=== PATIENT | male | born 1995 | race American Indian/Alaskan Native ===

== ENCOUNTER 2016-07-01 09:13 | Emergency (ER) | payer OTHER ==
[2016-07-01 09:55] VITALS: BP 122/75
[2016-07-01 10:43] LABS: Bilirubin,Urine NEG (Negative); Blood,Urine NEG (Negative); Ketones,Urine NEG (Negative); Leukocyte Esterase,Urine LG (Negative); Mucus,Urine FEW /HPF; Nitrite,Urine NEG (Negative); Protein,Urine <15 mg/dL mg/dL (Negative); Urobilinogen,Urine < 2.0 mg/dL (<2.0)
[2016-07-01] MEDS ORDERED: ZITHROMAX PO ONE (11:27)
[2016-07-01] MEDS ORDERED: ROCEPHIN IM ONE (11:27)
--- NOTE | 2016-07-01 11:33 | Emergency Department Report ---
ED Dysuria HPI - HPI Chief Complaint: Urogenital-Male Stated Complaint: PAINFUL URINATION/NAUSEA AND VOMITING Time Seen by Provider: 07/01/16 11:18 Duration: 3 Days Location of Discomfort: Urethra (dysuria) Severity: Mild Symptoms: Dysuria: Yes, Frequency: No, Suprapubic Pain: No, Flank Pain: No, Fever: No, Hematuria: No, Abdominal Pain: No, Previous UTI's: No Other History: Reports dysuria/discharge x few days. Emesis x 1. No current n/ v. No abd/flank pain. No fevers. ED Review of Systems ROS: Stated complaint: PAINFUL URINATION/NAUSEA AND VOMITING Other details as noted in HPI Comment: All other systems reviewed and negative Constitutional: denies: chills, fever Eyes: denies: eye pain, eye discharge, vision change ENT: denies: ear pain, throat pain Respiratory: denies: cough, shortness of breath, wheezing Cardiovascular: denies: chest pain, palpitations Endocrine: no symptoms reported Gastrointestinal: denies: abdominal pain, nausea, diarrhea Genitourinary: dysuria, discharge. denies: urgency Musculoskeletal: denies: back pain, joint swelling, arthralgia Skin: denies: rash, lesions Neurological: denies: headache, weakness, paresthesias Psychiatric: denies: anxiety, depression Hematological/Lymphatic: denies: easy bleeding, easy bruising ED Past Medical Hx - Past Medical History Previous Medical History?: No - Surgical History Past Surgical History?: No - Social History Smoking Status: Current Every Day Smoker Substance Use Type: None - Medications Home Medications: Home Medications Medication Instructions Recorded Confirmed Last Taken Type Gentamicin 0.3% Ophth Soln 2 drops OP Q4H #1 bottle 06/29/16 Unknown Rx Ibuprofen [Motrin] 600 mg PO Q8H PRN #16 tablet 06/29/16 Unknown Rx Sulfamethoxazole/Trimethoprim 1 each PO BID #14 tablet 07/01/16 Unknown Rx [Bactrim DS TAB] Dysuria Exam - Exam General: Vital signs noted. No distress. Alert and acting appropriately. Heart RRR, lungs CTAB, abdomen SNTND Exam: Yes Moist Mucous Membranes, No CVA Tenderness, No Abdominal Tenderness, No Rigidity or Guarding Labs: Lab Results 07/01/16 Range/Units 10:19 Urine Color Yellow (Yellow) Urine Turbidity Clear (Clear) Urine pH 6.0 (5.0-7.0) Ur Specific [place] 1.013 (1.003-1.030) Urine Protein <15 mg/dl (Negative) mg/dL Urine Glucose (UA) Neg (Negative) mg/dL Urine Ketones Neg (Negative) mg/dL Urine Blood Neg (Negative) Urine Nitrite Neg (Negative) Urine Bilirubin Neg (Negative) Urine Urobilinogen < 2.0 (<2.0) mg/dL Ur Leukocyte Esterase Lg (Negative) Urine WBC (Auto) 62.0 H (0.0-6.0) /HPF Urine RBC (Auto) 3.0 (0.0-6.0) /HPF Urine Mucus Few /HPF ED Course Vital Signs 07/01/16 09:52 Temperature 98.1 F Pulse Rate 65 Respiratory 16 Rate Blood Pressure 122/75 O2 Sat by Pulse 100 Oximetry - Reevaluation(s) Reevaluation #1: 07/01/16 11:29 NAD, stable for d/c. ED Medical Decision Making - Medical Decision Making Pt with UTI/urethritis- will treat. - Differential Diagnosis STI, UTI Critical care attestation.: If time is entered above; I have spent that time in minutes in the direct care of this critically ill patient, excluding procedure time. ED Disposition Clinical Impression: Urethritis Disposition: DISCHARGED TO HOME OR SELFCARE Is pt being admited?: No Condition: Good Instructions: Nonspecific Urethritis in Men (ED) Prescriptions: Sulfamethoxazole/Trimethoprim [Bactrim DS TAB] 1 each PO BID #14 tablet Referrals: PRIMARY CARE, [Primary Care Provider] - 3-5 Days Forms: STI Treatment and Prevention Time of Disposition: 11:33
== END 2016-07-01 11:55 | disposition home or self-care (01) ==
LOC: ED 09:13
DX: N34.2 Other urethritis (principal); F17.200 Nicotine dependence, unspecified, uncomplicated
CPT/HCPCS: 81001; 96372; 99283; J0696

== ENCOUNTER 2017-04-08 06:48 | Inpatient (IN) | payer OTHER ==
[2017-04-08] MEDS ORDERED: NACL 0.9% 1000 ML 1,000 ML IV ONE (06:59)
--- NOTE | 2017-04-08 07:21 | Emergency Department Report ---
HPI - General Chief Complaint: Cardiac Arrest/CPR Time Seen by Provider: 04/08/17 06:59 - HPI HPI: This is a 21-year-old -[place] male presents to the emergency department from snf after going unconscious and having a cardiac arrest. His cellmate allegedly medially started CPR. When EMS got there the patient was pulseless. He received ACLS including multiple defibrillations for V. fib. He received 4 rounds of epinephrine and one of sodium bicarbonate and they had return of spontaneous circulation just prior to presentation. The patient was intubated and given bag valve ventilation. Allegedly the patient does not have any past medical history other than being worked up for some transient hypotension at the facility. ED Past Medical Hx - Past Medical History Previous Medical History?: Yes Additional medical history: Hypotension - Social History Smoking Status: Current Every Day Smoker - Medications Home Medications: Home Medications Medication Instructions Recorded Confirmed Last Taken Type Gentamicin 0.3% Ophth Soln 2 drops OP Q4H #1 bottle 06/29/16 Unknown Rx Ibuprofen [Motrin] 600 mg PO Q8H PRN #16 tablet 06/29/16 Unknown Rx Sulfamethoxazole/Trimethoprim 1 each PO BID #14 tablet 07/01/16 Unknown Rx [Bactrim DS TAB] ED Review of Systems ROS: Stated complaint: CARDIAC ARREST Other details as noted in HPI Comment: Unobtainable due to pts medical conditions Physical Exam - Physical Exam Vital Signs: Vital Signs 04/08/17 06:58 Pulse Rate 94 H Respiratory 16 Rate Blood Pressure 119/90 O2 Sat by Pulse 100 Oximetry Physical Exam: GENERAL: The patient is ill-appearing and unresponsive. HENT: Normocephalic. Atraumatic. Patient has moist mucous membranes. Endotracheal tube and collar in place. EYES: Pupils are sluggish but reactive to light and equal bilaterally. NECK: Supple. Trachea is midline. CHEST/LUNGS: Coarse breath sounds with the chest. There are some shallow agonal spontaneous respirations. HEART/CARDIOVASCULAR: Regular. There is no tachycardia. There is no murmur. ABDOMEN: Abdomen is soft, nontender. Patient has normal bowel sounds. There is no abdominal distention. SKIN: Skin is cool but dry. NEURO: Patient is unresponsive to any stimuli. He does not follow any commands. MUSCULOSKELETAL: There is no obvious deformity. There is no evidence of acute injury. ED Course Vital Signs 04/08/17 06:58 Pulse Rate 94 H Respiratory 16 Rate Blood Pressure 119/90 O2 Sat by Pulse 100 Oximetry - Consultations Consultation #1: I spoke to the coyote hunter electron beam machine welder setter, Dr. Stein, who took a look at the EKGs and agrees that there are some ischemic changes but does not appear as if there is a STEMI or primary cardiac issue requiring emergent catheterization. Dr. Stein plans to do a catheterization this morning assuming there are no other complicating issues. The patient will be admitted to the hospitalist service. 04/08/17 07:20 ED Medical Decision Making - Lab Data Result diagrams: 04/08/17 07:06 04/08/17 07:06 - EKG Data -: EKG Interpreted by Me EKG shows normal: sinus rhythm (ectopic atrial rhythm), axis, intervals, QRS complexes (RSR' to V2), ST-T waves (ST depressions to the lateral leads) Rate: normal - EKG Data When compared to previous EKG there are: previous EKG unavailable Interpretation: other (ectopic atrial rhythm, rate of 80 bpm, RSR' in V2, ST depressions in the anterior lateral leads. No ST elevation DC) - Radiology Data Radiology results: report reviewed, image reviewed interpreted by me: Chest x-ray shows some fluid versus pulmonary contusions to the bilateral lung joseph. No pneumothorax. No obvious rib fractures. CRANIAL CT SCAN: History: Altered mental status. Serial contiguous axial images were obtained through the cranium. Intravenous contrast material was not administered. The ventricles are normal in size and appearance. There is no mass effect or midline shift. No areas of abnormally increased or decreased attenuation are seen. No mass lesion is seen. The mastoid air cells and visualized portions of the sinuses are normal. IMPRESSION: Cranial CT scan within normal limits. Transcribed By: MRP Dictated By: JOEL FERNANDEZ MD Electronically Authenticated By: JOEL FERNANDEZ MD Signed Date/Time: 04/08/17 0732 - Medical Decision Making This patient presented with a return of spontaneous circulation after about 45 minutes of ACLS after the patient collapsed in snf unresponsive. CT of the head did not show any intracranial hemorrhage. The first EKG showed some ischemic changes to the anterolateral region but no ST elevation DC. Cardiology was contacted and agrees that it is not STEMI and code STEMI could be canceled but he will be taken for an emergent heart catheterization. Labs show leukocytosis of 33,000 is most likely reactive to the resuscitation efforts. He has some elevation and the liver enzymes which could be also from the resuscitation efforts or the start of shock liver. Chest x-ray shows what appears to be either some fluid throughout the bilateral lung joseph but also could be underlying pulmonary contusions. He remained intubated and does not require any sedation at this time and remains unresponsive but otherwise his vitals appear to be holding. He will be admitted to the ICU and the hospitalist service has been notified for admission. - Differential Diagnosis DC, PE, intracranial hemorrhage, dysrhythmia Critical Care Time: Yes Critical care time in (mins) excluding proc time.: 35 Critical care attestation.: If time is entered above; I have spent that time in minutes in the direct care of this critically ill patient, excluding procedure time. Critical care time was spent on this patient and doing his initial evaluation, multiple re- evaluations, ordering an interpretation of labs and imaging, discussion with the coyote hunter and hospitalist. Critical Care Time: 35 minutes ED Disposition Clinical Impression: Cardiac arrest, Abnormal EKG, Elevated liver enzymes, Unresponsive Leukocytosis Qualifiers: Leukocytosis type: unspecified Qualified Code(s): D72.829 - Elevated white blood cell count, unspecified Disposition: DC-09 OP ADMIT IP TO THIS HOSP Is pt being admited?: Yes Condition: Critical Time of Disposition: 09:43
[2017-04-08] MEDS ORDERED: ASPIRIN PR ONE (07:22)
[2017-04-08 07:26] LABS: Hematocrit 43.2 % (35.5-45.6); Hemoglobin 14.3 gm/dl (11.8-15.2); Mean Corpuscular HGB Conc 33 % (32-34); Mean Corpuscular Hemoglobin 30 pg (28-32); Mean Corpuscular Volume 90 fl (84-94); Platelet Count 174 K/mm3 (140-440); Red Blood Count 4.81 M/mm3 (3.65-5.03); Red Cell Distribution Width 13.8 % (13.2-15.2)
[2017-04-08 07:30] LABS: White Blood Count 33.2 K/mm3 (4.5-11.0)
[2017-04-08 07:39] LABS: INR 1.27 (0.87-1.13)
[2017-04-08 07:40] LABS: Partial Thromboplastin Time 51.7 Sec. (24.2-36.6)
--- NOTE | 2017-04-08 07:49 | Cat Scan Report ---
CRANIAL CT SCAN: History: Altered mental status. Serial contiguous axial images were obtained through the cranium. Intravenous contrast material was not administered. The ventricles are normal in size and appearance. There is no mass effect or midline shift. No areas of abnormally increased or decreased attenuation are seen. No mass lesion is seen. The mastoid air cells and visualized portions of the sinuses are normal. IMPRESSION: Cranial CT scan within normal limits.
[2017-04-08 07:52] LABS: Alanine Aminotransferase 223 units/L (7-56); Albumin 3.2 g/dL (3.9-5); Albumin/Globulin Ratio 1.3 %; Alkaline Phosphatase 83 units/L (35-129); Anion Gap 30 mmol/L; BUN/Creatinine Ratio 8; Blood Urea Nitrogen 11 mg/dL (9-20); Calcium 7.2 mg/dL (8.4-10.2); Carbon Dioxide 15 mmol/L (22-30); Chloride 98.4 mmol/L (98-107); Glucose 336 mg/dL (75-100); Potassium 3.5 mmol/L (3.6-5.0); Sodium 140 mmol/L (137-145); Total Protein 5.7 g/dL (6.3-8.2)
[2017-04-08 08:00] LABS: Urine Drugs of Abuse Note Disclamer
[2017-04-08 08:12] LABS: Bilirubin,Urine NEG (Negative); Blood,Urine NEG (Negative); Ketones,Urine NEG (Negative); Leukocyte Esterase,Urine NEG (Negative); Mucus,Urine FEW /HPF; Nitrite,Urine NEG (Negative); Protein,Urine <15 mg/dL mg/dL (Negative); Urobilinogen,Urine < 2.0 mg/dL (<2.0)
[2017-04-08] MEDS ORDERED: CALAN ONE (08:16)
[2017-04-08] MEDS ORDERED: HEPARIN 10,000 UNITS/10 ML ONE (08:16)
[2017-04-08] MEDS ORDERED: XYLOCAINE 2% INFILTRATI ONE ×2 (08:16→14:00)
[2017-04-08] MEDS ORDERED: HEPARIN/NS 5000 UNIT/500ML(CATH LAB) 1,000 ML IR ONE (08:16)
[2017-04-08] MEDS ORDERED: NITROGLYCERIN SYRINGE 3 ML ONE (08:16)
[2017-04-08] MEDS ORDERED: NACL 0.9% 500 ML 0 ML ONE (08:17)
[2017-04-08] MEDS ORDERED: ADRENALIN ONE (08:27)
[2017-04-08 08:30] LABS: Cholesterol 139 mg/dL (50-199); HDL Cholesterol 46 mg/dL (40-59); LDL Cholesterol,Direct 71 mg/dL (50-130); Triglycerides 110 mg/dL (2-149)
[2017-04-08] MEDS ORDERED: ZEMURON IV ONE (08:39)
--- NOTE | 2017-04-08 09:04 | Event Note ---
Date: 04/08/17 Detailed cardiology consultation dictated. Pt is a 21 YO male with no known significant past medical history. Pt is an inmate who reportedly suffered a cardiac arrest in his care home cell this AM. His cellmate allegedly started CPR. On EMS arrival, the patient was found to be pulseless and thus received ACLS including multiple defibrillations for VF and was intubated. EKG following arrival was concerning for STEMI and pt was taken to energy systems laboratory director for emergent coronary angiogram. Pt s/p LHC which revealed normal coronaries, normal LVEF. Pt remains intubated and is to be admitted per hospitalists to CCU. Will obtain echo. Further recommendations to follow per hospital course. Nena HARRIS NP / DR. Arjun ZAMORA
[2017-04-08] MEDS ORDERED: ZOFRAN IV PRN (09:05)
[2017-04-08] MEDS ORDERED: MORPHINE IV PRN (09:05)
--- NOTE | 2017-04-08 09:12 | Cardiac Catherization Report ---
CARDIAC CATHETERIZATION REFERRING PHYSICIAN: Dr. Pizarro in the Emergency Room. INDICATION FOR PROCEDURE: The patient is a 21-year-old -[place] gentleman, who was found down [facility]. Unclear circumstances, underwent VF arrest followed by some 45 minutes of resuscitation efforts via ACLS protocol, brought to the Emergency Room, intubated. Initial EKG shows questionable ST depression and ST elevation in AVR. Head CT is negative for intracranial hemorrhage and he is referred for urgent left heart catheterization. PROCEDURE IN DETAIL: The patient was brought to the operations label clerk in an urgent fashion, prepped and draped in sterile fashion. His Evans's test was normal. A 2 mL of 2% lidocaine used to anesthetize the right wrist. A standard 6-Telugu hydrophilic sheath used to cannulate the right radial artery via modified Seldinger technique. All exchanges performed to exchange a J-tip guidewire. JL3.5 catheter used to engage left main. No dampening or ventricularization. Cineangiography performed in all projections. JR4 catheter used to cross the aortic valve under fluoroscopic guidance. Left ventriculography performed in 30 GENTILE and 30 INDONESIAN projections via hand injections, catheter flushed. Manual pullback performed with continuous pressure monitoring. Catheter used to engage the right coronary. No dampening or ventricularization. Cineangiography performed in all projections. Next, catheter removed from the body of wire, sheath removed. Manual pressure used to achieve hemostasis. DATA: Aortic pressure is 150/90, LV pressure is 150, LVP of 22 mmHg. Left ventriculography revealed borderline to low normal systolic performance with an estimated ejection fraction of 50% to 55%. No evidence of aortic stenosis. CORONARY ANATOMY: This is a codominant system. Right coronary is a moderate sized vessel, courses AV groove, distally bifurcates in the posterior descending and posterolateral branch. No discrete stenosis identified. Left main without significant disease, bifurcates LAD and left circumflex. LAD is a moderate sized vessel, courses anterior intergroove, wraps around the apex, no significant disease. Left circumflex, moderate sized vessel, courses AV groove. No significant disease. The patient remained in normal sinus rhythm and normotensive without dysrhythmias throughout the procedure. CONCLUSIONS: 1. No angiographic evidence of significant epicardial coronary disease in this codominant system. 2. Low normal systolic performance with estimated ejection fraction of 50% to 55%. 3. No evidence of aortic stenosis. Standard radial care, etiology of his arrest is unclear. It is unlikely to be due to primary coronary insufficiency. The circumstances of the arrest are still not entirely known. Check an echocardiogram. He will be admitted to ICU and by the lock corner machine operator team will continue to follow along. JOB# [id number] SBM/NTS
--- NOTE | 2017-04-08 09:33 | History and Physical Report ---
<CONY ROMERO - Last Filed: 04/08/17 13:26> History of Present Illness Date of examination: 04/08/17 Date of admission: 04/08/2017 Chief complaint: cardiac arrest History of present illness: Patient is a 21 years old male with no known significant past medical history who presents to the emergency department from long-term after going unconscious and having a cardiac arrest. Patient found to have acute hypoxic and hypercapnic respiratory failure, unable to protect his airway,intubated and sedated; therefore unable to obtain detailed history. Per ER physican and charts patient's inmate who reportedly suffered a cardiac arrest in his long-term cell this morning and cellmate allegedly started CPR. On EMS arrival, the patient was found to be pulseless and thus received ACLS and shocked 15 times for VF and was intubated. Patient when he got to emergency department was taken straight to packing house laborer coronary angiogram concerning for STEM. S/p LHC which revealed normal coronaries, normal LVEF per cardiology. No reports of fever, chills, chest pain, trauma or recent ill contacts. Past History Past Medical History: other (unable to obtain due to patients mental status ) Medications and Allergies Allergies Allergy/AdvReac Type Severity Reaction Status Date / Time No Known Allergies Allergy Unverified 06/29/16 06:47 Home Medications Medication Instructions Recorded Confirmed Last Taken Type Gentamicin 0.3% Ophth Soln 2 drops OP Q4H #1 bottle 06/29/16 Unknown Rx Ibuprofen [Motrin] 600 mg PO Q8H PRN #16 tablet 06/29/16 Unknown Rx Sulfamethoxazole/Trimethoprim 1 each PO BID #14 tablet 07/01/16 Unknown Rx [Bactrim DS TAB] Active Meds: Active Medications Acetaminophen (Tylenol) 650 mg PO Q4H PRN PRN Reason: Pain MILD(1-3)/Fever >100.5/MONTOYA Bisacodyl (Dulcolax) 10 mg MI QDAY PRN PRN Reason: Constipation unrelieved by [facility] [place] Heparin Sodium (Porcine) (Heparin) 5,000 unit SUB-Q Q12HR LEIA Morphine Sulfate (Morphine) 2 mg IV Q4H PRN PRN Reason: Pain, Moderate (4-6) Ondansetron HCl (Zofran) 4 mg IV Q8H PRN PRN Reason: N/V unrelieved by Reglan Review of Systems ROS unobtainable: due to mental status (unable to obtain due to patients mental status ) Exam - Constitutional Vitals: Temp Pulse Resp BP Pulse Ox 94.4 F L 78 22 127/94 99 04/08/17 07:30 04/08/17 07:30 04/08/17 07:30 04/08/17 07:30 04/08/17 07:30 General appearance: Present: severe distress, other ( Unable to protect his airway,intubated and sedated;) - Neck Neck: Present: supple - Respiratory Respiratory effort: normal Respiratory: bilateral: diminished - Cardiovascular Rhythm: regular Heart Sounds: Present: S1 & S2 - Abdominal General gastrointestinal: Present: soft, non-tender Male genitourinary: Present: deferred - Rectal Rectal Exam: deferred - Integumentary Integumentary: Present: clear, warm, dry - Musculoskeletal Musculoskeletal: right sided weakness, left sided weakness - Psychiatric Psychiatric: other ( unable to protect his airway,intubated and sedated;) - Neurologic Neurologic: other ( unable to protect his airway,intubated and sedated;) Results - Labs CBC & Chem 7: 04/08/17 12:10 04/08/17 12:10 Labs: Laboratory Last Values WBC 33.2 K/mm3 (4.5-11.0) H 04/08/17 07:06 RBC 4.81 M/mm3 (3.65-5.03) 04/08/17 07:06 Hgb 14.3 gm/dl (11.8-15.2) 04/08/17 07:06 Hct 43.2 % (35.5-45.6) 04/08/17 07:06 MCV 90 fl (84-94) 04/08/17 07:06 MCH 30 pg (28-32) 04/08/17 07:06 MCHC 33 % (32-34) 04/08/17 07:06 RDW 13.8 % (13.2-15.2) 04/08/17 07:06 Plt Count 174 K/mm3 (140-440) 04/08/17 07:06 Lymph # Accelerator Systems Director 04/08/17 07:06 PT 16.5 Sec. (12.2-14.9) H 04/08/17 07:06 INR 1.27 (0.87-1.13) H 04/08/17 07:06 APTT 51.7 Sec. (24.2-36.6) H 04/08/17 07:06 Sodium 140 mmol/L (137-145) 04/08/17 07:06 Potassium 3.5 mmol/L (3.6-5.0) L 04/08/17 07:06 Chloride 98.4 mmol/L (98-107) 04/08/17 07:06 Carbon Dioxide 15 mmol/L (22-30) L 04/08/17 07:06 Anion Gap 30 mmol/L 04/08/17 07:06 BUN 11 mg/dL (9-20) 04/08/17 07:06 Creatinine 1.4 mg/dL (0.8-1.5) 04/08/17 07:06 Estimated GFR > 60 ml/min 04/08/17 07:06 BUN/Creatinine Ratio 8 % 04/08/17 07:06 Glucose 336 mg/dL (75-100) H 04/08/17 07:06 POC Glucose 193 (70-105) H 04/08/17 09:22 Calcium 7.2 mg/dL (8.4-10.2) L 04/08/17 07:06 Total Bilirubin 0.30 mg/dL (0.1-1.2) 04/08/17 07:06 AST 265 units/L (5-40) H 04/08/17 07:06 ALT 223 units/L (7-56) H 04/08/17 07:06 Alkaline Phosphatase 83 units/L (35-129) 04/08/17 07:06 Total Creatine Kinase 623 units/L (55-170) H 04/08/17 07:06 Troponin T 0.321 ng/mL (0.00-0.029) H* 04/08/17 07:06 Total Protein 5.7 g/dL (6.3-8.2) L 04/08/17 07:06 Albumin 3.2 g/dL (3.9-5) L 04/08/17 07:06 Albumin/Globulin Ratio 1.3 % 04/08/17 07:06 Triglycerides 110 mg/dL (2-149) 04/08/17 07:06 Cholesterol 139 mg/dL (50-199) 04/08/17 07:06 LDL Cholesterol Direct 71 mg/dL (50-130) 04/08/17 07:06 HDL Cholesterol 46 mg/dL (40-59) 04/08/17 07:06 Cholesterol/HDL Ratio 3.02 % 04/08/17 07:06 Urine Bilirubin Neg (Negative) 04/08/17 07:59 Urine RBC (Auto) 9.0 /HPF (0.0-6.0) 04/08/17 07:59 Blood Type O POSITIVE 04/08/17 07:05 Antibody Screen Negative 04/08/17 07:05 - Imaging and Cardiology Chest x-ray: image reviewed (pulmonary edema versus bilateral pneumonia.) CT Scan - head: image reviewed (unremarkable ) Assessment and Plan Assessment and plan: Patient is a 21 years old male with no known significant past medical history who presents to the emergency department from long-term after going unconscious and having a cardiac arrest. Patient found to have acute hypoxic and hypercapnic respiratory failure, unable to protect his airway,intubated and sedated; therefore unable to obtain detailed history. Per ER physican and charts patient's inmate who reportedly suffered a cardiac arrest in his long-term cell this morning and cellmate allegedly started CPR. Acute hypoxic and hypercapnic respiratory failure Most likely due to CHF VS sepsis Patient currently intubated . No respiratory distress noted. ABG when necessary for follow-up ABGs and monitor acidosis Continue vent weaning. PSV trials. Monitor secretions and suction as needed Managed by Pulmonology Supportive care Acute Encephalopathy Secondary to Acute hypoxic and hypercapnic respiratory failure intubated and sedated Treat underline cause Status Epilepticus Started on IV Keppera Frequent neuro checks. We will obtain EEG Ativan when necessary Implement seizure precautions Neurology consulted Supportive care Severe Sepsis Blood cultures collected prior to antibiotic Follow Blood cultures Aggressive IV fluid resuscitation Initiated empiric IV zosyn and vancomycin Supportive care Lactic acid acidosis Most likely Reactive to respiratory distress Mild Malnutrition Nutrition consult Suspected STEMI (ST elevation myocardial infarction) elevation Troponin labeling strategist coronary angiogram concerning for STEM. S/p LHC which revealed normal coronaries, normal LVEF per cardiology Cardiology consult Hypokalemia replaced closely monitor DVT prophylaxis Lovenox Advance Directives: Yes VTE prophylaxis?: Chemical Contraindication Mechanical VTE Prophylaxis: Contraindicated Plan of care discussed with patient/family: Yes <SABINA ALEJO - Last Filed: 04/08/17 16:34> History of Present Illness Date of admission: 04/08/17 09:34 Medications and Allergies Active Meds: Active Medications Acetaminophen (Tylenol) 650 mg PO Q4H PRN PRN Reason: Pain MILD(1-3)/Fever >100.5/MONTOYA Albuterol/Ipratropium (Duoneb *Not For Prn Use*) 1 ampul IH Q6HRT LEIA Last Admin: 04/08/17 13:55 Dose: 1 ampul Bisacodyl (Dulcolax) 10 mg MI QDAY PRN PRN Reason: Constipation unrelieved by MOM Heparin Sodium (Porcine) (Heparin) 5,000 unit SUB-Q Q12HR LEIA Last Admin: 04/08/17 15:33 Dose: Not Given Sodium Bicarbonate 150 meq/ (Dextrose) 1,150 mls @ 75 mls/hr IV DIRECT LEIA Levetiracetam 750 mg/ Sodium (Chloride) 107.5 mls @ 400 mls/hr IV Q12HR LEIA Last Admin: 04/08/17 13:16 Dose: 400 mls/hr Piperacillin Sod/Tazobactam Sod (Zosyn/Ns 4.5gm/100ml) 4.5 gm in 100 mls @ 200 mls/hr IV Q6HR LEIA PRN Reason: Protocol Lorazepam 100 mg/ Sodium Chloride/ Miscellaneous Information 100 mls @ 1 mls/ hr IV TITR LEIA; 1 MG/HR PRN Reason: Protocol Last Admin: 04/08/17 11:50 Dose: 1 mg/hr, 1 mls/hr Vancomycin HCl (Vancomycin/Ns 1 Gm/250 Ml) 1 gm in 250 mls @ 166.667 mls/hr IV Q8H LEIA Potassium Chloride (Kcl 10meq/100ml) 10 meq in 100 mls @ 100 mls/hr IV Q1H LEIA Stop: 04/08/17 16:59 Dopamine HCl/Dextrose (Intropin Drip 800 Mg/D5w 250 Ml) 800 mg in 250 mls @ 2.551 mls/hr IV TITR LEIA; 2 MCG/KG/MIN PRN Reason: Protocol Lorazepam (Ativan) 1 mg IV Q1H PRN PRN Reason: Seizures Morphine Sulfate (Morphine) 2 mg IV Q4H PRN PRN Reason: Pain, Moderate (4-6) Ondansetron HCl (Zofran) 4 mg IV Q8H PRN PRN Reason: N/V unrelieved by Ana Vancomycin HCl (Vancomycin Pharmacy To Dose) 1 each IV PKCONSULT LEIA PRN Reason: Protocol Exam - Constitutional Vitals: Temp Pulse Resp BP Pulse Ox 99.0 F 103 H 30 H 91/59 98 04/08/17 16:00 04/08/17 14:24 04/08/17 14:24 04/08/17 13:30 04/08/17 15:10 Results - Labs CBC & Chem 7: 04/08/17 12:10 04/08/17 12:10 Labs: Laboratory Last Values WBC 21.6 K/mm3 (4.5-11.0) H 04/08/17 12:10 RBC 5.69 M/mm3 (3.65-5.03) H 04/08/17 12:10 Hgb 16.1 gm/dl (11.8-15.2) H 04/08/17 12:10 Hct 50.4 % (35.5-45.6) H D 04/08/17 12:10 MCV 89 fl (84-94) 04/08/17 12:10 MCH 28 pg (28-32) 04/08/17 12:10 MCHC 32 % (32-34) 04/08/17 12:10 RDW 13.8 % (13.2-15.2) 04/08/17 12:10 Plt Count 225 K/mm3 (140-440) 04/08/17 12:10 Lymph # Accelerator Systems Director 04/08/17 07:06 Add Manual Diff Complete 04/08/17 12:10 Total Counted 100 04/08/17 12:10 Seg Neuts % (Manual) 86.0 % (40.0-70.0) H 04/08/17 12:10 Band Neutrophils % 7.0 % 04/08/17 12:10 Lymphocytes % (Manual) 5.0 % (13.4-35.0) L 04/08/17 12:10 Reactive Lymphs % (Man) 0 % 04/08/17 12:10 Monocytes % (Manual) 2.0 % (0.0-7.3) 04/08/17 12:10 Eosinophils % (Manual) 0 % (0.0-4.3) 04/08/17 12:10 Basophils % (Manual) 0 % (0.0-1.8) 04/08/17 12:10 Metamyelocytes % 0 % 04/08/17 12:10 Myelocytes % 0 % 04/08/17 12:10 Promyelocytes % 0 % 04/08/17 12:10 Blast Cells % 0 % 04/08/17 12:10 Nucleated RBC % Not Reportable 04/08/17 12:10 Seg Neutrophils # Man 18.6 K/mm3 (1.8-7.7) H 04/08/17 12:10 Band Neutrophils # 1.5 K/mm3 04/08/17 12:10 Lymphocytes # (Manual) 1.1 K/mm3 (1.2-5.4) L 04/08/17 12:10 Abs React Lymphs (Man) 0.0 K/mm3 04/08/17 12:10 Monocytes # (Manual) 0.4 K/mm3 (0.0-0.8) 04/08/17 12:10 Eosinophils # (Manual) 0.0 K/mm3 (0.0-0.4) 04/08/17 12:10 Basophils # (Manual) 0.0 K/mm3 (0.0-0.1) 04/08/17 12:10 Metamyelocytes # 0.0 K/mm3 04/08/17 12:10 Myelocytes # 0.0 K/mm3 04/08/17 12:10 Promyelocytes # 0.0 K/mm3 04/08/17 12:10 Blast Cells # 0.0 K/mm3 04/08/17 12:10 WBC Morphology Not Reportable 04/08/17 12:10 Hypersegmented Neuts Not Reportable 04/08/17 12:10 Hyposegmented Neuts Not Reportable 04/08/17 12:10 Hypogranular Neuts Not Reportable 04/08/17 12:10 Smudge Cells Not Reportable 04/08/17 12:10 Toxic Granulation Not Reportable 04/08/17 12:10 Toxic Vacuolation Not Reportable 04/08/17 12:10 Dohle Bodies Not Reportable 04/08/17 12:10 Pelger-Huet Anomaly Not Reportable 04/08/17 12:10 Brook Rods Not Reportable 04/08/17 12:10 Platelet Estimate Appears normal 04/08/17 12:10 Clumped Platelets Not Reportable 04/08/17 12:10 Plt Clumps, EDTA Not Reportable 04/08/17 12:10 Large Platelets Not Reportable 04/08/17 12:10 Giant Platelets Not Reportable 04/08/17 12:10 Platelet Satelliting Not Reportable 04/08/17 12:10 Plt Morphology Comment Not Reportable 04/08/17 12:10 RBC Morphology Not Reportable 04/08/17 12:10 Dimorphic RBCs Not Reportable 04/08/17 12:10 Polychromasia Rare 04/08/17 12:10 Hypochromasia Not Reportable 04/08/17 12:10 Poikilocytosis Not Reportable 04/08/17 12:10 Anisocytosis 1+ 04/08/17 12:10 Microcytosis Not Reportable 04/08/17 12:10 Macrocytosis Not Reportable 04/08/17 12:10 Spherocytes Not Reportable 04/08/17 12:10 Pappenheimer Bodies Not Reportable 04/08/17 12:10 Sickle Cells Not Reportable 04/08/17 12:10 Target Cells Not Reportable 04/08/17 12:10 Tear Drop Cells Not Reportable 04/08/17 12:10 Ovalocytes Few 04/08/17 12:10 Helmet Cells Not Reportable 04/08/17 12:10 Rosenberg-[place] Bodies Not Reportable 04/08/17 12:10 Nerinx Rings Not Reportable 04/08/17 12:10 [place] Cells 1+ 04/08/17 12:10 Bite Cells Not Reportable 04/08/17 12:10 Crenated Cell Not Reportable 04/08/17 12:10 Elliptocytes Not Reportable 04/08/17 12:10 Acanthocytes (Spur) Not Reportable 04/08/17 12:10 Rouleaux Not Reportable 04/08/17 12:10 Hemoglobin C Crystals Not Reportable 04/08/17 12:10 Schistocytes Not Reportable 04/08/17 12:10 Malaria parasites Not Reportable 04/08/17 12:10 Ever Bodies Not Reportable 04/08/17 12:10 Hem Pathologist Commnt No 04/08/17 12:10 PT 16.5 Sec. (12.2-14.9) H 04/08/17 07:06 INR 1.27 (0.87-1.13) H 04/08/17 07:06 APTT 51.7 Sec. (24.2-36.6) H 04/08/17 07:06 POC ABG pH 7.287 (7.35-7.45) L 04/08/17 15:02 POC ABG pCO2 37.4 (35-45) 04/08/17 15:02 POC ABG pO2 196 (80-105) H 04/08/17 15:02 POC ABG HCO3 17.9 04/08/17 15:02 POC ABG Total CO2 19 04/08/17 15:02 POC ABG O2 Sat 100 04/08/17 15:02 POC ABG Base Excess -9 04/08/17 15:02 FiO2 60 % 04/08/17 15:02 Sodium 143 mmol/L (137-145) 04/08/17 12:10 Potassium 3.4 mmol/L (3.6-5.0) L 04/08/17 12:10 Chloride 101.3 mmol/L (98-107) 04/08/17 12:10 Carbon Dioxide 21 mmol/L (22-30) L 04/08/17 12:10 Anion Gap 24 mmol/L 04/08/17 12:10 BUN 11 mg/dL (9-20) 04/08/17 12:10 Creatinine 1.1 mg/dL (0.8-1.5) 04/08/17 12:10 Estimated GFR > 60 ml/min 04/08/17 12:10 BUN/Creatinine Ratio 10 % 04/08/17 12:10 Glucose 182 mg/dL (75-100) H 04/08/17 12:10 POC Glucose 193 (70-105) H 04/08/17 09:22 Lactic Acid 9.00 mmol/L (0.7-2.0) H* 04/08/17 11:33 Calcium 7.5 mg/dL (8.4-10.2) L 04/08/17 12:10 Total Bilirubin 0.30 mg/dL (0.1-1.2) 04/08/17 07:06 AST 265 units/L (5-40) H 04/08/17 07:06 ALT 223 units/L (7-56) H 04/08/17 07:06 Alkaline Phosphatase 83 units/L (35-129) 04/08/17 07:06 Total Creatine Kinase 623 units/L (55-170) H 04/08/17 07:06 Troponin T 2.330 ng/mL (0.00-0.029) H* 04/08/17 13:32 Total Protein 5.7 g/dL (6.3-8.2) L 04/08/17 07:06 Albumin 3.2 g/dL (3.9-5) L 04/08/17 07:06 Albumin/Globulin Ratio 1.3 % 04/08/17 07:06 Triglycerides 110 mg/dL (2-149) 04/08/17 07:06 Cholesterol 139 mg/dL (50-199) 04/08/17 07:06 LDL Cholesterol Direct 71 mg/dL (50-130) 04/08/17 07:06 HDL Cholesterol 46 mg/dL (40-59) 04/08/17 07:06 Cholesterol/HDL Ratio 3.02 % 04/08/17 07:06 Urine Color Margie (Yellow) 04/08/17 12:10 Urine Turbidity Hazy (Clear) 04/08/17 12:10 Urine pH 6.0 (5.0-7.0) 04/08/17 12:10 Ur Specific [place] 1.044 (1.003-1.030) H 04/08/17 12:10 Urine Protein 100 mg/dl mg/dL (Negative) 04/08/17 12:10 Urine Glucose (UA) 50 mg/dL (Negative) 04/08/17 12:10 Urine Ketones Tr mg/dL (Negative) 04/08/17 12:10 Urine Blood Mod (Negative) 04/08/17 12:10 Urine Nitrite Neg (Negative) 04/08/17 12:10 Urine Bilirubin Neg (Negative) 04/08/17 12:10 Urine Urobilinogen < 2.0 mg/dL (<2.0) 04/08/17 12:10 Ur Leukocyte Esterase Neg (Negative) 04/08/17 12:10 Urine WBC (Auto) 18.0 /HPF (0.0-6.0) H 04/08/17 12:10 Urine RBC (Auto) 8.0 /HPF (0.0-6.0) 04/08/17 12:10 Urine Bacteria (Auto) 1+ /HPF (Negative) 04/08/17 12:10 Hyaline Casts 1 /LPF 04/08/17 07:59 Granular Casts 79 /LPF 04/08/17 12:10 Urine Mucus Few /HPF 04/08/17 12:10 Urine Opiates Screen Presumptive negative 04/08/17 07:59 Urine Methadone Screen Presumptive negative 04/08/17 07:59 Ur Barbiturates Screen Presumptive negative 04/08/17 07:59 Ur Phencyclidine Scrn Presumptive negative 04/08/17 07:59 Ur Amphetamines Screen Presumptive negative 04/08/17 07:59 U Benzodiazepines Scrn Presumptive negative 04/08/17 07:59 Urine Cocaine Screen Presumptive negative 04/08/17 07:59 U Marijuana (THC) Screen Presumptive negative 04/08/17 07:59 Drugs of Abuse Note Disclamer 04/08/17 07:59 HIV 1&2 Antibody Rapid Non react (Non React) 04/08/17 12:10 HIV P24 Antigen Non react (Non React) 04/08/17 12:10 Blood Type O POSITIVE 04/08/17 07:05 Antibody Screen Negative 04/08/17 07:05 Assessment and Plan Assessment and plan: I saw and evaluated the patient. I agree with the findings and the plan of care as documented in the Nurse Practitioner's H/P The high probability of a clinically significant, sudden or life threatening deterioration of the [Neurology, Respiratory] system(s) required my full and direct attention, intervention and personal management. The aggregate critical care time was [31] minutes. This time is in addition to time spent performing reported procedures but includes the following: [x] Data Review and interpretation [x] Patient assessment and monitoring of vital signs [x] Documentation [x] Medication orders and managementnote. Advance Directives: No VTE prophylaxis?: Chemical Plan of care discussed with patient/family: No
[2017-04-08] MEDS ORDERED: INTROPIN DRIP 800 MG/D5W 250 ML 800 MG/250 ML BAG IV ONE (09:42)
[2017-04-08] MEDS ORDERED: ATIVAN ONE ×2 (09:53→10:14)
[2017-04-08] MEDS ORDERED: NACL 0.9% 1000 ML 1,000 ML ONE (09:54)
[2017-04-08] MEDS ORDERED: ATIVAN IV ONE ×2 (09:55→11:00)
[2017-04-08 09:56] LABS: Basophils % (Manual) 0 % (0.0-1.8); Blastocytes % (Manual) 0 %; Eosinophils % (Manual) 0 % (0.0-4.3)
[2017-04-08 09:57] LABS: Anisocytosis 1+; Burr Cells Few; Diff Status Complete; Ovalocytes Few; Platelet Estimate Consistent w Auto; Polychromasia Rare
[2017-04-08] MEDS ORDERED: NACL 0.9% 500 ML 500 ML ONE ×3 (09:59→19:40)
[2017-04-08 10:17] LABS: ISTAT Base Excess -8; ISTAT HCO3 21.4; ISTAT PCO2 68.1 (35-45); ISTAT PH 7.105 (7.35-7.45); ISTAT PO2 256 (80-105); ISTAT SITE 2; ISTAT SO2 100; ISTAT TCO2 23
[2017-04-08] MEDS ORDERED: DIPRIVAN 10 MG/ML 1,000 MG/100 ML BOTTLE IV ONE (10:34)
[2017-04-08] MEDS ORDERED: CEREBYX IV ONE (10:35)
[2017-04-08] MEDS ORDERED: ATIVAN IV PRN (10:36)
[2017-04-08] MEDS ORDERED: DULCOLAX PR PRN (10:41)
--- NOTE | 2017-04-08 10:45 | XRay Report ---
AP chest x-ray. History: Chest pain. Findings: The heart is normal in size. Bilateral perihilar airspace disease is present. An endotracheal tube is in satisfactory position. Impression: Pulmonary edema versus bilateral pneumonia.
--- NOTE | 2017-04-08 10:46 | XRay Report ---
AP chest x-ray. History: Cardiac arrest. Findings: Bilateral perihilar airspace disease is unchanged. The endotracheal tube is in satisfactory position. No new finding since the earlier chest x-ray on today's date.
[2017-04-08] MEDS ORDERED: VANCOMYCIN PHARMACY TO DOSE IV SCH (11:00)
[2017-04-08] MEDS ORDERED: ATIVAN 100 MG in NACL 0.9% 50 ML, VIAFLEX EMPTY CONTAINER 0 ML IV SCH (11:00)
[2017-04-08] MEDS ORDERED: SODIUM BICARBONATE 150 MEQ in D5W 1,000 ML IV SCH (11:00)
[2017-04-08] MEDS ORDERED: CEREBYX 1,000 MG.PE in NACL 0.9% 100 ML IV ONE (11:00)
[2017-04-08] MEDS ORDERED: DUONEB *Not for PRN Use IH ONE ×2 (11:02→11:15)
[2017-04-08 11:21] LABS: ISTAT Base Excess -10; ISTAT PCO2 46.3 (35-45); ISTAT PH 7.197 (7.35-7.45); ISTAT PO2 68 (80-105); ISTAT SO2 88; ISTAT TCO2 19
--- NOTE | 2017-04-08 11:23 | Consultation ---
REASON FOR CONSULTATION: Advice or opinion regarding cardiac arrest. HISTORY OF PRESENT ILLNESS: The patient is an unfortunate 21-year-old gentleman who was found down at the [facility] post-cardiac arrest. The circumstances of his arrest are unknown. Apparently, he was resuscitated for some 45 minutes. I was called by Dr. Pizarro in the Emergency Room regarding his post return of spontaneous circulation. EKG which shows diffuse ST depression and ST elevation AVR. Normal blood pressure. Head CT negative for head bleed. Given the unknown circumstances and unknown length of the overall arrest in his young age, we decided to proceed with urgent left heart catheterization post-cardiac arrest. Unable to obtain social history, medical history, and allergy history due to the patient is being intubated. No family available. PHYSICAL EXAMINATION: VITAL SIGNS: Blood pressure is 140/80. He is afebrile. Tele reveals sinus rhythm. O2 sats 100% on ventilator. GENERAL: He is intubated and sedated. HEENT: Sclerae anicteric. Pupils are pinpoint, nonreactive. NECK: Supple, no masses, no JVD. CHEST: Clear to auscultation bilaterally. Good air movement. CARDIOVASCULAR: Regular rhythm. S1-S2. ABDOMEN: Soft, nontender, nondistended. Normoactive bowel sounds in 4 quadrants. No mass or bruits. EXTREMITIES: No cyanosis, clubbing, or edema. Good peripheral pulses. SKIN: Warm and intact. No rashes. DATA: EKG is aforementioned. LABORATORY DATA: Pending. ASSESSMENT AND PLAN: In summary, the patient is a 21-year-old gentleman status post cardiac arrest per ER documented VF at [facility] now with suspicious EKG after return of spontaneous circulation with diffuse ST depression and ST elevation in AVR. Proceed with urgent left heart catheterization. Further plans contingent on these results. I discussed with ER team. Omari are here at the bedside as well. JOB# [id number] SBM/NTS
--- NOTE | 2017-04-08 11:44 | Cardiac Catherization Report ---
PROCEDURE PERFORMED: 1. Right femoral arterial access and sheath via modified Seldinger technique. 2. Right femoral venous access and sheath via modified Seldinger technique. INDICATION FOR PROCEDURE: The patient is a pleasant 21-year-old -[place] gentleman who presented with cardiac arrest, underwent a left heart catheterization over an hour ago, which revealed normal coronaries and near normal LV function, subsequently upon awaiting intubated and sedated subsequently upon awaiting a bed in the ICU had a brief episode of hypotension and PA, which was approximately 20 seconds or so, witnessed, urgently and under sterile technique, I placed a right femoral arterial sheath and the right femoral venous sheath. The patient was started on open fluids and IV dopamine, resumption of pulse. The patient is hemodynamically improved, intubated, seizure activity is noted. Ativan is given. I discussed this with the primary physician, crop roller has also been consulted. is at bedside as well. We will follow closely. Echocardiogram pending. JOB# [id number] SBM/NTS
[2017-04-08] MEDS ORDERED: VANCOMYCIN 1,500 MG in NACL 0.9% 500 ML 500 ML IV ONE (12:00)
[2017-04-08 12:34] LABS: Hematocrit 50.4 % (35.5-45.6); Hemoglobin 16.1 gm/dl (11.8-15.2); Mean Corpuscular HGB Conc 32 % (32-34); Mean Corpuscular Hemoglobin 28 pg (28-32); Mean Corpuscular Volume 89 fl (84-94); Platelet Count 225 K/mm3 (140-440); Red Blood Count 5.69 M/mm3 (3.65-5.03); Red Cell Distribution Width 13.8 % (13.2-15.2)
[2017-04-08 12:38] LABS: White Blood Count 21.6 K/mm3 (4.5-11.0)
[2017-04-08 12:45] LABS: Bacteria,Urine 1+ /HPF (Negative); Bilirubin,Urine NEG (Negative); Blood,Urine MOD (Negative); Granular Casts,Urine 79 /LPF; Ketones,Urine TR mg/dL (Negative); Leukocyte Esterase,Urine NEG (Negative); Mucus,Urine FEW /HPF; Nitrite,Urine NEG (Negative); Urobilinogen,Urine < 2.0 mg/dL (<2.0)
[2017-04-08 12:46] LABS: Anion Gap 24 mmol/L; BUN/Creatinine Ratio 10; Blood Urea Nitrogen 11 mg/dL (9-20); Calcium 7.5 mg/dL (8.4-10.2); Carbon Dioxide 21 mmol/L (22-30); Chloride 101.3 mmol/L (98-107); Glucose 182 mg/dL (75-100); Potassium 3.4 mmol/L (3.6-5.0); Sodium 143 mmol/L (137-145)
[2017-04-08 13:01] LABS: HIV-1 Antigen p24 Non React (Non React); HIVR-1/2 Ab Non React (Non React)
[2017-04-08 13:16] LABS: Anisocytosis 1+; Basophils % (Manual) 0 % (0.0-1.8); Blastocytes % (Manual) 0 %; Burr Cells 1+; Eosinophils % (Manual) 0 % (0.0-4.3)
[2017-04-08] MEDS: KEPPRA 750 MG in NACL 0.9% 100 ML IV SCH ×2 (13:16→23:43)
[2017-04-08 13:17] LABS: Diff Status Complete; Ovalocytes Few; Polychromasia Rare
[2017-04-08] MEDS ORDERED: NACL 0.9% IR ONE (13:30)
[2017-04-08] MEDS: DUONEB *Not for PRN Use IH SCH ×2 (13:55→19:20)
[2017-04-08] MEDS ORDERED: INTROPIN DRIP 800 MG/D5W 250 ML 800 MG/250 ML BAG IV SCH (14:00)
[2017-04-08 15:01] LABS: HIV-1 Antigen p24 Non React (Non React); HIVR-1/2 Ab Non React (Non React)
[2017-04-08 15:03] LABS: ISTAT Base Excess -9; ISTAT HCO3 17.9; ISTAT PCO2 37.4 (35-45); ISTAT PH 7.287 (7.35-7.45); ISTAT PO2 196 (80-105); ISTAT SO2 100; ISTAT TCO2 19
[2017-04-08] MEDS: HEPARIN SUB-Q SCH (15:33)
--- NOTE | 2017-04-08 15:59 | Consultation ---
History of Present Illness Consult date: 04/08/17 Requesting physician: TAD BEASLEY Reason for consult: other History of present illness: Patient is a 21 years old male with no known significant past medical history who presents to the emergency department from custodial after going unconscious and having a cardiac arrest. Patient found to have acute hypoxic and hypercapnic respiratory failure, unable to protect his airway,intubated and sedated; therefore unable to obtain detailed history. Per ER physican and charts patient's inmate who reportedly suffered a cardiac arrest in his custodial cell this morning and cellmate allegedly started CPR. On EMS arrival, the patient was found to be pulseless and thus received ACLS and shocked 15 times for VF and was intubated. Patient when he got to emergency department was taken straight to dentures lab technician coronary angiogram concerning for STEM. S/p LHC which revealed normal coronaries, normal LVEF per cardiology. No reports of fever, chills, chest pain, trauma or recent ill contacts. Past History Past Medical History: No medical history (Unable to obtaine, patient intubated. [facility] office unable to provide any documentation at this time), other (unable to obtain due to patients mental status ) Medications and Allergies Allergies Allergy/AdvReac Type Severity Reaction Status Date / Time No Known Allergies Allergy Unverified 06/29/16 06:47 Home Medications Medication Instructions Recorded Confirmed Last Taken Type Gentamicin 0.3% Ophth Soln 2 drops OP Q4H #1 bottle 06/29/16 Unknown Rx Ibuprofen [Motrin] 600 mg PO Q8H PRN #16 tablet 06/29/16 Unknown Rx Sulfamethoxazole/Trimethoprim 1 each PO BID #14 tablet 07/01/16 Unknown Rx [Bactrim DS TAB] Active Meds: Active Medications Acetaminophen (Tylenol) 650 mg PO Q4H PRN PRN Reason: Pain MILD(1-3)/Fever >100.5/MONTOYA Albuterol/Ipratropium (Duoneb *Not For Prn Use*) 1 ampul IH Q6HRT [facility] Last Admin: 04/08/17 13:55 Dose: 1 ampul Bisacodyl (Dulcolax) 10 mg MI QDAY PRN PRN Reason: Constipation unrelieved by MOM Heparin Sodium (Porcine) (Heparin) 5,000 unit SUB-Q Q12HR [facility] Last Admin: 04/08/17 15:33 Dose: Not Given Sodium Bicarbonate 150 meq/ (Dextrose) 1,150 mls @ 75 mls/hr IV DIRECT [facility] Levetiracetam 750 mg/ Sodium (Chloride) 107.5 mls @ 400 mls/hr IV Q12HR [facility] Last Admin: 04/08/17 13:16 Dose: 400 mls/hr Piperacillin Sod/Tazobactam Sod (Zosyn/Ns 4.5gm/100ml) 4.5 gm in 100 mls @ 200 mls/hr IV Q6HR [facility] PRN Reason: Protocol Lorazepam 100 mg/ Sodium Chloride/ Miscellaneous Information 100 mls @ 1 mls/ hr IV TITR LEIA; 1 MG/HR PRN Reason: Protocol Last Admin: 04/08/17 11:50 Dose: 1 mg/hr, 1 mls/hr Vancomycin HCl (Vancomycin/Ns 1 Gm/250 Ml) 1 gm in 250 mls @ 166.667 mls/hr IV Q8H [facility] Potassium Chloride (Kcl 10meq/100ml) 10 meq in 100 mls @ 100 mls/hr IV Q1H [facility] Stop: 04/08/17 16:59 Dopamine HCl/Dextrose (Intropin Drip 800 Mg/D5w 250 Ml) 800 mg in 250 mls @ 2.551 mls/hr IV TITR LEIA; 2 MCG/KG/MIN PRN Reason: Protocol Lorazepam (Ativan) 1 mg IV Q1H PRN PRN Reason: Seizures Morphine Sulfate (Morphine) 2 mg IV Q4H PRN PRN Reason: Pain, Moderate (4-6) Ondansetron HCl (Zofran) 4 mg IV Q8H PRN PRN Reason: N/V unrelieved by Ana Vancomycin HCl (Vancomycin Pharmacy To Dose) 1 each IV PKCONSULT LEIA PRN Reason: Protocol Review of Systems ROS unobtainable: due to endotracheal tube, due to mental status Physical Examination Vital signs: Vital Signs Pulse Resp Pulse Ox 93 H 14 100 04/08/17 06:50 04/08/17 06:50 04/08/17 06:50 General appearance: comatose, other (orally intubated with copius frothy red tracheal secretions, tachypnic with ventilaor dyssynchrony) Eyes: non-icteric ENT: oropharynx moist Neck: supple, no JVD Effort: very labored Ascultation: Bilateral: diminished breath sounds, other (coars BS bilaterally anteriorly) Cardiovascular: other (tachycardia, S1,S2. No murmurs, gallops or rubs) Gastrointestinal: normoactive bowel sounds, soft, non-tender, non-distended Integumentary: normal, other (Right femoral CVC and arterial line) Extremities: no cyanosis, no edema, pulses normal, no ischemia or petechiae Musculoskeletal: no deformities pupils equal and round, unable to assess Seizure activity Results - Laboratory Findings CBC and BMP: 04/09/17 03:38 04/09/17 03:38 ABG POC ABG pH 7.287 (7.35-7.45) L 04/08/17 15:02 POC ABG pCO2 37.4 (35-45) 04/08/17 15:02 POC ABG pO2 196 (80-105) H 04/08/17 15:02 POC ABG HCO3 17.9 04/08/17 15:02 POC ABG Total CO2 19 04/08/17 15:02 POC ABG O2 Sat 100 04/08/17 15:02 PT/INR, D-dimer PT 16.5 Sec. (12.2-14.9) H 04/08/17 07:06 INR 1.27 (0.87-1.13) H 04/08/17 07:06 Abnormal lab findings: Abnormal Labs 04/08/17 04/08/17 04/08/17 07:06 07:06 07:06 WBC 33.2 H RBC Hgb Hct Seg Neuts % (Manual) Lymphocytes % (Manual) Seg Neutrophils # Man 13.3 H Lymphocytes # (Manual) 7.6 H Monocytes # (Manual) 1.3 H PT 16.5 H INR 1.27 H APTT 51.7 H POC ABG pH POC ABG pCO2 POC ABG pO2 Potassium 3.5 L Carbon Dioxide 15 L Glucose 336 H POC Glucose Lactic Acid Calcium 7.2 L AST 265 H ALT 223 H Total Creatine Kinase Troponin T 0.321 H* Total Protein 5.7 L Albumin 3.2 L Ur Specific Eleanor Urine WBC (Auto) 04/08/17 04/08/17 04/08/17 07:06 07:36 09:22 WBC RBC Hgb Hct Seg Neuts % (Manual) Lymphocytes % (Manual) Seg Neutrophils # Man Lymphocytes # (Manual) Monocytes # (Manual) PT INR APTT POC ABG pH 7.105 L POC ABG pCO2 68.1 H POC ABG pO2 256 H Potassium Carbon Dioxide Glucose POC Glucose 193 H Lactic Acid Calcium AST ALT Total Creatine Kinase 623 H Troponin T Total Protein Albumin Ur Specific Eleanor Urine WBC (Auto) 04/08/17 04/08/17 04/08/17 10:59 11:13 11:33 WBC RBC Hgb Hct Seg Neuts % (Manual) Lymphocytes % (Manual) Seg Neutrophils # Man Lymphocytes # (Manual) Monocytes # (Manual) PT INR APTT POC ABG pH 7.197 L POC ABG pCO2 46.3 H POC ABG pO2 68 L Potassium Carbon Dioxide Glucose POC Glucose Lactic Acid 9.00 H* Calcium AST ALT Total Creatine Kinase Troponin T 2.380 H* D Total Protein Albumin Ur Specific Eleanor Urine WBC (Auto) 04/08/17 04/08/17 04/08/17 12:10 12:10 12:10 WBC 21.6 H RBC 5.69 H Hgb 16.1 H Hct 50.4 H D Seg Neuts % (Manual) 86.0 H Lymphocytes % (Manual) 5.0 L Seg Neutrophils # Man 18.6 H Lymphocytes # (Manual) 1.1 L Monocytes # (Manual) PT INR APTT POC ABG pH POC ABG pCO2 POC ABG pO2 Potassium 3.4 L Carbon Dioxide 21 L Glucose 182 H POC Glucose Lactic Acid Calcium 7.5 L AST ALT Total Creatine Kinase Troponin T Total Protein Albumin Ur Specific Eleanor 1.044 H Urine WBC (Auto) 18.0 H 04/08/17 04/08/17 13:32 15:02 WBC RBC Hgb Hct Seg Neuts % (Manual) Lymphocytes % (Manual) Seg Neutrophils # Man Lymphocytes # (Manual) Monocytes # (Manual) PT INR APTT POC ABG pH 7.287 L POC ABG pCO2 POC ABG pO2 196 H Potassium Carbon Dioxide Glucose POC Glucose Lactic Acid Calcium AST ALT Total Creatine Kinase Troponin T 2.330 H* Total Protein Albumin Ur Specific Eleanor Urine WBC (Auto) Assessment and Plan - Patient Problems (1) Acute respiratory failure with hypoxia Current Visit: Yes Status: Acute Plan to address problem: Continue with lung protective strategies VAP bundle addressed HOB >40 Place a NGT for stomach decompression VTE prophylaxis---SCDs for now Stress ulcer prophylaxis Antibiotics Bronchoscopy for dedicated cultures Agitation management Cid catheter in this critically ill patient to monitor accurate intake and oputput Initiate enteric nutritional support in the next 24 to 48 hours. (2) Septic shock Current Visit: Yes Status: Acute Plan to address problem: Vasopressor support keep MAP>65 Blood cultures Lactic acid level 3 hour and 6 hour sepsis bundle Antibiotics Follow cultures Get ID consult (3) Cardiac arrest Current Visit: Yes Status: Acute Plan to address problem: Continue with current therapy and hemodynamic monitoring (4) Sepsis Current Visit: Yes Status: Acute Plan to address problem: Continue antibiotics Follow cultures (5) Seizures Current Visit: Yes Status: Acute Plan to address problem: Continue lorazepam infusion Get EEG Neurology consult (6) Elevated liver enzymes Current Visit: Yes Status: Acute Plan to address problem: Probably secondary to hypoperfusion Monitor closely Avoid hepatotoxic medications (7) Pulmonary hemorrhage Current Visit: Yes Status: Acute Plan to address problem: Bronchoscopy (8) Aspiration pneumonia Current Visit: Yes Status: Acute Plan to address problem: Aspiration precautions (9) Metabolic acidosis Current Visit: Yes Status: Acute Plan to address problem: Probably secondary to hypoperfusion Adjust minute ventilation to achieve better gas exchange ED Critical Care Note - Critical Care Note Total Time (mins): 65 Critical care time in (mins) excluding proc time.: 65 Critical care attestation.: If time is entered above; I have spent that time in minutes in the direct care of this critically ill patient, excluding procedure time.
[2017-04-08] MEDS: ZOSYN/NS 4.5GM/100ML 4.5 GM/100 ML VIAL IV SCH ×2 (17:15→20:02)
--- NOTE | 2017-04-08 17:15 | Procedure Note ---
Date of procedure: 04/08/17 Pre-op diagnosis: Pulmonary hemorrhage, bilateral alveolar infiltrates Post-op diagnosis: same Procedure: Fiberoptic bronchoscopy, with bronchial lavage/washing. Airway inspection Patient was previously orally intubated. A consent could not be obtained as the patient was intubated. The Tunnel Mucker was at the bedside and stated in this instance one was not needed This was documented on a consent form and has been filed as part of the medical records. Time out was done and universal precautions addressed. A fiberoptic bronchscope was inserted through the ET tube , bloody secretions were noted. The right lung was inspected, no endobronchial lesions were seen. The upper lobe take of, the bronchis intermedius and the lower lobe take off were inspected. The upper lobe take of, the lingula and lower lobe take off were inspected in the the left lung. No endobronchial lesions. Bronchial washings were obtained from the left and from the right lung. They have been sent for respiratory cultures, AFB smear with cultures and fungal smear with cultures. Patient tolerated the procedure well Anesthesia: other (patient sedated on propofol and lorazepam infusion) Surgeon: EBONIE LAKE Estimated blood loss: minimal (patient has pulmonary hemorrhage, improves with saline lavage) Specimen disposition: to lab Condition: critical Disposition: ICU
[2017-04-08] MEDS: KCL 10MEQ/100ML 10 MEQ/100 ML BAG IV SCH ×4 (17:31→21:33)
[2017-04-08] MEDS: LEVOPHED DRIP 4 MG/NS 250 ML 4 MG/250 ML BAG IV SCH (19:15)
[2017-04-08] MEDS: VANCOMYCIN/NS 1 GM/250 ML 1 GM/250 ML BAG IV SCH (23:43)
[2017-04-09] MEDS: HEPARIN SUB-Q SCH ×3 (00:43→22:27)
[2017-04-09] MEDS: ZOSYN/NS 4.5GM/100ML 4.5 GM/100 ML VIAL IV SCH ×4 (00:43→19:05)
[2017-04-09] MEDS: DIPRIVAN 10 MG/ML 1,000 MG/100 ML BOTTLE IV SCH ×2 (01:38→13:25)
[2017-04-09] MEDS: DUONEB *Not for PRN Use IH SCH ×4 (01:43→19:09)
[2017-04-09] MEDS: LEVOPHED DRIP 4 MG/NS 250 ML 4 MG/250 ML BAG IV SCH (02:04)
[2017-04-09 03:59] LABS: Hematocrit 42.7 % (35.5-45.6); Hemoglobin 13.9 gm/dl (11.8-15.2); Mean Corpuscular HGB Conc 33 % (32-34); Mean Corpuscular Hemoglobin 28 pg (28-32); Mean Corpuscular Volume 87 fl (84-94); Platelet Count 158 K/mm3 (140-440); Red Blood Count 4.91 M/mm3 (3.65-5.03); Red Cell Distribution Width 13.4 % (13.2-15.2)
[2017-04-09 04:06] LABS: White Blood Count 27.2 K/mm3 (4.5-11.0)
[2017-04-09 04:29] LABS: Anion Gap 22 mmol/L; BUN/Creatinine Ratio 13; Blood Urea Nitrogen 13 mg/dL (9-20); Calcium 7.4 mg/dL (8.4-10.2); Carbon Dioxide 18 mmol/L (22-30); Chloride 101.3 mmol/L (98-107); Glucose 177 mg/dL (75-100); Sodium 136 mmol/L (137-145)
[2017-04-09 04:53] LABS: ISTAT Base Excess -6; ISTAT HCO3 18.4; ISTAT PCO2 30.1 (35-45); ISTAT PH 7.394 (7.35-7.45); ISTAT PO2 115 (80-105); ISTAT SO2 99; ISTAT TCO2 19
[2017-04-09] MEDS: VANCOMYCIN/NS 1 GM/250 ML 1 GM/250 ML BAG IV SCH ×3 (04:58→20:36)
[2017-04-09 05:28] LABS: Basophils % (Manual) 0 % (0.0-1.8); Blastocytes % (Manual) 0 %; Eosinophils % (Manual) 0 % (0.0-4.3); Toxic Granulation Rare
[2017-04-09 05:29] LABS: Diff Status Complete; Platelet Estimate Consistent w Auto
[2017-04-09] MEDS ORDERED: SODIUM BICARBONATE FEEDTUBE PRN (08:18)
[2017-04-09] MEDS ORDERED: PANCREAZE DR 10,500 UNIT FEEDTUBE PRN (08:18)
[2017-04-09] MEDS ORDERED: SIMPLE SYRUP FEEDTUBE PRN ×2 (08:18)
--- NOTE | 2017-04-09 09:36 | Progress Note ---
Assessment and Plan Acute Hypoxemic Respiratory Failure S/P Cardiopulmonary Arrest Acute Encephalopathy (Likely anoxic component) Severe Sepsis Seizures Pneumonia (Likely Aspiration) Cardiomyopathy NSTEMI - advance ETT 2 cm and repeat CXR - continue sedation to control seizure activity - continue keppra - continue with lung protective strategies - VAP bundle addressed - HOB > 40 - place NGT abnd begin enteral nutrition as tolerated - follow bronchoscopy cultures - continue empiric AB's - continue neurology evaluation - lactic acid trending down - d/c IVF, follow cardiology evaluation and target conservative volume strategies at this point and re: CHF numbers and 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 - get CRP level and trend as necessary - continue GI & VTE prophylaxis - initiate VTE w/up with dopplers - likely shock liver element - get PICC line and discontinue femoral line - repeat ABG after dropping set rate to 20/min (from 30/min) - continue other care per attending / other consultants ....he is critically ill on life sustaining interventions including MVS and at high risk for further deterioration including ...guarded prognosis ...case discussed at length during team rounds and care plan formulated ...35' CCT Subjective Date of service: 04/09/17 Principal diagnosis: Acute Hypoxemic respiratory Failure; Sepsis Syndrome Interval history: Patient is seen today for: Acute Hypoxemic respiratory Failure; Sepsis Syndrome Seen and examined at bedside; 24 hour events reviewed; nursing and respiratory care staff consulted; AMS is persistent but remains on sedation due to myoclonic type jerks / seizure type activity when surfaced; no emesis or overt aspiration; no gross bleeding; remains on levophed drip at 8 mics/min; pulmonary secretions less bloody now Objective Vital Signs - 12hr 04/08/17 04/08/17 04/08/17 21:41 21:51 22:01 Temperature Pulse Rate 126 H 123 H 125 H Pulse Rate [ Bilateral Throughout] Respiratory 42 H 46 H 45 H Rate Respiratory Rate [Bilateral Throughout] Blood Pressure 118/55 114/56 115/59 O2 Sat by Pulse 97 96 95 Oximetry 04/08/17 04/08/17 04/08/17 22:11 22:21 22:30 Temperature Pulse Rate 124 H 122 H 118 H Pulse Rate [ Bilateral Throughout] Respiratory 45 H 45 H 41 H Rate Respiratory Rate [Bilateral Throughout] Blood Pressure 115/59 106/59 112/70 O2 Sat by Pulse 95 96 97 Oximetry 04/08/17 04/08/17 04/08/17 22:41 22:51 23:01 Temperature Pulse Rate 117 H 118 H 121 H Pulse Rate [ Bilateral Throughout] Respiratory 40 H 39 H 41 H Rate Respiratory Rate [Bilateral Throughout] Blood Pressure 112/70 120/36 136/70 O2 Sat by Pulse 97 98 98 Oximetry 04/08/17 04/08/17 04/08/17 23:11 23:21 23:31 Temperature Pulse Rate 119 H 117 H 118 H Pulse Rate [ Bilateral Throughout] Respiratory 39 H 42 H 45 H Rate Respiratory Rate [Bilateral Throughout] Blood Pressure 136/70 118/73 128/83 O2 Sat by Pulse 99 99 98 Oximetry 04/08/17 04/08/17 04/09/17 23:41 23:51 00:00 Temperature 102.8 F H Pulse Rate 116 H 118 H 118 H Pulse Rate [ Bilateral Throughout] Respiratory 41 H 41 H 30 H Rate Respiratory Rate [Bilateral Throughout] Blood Pressure 128/83 108/62 113/53 O2 Sat by Pulse 97 98 97 Oximetry 04/09/17 04/09/17 04/09/17 00:11 00:21 00:23 Temperature Pulse Rate 116 H 116 H 119 H Pulse Rate [ Bilateral Throughout] Respiratory 39 H 42 H Rate Respiratory Rate [Bilateral Throughout] Blood Pressure 113/53 116/60 110/64 O2 Sat by Pulse 97 98 97 Oximetry 04/09/17 04/09/17 04/09/17 00:30 00:41 00:50 Temperature Pulse Rate 118 H 118 H 118 H Pulse Rate [ Bilateral Throughout] Respiratory 39 H 37 H 39 H Rate Respiratory Rate [Bilateral Throughout] Blood Pressure 120/63 120/63 121/42 O2 Sat by Pulse 98 99 98 Oximetry 04/09/17 04/09/17 04/09/17 01:01 01:11 01:21 Temperature Pulse Rate 118 H 110 H 115 H Pulse Rate [ Bilateral Throughout] Respiratory 38 H 37 H 37 H Rate Respiratory Rate [Bilateral Throughout] Blood Pressure 142/65 121/42 105/60 O2 Sat by Pulse 98 98 99 Oximetry 04/09/17 04/09/17 04/09/17 01:31 01:41 01:51 Temperature Pulse Rate 115 H 112 H 114 H Pulse Rate [ Bilateral Throughout] Respiratory 36 H 36 H 30 H Rate Respiratory Rate [Bilateral Throughout] Blood Pressure 123/50 123/50 106/59 O2 Sat by Pulse 98 99 99 Oximetry 04/09/17 04/09/17 04/09/17 01:54 02:00 02:10 Temperature Pulse Rate 115 H Pulse Rate [ 113 H 115 H Bilateral Throughout] Respiratory 30 H Rate Respiratory 32 H 32 H Rate [Bilateral Throughout] Blood Pressure 100/56 O2 Sat by Pulse 100 Oximetry 04/09/17 04/09/17 04/09/17 02:11 02:21 02:31 Temperature Pulse Rate 113 H 117 H 114 H Pulse Rate [ Bilateral Throughout] Respiratory 32 H 34 H 32 H Rate Respiratory Rate [Bilateral Throughout] Blood Pressure 100/56 91/66 99/60 O2 Sat by Pulse 100 99 100 Oximetry 04/09/17 04/09/17 04/09/17 02:41 02:51 03:01 Temperature Pulse Rate 118 H 120 H 118 H Pulse Rate [ Bilateral Throughout] Respiratory 33 H 32 H 31 H Rate Respiratory Rate [Bilateral Throughout] Blood Pressure 99/60 98/59 112/64 O2 Sat by Pulse 100 99 99 Oximetry 04/09/17 04/09/17 04/09/17 03:11 03:21 03:30 Temperature Pulse Rate 118 H 116 H 118 H Pulse Rate [ Bilateral Throughout] Respiratory 31 H 30 H 30 H Rate Respiratory Rate [Bilateral Throughout] Blood Pressure 112/64 122/52 126/71 O2 Sat by Pulse 99 99 100 Oximetry 04/09/17 04/09/17 04/09/17 03:41 03:51 04:00 Temperature 99.1 F Pulse Rate 116 H 119 H 119 H Pulse Rate [ Bilateral Throughout] Respiratory 30 H 30 H 30 H Rate Respiratory Rate [Bilateral Throughout] Blood Pressure 126/71 110/64 118/72 O2 Sat by Pulse 99 99 100 Oximetry 04/09/17 04/09/17 04/09/17 04:11 04:21 04:30 Temperature Pulse Rate 121 H 117 H 118 H Pulse Rate [ Bilateral Throughout] Respiratory 30 H 30 H 30 H Rate Respiratory Rate [Bilateral Throughout] Blood Pressure 118/72 113/70 111/74 O2 Sat by Pulse 98 99 99 Oximetry 04/09/17 04/09/17 04/09/17 04:41 04:51 05:00 Temperature Pulse Rate 119 H 120 H 118 H Pulse Rate [ Bilateral Throughout] Respiratory 30 H 30 H 30 H Rate Respiratory Rate [Bilateral Throughout] Blood Pressure 111/74 115/70 119/63 O2 Sat by Pulse 99 99 99 Oximetry 04/09/17 04/09/17 04/09/17 05:11 05:21 05:30 Temperature Pulse Rate 117 H 116 H 118 H Pulse Rate [ Bilateral Throughout] Respiratory 30 H 30 H 30 H Rate Respiratory Rate [Bilateral Throughout] Blood Pressure 115/70 111/66 109/63 O2 Sat by Pulse 100 100 97 Oximetry 04/09/17 04/09/17 04/09/17 05:41 05:51 06:00 Temperature Pulse Rate 116 H 113 H 117 H Pulse Rate [ Bilateral Throughout] Respiratory 30 H 30 H 30 H Rate Respiratory Rate [Bilateral Throughout] Blood Pressure 109/63 121/62 117/61 O2 Sat by Pulse 99 99 100 Oximetry 04/09/17 04/09/17 04/09/17 06:11 06:21 06:30 Temperature Pulse Rate 115 H 114 H 115 H Pulse Rate [ Bilateral Throughout] Respiratory 30 H 30 H 30 H Rate Respiratory Rate [Bilateral Throughout] Blood Pressure 121/62 116/67 114/69 O2 Sat by Pulse 99 98 100 Oximetry 04/09/17 04/09/17 04/09/17 07:40 07:44 08:00 Temperature 98.3 F Pulse Rate 114 H Pulse Rate [ 110 H Bilateral Throughout] Respiratory Rate Respiratory 30 H Rate [Bilateral Throughout] Blood Pressure 116/62 O2 Sat by Pulse 100 100 Oximetry 04/09/17 08:02 Temperature Pulse Rate Pulse Rate [ 113 H Bilateral Throughout] Respiratory Rate Respiratory 30 H Rate [Bilateral Throughout] Blood Pressure O2 Sat by Pulse Oximetry Constitutional: comatose, other (Intubated; sedated; mild increased work of breathing) Eyes: non-icteric ENT: oropharynx moist, other (ETT at 24cm MARILU) Neck: supple, no JVD, other (no thyromegaly) Effort: mildly labored Ascultation: Bilateral: rhonchi Percussion: Bilateral: not dull Cardiovascular: regular rate and rhythm, other (tachycardia) Gastrointestinal: normoactive bowel sounds, soft, non-tender, non-distended, other (No HSM) Integumentary: normal, other (Right femoral CVC and arterial line) Extremities: no cyanosis, no edema, pulses normal, no ischemia or petechiae Neurologic: pupils equal and round, unable to assess Psychiatric: other (unable to assess) CBC and BMP: 04/09/17 03:38 04/09/17 03:38 ABG, PT/INR, D-dimer: ABG POC ABG pH 7.394 (7.35-7.45) 04/09/17 04:17 POC ABG pCO2 30.1 (35-45) L 04/09/17 04:17 POC ABG pO2 115 (80-105) H 04/09/17 04:17 POC ABG HCO3 18.4 04/09/17 04:17 POC ABG Total CO2 19 04/09/17 04:17 POC ABG O2 Sat 99 04/09/17 04:17 PT/INR, D-dimer PT 16.5 Sec. (12.2-14.9) H 04/08/17 07:06 INR 1.27 (0.87-1.13) H 04/08/17 07:06 Abnormal lab findings: Abnormal Labs 04/08/17 04/08/17 04/08/17 07:06 07:06 07:06 WBC 33.2 H RBC Hgb Hct Seg Neuts % (Manual) Lymphocytes % (Manual) Seg Neutrophils # Man 13.3 H Lymphocytes # (Manual) 7.6 H Monocytes # (Manual) 1.3 H PT 16.5 H INR 1.27 H APTT 51.7 H POC ABG pH POC ABG pCO2 POC ABG pO2 Sodium Potassium 3.5 L Carbon Dioxide 15 L Glucose 336 H POC Glucose Lactic Acid Calcium 7.2 L AST 265 H ALT 223 H Total Creatine Kinase Troponin T 0.321 H* Total Protein 5.7 L Albumin 3.2 L Ur Specific Frederic Urine WBC (Auto) 04/08/17 04/08/17 04/08/17 07:06 07:36 09:22 WBC RBC Hgb Hct Seg Neuts % (Manual) Lymphocytes % (Manual) Seg Neutrophils # Man Lymphocytes # (Manual) Monocytes # (Manual) PT INR APTT POC ABG pH 7.105 L POC ABG pCO2 68.1 H POC ABG pO2 256 H Sodium Potassium Carbon Dioxide Glucose POC Glucose 193 H Lactic Acid Calcium AST ALT Total Creatine Kinase 623 H Troponin T Total Protein Albumin Ur Specific Frederic Urine WBC (Auto) 04/08/17 04/08/17 04/08/17 10:59 11:13 11:33 WBC RBC Hgb Hct Seg Neuts % (Manual) Lymphocytes % (Manual) Seg Neutrophils # Man Lymphocytes # (Manual) Monocytes # (Manual) PT INR APTT POC ABG pH 7.197 L POC ABG pCO2 46.3 H POC ABG pO2 68 L Sodium Potassium Carbon Dioxide Glucose POC Glucose Lactic Acid 9.00 H* Calcium AST ALT Total Creatine Kinase Troponin T 2.380 H* D Total Protein Albumin Ur Specific Frederic Urine WBC (Auto) 04/08/17 04/08/17 04/08/17 12:10 12:10 12:10 WBC 21.6 H RBC 5.69 H Hgb 16.1 H Hct 50.4 H D Seg Neuts % (Manual) 86.0 H Lymphocytes % (Manual) 5.0 L Seg Neutrophils # Man 18.6 H Lymphocytes # (Manual) 1.1 L Monocytes # (Manual) PT INR APTT POC ABG pH POC ABG pCO2 POC ABG pO2 Sodium Potassium 3.4 L Carbon Dioxide 21 L Glucose 182 H POC Glucose Lactic Acid Calcium 7.5 L AST ALT Total Creatine Kinase Troponin T Total Protein Albumin Ur Specific Frederic 1.044 H Urine WBC (Auto) 18.0 H 04/08/17 04/08/17 04/08/17 13:32 15:02 17:56 WBC RBC Hgb Hct Seg Neuts % (Manual) Lymphocytes % (Manual) Seg Neutrophils # Man Lymphocytes # (Manual) Monocytes # (Manual) PT INR APTT POC ABG pH 7.287 L POC ABG pCO2 POC ABG pO2 196 H Sodium Potassium Carbon Dioxide Glucose POC Glucose Lactic Acid 7.50 H* Calcium AST ALT Total Creatine Kinase Troponin T 2.330 H* Total Protein Albumin Ur Specific Frederic Urine WBC (Auto) 04/08/17 04/08/17 04/09/17 19:51 23:53 03:38 WBC 27.2 H RBC Hgb Hct Seg Neuts % (Manual) 74.0 H Lymphocytes % (Manual) 8.0 L Seg Neutrophils # Man 20.1 H Lymphocytes # (Manual) Monocytes # (Manual) 1.4 H PT INR APTT POC ABG pH POC ABG pCO2 POC ABG pO2 Sodium Potassium Carbon Dioxide Glucose POC Glucose 140 H 175 H Lactic Acid Calcium AST ALT Total Creatine Kinase Troponin T Total Protein Albumin Ur Specific Frederic Urine WBC (Auto) 11/04/09/17 04/09/17 03:38 04:17 05:50 WBC RBC Hgb Hct Seg Neuts % (Manual) Lymphocytes % (Manual) Seg Neutrophils # Man Lymphocytes # (Manual) Monocytes # (Manual) PT INR APTT POC ABG pH POC ABG pCO2 30.1 L POC ABG pO2 115 H Sodium 136 L Potassium Carbon Dioxide 18 L Glucose 177 H POC Glucose 167 H Lactic Acid Calcium 7.4 L AST ALT Total Creatine Kinase Troponin T Total Protein Albumin Ur Specific Frederic Urine WBC (Auto) 04/09/17 07:41 WBC RBC Hgb Hct Seg Neuts % (Manual) Lymphocytes % (Manual) Seg Neutrophils # Man Lymphocytes # (Manual) Monocytes # (Manual) PT INR APTT POC ABG pH POC ABG pCO2 POC ABG pO2 Sodium Potassium Carbon Dioxide Glucose POC Glucose Lactic Acid 5.00 H* Calcium AST ALT Total Creatine Kinase Troponin T Total Protein Albumin Ur Specific Frederic Urine WBC (Auto) Chest x-ray: image reviewed (ETT riding high and in thoracic inlet; otherwise upper zone predominant infiltrates) Allied health notes reviewed: nursing
--- NOTE | 2017-04-09 09:54 | Progress Note ---
Assessment and Plan Assessment and plan: Patient is a 21 years old male with no known significant past medical history who was in halfway. His cellmates called for help after apparently finding him to be pulseless and unconscious. He cellmates today doing CPR, EMS then came and perform more CPR. Patient was pulseless, found to be in V. tach and was shocked up to 19 times. He regained his pulse shortly before arriving to the hospital. He was intubated and required pressors for blood pressure support. Anoxic brain injury Patient is in very deep coma, unlikely to recover given extensive period of anoxia Case discussed with neurologist Acute hypoxic and hypercapnic respiratory failure Continue ventilator, Cerebral and ocular edema -Started on mannitol Acute Metabolic Encephalopathy Secondary to Acute hypoxic and hypercapnic respiratory failure intubated, not sedated Unlikely to recover Status Epilepticus Continue antiepileptic drugs, no further seizure activity Seizure most likely due to anoxic brain injury Severe Sepsis/septic shock /Aspiration PNA Continue antibiotics, continue pressors ID consultation Lactic acid acidosis -Received bicarbonate drip, now resolved Mild Malnutrition Nutrition consult for tube feeding elevation Troponin due to Type 2 [place]- Demand Ischemia STEMI (ST elevation myocardial infarction) ruled out S/p LHC which revealed normal coronaries, normal LVEF per cardiology Cardiology consult appreciated Hypokalemia replaced closely monitor DVT prophylaxis Lovenox The high probability of a clinically significant, sudden or life threatening deterioration of the [Cardiovascular, pulmonary, neurological, ] system(s) required my full and direct attention, intervention and personal management. The aggregate critical care time was [39] minutes. This time is in addition to time spent performing reported procedures but includes the following: [] Data Review and interpretation [] Patient assessment and monitoring of vital signs [] Documentation [] Medication orders and management History Interval history: Patient continues to be comatose, does not wake up, does not obey commands. He continues to be pressor dependence due to hypotension. He has spiked fevers Review of systems Constitutional: Has spiked fevers CVS: No arrhythmias or tachycardia noted GI: No vomiting Respiratory: No respiratory distress Hospitalist Physical - Physical exam Narrative exam: General.: Appears well, no distress, nontoxic, comatose HEENT: Both eyes extremely edematous Neck: supple Cardiac: S1-S2 heard Lungs: clear to auscultation bilaterally Abdomen: soft , nontender, nondistended, bowel sounds positive Extremities: no edema clubbing or cyanosis Skin: no rash or lesions Neurologic: Patient is in a very deep coma, has a gag reflex, has very sluggish pupils. The lites and partially constricts only to redilate. No corneal reflex , no other reflexes Intubated but not sedated - Constitutional Vitals: Temp Pulse Resp BP Pulse Ox 98.3 F 112 H 30 H 121/57 100 04/09/17 08:00 04/09/17 08:30 04/09/17 08:30 04/09/17 08:30 04/09/17 08:15 General appearance: Present: severe distress, other ( Unable to protect his airway,intubated and sedated;) Results - Labs CBC & Chem 7: 04/13/17 15:00 04/13/17 15:04 Labs: Laboratory Last Values WBC 27.2 K/mm3 (4.5-11.0) H 04/09/17 03:38 RBC 4.91 M/mm3 (3.65-5.03) 04/09/17 03:38 Hgb 13.9 gm/dl (11.8-15.2) 04/09/17 03:38 Hct 42.7 % (35.5-45.6) D 04/09/17 03:38 MCV 87 fl (84-94) 04/09/17 03:38 MCH 28 pg (28-32) 04/09/17 03:38 MCHC 33 % (32-34) 04/09/17 03:38 RDW 13.4 % (13.2-15.2) 04/09/17 03:38 Plt Count 158 K/mm3 (140-440) 04/09/17 03:38 Lymph # Driver Messenger 04/08/17 07:06 Add Manual Diff Complete 04/09/17 03:38 Total Counted 100 04/09/17 03:38 Seg Neuts % (Manual) 74.0 % (40.0-70.0) H 04/09/17 03:38 Band Neutrophils % 13.0 % 04/09/17 03:38 Lymphocytes % (Manual) 8.0 % (13.4-35.0) L 04/09/17 03:38 Reactive Lymphs % (Man) 0 % 04/09/17 03:38 Monocytes % (Manual) 5.0 % (0.0-7.3) 04/09/17 03:38 Eosinophils % (Manual) 0 % (0.0-4.3) 04/09/17 03:38 Basophils % (Manual) 0 % (0.0-1.8) 04/09/17 03:38 Metamyelocytes % 0 % 04/09/17 03:38 Myelocytes % 0 % 04/09/17 03:38 Promyelocytes % 0 % 04/09/17 03:38 Blast Cells % 0 % 04/09/17 03:38 Nucleated RBC % Not Reportable 04/09/17 03:38 Seg Neutrophils # Man 20.1 K/mm3 (1.8-7.7) H 04/09/17 03:38 Band Neutrophils # 3.5 K/mm3 04/09/17 03:38 Lymphocytes # (Manual) 2.2 K/mm3 (1.2-5.4) 04/09/17 03:38 Abs React Lymphs (Man) 0.0 K/mm3 04/09/17 03:38 Monocytes # (Manual) 1.4 K/mm3 (0.0-0.8) H 04/09/17 03:38 Eosinophils # (Manual) 0.0 K/mm3 (0.0-0.4) 04/09/17 03:38 Basophils # (Manual) 0.0 K/mm3 (0.0-0.1) 04/09/17 03:38 Metamyelocytes # 0.0 K/mm3 04/09/17 03:38 Myelocytes # 0.0 K/mm3 04/09/17 03:38 Promyelocytes # 0.0 K/mm3 04/09/17 03:38 Blast Cells # 0.0 K/mm3 04/09/17 03:38 WBC Morphology Not Reportable 04/09/17 03:38 Hypersegmented Neuts Not Reportable 04/09/17 03:38 Hyposegmented Neuts Not Reportable 04/09/17 03:38 Hypogranular Neuts Not Reportable 04/09/17 03:38 Smudge Cells Not Reportable 04/09/17 03:38 Toxic Granulation Rare 04/09/17 03:38 Toxic Vacuolation Not Reportable 04/09/17 03:38 Dohle Bodies Not Reportable 04/09/17 03:38 Pelger-Huet Anomaly Not Reportable 04/09/17 03:38 Brook Rods Not Reportable 04/09/17 03:38 Platelet Estimate Consistent w auto 04/09/17 03:38 Clumped Platelets Not Reportable 04/09/17 03:38 Plt Clumps, EDTA Not Reportable 04/09/17 03:38 Large Platelets Not Reportable 04/09/17 03:38 Giant Platelets Not Reportable 04/09/17 03:38 Platelet Satelliting Not Reportable 04/09/17 03:38 Plt Morphology Comment Not Reportable 04/09/17 03:38 RBC Morphology Not Reportable 04/09/17 03:38 Dimorphic RBCs Not Reportable 04/09/17 03:38 Polychromasia Not Reportable 04/09/17 03:38 Hypochromasia Not Reportable 04/09/17 03:38 Poikilocytosis Not Reportable 04/09/17 03:38 Anisocytosis Not Reportable 04/09/17 03:38 Microcytosis Not Reportable 04/09/17 03:38 Macrocytosis Not Reportable 04/09/17 03:38 Spherocytes Not Reportable 04/09/17 03:38 Pappenheimer Bodies Not Reportable 04/09/17 03:38 Sickle Cells Not Reportable 04/09/17 03:38 Target Cells Not Reportable 04/09/17 03:38 Tear Drop Cells Not Reportable 04/09/17 03:38 Ovalocytes Not Reportable 04/09/17 03:38 Helmet Cells Not Reportable 04/09/17 03:38 Rosenberg-Wagener Bodies Not Reportable 04/09/17 03:38 [place] Rings Not Reportable 04/09/17 03:38 Joseline Cells Not Reportable 04/09/17 03:38 Bite Cells Not Reportable 04/09/17 03:38 Crenated Cell Not Reportable 04/09/17 03:38 Elliptocytes Not Reportable 04/09/17 03:38 Acanthocytes (Spur) Not Reportable 04/09/17 03:38 Rouleaux Not Reportable 04/09/17 03:38 Hemoglobin C Crystals Not Reportable 04/09/17 03:38 Schistocytes Not Reportable 04/09/17 03:38 Malaria parasites Not Reportable 04/09/17 03:38 Ever Bodies Not Reportable 04/09/17 03:38 Hem Pathologist Commnt No 04/09/17 03:38 PT 16.5 Sec. (12.2-14.9) H 04/08/17 07:06 INR 1.27 (0.87-1.13) H 04/08/17 07:06 APTT 51.7 Sec. (24.2-36.6) H 04/08/17 07:06 POC ABG pH 7.394 (7.35-7.45) 04/09/17 04:17 POC ABG pCO2 30.1 (35-45) L 04/09/17 04:17 POC ABG pO2 115 (80-105) H 04/09/17 04:17 POC ABG HCO3 18.4 04/09/17 04:17 POC ABG Total CO2 19 04/09/17 04:17 POC ABG O2 Sat 99 04/09/17 04:17 POC ABG Base Excess -6 04/09/17 04:17 FiO2 30 % 04/09/17 04:17 Sodium 136 mmol/L (137-145) L 04/09/17 03:38 Potassium 5.0 mmol/L (3.6-5.0) D 04/09/17 03:38 Chloride 101.3 mmol/L (98-107) 04/09/17 03:38 Carbon Dioxide 18 mmol/L (22-30) L 04/09/17 03:38 Anion Gap 22 mmol/L 04/09/17 03:38 BUN 13 mg/dL (9-20) 04/09/17 03:38 Creatinine 1.0 mg/dL (0.8-1.5) 04/09/17 03:38 Estimated GFR > 60 ml/min 04/09/17 03:38 BUN/Creatinine Ratio 13 % 04/09/17 03:38 Glucose 177 mg/dL (75-100) H 04/09/17 03:38 POC Glucose 167 (70-105) H 04/09/17 05:50 Lactic Acid 5.00 mmol/L (0.7-2.0) H* 04/09/17 07:41 Calcium 7.4 mg/dL (8.4-10.2) L 04/09/17 03:38 Total Bilirubin 0.30 mg/dL (0.1-1.2) 04/08/17 07:06 AST 265 units/L (5-40) H 04/08/17 07:06 ALT 223 units/L (7-56) H 04/08/17 07:06 Alkaline Phosphatase 83 units/L (35-129) 04/08/17 07:06 Total Creatine Kinase 623 units/L (55-170) H 04/08/17 07:06 Troponin T 2.330 ng/mL (0.00-0.029) H* 04/08/17 13:32 Total Protein 5.7 g/dL (6.3-8.2) L 04/08/17 07:06 Albumin 3.2 g/dL (3.9-5) L 04/08/17 07:06 Albumin/Globulin Ratio 1.3 % 04/08/17 07:06 Triglycerides 110 mg/dL (2-149) 04/08/17 07:06 Cholesterol 139 mg/dL (50-199) 04/08/17 07:06 LDL Cholesterol Direct 71 mg/dL (50-130) 04/08/17 07:06 HDL Cholesterol 46 mg/dL (40-59) 04/08/17 07:06 Cholesterol/HDL Ratio 3.02 % 04/08/17 07:06 Urine Color Margie (Yellow) 04/08/17 12:10 Urine Turbidity Hazy (Clear) 04/08/17 12:10 Urine pH 6.0 (5.0-7.0) 04/08/17 12:10 Ur Specific [place] 1.044 (1.003-1.030) H 04/08/17 12:10 Urine Protein 100 mg/dl mg/dL (Negative) 04/08/17 12:10 Urine Glucose (UA) 50 mg/dL (Negative) 04/08/17 12:10 Urine Ketones Tr mg/dL (Negative) 04/08/17 12:10 Urine Blood Mod (Negative) 04/08/17 12:10 Urine Nitrite Neg (Negative) 04/08/17 12:10 Urine Bilirubin Neg (Negative) 04/08/17 12:10 Urine Urobilinogen < 2.0 mg/dL (<2.0) 04/08/17 12:10 Ur Leukocyte Esterase Neg (Negative) 04/08/17 12:10 Urine WBC (Auto) 18.0 /HPF (0.0-6.0) H 04/08/17 12:10 Urine RBC (Auto) 8.0 /HPF (0.0-6.0) 04/08/17 12:10 Urine Bacteria (Auto) 1+ /HPF (Negative) 04/08/17 12:10 Hyaline Casts 1 /LPF 04/08/17 07:59 Granular Casts 79 /LPF 04/08/17 12:10 Urine Mucus Few /HPF 04/08/17 12:10 Urine Opiates Screen Presumptive negative 04/08/17 07:59 Urine Methadone Screen Presumptive negative 04/08/17 07:59 Ur Barbiturates Screen Presumptive negative 04/08/17 07:59 Ur Phencyclidine Scrn Presumptive negative 04/08/17 07:59 Ur Amphetamines Screen Presumptive negative 04/08/17 07:59 U Benzodiazepines Scrn Presumptive negative 04/08/17 07:59 Urine Cocaine Screen Presumptive negative 04/08/17 07:59 U Marijuana (THC) Screen Presumptive negative 04/08/17 07:59 Drugs of Abuse Note Disclamer 04/08/17 07:59 HIV 1&2 Antibody Rapid Non react (Non React) 04/08/17 12:10 HIV P24 Antigen Non react (Non React) 04/08/17 12:10 Blood Type O POSITIVE 04/08/17 07:05 Antibody Screen Negative 04/08/17 07:05
--- NOTE | 2017-04-09 10:22 | XRay Report ---
CERVICAL SPINE RADIOGRAPHS INDICATION: Possible C-spine injury. COMPARISON: None similar. FINDINGS: AP and lateral cervical spine radiographs demonstrate intact craniocervical articulation on the lateral view with normal predental space, prevertebral soft tissues and an endotracheal tube tip about T2-T3 level. Visualization upto C7-T1 disc with normal vertebral body stature, alignment and disc heights. Few extrinsic artifacts. Clear visualized lung apices. CONCLUSION: No acute cervical spine radiographic abnormality with ET tube noted. Please correlate. Thank you for the opportunity to participate in this patient's care.
[2017-04-09] MEDS: PEPCID IV SCH ×2 (10:28→22:34)
--- NOTE | 2017-04-09 10:38 | Progress Note ---
Assessment and Plan 21 AA male: 1. s/p cardiac arrest at [facility] - ? multiple shocks w prolonged downtime (?30-45 minutes)- no strips available - unknown primary rhythm * will request strips and documentation from [facility] medical staff * ecg now reveals nsr w nl qt * pt has been in sr/st throughout, will hold off on amio given shock/pressors/ elevated ast and alt * urgent lhc revealed normal coronaries and low normal lv fxn (50-55%) * pea/hypotension later yesterday * Subsequently, TTE revelaed ef ~35-40% * now hypotensive on pressors 2. hypotension/shock 3. elevated liver enzymes * likely due to #s 1 and 2 4. Lactic acidemia 5. Acute resp failure * s/p broch * ? alveolar hemorrhage 6. Seizures 7. ? anoxic encephalopathy Plan: Multidisciplinary discussion with grants and contracts assistant team Critically ill. Supportive care. Wean pressors. dvt prophylaxis Subjective Date of service: 04/09/17 Principal diagnosis: Acute Hypoxemic respiratory Failure; Sepsis Syndrome Interval history: Intubated Objective Vital Signs Temp Pulse Pulse Pulse Pulse Resp Resp 04/09/17 09:49 110 H 04/09/17 08:30 112 H 112 H 30 H 04/09/17 08:15 111 H 111 H 30 H 04/09/17 08:02 113 H 30 H 04/09/17 08:00 98.3 F 112 H 112 H 30 H 04/09/17 07:44 110 H 30 H 04/09/17 07:40 114 H 04/09/17 06:30 115 H 30 H 04/09/17 06:21 114 H 30 H 04/09/17 06:11 115 H 30 H 04/09/17 06:00 117 H 30 H 04/09/17 05:51 113 H 30 H 04/09/17 05:41 116 H 30 H 04/09/17 05:30 118 H 30 H 04/09/17 05:21 116 H 30 H 04/09/17 05:11 117 H 30 H 04/09/17 05:00 118 H 30 H 04/09/17 04:51 120 H 30 H 04/09/17 04:41 119 H 30 H 04/09/17 04:30 118 H 30 H 04/09/17 04:21 117 H 30 H 04/09/17 04:11 121 H 30 H 04/09/17 04:00 99.1 F 119 H 30 H 04/09/17 03:51 119 H 30 H 04/09/17 03:41 116 H 30 H 04/09/17 03:30 118 H 30 H 04/09/17 03:21 116 H 30 H 04/09/17 03:11 118 H 31 H 04/09/17 03:01 118 H 31 H 04/09/17 02:51 120 H 32 H 04/09/17 02:41 118 H 33 H 04/09/17 02:31 114 H 32 H 04/09/17 02:21 117 H 34 H 04/09/17 02:11 113 H 32 H 04/09/17 02:10 115 H 32 H 04/09/17 02:00 115 H 30 H 04/09/17 01:54 113 H 32 H 04/09/17 01:51 114 H 30 H 04/09/17 01:41 112 H 36 H 04/09/17 01:31 115 H 36 H 04/09/17 01:21 115 H 37 H 04/09/17 01:11 110 H 37 H 04/09/17 01:01 118 H 38 H 04/09/17 00:50 118 H 39 H 04/09/17 00:41 118 H 37 H 04/09/17 00:30 118 H 39 H 04/09/17 00:23 119 H 04/09/17 00:21 116 H 42 H 04/09/17 00:11 116 H 39 H 04/09/17 00:00 102.8 F H 118 H 30 H 04/08/17 23:51 118 H 41 H 04/08/17 23:41 116 H 41 H 04/08/17 23:31 118 H 45 H 04/08/17 23:21 117 H 42 H 04/08/17 23:11 119 H 39 H 04/08/17 23:01 121 H 41 H 04/08/17 22:51 118 H 39 H 04/08/17 22:41 117 H 40 H 04/08/17 22:30 118 H 41 H 04/08/17 22:21 122 H 45 H 04/08/17 22:11 124 H 45 H 04/08/17 22:01 125 H 45 H 04/08/17 21:51 123 H 46 H 04/08/17 21:41 126 H 42 H 04/08/17 21:30 125 H 46 H 04/08/17 21:21 124 H 42 H 04/08/17 21:11 127 H 46 H 04/08/17 21:00 129 H 45 H 04/08/17 20:51 130 H 45 H 04/08/17 20:41 134 H 45 H 04/08/17 20:31 127 H 44 H 04/08/17 20:21 133 H 42 H 04/08/17 20:11 138 H 43 H 04/08/17 20:09 137 H 44 H 04/08/17 20:01 138 H 43 H 04/08/17 20:00 52 H 04/08/17 19:54 97.8 F 04/08/17 19:51 140 H 42 H 04/08/17 19:41 141 H 44 H 04/08/17 19:31 147 H 46 H 04/08/17 19:21 145 H 45 H 04/08/17 19:11 145 H 44 H 04/08/17 19:00 137 H 34 H 04/08/17 18:51 144 H 44 H 04/08/17 18:41 139 H 44 H 04/08/17 18:31 148 H 44 H 04/08/17 18:21 129 H 37 H 04/08/17 18:11 120 H 34 H 04/08/17 18:00 118 H 33 H 04/08/17 17:51 119 H 36 H 04/08/17 17:41 122 H 33 H 04/08/17 17:30 114 H 32 H 04/08/17 17:21 114 H 33 H 04/08/17 17:11 114 H 34 H 04/08/17 17:00 111 H 36 H 04/08/17 16:55 126 H 04/08/17 16:50 108 H 30 H 04/08/17 16:41 108 H 30 H 04/08/17 16:30 107 H 30 H 04/08/17 16:21 106 H 30 H 04/08/17 16:11 110 H 27 H 04/08/17 16:00 99.0 F 103 H 30 H 04/08/17 15:51 103 H 30 H 04/08/17 15:41 110 H 30 H 04/08/17 15:30 113 H 30 H 04/08/17 15:21 122 H 33 H 04/08/17 15:11 119 H 30 H 04/08/17 15:10 04/08/17 15:00 121 H 30 H 04/08/17 14:51 125 H 30 H 04/08/17 14:41 117 H 29 H 04/08/17 14:30 113 H 30 H 04/08/17 14:24 103 H 30 H 04/08/17 14:21 119 H 18 04/08/17 14:11 110 H 30 H 04/08/17 14:00 111 H 30 H 04/08/17 13:55 108 H 30 H 04/08/17 13:51 104 H 30 H 04/08/17 13:41 104 H 30 H 04/08/17 13:30 98.8 F 114 H 30 H 04/08/17 13:21 110 H 30 H 04/08/17 13:11 110 H 30 H 04/08/17 13:01 117 H 28 H 04/08/17 13:00 98.8 F 110 H 30 H 04/08/17 12:51 110 H 30 H 04/08/17 12:41 109 H 30 H 04/08/17 12:30 98.8 F 116 H 30 H 04/08/17 12:21 110 H 30 H 04/08/17 12:11 117 H 32 H 04/08/17 12:01 113 H 32 H 04/08/17 12:00 91 F L 110 H 30 H 04/08/17 11:56 109 H 04/08/17 11:51 113 H 31 H 04/08/17 11:41 119 H 04/08/17 11:35 108 H 30 H 04/08/17 11:30 94.1 F L 111 H 30 H 04/08/17 11:21 118 H 30 H 04/08/17 11:20 109 H 30 H 04/08/17 11:15 94.1 F L 110 H 29 H 04/08/17 11:11 112 H 30 H 04/08/17 11:01 111 H 33 H 04/08/17 11:00 94.1 F L 116 H 35 H 04/08/17 10:50 110 H 28 H 04/08/17 10:45 94.1 F L 112 H 36 H 04/08/17 10:40 134 H 38 H BP Pulse Ox 04/09/17 09:49 116/68 100 04/09/17 08:30 121/57 04/09/17 08:15 123/61 100 04/09/17 08:02 04/09/17 08:00 122/63 100 04/09/17 07:44 04/09/17 07:40 116/62 100 04/09/17 06:30 114/69 100 04/09/17 06:21 116/67 98 04/09/17 06:11 121/62 99 04/09/17 06:00 117/61 100 04/09/17 05:51 121/62 99 04/09/17 05:41 109/63 99 04/09/17 05:30 109/63 97 04/09/17 05:21 111/66 100 04/09/17 05:11 115/70 100 04/09/17 05:00 119/63 99 04/09/17 04:51 115/70 99 04/09/17 04:41 111/74 99 04/09/17 04:30 111/74 99 04/09/17 04:21 113/70 99 04/09/17 04:11 118/72 98 04/09/17 04:00 118/72 100 04/09/17 03:51 110/64 99 04/09/17 03:41 126/71 99 04/09/17 03:30 126/71 100 04/09/17 03:21 122/52 99 04/09/17 03:11 112/64 99 04/09/17 03:01 112/64 99 04/09/17 02:51 98/59 99 04/09/17 02:41 99/60 100 04/09/17 02:31 99/60 100 04/09/17 02:21 91/66 99 04/09/17 02:11 100/56 100 04/09/17 02:10 04/09/17 02:00 100/56 100 04/09/17 01:54 04/09/17 01:51 106/59 99 04/09/17 01:41 123/50 99 04/09/17 01:31 123/50 98 04/09/17 01:21 105/60 99 04/09/17 01:11 121/42 98 04/09/17 01:01 142/65 98 04/09/17 00:50 121/42 98 04/09/17 00:41 120/63 99 04/09/17 00:30 120/63 98 04/09/17 00:23 110/64 97 04/09/17 00:21 116/60 98 04/09/17 00:11 113/53 97 04/09/17 00:00 113/53 97 04/08/17 23:51 108/62 98 04/08/17 23:41 128/83 97 04/08/17 23:31 128/83 98 04/08/17 23:21 118/73 99 04/08/17 23:11 136/70 99 04/08/17 23:01 136/70 98 04/08/17 22:51 120/36 98 04/08/17 22:41 112/70 97 04/08/17 22:30 112/70 97 04/08/17 22:21 106/59 96 04/08/17 22:11 115/59 95 04/08/17 22:01 115/59 95 04/08/17 21:51 114/56 96 04/08/17 21:41 118/55 97 04/08/17 21:30 118/55 98 04/08/17 21:21 109/53 98 04/08/17 21:11 67/22 95 04/08/17 21:00 95 04/08/17 20:51 57/16 93 04/08/17 20:41 79/15 94 04/08/17 20:31 79/15 95 04/08/17 20:21 79/15 94 04/08/17 20:11 106/55 95 04/08/17 20:09 106/55 95 04/08/17 20:01 106/55 94 04/08/17 20:00 96 04/08/17 19:54 04/08/17 19:51 61/35 94 04/08/17 19:41 89/14 99 04/08/17 19:31 130/64 98 04/08/17 19:21 130/64 95 04/08/17 19:11 130/64 95 04/08/17 19:00 130/64 85 04/08/17 18:51 113/62 99 04/08/17 18:41 100/65 98 17 18:31 100/65 100 17 18:21 121/76 92 17 18:11 114/73 91 17 18:00 114/73 89 17 17:51 127/72 91 17 17:41 120/75 90 17 17:30 120/75 91 17 17:21 110/75 89 17 17:11 125/67 89 17 17:00 126/80 90 17 16:55 125/67 95 17 16:50 97/51 99 17 16:41 113/67 99 17 16:30 113/67 98 17 16:21 107/56 99 17 16:11 105/53 100 17 16:00 105/53 98 17 15:51 100/51 98 04/08/17 15:41 97/51 98 17 15:30 109/56 94 04/08/17 15:21 97/51 99 04/08/17 15:11 98/42 98 04/08/17 15:10 98 04/08/17 15:00 119/56 98 04/08/17 14:51 98/42 99 04/08/17 14:41 108/56 99 04/08/17 14:30 108/56 98 04/08/17 14:24 04/08/17 14:21 104/52 98 04/08/17 14:11 95/49 98 17 14:00 95/49 98 04/08/17 13:55 04/08/17 13:51 87/55 100 17 13:41 106/66 100 17 13:30 106/66 100 17 13:21 96/59 100 17 13:11 103/56 100 04/08/17 13:01 103/56 100 17 13:00 95/63 100 17 12:51 127/61 100 17 12:41 103/64 100 17 12:30 106/58 100 11/28/17 12:21 103/64 100 04/08/17 12:11 182/87 04/08/17 12:01 107/62 04/08/17 12:00 96/65 100 04/08/17 11:56 182/87 100 04/08/17 11:51 182/87 100 04/08/17 11:41 112/59 99 04/08/17 11:35 04/08/17 11:30 98/65 98 04/08/17 11:21 108/66 98 04/08/17 11:20 04/08/17 11:15 98/64 98 04/08/17 11:11 119/76 97 04/08/17 11:01 71/13 93 04/08/17 11:00 127/78 92 04/08/17 10:50 94 04/08/17 10:45 125/77 93 04/08/17 10:40 64/12 95 - Labs and Meds CBC 04/08/17 04/09/17 Range/Units 12:10 03:38 WBC 21.6 H 27.2 H (4.5-11.0) K/mm3 RBC 5.69 H 4.91 (3.65-5.03) M/mm3 Hgb 16.1 H 13.9 (11.8-15.2) gm/dl Hct 50.4 H D 42.7 D (35.5-45.6) % Plt Count 225 158 (140-440) K/mm3 Comprehensive Metabolic Panel 04/08/17 04/09/17 Range/Units 12:10 03:38 Sodium 143 136 L (137-145) mmol/L Potassium 3.4 L 5.0 D (3.6-5.0) mmol/L Chloride 101.3 101.3 (98-107) mmol/L Carbon Dioxide 21 L 18 L (22-30) mmol/L BUN 11 13 (9-20) mg/dL Creatinine 1.1 1.0 (0.8-1.5) mg/dL Glucose 182 H 177 H (75-100) mg/dL Calcium 7.5 L 7.4 L (8.4-10.2) mg/dL
[2017-04-09] MEDS: KEPPRA 750 MG in NACL 0.9% 100 ML IV SCH (13:26)
--- NOTE | 2017-04-09 14:20 | XRay Report ---
ABDOMEN RADIOGRAPH INDICATION: Orogastric tube placement. COMPARISON: None similar. FINDINGS: Frontal abdominal radiograph demonstrates nasogastric tube tip in the proximal stomach, though its side-port lies at the GE junction. Nonobstructive bowel gas pattern. Right groin catheter partially imaged. EKG leads. Clear visualized lung bases. Intact bones. CONCLUSION: Esophagogastric tube noted, as described above and may be further advanced by approximately 8-10 cm for more optimal positioning within the stomach, as appropriate. Thank you for the opportunity to participate in this patient's care.
[2017-04-09] MEDS ORDERED: ZEMURON IV ONE (14:42)
--- NOTE | 2017-04-09 14:58 | Consultation ---
History of Present Illness - Reason for Consult Consult date: 04/09/17 fever Requesting physician: ALLIE RUDOLPH - History of Present Illness 21 years old male with no known significant past medical history, inmate at [facility], who reportedly suffered a cardiac arrest in his [facility] cell this AM. His cellmate allegedly started CPR. On EMS arrival, the patient was found to be pulseless and thus received ACLS including multiple defibrillations for VF and was intubated. EKG following arrival was concerning for STEMI and pt was taken to cath lab radiological technologist for emergent coronary angiogram. Pt s/p LHC which revealed normal coronaries, normal LVEF. In the emergency room, initial temperature was 94.4, which then went to 102.8. Blood pressure 119/90, heart rate 93. White count 33.2. Creat 1.4. Lactic acid 9. UDS negative. UA negative. AST 265. ALT 223. CK 623. Chest x-ray shows bilateral pulmonary edema versus pneumonia.I Microbiology: Blood cultures: 04/08 ngtd Urine cultures: 04/08 neg Respiratory cultures: Current Antimicrobials: Zosyn Vancomycin Previous Antimicrobials: Past History Past Medical History: No medical history (Unable to obtaine, patient intubated. [facility] office unable to provide any documentation at this time), other (unable to obtain due to patients mental status ) Past Surgical History: No surgical history Social history: no significant social history Family history: no significant family history Medications and Allergies Allergies Allergy/AdvReac Type Severity Reaction Status Date / Time No Known Allergies Allergy Unverified 06/29/16 06:47 Home Medications Medication Instructions Recorded Confirmed Last Taken Type Gentamicin 0.3% Ophth Soln 2 drops OP Q4H #1 bottle 06/29/16 Unknown Rx Ibuprofen [Motrin] 600 mg PO Q8H PRN #16 tablet 06/29/16 Unknown Rx Sulfamethoxazole/Trimethoprim 1 each PO BID #14 tablet 07/01/16 Unknown Rx [Bactrim DS TAB] Active Meds: Active Medications Acetaminophen (Tylenol) 650 mg PO Q4H PRN PRN Reason: Pain MILD(1-3)/Fever >100.5/MONTOYA Albuterol/Ipratropium (Duoneb *Not For Prn Use*) 1 ampul IH Q6HRT [facility] Last Admin: 04/09/17 14:20 Dose: 1 ampul Lipase/Protease/Amylase (Pancreaze Dr 10,500 Unit) 1 each FEEDTUBE PRN PRN PRN Reason: For Clogged Feeding Tube Bisacodyl (Dulcolax) 10 mg AL QDAY PRN PRN Reason: Constipation unrelieved by MOM Famotidine (Pepcid) 20 mg IV BID [facility] Last Admin: 04/09/17 10:28 Dose: 20 mg Heparin Sodium (Porcine) (Heparin) 5,000 unit SUB-Q Q12HR [facility] Last Admin: 04/09/17 10:10 Dose: 5,000 unit Levetiracetam 750 mg/ Sodium (Chloride) 107.5 mls @ 400 mls/hr IV Q12HR [facility] Last Admin: 04/09/17 13:26 Dose: 400 mls/hr Piperacillin Sod/Tazobactam Sod (Zosyn/Ns 4.5gm/100ml) 4.5 gm in 100 mls @ 200 mls/hr IV Q6HR [facility] PRN Reason: Protocol Last Admin: 04/09/17 13:27 Dose: 200 mls/hr Lorazepam 100 mg/ Sodium Chloride/ Miscellaneous Information 100 mls @ 1 mls/ hr IV TITR LEIA; 1 MG/HR PRN Reason: Protocol Last Titration: 04/08/17 20:00 Dose: 3 mg/hr, 3 mls/hr Vancomycin HCl (Vancomycin/Ns 1 Gm/250 Ml) 1 gm in 250 mls @ 166.667 mls/hr IV Q8H [facility] Last Admin: 04/09/17 12:05 Dose: 166.667 mls/hr Norepinephrine (Levophed Drip 4 Mg/Ns 250 Ml) 4 mg in 250 mls @ 7.5 mls/hr IV TITR LEIA; 2 MCG/MIN PRN Reason: Protocol Last Titration: 04/09/17 08:10 Dose: Infused Propofol (Diprivan 10 Mg/Ml) 1,000 mg in 100 mls @ 2.041 mls/hr IV TITR LEIA; 5 MCG/KG/MIN PRN Reason: Protocol Last Admin: 04/09/17 13:25 Dose: 5 mcg/kg/min, 2.041 mls/hr Lorazepam (Ativan) 1 mg IV Q1H PRN PRN Reason: Seizures Morphine Sulfate (Morphine) 2 mg IV Q4H PRN PRN Reason: Pain, Moderate (4-6) Ondansetron HCl (Zofran) 4 mg IV Q8H PRN PRN Reason: N/V unrelieved by Reglan Simple Syrup (Simple Syrup) 15 ml FEEDTUBE PRN PRN PRN Reason: Hypoglycemia Simple Syrup (Simple Syrup) 30 ml FEEDTUBE PRN PRN PRN Reason: Hypoglycemia Sodium Bicarbonate (Sodium Bicarbonate) 325 mg FEEDTUBE PRN PRN PRN Reason: For Clogged Feeding Tube Vancomycin HCl (Vancomycin Pharmacy To Dose) 1 each IV PKCONSULT [facility]IA PRN Reason: Protocol Review of Systems ROS unobtainable: due to mental status Physical Examination - Physical Exam Narrative exam: General appearance: comatous intubated Eyes: marked conjunctival edema bilateral, erratic pupils dilated and fixed changing to reactive after moving his head HENT: Atraumatic; oropharynx +ETT Neck: Trachea midline; supple, no thyromegaly or lymphadenopathy Lungs: CTA CV: RRR Abdomen: Soft, non-tender egaly Extremities: No peripheral edema or extremity lymphadenopathy Skin: Normal temperature, turgor and texture; no rash, ulcers or subcutaneous nodules Psych: Appropriate affect, alert and oriented to person, place and time. Neuro: alert and oriented x 3. Moving all extermities Lines: [place] - Constitutional Vitals: Vital Signs Temp Pulse Resp BP Pulse Ox 98.4 F 115 H 20 113/68 100 04/09/17 12:00 04/09/17 14:33 04/09/17 14:33 04/09/17 14:30 04/09/17 14:30 Temperature -Last 24 Hours Temperature 98.4 F Temperature 98.3 F Temperature 98.3 F Temperature 99.1 F Temperature 102.8 F Temperature 97.8 F Temperature 99.0 F Results - Labs CBC & Chem 7: 04/09/17 03:38 04/09/17 03:38 Labs: Abnormal lab results 04/08/17 04/08/17 04/08/17 Range/Units 15:02 17:56 19:51 WBC (4.5-11.0) K/mm3 Seg Neuts % (Manual) (40.0-70.0) % Lymphocytes % (Manual) (13.4-35.0) % Seg Neutrophils # Man (1.8-7.7) K/mm3 Monocytes # (Manual) (0.0-0.8) K/mm3 POC ABG pH 7.287 L (7.35-7.45) POC ABG pCO2 (35-45) POC ABG pO2 196 H (80-105) Sodium (137-145) mmol/L Carbon Dioxide (22-30) mmol/L Glucose (75-100) mg/dL POC Glucose 140 H (70-105) Lactic Acid 7.50 H* (0.7-2.0) mmol/L Calcium (8.4-10.2) mg/dL C-Reactive Protein (0.00-1.30) mg/dL 04/08/17 04/09/17 04/09/17 Range/Units 23:53 03:38 03:38 WBC 27.2 H (4.5-11.0) K/mm3 Seg Neuts % (Manual) 74.0 H (40.0-70.0) % Lymphocytes % (Manual) 8.0 L (13.4-35.0) % Seg Neutrophils # Man 20.1 H (1.8-7.7) K/mm3 Monocytes # (Manual) 1.4 H (0.0-0.8) K/mm3 POC ABG pH (7.35-7.45) POC ABG pCO2 (35-45) POC ABG pO2 (80-105) Sodium 136 L (137-145) mmol/L Carbon Dioxide 18 L (22-30) mmol/L Glucose 177 H (75-100) mg/dL POC Glucose 175 H (70-105) Lactic Acid (0.7-2.0) mmol/L Calcium 7.4 L (8.4-10.2) mg/dL C-Reactive Protein (0.00-1.30) mg/dL 04/09/17 04/09/17 04/09/17 Range/Units 04:17 05:50 07:41 WBC (4.5-11.0) K/mm3 Seg Neuts % (Manual) (40.0-70.0) % Lymphocytes % (Manual) (13.4-35.0) % Seg Neutrophils # Man (1.8-7.7) K/mm3 Monocytes # (Manual) (0.0-0.8) K/mm3 POC ABG pH (7.35-7.45) POC ABG pCO2 30.1 L (35-45) POC ABG pO2 115 H (80-105) Sodium (137-145) mmol/L Carbon Dioxide (22-30) mmol/L Glucose (75-100) mg/dL POC Glucose 167 H (70-105) Lactic Acid 5.00 H* (0.7-2.0) mmol/L Calcium (8.4-10.2) mg/dL C-Reactive Protein (0.00-1.30) mg/dL 04/09/17 04/09/17 Range/Units 09:52 12:22 WBC (4.5-11.0) K/mm3 Seg Neuts % (Manual) (40.0-70.0) % Lymphocytes % (Manual) (13.4-35.0) % Seg Neutrophils # Man (1.8-7.7) K/mm3 Monocytes # (Manual) (0.0-0.8) K/mm3 POC ABG pH (7.35-7.45) POC ABG pCO2 (35-45) POC ABG pO2 (80-105) Sodium (137-145) mmol/L Carbon Dioxide (22-30) mmol/L Glucose (75-100) mg/dL POC Glucose 113 H (70-105) Lactic Acid (0.7-2.0) mmol/L Calcium (8.4-10.2) mg/dL C-Reactive Protein 12.50 H (0.00-1.30) mg/dL Assessment and Plan Assessment: 1) Sepsis with septic shock and MODS: Present on admission, manifested by hypothermia-fever, tachycardia, leukocytosis, increased lactate. Etiology - unclear. DDx: aspiration pneumonia, brain edema/central fever. 2) S/P cardiac arrest at [facility] - ? multiple shocks w prolonged downtime (?30-45 minutes) -S/P urgent LHC revealed normal coronaries and low normal lv fxn (50-55%) 3) Elevated liver enzymes likely due to #s 1 and 2 4) Acute resp failure 6) Seizures 7) Anoxic encephalopathy Plan: -follow-up blood cultures, urine culture -obtain respiratory cultures, procalcitonin, C-reactive protein (CRP) -continue vancomycin and zosyn -neuro eval / brain MRI -repeat CXR Thank you Dr Rudolph for your consultation, will follow up with you. Crys Zhang MD Infectious Diseases Specialist [facility] ([facility] M [phone] O [phone]
[2017-04-09 15:09] LABS: ISTAT Base Excess 0; ISTAT HCO3 24.6; ISTAT PCO2 36.7 (35-45); ISTAT PH 7.434 (7.35-7.45); ISTAT PO2 99 (80-105); ISTAT SO2 98; ISTAT TCO2 26
[2017-04-09] MEDS ORDERED: OSMITROL 20% IV ONE (15:15)
[2017-04-09] MEDS ORDERED: OSMITROL 20% IV SCH ×3 (16:00→18:00)
--- NOTE | 2017-04-09 17:28 | Consultation ---
History of Present Illness Consult date: 04/09/17 History of present illness: the patient was examined and full note dictated very little evidence to suggest recoverability deep coma etiology of arrest beeing investigated Past History Past Medical History: No medical history (Unable to obtaine, patient intubated. [facility] office unable to provide any documentation at this time), other (unable to obtain due to patients mental status ) Past Surgical History: No surgical history Social history: no significant social history Family history: no significant family history Medications and Allergies Allergies Allergy/AdvReac Type Severity Reaction Status Date / Time No Known Allergies Allergy Unverified 06/29/16 06:47 Home Medications Medication Instructions Recorded Confirmed Last Taken Type Gentamicin 0.3% Ophth Soln 2 drops OP Q4H #1 bottle 06/29/16 Unknown Rx Ibuprofen [Motrin] 600 mg PO Q8H PRN #16 tablet 06/29/16 Unknown Rx Sulfamethoxazole/Trimethoprim 1 each PO BID #14 tablet 07/01/16 Unknown Rx [Bactrim DS TAB] Active Meds: Active Medications Acetaminophen (Tylenol) 650 mg PO Q4H PRN PRN Reason: Pain MILD(1-3)/Fever >100.5/MONTOYA Albuterol/Ipratropium (Duoneb *Not For Prn Use*) 1 ampul IH Q6HRT [facility] Last Admin: 04/09/17 14:20 Dose: 1 ampul Lipase/Protease/Amylase (Pancreaze Dr 10,500 Unit) 1 each FEEDTUBE PRN PRN PRN Reason: For Clogged Feeding Tube Bisacodyl (Dulcolax) 10 mg HI QDAY PRN PRN Reason: Constipation unrelieved by MOM Famotidine (Pepcid) 20 mg IV BID [facility] Last Admin: 04/09/17 10:28 Dose: 20 mg Heparin Sodium (Porcine) (Heparin) 5,000 unit SUB-Q Q12HR [facility] Last Admin: 04/09/17 10:10 Dose: 5,000 unit Levetiracetam 750 mg/ Sodium (Chloride) 107.5 mls @ 400 mls/hr IV Q12HR [facility] Last Admin: 04/09/17 13:26 Dose: 400 mls/hr Piperacillin Sod/Tazobactam Sod (Zosyn/Ns 4.5gm/100ml) 4.5 gm in 100 mls @ 200 mls/hr IV Q6HR [facility] PRN Reason: Protocol Last Admin: 04/09/17 13:27 Dose: 200 mls/hr Lorazepam 100 mg/ Sodium Chloride/ Miscellaneous Information 100 mls @ 1 mls/ hr IV TITR [facility]; 1 MG/HR PRN Reason: Protocol Last Titration: 04/08/17 20:00 Dose: 3 mg/hr, 3 mls/hr Vancomycin HCl (Vancomycin/Ns 1 Gm/250 Ml) 1 gm in 250 mls @ 166.667 mls/hr IV Q8H [facility] Last Admin: 04/09/17 12:05 Dose: 166.667 mls/hr Norepinephrine (Levophed Drip 4 Mg/Ns 250 Ml) 4 mg in 250 mls @ 7.5 mls/hr IV TITR [facility]; 2 MCG/MIN PRN Reason: Protocol Last Titration: 04/09/17 08:10 Dose: Infused Propofol (Diprivan 10 Mg/Ml) 1,000 mg in 100 mls @ 2.041 mls/hr IV TITR [facility]; 5 MCG/KG/MIN PRN Reason: Protocol Last Admin: 04/09/17 13:25 Dose: 5 mcg/kg/min, 2.041 mls/hr Mannitol (Osmitrol 20%) 340 mls @ 226.667 mls/hr IV ONCE [facility]IA Mannitol (Osmitrol 20%) 85 mls @ 170 mls/hr IV Q6H [facility] Lorazepam (Ativan) 1 mg IV Q1H PRN PRN Reason: Seizures Morphine Sulfate (Morphine) 2 mg IV Q4H PRN PRN Reason: Pain, Moderate (4-6) Ondansetron HCl (Zofran) 4 mg IV Q8H PRN PRN Reason: N/V unrelieved by Reglan Simple Syrup (Simple Syrup) 15 ml FEEDTUBE PRN PRN PRN Reason: Hypoglycemia Simple Syrup (Simple Syrup) 30 ml FEEDTUBE PRN PRN PRN Reason: Hypoglycemia Sodium Bicarbonate (Sodium Bicarbonate) 325 mg FEEDTUBE PRN PRN PRN Reason: For Clogged Feeding Tube Vancomycin HCl (Vancomycin Pharmacy To Dose) 1 each IV PKCONSULT [facility] PRN Reason: Protocol Physical Examination - Vital Signs Vital Signs: Vital Signs Pulse Resp Pulse Ox 93 H 14 100 04/08/17 06:50 04/08/17 06:50 04/08/17 06:50 Results - Laboratory Findings CBC and BMP: 04/09/17 03:38 04/09/17 03:38 Abnormal Lab Findings: Abnormal Labs 04/08/17 04/08/17 04/08/17 07:06 07:06 07:06 WBC 33.2 H RBC Hgb Hct Seg Neuts % (Manual) Lymphocytes % (Manual) Seg Neutrophils # Man 13.3 H Lymphocytes # (Manual) 7.6 H Monocytes # (Manual) 1.3 H PT 16.5 H INR 1.27 H APTT 51.7 H D-Dimer POC ABG pH POC ABG pCO2 POC ABG pO2 Sodium Potassium 3.5 L Carbon Dioxide 15 L Glucose 336 H POC Glucose Lactic Acid Calcium 7.2 L AST 265 H ALT 223 H Total Creatine Kinase Troponin T 0.321 H* C-Reactive Protein Total Protein 5.7 L Albumin 3.2 L Ur Specific [place] Urine WBC (Auto) 04/08/17 04/08/17 04/08/17 07:06 07:36 09:22 WBC RBC Hgb Hct Seg Neuts % (Manual) Lymphocytes % (Manual) Seg Neutrophils # Man Lymphocytes # (Manual) Monocytes # (Manual) PT INR APTT D-Dimer POC ABG pH 7.105 L POC ABG pCO2 68.1 H POC ABG pO2 256 H Sodium Potassium Carbon Dioxide Glucose POC Glucose 193 H Lactic Acid Calcium AST ALT Total Creatine Kinase 623 H Troponin T C-Reactive Protein Total Protein Albumin Ur Specific [place] Urine WBC (Auto) 04/08/17 04/08/17 04/08/17 10:59 11:13 11:33 WBC RBC Hgb Hct Seg Neuts % (Manual) Lymphocytes % (Manual) Seg Neutrophils # Man Lymphocytes # (Manual) Monocytes # (Manual) PT INR APTT D-Dimer POC ABG pH 7.197 L POC ABG pCO2 46.3 H POC ABG pO2 68 L Sodium Potassium Carbon Dioxide Glucose POC Glucose Lactic Acid 9.00 H* Calcium AST ALT Total Creatine Kinase Troponin T 2.380 H* D C-Reactive Protein Total Protein Albumin Ur Specific Hammett Urine WBC (Auto) 04/08/17 04/08/17 04/08/17 12:10 12:10 12:10 WBC 21.6 H RBC 5.69 H Hgb 16.1 H Hct 50.4 H D Seg Neuts % (Manual) 86.0 H Lymphocytes % (Manual) 5.0 L Seg Neutrophils # Man 18.6 H Lymphocytes # (Manual) 1.1 L Monocytes # (Manual) PT INR APTT D-Dimer POC ABG pH POC ABG pCO2 POC ABG pO2 Sodium Potassium 3.4 L Carbon Dioxide 21 L Glucose 182 H POC Glucose Lactic Acid Calcium 7.5 L AST ALT Total Creatine Kinase Troponin T C-Reactive Protein Total Protein Albumin Ur Specific Hammett 1.044 H Urine WBC (Auto) 18.0 H 04/08/17 04/08/17 04/08/17 13:32 15:02 17:56 WBC RBC Hgb Hct Seg Neuts % (Manual) Lymphocytes % (Manual) Seg Neutrophils # Man Lymphocytes # (Manual) Monocytes # (Manual) PT INR APTT D-Dimer POC ABG pH 7.287 L POC ABG pCO2 POC ABG pO2 196 H Sodium Potassium Carbon Dioxide Glucose POC Glucose Lactic Acid 7.50 H* Calcium AST ALT Total Creatine Kinase Troponin T 2.330 H* C-Reactive Protein Total Protein Albumin Ur Specific Hammett Urine WBC (Auto) 04/08/17 04/08/17 04/09/17 19:51 23:53 03:38 WBC 27.2 H RBC Hgb Hct Seg Neuts % (Manual) 74.0 H Lymphocytes % (Manual) 8.0 L Seg Neutrophils # Man 20.1 H Lymphocytes # (Manual) Monocytes # (Manual) 1.4 H PT INR APTT D-Dimer POC ABG pH POC ABG pCO2 POC ABG pO2 Sodium Potassium Carbon Dioxide Glucose POC Glucose 140 H 175 H Lactic Acid Calcium AST ALT Total Creatine Kinase Troponin T C-Reactive Protein Total Protein Albumin Ur Specific Hammett Urine WBC (Auto) 04/09/17 04/09/17 04/09/17 03:38 04:17 05:50 WBC RBC Hgb Hct Seg Neuts % (Manual) Lymphocytes % (Manual) Seg Neutrophils # Man Lymphocytes # (Manual) Monocytes # (Manual) PT INR APTT D-Dimer POC ABG pH POC ABG pCO2 30.1 L POC ABG pO2 115 H Sodium 136 L Potassium Carbon Dioxide 18 L Glucose 177 H POC Glucose 167 H Lactic Acid Calcium 7.4 L AST ALT Total Creatine Kinase Troponin T C-Reactive Protein Total Protein Albumin Ur Specific Hammett Urine WBC (Auto) 11/04/09/17 04/09/17 07:41 09:52 12:22 WBC RBC Hgb Hct Seg Neuts % (Manual) Lymphocytes % (Manual) Seg Neutrophils # Man Lymphocytes # (Manual) Monocytes # (Manual) PT INR APTT D-Dimer POC ABG pH POC ABG pCO2 POC ABG pO2 Sodium Potassium Carbon Dioxide Glucose POC Glucose 113 H Lactic Acid 5.00 H* Calcium AST ALT Total Creatine Kinase Troponin T C-Reactive Protein 12.50 H Total Protein Albumin Ur Specific Hammett Urine WBC (Auto) 04/09/17 04/09/17 14:49 15:24 WBC RBC Hgb Hct Seg Neuts % (Manual) Lymphocytes % (Manual) Seg Neutrophils # Man Lymphocytes # (Manual) Monocytes # (Manual) PT INR APTT D-Dimer 4492.30 H POC ABG pH POC ABG pCO2 POC ABG pO2 Sodium Potassium Carbon Dioxide Glucose POC Glucose Lactic Acid Calcium AST ALT Total Creatine Kinase Troponin T C-Reactive Protein 12.60 H Total Protein Albumin Ur Specific Hammett Urine WBC (Auto)
--- NOTE | 2017-04-09 19:01 | Cat Scan Report ---
FINAL REPORT PROCEDURE: CT HEAD/BRAIN WO CON TECHNIQUE: Computerized tomography of the head was performed without contrast material. HISTORY: ocular swelling, non responsive COMPARISON: No prior studies are available for comparison. FINDINGS: Brain: There is lack of definition of the barry-white matter junction diffusely. The appearance is suspicious for extensive diffuse ischemic change, edema. No definite hemorrhage is visualized. Ventricles are normal size and are midline. No abnormal extra-axial fluid collections or masses are identified. No evidence of skull fracture. There is mild mucosal thickening in the right and left maxillary sinuses, right and left sphenoid sinuses and a few of the ethmoid air cells. Paranasal sinuses otherwise appear clear. Ventricles: Ventricles are normal size and are midline. Bone Windows: No evidence of skull fracture. Paranasal sinuses: Clear Mastoid air cells: Clear Portions of an NG tube and endotracheal tube are in place. IMPRESSION: Barry-white matter junction of the brain diffusely is poorly defined suspicious for diffuse ischemic change. No hemorrhage is seen. Ventricles are midline. Mild diffuse paranasal sinus disease as described. NG tube and endotracheal tube are visualized. Critical value: These findings were discussed in detail with VINCE Flowers by phone conversation on 04/09/2017 at 6:53 p.m. [place] standard time
--- NOTE | 2017-04-09 21:02 | XRay Report ---
FINAL REPORT PROCEDURE: XR CHEST 1V AP TECHNIQUE: Chest radiograph anteroposterior view. CPT 43084 HISTORY: Advanced ETT COMPARISON: Prior chest x-ray 04/08/2017 FINDINGS: Endotracheal tube in place. The tip lies 5.5 centimeter above the kayla. NG tube is coiled into the left side of the stomach. The heart is magnified due to projection although appears to be normal size. There is minimal patchy alveolar density left infrahilar region. Overall there is significantly improved aeration compared to the prior study earlier today. The lungs otherwise are clear. No effusions or pneumothorax visualized. No acute bony abnormalities are identified. IMPRESSION: Endotracheal tube and NG tube in position as described. Significantly improved aeration compared to the prior study. There appears to be minimal residual atelectasis left infrahilar region. Lungs otherwise are clear..
--- NOTE | 2017-04-09 21:04 | XRay Report ---
FINAL REPORT PROCEDURE: XR ABDOMEN 1V AP TECHNIQUE: AP supine portable radiograph of the abdomen was obtained at 04/10/2017 00:38 (T) . HISTORY: og tube advanced COMPARISON: No prior studies are available for comparison. FINDINGS: Limited visualization of the abdomen shows an NG tube coiled into the left side of the stomach. Nonspecific bowel gas pattern present. There appears to be minimal patchy alveolar density left infrahilar region suggesting a small amount of atelectasis. No effusions are seen. IMPRESSION: NG tube in good position. Small amount of left lower lobe atelectasis suspected.
[2017-04-09] MEDS: DECADRON IV SCH (22:27)
[2017-04-10] MEDS: KEPPRA 750 MG in NACL 0.9% 100 ML IV SCH ×2 (00:58→09:43)
[2017-04-10] MEDS: ZOSYN/NS 4.5GM/100ML 4.5 GM/100 ML VIAL IV SCH ×5 (01:03→23:36)
[2017-04-10] MEDS: DUONEB *Not for PRN Use IH SCH ×4 (01:45→20:53)
[2017-04-10] MEDS: VANCOMYCIN/NS 1 GM/250 ML 1 GM/250 ML BAG IV SCH ×2 (04:48→11:49)
[2017-04-10] MEDS: DECADRON IV SCH ×4 (04:48→23:36)
[2017-04-10 05:19] LABS: Hematocrit 38.7 % (35.5-45.6); Hemoglobin 13.1 gm/dl (11.8-15.2); Mean Corpuscular HGB Conc 34 % (32-34); Mean Corpuscular Hemoglobin 30 pg (28-32); Mean Corpuscular Volume 87 fl (84-94); Platelet Count 128 K/mm3 (140-440); Red Blood Count 4.44 M/mm3 (3.65-5.03); Red Cell Distribution Width 13.6 % (13.2-15.2); White Blood Count 20.1 K/mm3 (4.5-11.0)
[2017-04-10 05:41] LABS: Alanine Aminotransferase 152 units/L (7-56); Albumin 3.1 g/dL (3.9-5); Albumin/Globulin Ratio 1.1 %; Alkaline Phosphatase 54 units/L (35-129); BUN/Creatinine Ratio 9; Blood Urea Nitrogen 9 mg/dL (9-20); Calcium 8.4 mg/dL (8.4-10.2); Carbon Dioxide 26 mmol/L (22-30); Chloride 100.3 mmol/L (98-107); Glucose 128 mg/dL (75-100); Potassium 4.4 mmol/L (3.6-5.0); Sodium 139 mmol/L (137-145)
[2017-04-10] MEDS: TYLENOL PO PRN ×2 (05:41→09:24)
[2017-04-10 05:45] LABS: Anion Gap 17 mmol/L
[2017-04-10 05:56] LABS: ISTAT Base Excess 1; ISTAT HCO3 25.3; ISTAT PCO2 38.2 (35-45); ISTAT PH 7.429 (7.35-7.45); ISTAT PO2 149 (80-105); ISTAT SO2 99; ISTAT TCO2 26
--- NOTE | 2017-04-10 06:03 | Consultation ---
HISTORY OF PRESENT ILLNESS: This is a 21-year-old black male that is admitted by the custodial of [facility]. The patient presented to the hospital after being found face down in the custodial, being unresponsive. Details about this are found in the ED note. The patient came in after having been found unresponsive. He underwent a cardiac catheterization by Dr. Stein. Reviewing those notes, those are negative. He had undergone screening for that condition and was noted to have on admission calcium of 9.9, albumin of 4.9. The patient's potassium is 4.4, sodium was 139, and the creatinine is 1.1. The patient's hematocrit was 49.0. By history, the patient was found unresponsive and I did review over some records from the mental health records that were on the patient from corrective care and he was found to be so unresponsive, pulse rate was elevated, CPR was started. The patient received counter shocks after being found with cardiopulmonary arrest. There is a very detailed summary of this present in the chart and I did review over these records completely, subsequent to being intubated and placed on life support, very little changes occurred in the patient's condition. He continues to be unresponsive. His pupils are nonreactive. He has negative doll's eyes, but he does have a positive gag reflex. No superficial movements are present. I did notice on the intake forms of the custodial that there was no baseline condition that was present or identified in the initial screens, also his urinalysis was negative and the patient subsequent to admission in the ICU room 2251 has remained unresponsive, not moving and obviously with extreme neurological injury. IMPRESSION: This patient is in a coma, very deep without evidence of any reflexes whatsoever except for positive gag reflex and prognosis is not good. From reviewing the chart, I do not have any clear evidence as to what happened to him. He is young, has normal coronaries. There is at this present no clue as to what exactly created the arrest, but I will review over additional records from the ED notes once they are made available to me and I will leave an additional note at that point of other impressions from review of the ED record that may have taken a direct history from EMS, which I do not have available at the time of dictating this report. I may make an addendum. Clearly the patient has severe hypoxic injury and I would like to review over other studies he has had. JOB# [id number] KELLY/VERO
[2017-04-10] MEDS ORDERED: OSMITROL 20% IV ONE (07:00)
[2017-04-10] MEDS: HEPARIN SUB-Q SCH ×2 (09:25→21:34)
[2017-04-10] MEDS: PEPCID IV SCH ×2 (09:25→21:35)
--- NOTE | 2017-04-10 09:48 | Progress Note ---
Assessment and Plan 21 AA male: 1. s/p cardiac arrest at [facility] - ? multiple shocks w prolonged downtime (?30-45 minutes)- no strips available - unknown primary rhythm * will request strips and documentation from [facility] medical staff * ecg now reveals nsr w nl qt * pt has been in sr/st throughout, will hold off on amio given shock/pressors/ elevated ast and alt * urgent lhc revealed normal coronaries and low normal lv fxn (50-55%) * pea/hypotension later yesterday * Subsequently, TTE revelaed ef ~35-40% 2. hypotension/shock * weaned off pressors 3. elevated liver enzymes * likely due to #s 1 and 2 4. Lactic acidemia 5. Acute resp failure * s/p broch * ? alveolar hemorrhage 6. Seizures 7. ? anoxic encephalopathy Plan: Attempt to obtain records/ECG from [facility]. Critically ill. Supportive care. Neurology consultation noted - very little evidence to suggest recoverability per neuro dvt prophylaxis The patient has been seen in conjunction with Dr. Arjun Stein who agrees with the assessment and plan of care. Subjective Date of service: 04/10/17 Principal diagnosis: Acute Hypoxemic respiratory Failure; Sepsis Syndrome Interval history: pt remains intubated, off pressors, off sedation, unresponsive. VSS. Fiance at bedside. Objective Last Vital Signs Temp 102.6 F H 04/10/17 03:31 Pulse 99 H 04/10/17 08:21 Resp 20 04/10/17 08:21 BP 142/88 04/10/17 08:21 Pulse Ox 100 04/10/17 08:21 - Physical Examination General: Other (intubated, unresponsive) HEENT: Positive: PERRL Neck: Positive: trachea midline Cardiac: Positive: Regular Rhythm, S1/S2, Tachycardia Lungs: Positive: Decreased Breath Sounds, Oxygen, Ventilated Respirations Neuro: Positive: Other (unresponsive) Abdomen: Positive: Soft Skin: Positive: Clear. Negative: Rash, Wound Musculoskeletal: No Fluid Collection, No Pain Extremities: Absent: edema - Labs and Meds Cardiac Enzymes 04/10/17 Range/Units 03:50 AST 342 H (5-40) units/L CBC 04/10/17 Range/Units 03:50 WBC 20.1 H (4.5-11.0) K/mm3 RBC 4.44 (3.65-5.03) M/mm3 Hgb 13.1 (11.8-15.2) gm/dl Hct 38.7 (35.5-45.6) % Plt Count 128 L (140-440) K/mm3 Lymph # 1.1 L (1.2-5.4) K/mm3 [place] # 1.0 H (0.0-0.8) K/mm3 Eos # 0.0 (0.0-0.4) K/mm3 Baso # 0.0 (0.0-0.1) K/mm3 Comprehensive Metabolic Panel 04/10/17 Range/Units 03:50 Sodium 139 (137-145) mmol/L Potassium 4.4 (3.6-5.0) mmol/L Chloride 100.3 (98-107) mmol/L Carbon Dioxide 26 D (22-30) mmol/L BUN 9 (9-20) mg/dL Creatinine 1.0 (0.8-1.5) mg/dL Glucose 128 H (75-100) mg/dL Calcium 8.4 (8.4-10.2) mg/dL AST 342 H (5-40) units/L ALT 152 H (7-56) units/L Alkaline Phosphatase 54 (35-129) units/L Total Protein 6.0 L (6.3-8.2) g/dL Albumin 3.1 L (3.9-5) g/dL - Imaging and Cardiology EKG: report reviewed, image reviewed Echo: report reviewed Cardiac cath: report reviewed - Telemetry EKG Rhythm: Sinus Tachycardia - Allied health notes Allied health notes reviewed: nursing
--- NOTE | 2017-04-10 10:49 | Progress Note ---
Assessment and Plan Assessment: 1) Shock post arrest ? multifactorial (cardiac/septic) and MODS: shock resolved. Septic Etiology - unclear. DDx: aspiration pneumonia, brain edema/ central fever. CRP=12.5 2) S/P cardiac arrest at residential - ? multiple shocks w prolonged downtime (?30-45 minutes) -S/P urgent LHC revealed normal coronaries and low normal lv fxn (50-55%) -TTE EF 25-30% 3) Elevated liver enzyme 4) Acute resp failure 6) Seizures 7) Anoxic encephalopathy - not better 8) Presumed pneumonia versus atelectasi: tracheal asp + Group C Strep likely a commensal Plan: -follow-up blood cultures, urine culture -follow-up respiratory cultures, procalcitonin -continue vancomycin and zosyn - day 3 -unfortunately, poor prognosis Thank you Dr Rudolph for your consultation, will follow up with you. Crys Zhang MD Infectious Diseases Specialist [facility] ([facility]) M [phone] O [phone] Subjective Date of service: 04/10/17 Principal diagnosis: Acute Hypoxemic respiratory Failure; Sepsis Syndrome Interval history: Remains comatose non responsive, no sedative, intubated on the vent. Tmax 102.6 Microbiology: Blood cultures: 04/08 ngtd Urine cultures: 04/08 neg Respiratory cultures: 04/08 Beta hem group C Current Antimicrobials: Zosyn 04/08 Vancomycin 04/08 Previous Antimicrobials: Objective - Exam Narrative Exam: General appearance: comatous intubated Eyes: marked conjunctival edema bilateral, erratic pupils dilated and fixed changing to reactive after moving his head HENT: Atraumatic; oropharynx +ETT Neck: Trachea midline; supple, no thyromegaly or lymphadenopathy Lungs: CTA CV: tachy Abdomen: Soft, non-tender egaly Extremities: No peripheral edema or extremity lymphadenopathy Skin: Normal temperature, turgor and texture; no rash, ulcers or subcutaneous nodules Psych: comatose Neuro: comatose Lines: [place] - Constitutional Vitals: Vital Signs Temp Pulse Resp BP Pulse Ox 102.6 F H 117 H 20 153/102 99 04/10/17 03:31 04/10/17 10:21 04/10/17 10:21 04/10/17 10:21 04/10/17 10:21 Temperature -Last 24 Hours Temperature 102.6 F Temperature 99.4 F Temperature 99 F Temperature 99.3 F Temperature 98.4 F - Labs CBC & Chem 7: 04/10/17 03:50 04/10/17 03:50 Labs: Abnormal lab results 04/09/17 04/09/17 04/09/17 Range/Units 09:52 12:22 14:49 WBC (4.5-11.0) K/mm3 Plt Count (140-440) K/mm3 Lymph % (Auto) (13.4-35.0) % Lymph # (1.2-5.4) K/mm3 [place] # (0.0-0.8) K/mm3 Seg Neutrophils % (40.0-70.0) % Seg Neutrophils # (1.8-7.7) K/mm3 D-Dimer 4492.30 H (0-234) ng/mlDDU POC ABG pO2 (80-105) Glucose (75-100) mg/dL POC Glucose 113 H (70-105) AST (5-40) units/L ALT (7-56) units/L C-Reactive Protein 12.50 H (0.00-1.30) mg/dL Total Protein (6.3-8.2) g/dL Albumin (3.9-5) g/dL 04/09/17 04/10/17 04/10/17 Range/Units 15:24 03:50 03:50 WBC 20.1 H (4.5-11.0) K/mm3 Plt Count 128 L (140-440) K/mm3 Lymph % (Auto) 5.5 L (13.4-35.0) % Lymph # 1.1 L (1.2-5.4) K/mm3 [place] # 1.0 H (0.0-0.8) K/mm3 Seg Neutrophils % 89.5 H (40.0-70.0) % Seg Neutrophils # 18.0 H (1.8-7.7) K/mm3 D-Dimer (0-234) ng/mlDDU POC ABG pO2 (80-105) Glucose 128 H (75-100) mg/dL POC Glucose (70-105) AST 342 H (5-40) units/L ALT 152 H (7-56) units/L C-Reactive Protein 12.60 H (0.00-1.30) mg/dL Total Protein 6.0 L (6.3-8.2) g/dL Albumin 3.1 L (3.9-5) g/dL 04/10/17 Range/Units 05:32 WBC (4.5-11.0) K/mm3 Plt Count (140-440) K/mm3 Lymph % (Auto) (13.4-35.0) % Lymph # (1.2-5.4) K/mm3 [place] # (0.0-0.8) K/mm3 Seg Neutrophils % (40.0-70.0) % Seg Neutrophils # (1.8-7.7) K/mm3 D-Dimer (0-234) ng/mlDDU POC ABG pO2 149 H (80-105) Glucose (75-100) mg/dL POC Glucose (70-105) AST (5-40) units/L ALT (7-56) units/L C-Reactive Protein (0.00-1.30) mg/dL Total Protein (6.3-8.2) g/dL Albumin (3.9-5) g/dL
--- NOTE | 2017-04-10 11:57 | Progress Note ---
Assessment and Plan Patient is a 21 years old male with no known significant past medical history who was in care home. His cellmates called for help after apparently finding him to be pulseless and unconscious. He cellmates today doing CPR, EMS then came and perform more CPR. Patient was pulseless, found to be in V. tach and was shocked up to 19 times. He regained his pulse shortly before arriving to the hospital. He was intubated and required pressors for blood pressure support. Acute Hypoxemic Respiratory Failure S/P Cardiopulmonary Arrest Acute Encephalopathy (Likely anoxic component) Severe Sepsis Seizures Pneumonia (Likely Aspiration) Cardiomyopathy NSTEMI - continue sedation to control seizure activity - continue keppra - continue with lung protective strategies - VAP bundle addressed - HOB > 40 - place NGT and begin enteral nutrition as tolerated - follow bronchoscopy cultures - continue empiric AB's - continue neurology evaluation - continue decadron - consider stopping mannitol - ordered BMP - continue GI & VTE prophylaxis - likely shock liver element - discontinue femoral linen) - continue other care per attending / other consultants ....he remains critically ill on life sustaining interventions including MVS and at high risk for further deterioration including - Patient Problems (1) Acute respiratory failure with hypoxia Status: Acute (2) Septic shock Status: Acute (3) Cardiac arrest Status: Acute (4) Sepsis Status: Acute (5) Seizures Status: Acute (6) Elevated liver enzymes Status: Acute (7) Pulmonary hemorrhage Status: Acute (8) Aspiration pneumonia Status: Acute (9) Metabolic acidosis Status: Acute Subjective Date of service: 04/10/17 Principal diagnosis: Acute Hypoxemic respiratory Failure; Sepsis Syndrome Interval history: Seen and examined. Vitals, labs, medications, chart reviewed. Discussed in interdisciplinary rounds. Remains unresponsive Objective - Exam Narrative Exam: General appearance: comatous intubated Eyes: marked conjunctival edema bilateral, fixed dilated pupils HENT: Atraumatic; oropharynx +ETT Neck: Trachea midline; supple, no thyromegaly or lymphadenopathy Lungs: Good AE bilaterally, CTA CV: tachycardia, S1,S2, no murmurs, gallops or rubs Abdomen: Soft, non-tender, no organomegally, BS + Extremities: No peripheral edema or extremity lymphadenopathy Skin: Normal temperature, turgor and texture; no rash, ulcers or subcutaneous nodules Psych: comatose Neuro: comatose Lines: [place] Vital Signs - 12hr 04/10/17 04/10/17 04/10/17 00:00 00:11 00:21 Temperature Pulse Rate 104 H 107 H 108 H Pulse Rate [ Bilateral Bases ] Pulse Rate [ From Monitor] Pulse Rate [ Right Dorsalis Pedis] Respiratory 20 20 19 Rate Respiratory Rate [Bilateral Bases] Blood Pressure 137/88 137/88 137/88 O2 Sat by Pulse 100 100 100 Oximetry 04/10/17 04/10/17 04/10/17 00:31 00:41 00:51 Temperature Pulse Rate 109 H 108 H 111 H Pulse Rate [ Bilateral Bases ] Pulse Rate [ From Monitor] Pulse Rate [ Right Dorsalis Pedis] Respiratory 20 20 23 Rate Respiratory Rate [Bilateral Bases] Blood Pressure 137/88 137/88 137/88 O2 Sat by Pulse 100 100 99 Oximetry 04/10/17 04/10/17 04/10/17 01:01 01:11 01:21 Temperature Pulse Rate 103 H 106 H 106 H Pulse Rate [ Bilateral Bases ] Pulse Rate [ From Monitor] Pulse Rate [ Right Dorsalis Pedis] Respiratory 20 21 20 Rate Respiratory Rate [Bilateral Bases] Blood Pressure 137/88 137/88 137/88 O2 Sat by Pulse 100 100 100 Oximetry 04/10/17 04/10/17 04/10/17 01:31 01:41 01:46 Temperature Pulse Rate 117 H 107 H Pulse Rate [ 107 H Bilateral Bases ] Pulse Rate [ From Monitor] Pulse Rate [ Right Dorsalis Pedis] Respiratory 21 20 Rate Respiratory 22 Rate [Bilateral Bases] Blood Pressure 137/88 137/88 O2 Sat by Pulse 99 99 Oximetry 04/10/17 04/10/17 04/10/17 01:51 02:00 02:01 Temperature Pulse Rate 113 H 110 H Pulse Rate [ 109 H Bilateral Bases ] Pulse Rate [ From Monitor] Pulse Rate [ Right Dorsalis Pedis] Respiratory 20 20 Rate Respiratory 22 Rate [Bilateral Bases] Blood Pressure 137/88 128/81 O2 Sat by Pulse 99 99 Oximetry 04/10/17 04/10/17 04/10/17 02:11 02:21 02:31 Temperature Pulse Rate 108 H 104 H 105 H Pulse Rate [ Bilateral Bases ] Pulse Rate [ From Monitor] Pulse Rate [ Right Dorsalis Pedis] Respiratory 20 20 20 Rate Respiratory Rate [Bilateral Bases] Blood Pressure 128/81 128/81 128/81 O2 Sat by Pulse 100 100 100 Oximetry 04/10/17 04/10/17 04/10/17 02:41 02:51 03:01 Temperature Pulse Rate 105 H 108 H 108 H Pulse Rate [ Bilateral Bases ] Pulse Rate [ From Monitor] Pulse Rate [ Right Dorsalis Pedis] Respiratory 20 22 23 Rate Respiratory Rate [Bilateral Bases] Blood Pressure 128/81 128/81 128/81 O2 Sat by Pulse 99 99 98 Oximetry 04/10/17 04/10/17 04/10/17 03:11 03:21 03:31 Temperature 102.6 F H Pulse Rate 109 H 105 H 105 H Pulse Rate [ Bilateral Bases ] Pulse Rate [ From Monitor] Pulse Rate [ Right Dorsalis Pedis] Respiratory 24 24 24 Rate Respiratory Rate [Bilateral Bases] Blood Pressure 128/81 128/81 128/81 O2 Sat by Pulse 99 98 98 Oximetry 04/10/17 04/10/17 04/10/17 03:41 03:51 04:00 Temperature Pulse Rate 103 H 103 H 104 H Pulse Rate [ Bilateral Bases ] Pulse Rate [ From Monitor] Pulse Rate [ Right Dorsalis Pedis] Respiratory 22 22 24 Rate Respiratory Rate [Bilateral Bases] Blood Pressure 128/81 128/81 141/95 O2 Sat by Pulse 98 98 98 Oximetry 04/10/17 04/10/17 04/10/17 04:04 04:11 04:21 Temperature Pulse Rate 104 H 118 H Pulse Rate [ Bilateral Bases ] Pulse Rate [ From Monitor] Pulse Rate [ 103 H Right Dorsalis Pedis] Respiratory 22 24 23 Rate Respiratory Rate [Bilateral Bases] Blood Pressure 141/95 141/95 O2 Sat by Pulse 100 98 99 Oximetry 04/10/17 04/10/17 04/10/17 04:31 04:41 04:51 Temperature Pulse Rate 124 H 130 H 130 H Pulse Rate [ Bilateral Bases ] Pulse Rate [ From Monitor] Pulse Rate [ Right Dorsalis Pedis] Respiratory 24 22 23 Rate Respiratory Rate [Bilateral Bases] Blood Pressure 141/95 141/95 141/95 O2 Sat by Pulse 99 98 98 Oximetry 04/10/17 04/10/17 04/10/17 05:01 05:11 05:12 Temperature Pulse Rate 118 H 120 H 99 H Pulse Rate [ Bilateral Bases ] Pulse Rate [ From Monitor] Pulse Rate [ Right Dorsalis Pedis] Respiratory 19 23 Rate Respiratory Rate [Bilateral Bases] Blood Pressure 141/95 141/95 154/98 O2 Sat by Pulse 99 97 98 Oximetry 04/10/17 04/10/17 04/10/17 05:21 05:31 05:41 Temperature Pulse Rate 121 H 122 H 123 H Pulse Rate [ Bilateral Bases ] Pulse Rate [ From Monitor] Pulse Rate [ Right Dorsalis Pedis] Respiratory 21 20 23 Rate Respiratory Rate [Bilateral Bases] Blood Pressure 141/95 141/95 141/95 O2 Sat by Pulse 98 97 98 Oximetry 04/10/17 04/10/17 04/10/17 05:51 06:00 06:11 Temperature Pulse Rate 121 H 122 H 120 H Pulse Rate [ Bilateral Bases ] Pulse Rate [ From Monitor] Pulse Rate [ Right Dorsalis Pedis] Respiratory 21 22 20 Rate Respiratory Rate [Bilateral Bases] Blood Pressure 141/95 143/100 143/100 O2 Sat by Pulse 98 98 98 Oximetry 04/10/17 04/10/17 04/10/17 06:21 06:30 06:41 Temperature Pulse Rate 120 H 117 H 117 H Pulse Rate [ Bilateral Bases ] Pulse Rate [ From Monitor] Pulse Rate [ Right Dorsalis Pedis] Respiratory 20 22 21 Rate Respiratory Rate [Bilateral Bases] Blood Pressure 143/100 143/100 143/100 O2 Sat by Pulse 98 98 99 Oximetry 04/10/17 04/10/17 04/10/17 06:51 07:01 07:11 Temperature Pulse Rate 117 H 114 H 113 H Pulse Rate [ Bilateral Bases ] Pulse Rate [ From Monitor] Pulse Rate [ Right Dorsalis Pedis] Respiratory 20 20 20 Rate Respiratory Rate [Bilateral Bases] Blood Pressure 143/100 143/100 143/100 O2 Sat by Pulse 99 99 99 Oximetry 04/10/17 04/10/17 04/10/17 07:21 07:31 07:41 Temperature Pulse Rate 104 H 102 H 96 H Pulse Rate [ Bilateral Bases ] Pulse Rate [ From Monitor] Pulse Rate [ Right Dorsalis Pedis] Respiratory 17 20 20 Rate Respiratory Rate [Bilateral Bases] Blood Pressure 143/100 143/100 143/100 O2 Sat by Pulse 100 100 99 Oximetry 04/10/17 04/10/17 04/10/17 07:42 07:46 07:51 Temperature Pulse Rate 98 H 100 H Pulse Rate [ 100 H Bilateral Bases ] Pulse Rate [ From Monitor] Pulse Rate [ Right Dorsalis Pedis] Respiratory 20 Rate Respiratory 20 Rate [Bilateral Bases] Blood Pressure 143/100 143/100 O2 Sat by Pulse 99 99 Oximetry 04/10/17 04/10/17 04/10/17 08:00 08:06 08:11 Temperature Pulse Rate 96 H 98 H Pulse Rate [ 95 H Bilateral Bases ] Pulse Rate [ 96 H From Monitor] Pulse Rate [ Right Dorsalis Pedis] Respiratory 20 20 Rate Respiratory 20 Rate [Bilateral Bases] Blood Pressure 142/88 142/88 O2 Sat by Pulse 100 100 Oximetry 04/10/17 04/10/17 04/10/17 08:21 08:31 08:41 Temperature Pulse Rate 99 H 102 H 108 H Pulse Rate [ Bilateral Bases ] Pulse Rate [ From Monitor] Pulse Rate [ Right Dorsalis Pedis] Respiratory 20 20 20 Rate Respiratory Rate [Bilateral Bases] Blood Pressure 142/88 142/88 142/88 O2 Sat by Pulse 100 100 100 Oximetry 04/10/17 04/10/17 04/10/17 08:51 09:01 09:11 Temperature Pulse Rate 119 H 123 H 128 H Pulse Rate [ Bilateral Bases ] Pulse Rate [ From Monitor] Pulse Rate [ Right Dorsalis Pedis] Respiratory 20 21 22 Rate Respiratory Rate [Bilateral Bases] Blood Pressure 142/88 142/88 142/88 O2 Sat by Pulse 99 99 99 Oximetry 04/10/17 04/10/17 04/10/17 09:21 09:31 09:41 Temperature Pulse Rate 133 H 136 H 139 H Pulse Rate [ Bilateral Bases ] Pulse Rate [ From Monitor] Pulse Rate [ Right Dorsalis Pedis] Respiratory 26 H 20 20 Rate Respiratory Rate [Bilateral Bases] Blood Pressure 142/88 142/88 142/88 O2 Sat by Pulse 99 98 98 Oximetry 04/10/17 04/10/17 04/10/17 09:51 10:00 10:11 Temperature Pulse Rate 138 H 136 H 127 H Pulse Rate [ Bilateral Bases ] Pulse Rate [ From Monitor] Pulse Rate [ Right Dorsalis Pedis] Respiratory 20 21 20 Rate Respiratory Rate [Bilateral Bases] Blood Pressure 142/88 153/102 153/102 O2 Sat by Pulse 98 98 99 Oximetry 04/10/17 04/10/17 04/10/17 10:21 10:31 10:41 Temperature Pulse Rate 117 H 119 H 113 H Pulse Rate [ Bilateral Bases ] Pulse Rate [ From Monitor] Pulse Rate [ Right Dorsalis Pedis] Respiratory 20 20 21 Rate Respiratory Rate [Bilateral Bases] Blood Pressure 153/102 153/102 153/102 O2 Sat by Pulse 99 100 98 Oximetry 04/10/17 04/10/17 04/10/17 10:51 11:01 11:07 Temperature Pulse Rate 110 H 110 H 106 H Pulse Rate [ Bilateral Bases ] Pulse Rate [ From Monitor] Pulse Rate [ Right Dorsalis Pedis] Respiratory 20 18 Rate Respiratory Rate [Bilateral Bases] Blood Pressure 153/102 153/102 153/102 O2 Sat by Pulse 99 99 97 Oximetry Constitutional: comatose, other (Intubated; sedated; mild increased work of breathing) Eyes: non-icteric ENT: oropharynx moist, other (ETT at 24cm MARILU) Neck: supple, no JVD, other (no thyromegaly) Effort: mildly labored Ascultation: Bilateral: diminished breath sounds, rhonchi, other (coars BS bilaterally anteriorly) Percussion: Bilateral: not dull Cardiovascular: regular rate and rhythm, other (tachycardia) Gastrointestinal: normoactive bowel sounds, soft, non-tender, non-distended, other (No HSM) Integumentary: normal, other (Right femoral CVC and arterial line) Extremities: no cyanosis, no edema, pulses normal, no ischemia or petechiae Neurologic: pupils equal and round, unable to assess Psychiatric: other (unable to assess) CBC and BMP: 04/13/17 15:00 04/13/17 15:04 ABG, PT/INR, D-dimer: ABG POC ABG pH 7.429 (7.35-7.45) 04/10/17 05:32 POC ABG pCO2 38.2 (35-45) 04/10/17 05:32 POC ABG pO2 149 (80-105) H 04/10/17 05:32 POC ABG HCO3 25.3 04/10/17 05:32 POC ABG Total CO2 26 04/10/17 05:32 POC ABG O2 Sat 99 04/10/17 05:32 PT/INR, D-dimer PT 16.5 Sec. (12.2-14.9) H 04/08/17 07:06 INR 1.27 (0.87-1.13) H 04/08/17 07:06 D-Dimer 4492.30 ng/mlDDU (0-234) H 04/09/17 14:49 Abnormal lab findings: Abnormal Labs 04/08/17 04/08/17 04/08/17 07:06 07:06 07:06 WBC 33.2 H RBC Hgb Hct Plt Count Lymph % (Auto) Lymph # [place] # Seg Neutrophils % Seg Neuts % (Manual) Lymphocytes % (Manual) Seg Neutrophils # Seg Neutrophils # Man 13.3 H Lymphocytes # (Manual) 7.6 H Monocytes # (Manual) 1.3 H PT 16.5 H INR 1.27 H APTT 51.7 H D-Dimer POC ABG pH POC ABG pCO2 POC ABG pO2 Sodium Potassium 3.5 L Carbon Dioxide 15 L Glucose 336 H POC Glucose Lactic Acid Calcium 7.2 L AST 265 H ALT 223 H Total Creatine Kinase Troponin T 0.321 H* C-Reactive Protein Total Protein 5.7 L Albumin 3.2 L Ur Specific [place] Urine WBC (Auto) 04/08/17 04/08/17 04/08/17 07:06 07:36 09:22 WBC RBC Hgb Hct Plt Count Lymph % (Auto) Lymph # [place] # Seg Neutrophils % Seg Neuts % (Manual) Lymphocytes % (Manual) Seg Neutrophils # Seg Neutrophils # Man Lymphocytes # (Manual) Monocytes # (Manual) PT INR APTT D-Dimer POC ABG pH 7.105 L POC ABG pCO2 68.1 H POC ABG pO2 256 H Sodium Potassium Carbon Dioxide Glucose POC Glucose 193 H Lactic Acid Calcium AST ALT Total Creatine Kinase 623 H Troponin T C-Reactive Protein Total Protein Albumin Ur Specific [place] Urine WBC (Auto) 04/08/17 04/08/17 04/08/17 10:59 11:13 11:33 WBC RBC Hgb Hct Plt Count Lymph % (Auto) Lymph # [place] # Seg Neutrophils % Seg Neuts % (Manual) Lymphocytes % (Manual) Seg Neutrophils # Seg Neutrophils # Man Lymphocytes # (Manual) Monocytes # (Manual) PT INR APTT D-Dimer POC ABG pH 7.197 L POC ABG pCO2 46.3 H POC ABG pO2 68 L Sodium Potassium Carbon Dioxide Glucose POC Glucose Lactic Acid 9.00 H* Calcium AST ALT Total Creatine Kinase Troponin T 2.380 H* D C-Reactive Protein Total Protein Albumin Ur Specific [place] Urine WBC (Auto) 04/08/17 04/08/17 04/08/17 12:10 12:10 12:10 WBC 21.6 H RBC 5.69 H Hgb 16.1 H Hct 50.4 H D Plt Count Lymph % (Auto) Lymph # [place] # Seg Neutrophils % Seg Neuts % (Manual) 86.0 H Lymphocytes % (Manual) 5.0 L Seg Neutrophils # Seg Neutrophils # Man 18.6 H Lymphocytes # (Manual) 1.1 L Monocytes # (Manual) PT INR APTT D-Dimer POC ABG pH POC ABG pCO2 POC ABG pO2 Sodium Potassium 3.4 L Carbon Dioxide 21 L Glucose 182 H POC Glucose Lactic Acid Calcium 7.5 L AST ALT Total Creatine Kinase Troponin T C-Reactive Protein Total Protein Albumin Ur Specific [place] 1.044 H Urine WBC (Auto) 18.0 H 04/08/17 04/08/17 04/08/17 13:32 15:02 17:56 WBC RBC Hgb Hct Plt Count Lymph % (Auto) Lymph # [place] # Seg Neutrophils % Seg Neuts % (Manual) Lymphocytes % (Manual) Seg Neutrophils # Seg Neutrophils # Man Lymphocytes # (Manual) Monocytes # (Manual) PT INR APTT D-Dimer POC ABG pH 7.287 L POC ABG pCO2 POC ABG pO2 196 H Sodium Potassium Carbon Dioxide Glucose POC Glucose Lactic Acid 7.50 H* Calcium AST ALT Total Creatine Kinase Troponin T 2.330 H* C-Reactive Protein Total Protein Albumin Ur Specific [place] Urine WBC (Auto) 04/08/17 04/08/17 04/09/17 19:51 23:53 03:38 WBC 27.2 H RBC Hgb Hct Plt Count Lymph % (Auto) Lymph # [place] # Seg Neutrophils % Seg Neuts % (Manual) 74.0 H Lymphocytes % (Manual) 8.0 L Seg Neutrophils # Seg Neutrophils # Man 20.1 H Lymphocytes # (Manual) Monocytes # (Manual) 1.4 H PT INR APTT D-Dimer POC ABG pH POC ABG pCO2 POC ABG pO2 Sodium Potassium Carbon Dioxide Glucose POC Glucose 140 H 175 H Lactic Acid Calcium AST ALT Total Creatine Kinase Troponin T C-Reactive Protein Total Protein Albumin Ur Specific [place] Urine WBC (Auto) 04/09/17 04/09/17 04/09/17 03:38 04:17 05:50 WBC RBC Hgb Hct Plt Count Lymph % (Auto) Lymph # [place] # Seg Neutrophils % Seg Neuts % (Manual) Lymphocytes % (Manual) Seg Neutrophils # Seg Neutrophils # Man Lymphocytes # (Manual) Monocytes # (Manual) PT INR APTT D-Dimer POC ABG pH POC ABG pCO2 30.1 L POC ABG pO2 115 H Sodium 136 L Potassium Carbon Dioxide 18 L Glucose 177 H POC Glucose 167 H Lactic Acid Calcium 7.4 L AST ALT Total Creatine Kinase Troponin T C-Reactive Protein Total Protein Albumin Ur Specific [place] Urine WBC (Auto) 04/09/17 04/09/17 04/09/17 07:41 09:52 12:22 WBC RBC Hgb Hct Plt Count Lymph % (Auto) Lymph # [place] # Seg Neutrophils % Seg Neuts % (Manual) Lymphocytes % (Manual) Seg Neutrophils # Seg Neutrophils # Man Lymphocytes # (Manual) Monocytes # (Manual) PT INR APTT D-Dimer POC ABG pH POC ABG pCO2 POC ABG pO2 Sodium Potassium Carbon Dioxide Glucose POC Glucose 113 H Lactic Acid 5.00 H* Calcium AST ALT Total Creatine Kinase Troponin T C-Reactive Protein 12.50 H Total Protein Albumin Ur Specific [place] Urine WBC (Auto) 04/09/17 04/09/17 04/10/17 14:49 15:24 03:50 WBC RBC Hgb Hct Plt Count Lymph % (Auto) Lymph # [place] # Seg Neutrophils % Seg Neuts % (Manual) Lymphocytes % (Manual) Seg Neutrophils # Seg Neutrophils # Man Lymphocytes # (Manual) Monocytes # (Manual) PT INR APTT D-Dimer 4492.30 H POC ABG pH POC ABG pCO2 POC ABG pO2 Sodium Potassium Carbon Dioxide Glucose 128 H POC Glucose Lactic Acid Calcium AST 342 H ALT 152 H Total Creatine Kinase Troponin T C-Reactive Protein 12.60 H Total Protein 6.0 L Albumin 3.1 L Ur Specific [place] Urine WBC (Auto) 04/10/17 04/10/17 03:50 05:32 WBC 20.1 H RBC Hgb Hct Plt Count 128 L Lymph % (Auto) 5.5 L Lymph # 1.1 L [place] # 1.0 H Seg Neutrophils % 89.5 H Seg Neuts % (Manual) Lymphocytes % (Manual) Seg Neutrophils # 18.0 H Seg Neutrophils # Man Lymphocytes # (Manual) Monocytes # (Manual) PT INR APTT D-Dimer POC ABG pH POC ABG pCO2 POC ABG pO2 149 H Sodium Potassium Carbon Dioxide Glucose POC Glucose Lactic Acid Calcium AST ALT Total Creatine Kinase Troponin T C-Reactive Protein Total Protein Albumin Ur Specific [place] Urine WBC (Auto) Allied health notes reviewed: nursing
--- NOTE | 2017-04-10 12:23 | XRay Report ---
AP CHEST: HISTORY: PICC line placement A left arm PICC has been inserted which terminates in the superior right atrium. Consider retraction by 2.3 cm to the cavoatrial junction. The remainder of the examination is unchanged since 04/09/17. The lungs are clear. Normal heart and mediastinal structures. Remaining lines and tubes are in good position IMPRESSION: Left arm PICC placement as described.
[2017-04-10] MEDS: OSMITROL 20% IV SCH ×3 (12:38→21:33)
--- NOTE | 2017-04-10 12:57 | Progress Note ---
Assessment and Plan Assessment and plan: Patient is a 21 years old male with no known significant past medical history who was in assisted. His cellmates called for help after apparently finding him to be pulseless and unconscious. He cellmates today doing CPR, EMS then came and perform more CPR. Patient was pulseless, found to be in V. tach and was shocked up to 19 times. He regained his pulse shortly before arriving to the hospital. He was intubated and required pressors for blood pressure support. Anoxic brain injury Patient is in very deep coma, unlikely to recover given extensive period of anoxia Case discussed with neurologist Acute hypoxic and hypercapnic respiratory failure Continue ventilator, Cerebral and ocular edema -Started on mannitol Acute Metabolic Encephalopathy Secondary to Acute hypoxic and hypercapnic respiratory failure intubated, not sedated Unlikely to recover, UDS negative Status Epilepticus Continue antiepileptic drugs, no further seizure activity Seizure most likely due to anoxic brain injury Severe Sepsis/septic shock /Aspiration PNA Continue antibiotics, continue pressors ID consultation Lactic acid acidosis -Received bicarbonate drip, now resolved Mild Malnutrition Nutrition consult for tube feeding elevation Troponin due to Type 2 VT- Demand Ischemia STEMI (ST elevation myocardial infarction) ruled out S/p LHC which revealed normal coronaries, normal LVEF per cardiology Cardiology consult appreciated Hypokalemia replaced closely monitor DVT prophylaxis [facility] Family meeting planned for tomorrow at noon The high probability of a clinically significant, sudden or life threatening deterioration of the [Cardiovascular, pulmonary, neurological, ] system(s) required my full and direct attention, intervention and personal management. The aggregate critical care time was [39] minutes. This time is in addition to time spent performing reported procedures but includes the following: [] Data Review and interpretation [] Patient assessment and monitoring of vital signs [] Documentation [] Medication orders and management History Interval history: Patient continues to be comatose, does not wake up, does not obey commands. He continues to be pressor dependence due to hypotension. He has spiked fevers Review of systems Constitutional: Has spiked fevers CVS: No arrhythmias or tachycardia noted GI: No vomiting Respiratory: No respiratory distress Hospitalist Physical - Physical exam Narrative exam: General.: Appears well, no distress, nontoxic, comatose HEENT: Both eyes extremely edematous Neck: supple Cardiac: S1-S2 heard Lungs: clear to auscultation bilaterally Abdomen: soft , nontender, nondistended, bowel sounds positive Extremities: no edema clubbing or cyanosis Skin: no rash or lesions Neurologic: Patient is in a very deep coma, has a gag reflex, has very sluggish pupils. The lites and partially constricts only to redilate. No corneal reflex , no other reflexes Intubated but not sedated - Constitutional Vitals: Temp Pulse Resp BP Pulse Ox 102.6 F H 110 H 20 143/98 98 04/10/17 03:31 04/10/17 12:21 04/10/17 12:21 04/10/17 12:21 04/10/17 12:21 General appearance: Present: other (comatose) Results - Labs CBC & Chem 7: 04/13/17 15:00 04/13/17 15:04 Labs: Laboratory Last Values WBC 20.1 K/mm3 (4.5-11.0) H 04/10/17 03:50 RBC 4.44 M/mm3 (3.65-5.03) 04/10/17 03:50 Hgb 13.1 gm/dl (11.8-15.2) 04/10/17 03:50 Hct 38.7 % (35.5-45.6) 04/10/17 03:50 MCV 87 fl (84-94) 04/10/17 03:50 MCH 30 pg (28-32) 04/10/17 03:50 MCHC 34 % (32-34) 04/10/17 03:50 RDW 13.6 % (13.2-15.2) 04/10/17 03:50 Plt Count 128 K/mm3 (140-440) L 04/10/17 03:50 Lymph % (Auto) 5.5 % (13.4-35.0) L 04/10/17 03:50 [place] % (Auto) 5.0 % (0.0-7.3) 04/10/17 03:50 Eos % (Auto) 0.0 % (0.0-4.3) 04/10/17 03:50 Baso % (Auto) 0.0 % (0.0-1.8) 04/10/17 03:50 Lymph # 1.1 K/mm3 (1.2-5.4) L 04/10/17 03:50 [place] # 1.0 K/mm3 (0.0-0.8) H 04/10/17 03:50 Eos # 0.0 K/mm3 (0.0-0.4) 04/10/17 03:50 Baso # 0.0 K/mm3 (0.0-0.1) 04/10/17 03:50 Add Manual Diff Complete 04/09/17 03:38 Total Counted 100 04/09/17 03:38 Seg Neutrophils % 89.5 % (40.0-70.0) H 04/10/17 03:50 Seg Neuts % (Manual) 74.0 % (40.0-70.0) H 04/09/17 03:38 Band Neutrophils % 13.0 % 04/09/17 03:38 Lymphocytes % (Manual) 8.0 % (13.4-35.0) L 04/09/17 03:38 Reactive Lymphs % (Man) 0 % 04/09/17 03:38 Monocytes % (Manual) 5.0 % (0.0-7.3) 04/09/17 03:38 Eosinophils % (Manual) 0 % (0.0-4.3) 04/09/17 03:38 Basophils % (Manual) 0 % (0.0-1.8) 04/09/17 03:38 Metamyelocytes % 0 % 04/09/17 03:38 Myelocytes % 0 % 04/09/17 03:38 Promyelocytes % 0 % 04/09/17 03:38 Blast Cells % 0 % 04/09/17 03:38 Nucleated RBC % Not Reportable 04/09/17 03:38 Seg Neutrophils # 18.0 K/mm3 (1.8-7.7) H 04/10/17 03:50 Seg Neutrophils # Man 20.1 K/mm3 (1.8-7.7) H 04/09/17 03:38 Band Neutrophils # 3.5 K/mm3 04/09/17 03:38 Lymphocytes # (Manual) 2.2 K/mm3 (1.2-5.4) 04/09/17 03:38 Abs React Lymphs (Man) 0.0 K/mm3 04/09/17 03:38 Monocytes # (Manual) 1.4 K/mm3 (0.0-0.8) H 04/09/17 03:38 Eosinophils # (Manual) 0.0 K/mm3 (0.0-0.4) 04/09/17 03:38 Basophils # (Manual) 0.0 K/mm3 (0.0-0.1) 04/09/17 03:38 Metamyelocytes # 0.0 K/mm3 04/09/17 03:38 Myelocytes # 0.0 K/mm3 04/09/17 03:38 Promyelocytes # 0.0 K/mm3 04/09/17 03:38 Blast Cells # 0.0 K/mm3 04/09/17 03:38 WBC Morphology Not Reportable 04/09/17 03:38 Hypersegmented Neuts Not Reportable 04/09/17 03:38 Hyposegmented Neuts Not Reportable 04/09/17 03:38 Hypogranular Neuts Not Reportable 04/09/17 03:38 Smudge Cells Not Reportable 04/09/17 03:38 Toxic Granulation Rare 04/09/17 03:38 Toxic Vacuolation Not Reportable 04/09/17 03:38 Dohle Bodies Not Reportable 04/09/17 03:38 Pelger-Huet Anomaly Not Reportable 04/09/17 03:38 Brook Rods Not Reportable 04/09/17 03:38 Platelet Estimate Consistent w auto 04/09/17 03:38 Clumped Platelets Not Reportable 04/09/17 03:38 Plt Clumps, EDTA Not Reportable 04/09/17 03:38 Large Platelets Not Reportable 04/09/17 03:38 Giant Platelets Not Reportable 04/09/17 03:38 Platelet Satelliting Not Reportable 04/09/17 03:38 Plt Morphology Comment Not Reportable 04/09/17 03:38 RBC Morphology Not Reportable 04/09/17 03:38 Dimorphic RBCs Not Reportable 04/09/17 03:38 Polychromasia Not Reportable 04/09/17 03:38 Hypochromasia Not Reportable 04/09/17 03:38 Poikilocytosis Not Reportable 04/09/17 03:38 Anisocytosis Not Reportable 04/09/17 03:38 Microcytosis Not Reportable 04/09/17 03:38 Macrocytosis Not Reportable 04/09/17 03:38 Spherocytes Not Reportable 04/09/17 03:38 Pappenheimer Bodies Not Reportable 04/09/17 03:38 Sickle Cells Not Reportable 04/09/17 03:38 Target Cells Not Reportable 04/09/17 03:38 Tear Drop Cells Not Reportable 04/09/17 03:38 Ovalocytes Not Reportable 04/09/17 03:38 Helmet Cells Not Reportable 04/09/17 03:38 Rosenberg-Katie Bodies Not Reportable 04/09/17 03:38 [place] Rings Not Reportable 04/09/17 03:38 [place] Cells Not Reportable 04/09/17 03:38 Bite Cells Not Reportable 04/09/17 03:38 Crenated Cell Not Reportable 04/09/17 03:38 Elliptocytes Not Reportable 04/09/17 03:38 Acanthocytes (Spur) Not Reportable 04/09/17 03:38 Rouleaux Not Reportable 04/09/17 03:38 Hemoglobin C Crystals Not Reportable 04/09/17 03:38 Schistocytes Not Reportable 04/09/17 03:38 Malaria parasites Not Reportable 04/09/17 03:38 Ever Bodies Not Reportable 04/09/17 03:38 Hem Pathologist Commnt No 04/09/17 03:38 PT 16.5 Sec. (12.2-14.9) H 04/08/17 07:06 INR 1.27 (0.87-1.13) H 04/08/17 07:06 APTT 51.7 Sec. (24.2-36.6) H 04/08/17 07:06 D-Dimer 4492.30 ng/mlDDU (0-234) H 04/09/17 14:49 POC ABG pH 7.429 (7.35-7.45) 04/10/17 05:32 POC ABG pCO2 38.2 (35-45) 04/10/17 05:32 POC ABG pO2 149 (80-105) H 04/10/17 05:32 POC ABG HCO3 25.3 04/10/17 05:32 POC ABG Total CO2 26 04/10/17 05:32 POC ABG O2 Sat 99 04/10/17 05:32 POC ABG Base Excess 1 04/10/17 05:32 FiO2 30 % 04/10/17 05:32 Sodium 139 mmol/L (137-145) 04/10/17 03:50 Potassium 4.4 mmol/L (3.6-5.0) 04/10/17 03:50 Chloride 100.3 mmol/L (98-107) 04/10/17 03:50 Carbon Dioxide 26 mmol/L (22-30) D 04/10/17 03:50 Anion Gap 17 mmol/L 04/10/17 03:50 BUN 9 mg/dL (9-20) 04/10/17 03:50 Creatinine 1.0 mg/dL (0.8-1.5) 04/10/17 03:50 Estimated GFR > 60 ml/min 04/10/17 03:50 BUN/Creatinine Ratio 9 % 04/10/17 03:50 Glucose 128 mg/dL (75-100) H 04/10/17 03:50 POC Glucose 113 (70-105) H 04/09/17 12:22 Osmolality 291 Mosm/kg 04/10/17 10:48 Lactic Acid 5.00 mmol/L (0.7-2.0) H* 04/09/17 07:41 Calcium 8.4 mg/dL (8.4-10.2) 04/10/17 03:50 Total Bilirubin 0.70 mg/dL (0.1-1.2) 04/10/17 03:50 AST 342 units/L (5-40) H 04/10/17 03:50 ALT 152 units/L (7-56) H 04/10/17 03:50 Alkaline Phosphatase 54 units/L (35-129) 04/10/17 03:50 Total Creatine Kinase 623 units/L (55-170) H 04/08/17 07:06 Troponin T 2.330 ng/mL (0.00-0.029) H* 04/08/17 13:32 C-Reactive Protein 12.60 mg/dL (0.00-1.30) H 04/09/17 15:24 Total Protein 6.0 g/dL (6.3-8.2) L 04/10/17 03:50 Albumin 3.1 g/dL (3.9-5) L 04/10/17 03:50 Albumin/Globulin Ratio 1.1 % 04/10/17 03:50 Triglycerides 110 mg/dL (2-149) 04/08/17 07:06 Cholesterol 139 mg/dL (50-199) 04/08/17 07:06 LDL Cholesterol Direct 71 mg/dL (50-130) 04/08/17 07:06 HDL Cholesterol 46 mg/dL (40-59) 04/08/17 07:06 Cholesterol/HDL Ratio 3.02 % 04/08/17 07:06 Urine Color Margie (Yellow) 04/08/17 12:10 Urine Turbidity Hazy (Clear) 04/08/17 12:10 Urine pH 6.0 (5.0-7.0) 04/08/17 12:10 Ur Specific [place] 1.044 (1.003-1.030) H 04/08/17 12:10 Urine Protein 100 mg/dl mg/dL (Negative) 04/08/17 12:10 Urine Glucose (UA) 50 mg/dL (Negative) 04/08/17 12:10 Urine Ketones Tr mg/dL (Negative) 04/08/17 12:10 Urine Blood Mod (Negative) 04/08/17 12:10 Urine Nitrite Neg (Negative) 04/08/17 12:10 Urine Bilirubin Neg (Negative) 04/08/17 12:10 Urine Urobilinogen < 2.0 mg/dL (<2.0) 04/08/17 12:10 Ur Leukocyte Esterase Neg (Negative) 04/08/17 12:10 Urine WBC (Auto) 18.0 /HPF (0.0-6.0) H 04/08/17 12:10 Urine RBC (Auto) 8.0 /HPF (0.0-6.0) 04/08/17 12:10 Urine Bacteria (Auto) 1+ /HPF (Negative) 04/08/17 12:10 Hyaline Casts 1 /LPF 04/08/17 07:59 Granular Casts 79 /LPF 04/08/17 12:10 Urine Mucus Few /HPF 04/08/17 12:10 Vancomycin Trough 8.3 ug/mL (5.0-20.0) 04/10/17 10:44 Urine Opiates Screen Presumptive negative 04/08/17 07:59 Urine Methadone Screen Presumptive negative 04/08/17 07:59 Ur Barbiturates Screen Presumptive negative 04/08/17 07:59 Ur Phencyclidine Scrn Presumptive negative 04/08/17 07:59 Ur Amphetamines Screen Presumptive negative 04/08/17 07:59 U Benzodiazepines Scrn Presumptive negative 04/08/17 07:59 Urine Cocaine Screen Presumptive negative 04/08/17 07:59 U Marijuana (THC) Screen Presumptive negative 04/08/17 07:59 Drugs of Abuse Note Disclamer 04/08/17 07:59 HIV 1&2 Antibody Rapid Non react (Non React) 04/08/17 12:10 HIV P24 Antigen Non react (Non React) 04/08/17 12:10 Blood Type O POSITIVE 04/08/17 07:05 Antibody Screen Negative 04/08/17 07:05
--- NOTE | 2017-04-10 13:54 | XRay Report ---
AP CHEST: HISTORY: PICC line placement The left arm PIC line has been retracted since 1155 hrs. and now terminates near the cavoatrial junction. The remainder of the examination is unchanged since earlier today. IMPRESSION: Left arm PICC as described.
[2017-04-10] MEDS: KEPPRA PO SCH (21:33)
[2017-04-11] MEDS: DUONEB *Not for PRN Use IH SCH ×4 (02:26→19:36)
[2017-04-11] MEDS: APRESOLINE IV PRN ×2 (03:13→18:22)
[2017-04-11] MEDS: VANCOMYCIN/NS 1 GM/250 ML 1 GM/250 ML BAG IV SCH (03:18)
[2017-04-11] MEDS ORDERED: COREG PO PRN (03:55)
[2017-04-11] MEDS: DECADRON IV SCH ×3 (04:37→17:00)
[2017-04-11] MEDS: OSMITROL 20% IV SCH ×4 (04:37→23:47)
[2017-04-11] MEDS: ZOSYN/NS 4.5GM/100ML 4.5 GM/100 ML VIAL IV SCH ×4 (05:43→23:48)
[2017-04-11 06:13] LABS: ISTAT Base Excess 5; ISTAT HCO3 28.8; ISTAT PCO2 43.1 (35-45); ISTAT PH 7.433 (7.35-7.45); ISTAT PO2 143 (80-105); ISTAT SO2 99; ISTAT TCO2 30
--- NOTE | 2017-04-11 09:08 | Progress Note ---
Assessment and Plan 21 AA male: 1. s/p cardiac arrest at [facility] - ? multiple shocks w prolonged downtime (?30-45 minutes)- no strips available - unknown primary rhythm * will request strips and documentation from [facility] medical staff * ecg now reveals nsr w nl qt * pt has been in sr/st throughout, will hold off on amio given shock/pressors/ elevated ast and alt * urgent [facility] revealed normal coronaries and low normal lv fxn (50-55%) * pea/hypotension later yesterday * Subsequently, TTE revelaed ef ~35-40% 2. hypotension/shock * weaned off pressors 3. elevated liver enzymes * likely due to #s 1 and 2 4. Lactic acidemia 5. Acute resp failure * s/p broch * ? alveolar hemorrhage 6. Seizures 7. ? anoxic encephalopathy Plan: Attempt to obtain records/ECG from [facility]. Critically ill. Supportive care. Neurology consultation noted - very little evidence to suggest recoverability per neuro dvt prophylaxis The patient has been seen in conjunction with Dr. ALBERTO Stein who agrees with the assessment and plan of care. Subjective Date of service: 04/11/17 Principal diagnosis: Acute Hypoxemic respiratory Failure; Sepsis Syndrome Interval history: pt remains intubated, off pressors, off sedation, unresponsive. ST on tele, BPs elevated. Objective Last Vital Signs Temp 99.8 F H 04/11/17 03:18 Pulse 116 H 04/11/17 08:00 Resp 20 04/11/17 08:00 BP 147/104 04/11/17 08:00 Pulse Ox 99 04/11/17 08:00 - Physical Examination General: Other (intubated, unresponsive) HEENT: Positive: Other (pupils dilated, fixed) Neck: Positive: trachea midline Cardiac: Positive: Regular Rhythm, S1/S2, Tachycardia Lungs: Positive: Decreased Breath Sounds, Ventilated Respirations Neuro: Positive: Other (unresponsive) Abdomen: Positive: Soft Skin: Positive: Clear. Negative: Rash, Wound Musculoskeletal: No Fluid Collection, No Pain Extremities: Absent: edema - Imaging and Cardiology EKG: report reviewed, image reviewed Echo: report reviewed Cardiac cath: report reviewed - Telemetry EKG Rhythm: Sinus Tachycardia - Allied health notes Allied health notes reviewed: nursing
[2017-04-11] MEDS: KEPPRA PO SCH ×2 (10:08→22:46)
[2017-04-11] MEDS: HEPARIN SUB-Q SCH ×2 (10:09→22:47)
[2017-04-11] MEDS: PEPCID IV SCH ×2 (10:16→22:46)
--- NOTE | 2017-04-11 10:33 | Progress Note ---
Assessment and Plan Acute Hypoxemic Respiratory Failure S/P Cardiopulmonary Arrest Acute Encephalopathy (Likely anoxic component) Severe Sepsis Seizures Pneumonia (Likely Aspiration) Cardiomyopathy NSTEMI - begin reglan re: large residuals - continue sedation to control seizure activity - continue keppra - continue with lung protective strategies - VAP bundle addressed - HOB > 40 - place NGT and begin enteral nutrition as tolerated - follow bronchoscopy cultures - continue empiric AB's - continue neurology evaluation - continue decadron - consider stopping mannitol - ordered BMP - continue GI & VTE prophylaxis - likely shock liver element - discontinue femoral linen) - continue other care per attending / other consultants ....he remains critically ill on life sustaining interventions including MVS and at high risk for further deterioration including ...guarded prognosis ...case discussed at length during team rounds and care plan formulated .....35' CCT Subjective Date of service: 04/11/17 Principal diagnosis: Acute Hypoxemic respiratory Failure; Sepsis Syndrome Interval history: Patient is seen today for: Acute Hypoxemic respiratory Failure; Sepsis Syndrome Seen and examined at bedside; 24 hour events reviewed; nursing and respiratory care staff consulted; remains on MVS but off vasopressors; AMS is persistent; not tolerating tube feeds; no sedation and no myoclonic activity; family meeting later today tentatively Objective Vital Signs - 12hr 04/10/17 04/10/17 04/10/17 22:41 22:51 23:01 Temperature Pulse Rate 118 H 124 H 127 H Pulse Rate [ Anterior Bilateral Throughout] Pulse Rate [ From Monitor] Respiratory 20 20 20 Rate Respiratory Rate [Anterior Bilateral Throughout] Blood Pressure 147/102 147/102 147/102 O2 Sat by Pulse 98 98 98 Oximetry 04/10/17 04/10/17 04/10/17 23:11 23:18 23:20 Temperature 99.3 F Pulse Rate 126 H 127 H Pulse Rate [ Anterior Bilateral Throughout] Pulse Rate [ From Monitor] Respiratory 20 20 Rate Respiratory Rate [Anterior Bilateral Throughout] Blood Pressure 147/102 147/102 O2 Sat by Pulse 98 98 Oximetry 04/10/17 04/10/17 04/10/17 23:31 23:41 23:51 Temperature Pulse Rate 128 H 127 H 127 H Pulse Rate [ Anterior Bilateral Throughout] Pulse Rate [ From Monitor] Respiratory 20 20 20 Rate Respiratory Rate [Anterior Bilateral Throughout] Blood Pressure 147/102 147/102 147/102 O2 Sat by Pulse 98 98 98 Oximetry 04/11/17 04/11/17 04/11/17 00:00 00:11 00:20 Temperature Pulse Rate 126 H 126 H 125 H Pulse Rate [ Anterior Bilateral Throughout] Pulse Rate [ From Monitor] Respiratory 20 20 20 Rate Respiratory Rate [Anterior Bilateral Throughout] Blood Pressure 155/107 147/102 155/107 O2 Sat by Pulse 98 98 98 Oximetry 04/11/17 04/11/17 04/11/17 00:31 00:41 00:51 Temperature Pulse Rate 123 H 122 H 122 H Pulse Rate [ Anterior Bilateral Throughout] Pulse Rate [ From Monitor] Respiratory 20 20 20 Rate Respiratory Rate [Anterior Bilateral Throughout] Blood Pressure 147/102 155/107 155/107 O2 Sat by Pulse 99 99 99 Oximetry 04/11/17 04/11/17 04/11/17 01:00 01:01 01:11 Temperature Pulse Rate 122 H 123 H 123 H Pulse Rate [ Anterior Bilateral Throughout] Pulse Rate [ From Monitor] Respiratory 20 20 Rate Respiratory Rate [Anterior Bilateral Throughout] Blood Pressure 155/107 155/107 155/107 O2 Sat by Pulse 99 99 99 Oximetry 04/11/17 04/11/17 04/11/17 01:21 01:30 01:41 Temperature Pulse Rate 122 H 123 H 124 H Pulse Rate [ Anterior Bilateral Throughout] Pulse Rate [ From Monitor] Respiratory 20 20 20 Rate Respiratory Rate [Anterior Bilateral Throughout] Blood Pressure 155/107 155/107 155/107 O2 Sat by Pulse 99 99 98 Oximetry 04/11/17 04/11/17 04/11/17 01:51 02:00 02:11 Temperature Pulse Rate 124 H 126 H 127 H Pulse Rate [ Anterior Bilateral Throughout] Pulse Rate [ From Monitor] Respiratory 20 20 20 Rate Respiratory Rate [Anterior Bilateral Throughout] Blood Pressure 155/107 155/107 154/108 O2 Sat by Pulse 98 98 98 Oximetry 04/11/17 04/11/17 04/11/17 02:20 02:21 02:30 Temperature Pulse Rate 129 H 132 H Pulse Rate [ 120 H 115 H Anterior Bilateral Throughout] Pulse Rate [ From Monitor] Respiratory 20 20 Rate Respiratory 22 20 Rate [Anterior Bilateral Throughout] Blood Pressure 154/108 154/108 O2 Sat by Pulse 98 98 Oximetry 04/11/17 04/11/17 04/11/17 02:41 02:51 03:01 Temperature Pulse Rate 127 H 130 H 135 H Pulse Rate [ Anterior Bilateral Throughout] Pulse Rate [ From Monitor] Respiratory 20 21 23 Rate Respiratory Rate [Anterior Bilateral Throughout] Blood Pressure 154/108 154/108 154/108 O2 Sat by Pulse 99 98 98 Oximetry 04/11/17 04/11/17 04/11/17 03:11 03:13 03:18 Temperature 99.8 F H Pulse Rate 138 H 142 H Pulse Rate [ Anterior Bilateral Throughout] Pulse Rate [ From Monitor] Respiratory 22 Rate Respiratory Rate [Anterior Bilateral Throughout] Blood Pressure 154/108 154/107 O2 Sat by Pulse 98 Oximetry 04/11/17 04/11/17 04/11/17 03:20 03:31 03:41 Temperature Pulse Rate 152 H 157 H 157 H Pulse Rate [ Anterior Bilateral Throughout] Pulse Rate [ From Monitor] Respiratory 19 20 20 Rate Respiratory Rate [Anterior Bilateral Throughout] Blood Pressure 154/108 154/108 154/108 O2 Sat by Pulse 97 97 97 Oximetry 04/11/17 04/11/17 04/11/17 03:51 04:00 04:02 Temperature Pulse Rate 158 H 157 H 156 H Pulse Rate [ Anterior Bilateral Throughout] Pulse Rate [ 124 H From Monitor] Respiratory 20 20 Rate Respiratory Rate [Anterior Bilateral Throughout] Blood Pressure 154/108 158/93 158/93 O2 Sat by Pulse 97 97 97 Oximetry 04/11/17 04/11/17 04/11/17 04:11 04:21 04:31 Temperature Pulse Rate 155 H 152 H 147 H Pulse Rate [ Anterior Bilateral Throughout] Pulse Rate [ From Monitor] Respiratory 20 14 25 H Rate Respiratory Rate [Anterior Bilateral Throughout] Blood Pressure 154/108 154/108 154/108 O2 Sat by Pulse 97 99 97 Oximetry 04/11/17 04/11/17 04/11/17 04:41 04:51 05:01 Temperature Pulse Rate 141 H 135 H 132 H Pulse Rate [ Anterior Bilateral Throughout] Pulse Rate [ From Monitor] Respiratory 24 23 22 Rate Respiratory Rate [Anterior Bilateral Throughout] Blood Pressure 158/93 158/93 158/93 O2 Sat by Pulse 97 98 98 Oximetry 04/11/17 04/11/17 04/11/17 05:11 05:21 05:31 Temperature Pulse Rate 130 H 128 H 126 H Pulse Rate [ Anterior Bilateral Throughout] Pulse Rate [ From Monitor] Respiratory 20 20 20 Rate Respiratory Rate [Anterior Bilateral Throughout] Blood Pressure 158/93 158/93 158/93 O2 Sat by Pulse 98 98 98 Oximetry 04/11/17 04/11/17 04/11/17 05:41 05:51 06:01 Temperature Pulse Rate 125 H 124 H 124 H Pulse Rate [ Anterior Bilateral Throughout] Pulse Rate [ From Monitor] Respiratory 20 20 20 Rate Respiratory Rate [Anterior Bilateral Throughout] Blood Pressure 158/93 158/93 158/93 O2 Sat by Pulse 98 98 98 Oximetry 04/11/17 04/11/17 04/11/17 06:11 06:21 06:31 Temperature Pulse Rate 122 H 121 H 120 H Pulse Rate [ Anterior Bilateral Throughout] Pulse Rate [ From Monitor] Respiratory 20 20 20 Rate Respiratory Rate [Anterior Bilateral Throughout] Blood Pressure 158/93 158/93 158/93 O2 Sat by Pulse 98 98 98 Oximetry 04/11/17 04/11/17 04/11/17 06:41 07:01 07:26 Temperature Pulse Rate 118 H 118 H 117 H Pulse Rate [ 117 H Anterior Bilateral Throughout] Pulse Rate [ From Monitor] Respiratory 20 20 Rate Respiratory 20 Rate [Anterior Bilateral Throughout] Blood Pressure 158/93 158/93 145/102 O2 Sat by Pulse 98 98 98 Oximetry 04/11/17 04/11/17 04/11/17 07:31 07:47 08:00 Temperature Pulse Rate 116 H 116 H Pulse Rate [ 117 H Anterior Bilateral Throughout] Pulse Rate [ 117 H From Monitor] Respiratory 20 20 Rate Respiratory 20 Rate [Anterior Bilateral Throughout] Blood Pressure 145/102 147/104 O2 Sat by Pulse 98 98 Oximetry 04/11/17 04/11/17 04/11/17 08:31 09:00 09:31 Temperature Pulse Rate 116 H 115 H 113 H Pulse Rate [ Anterior Bilateral Throughout] Pulse Rate [ From Monitor] Respiratory 20 20 20 Rate Respiratory Rate [Anterior Bilateral Throughout] Blood Pressure 147/104 157/107 147/104 O2 Sat by Pulse 99 99 98 Oximetry Constitutional: comatose, other (Intubated;mild increased work of breathing) Eyes: non-icteric ENT: oropharynx moist, other (ETT at 24cm MARILU) Neck: supple, no JVD, other (no thyromegaly) Effort: mildly labored Ascultation: Bilateral: rhonchi Percussion: Bilateral: not dull Cardiovascular: regular rate and rhythm, other (tachycardia) Gastrointestinal: normoactive bowel sounds, soft, non-tender, non-distended, other (No HSM) Integumentary: normal, other (Right femoral CVC and arterial line) Extremities: no cyanosis, no edema, pulses normal, no ischemia or petechiae Neurologic: pupils equal and round (5-6mm very very slugishly reactive), unable to assess, other (weak gag reflex) Psychiatric: other (unable to assess) CBC and BMP: 04/10/17 03:50 04/11/17 12:30 ABG, PT/INR, D-dimer: ABG POC ABG pH 7.433 (7.35-7.45) 04/11/17 05:52 POC ABG pCO2 43.1 (35-45) 04/11/17 05:52 POC ABG pO2 143 (80-105) H 04/11/17 05:52 POC ABG HCO3 28.8 04/11/17 05:52 POC ABG Total CO2 30 04/11/17 05:52 POC ABG O2 Sat 99 04/11/17 05:52 PT/INR, D-dimer PT 16.5 Sec. (12.2-14.9) H 04/08/17 07:06 INR 1.27 (0.87-1.13) H 04/08/17 07:06 D-Dimer 4492.30 ng/mlDDU (0-234) H 04/09/17 14:49 Abnormal lab findings: Abnormal Labs 04/08/17 04/08/17 04/08/17 07:06 07:06 07:06 WBC 33.2 H RBC Hgb Hct Plt Count Lymph % (Auto) Lymph # Sac # Seg Neutrophils % Seg Neuts % (Manual) Lymphocytes % (Manual) Seg Neutrophils # Seg Neutrophils # Man 13.3 H Lymphocytes # (Manual) 7.6 H Monocytes # (Manual) 1.3 H PT 16.5 H INR 1.27 H APTT 51.7 H D-Dimer POC ABG pH POC ABG pCO2 POC ABG pO2 Sodium Potassium 3.5 L Carbon Dioxide 15 L Glucose 336 H POC Glucose Lactic Acid Calcium 7.2 L AST 265 H ALT 223 H Total Creatine Kinase Troponin T 0.321 H* C-Reactive Protein Total Protein 5.7 L Albumin 3.2 L Ur Specific Effie Urine WBC (Auto) 1104/08/17 04/08/17 07:06 07:36 09:22 WBC RBC Hgb Hct Plt Count Lymph % (Auto) Lymph # Sac # Seg Neutrophils % Seg Neuts % (Manual) Lymphocytes % (Manual) Seg Neutrophils # Seg Neutrophils # Man Lymphocytes # (Manual) Monocytes # (Manual) PT INR APTT D-Dimer POC ABG pH 7.105 L POC ABG pCO2 68.1 H POC ABG pO2 256 H Sodium Potassium Carbon Dioxide Glucose POC Glucose 193 H Lactic Acid Calcium AST ALT Total Creatine Kinase 623 H Troponin T C-Reactive Protein Total Protein Albumin Ur Specific Effie Urine WBC (Auto) 04/08/17 04/08/17 04/08/17 10:59 11:13 11:33 WBC RBC Hgb Hct Plt Count Lymph % (Auto) Lymph # Sac # Seg Neutrophils % Seg Neuts % (Manual) Lymphocytes % (Manual) Seg Neutrophils # Seg Neutrophils # Man Lymphocytes # (Manual) Monocytes # (Manual) PT INR APTT D-Dimer POC ABG pH 7.197 L POC ABG pCO2 46.3 H POC ABG pO2 68 L Sodium Potassium Carbon Dioxide Glucose POC Glucose Lactic Acid 9.00 H* Calcium AST ALT Total Creatine Kinase Troponin T 2.380 H* D C-Reactive Protein Total Protein Albumin Ur Specific Effie Urine WBC (Auto) 04/08/17 04/08/17 04/08/17 12:10 12:10 12:10 WBC 21.6 H RBC 5.69 H Hgb 16.1 H Hct 50.4 H D Plt Count Lymph % (Auto) Lymph # Sac # Seg Neutrophils % Seg Neuts % (Manual) 86.0 H Lymphocytes % (Manual) 5.0 L Seg Neutrophils # Seg Neutrophils # Man 18.6 H Lymphocytes # (Manual) 1.1 L Monocytes # (Manual) PT INR APTT D-Dimer POC ABG pH POC ABG pCO2 POC ABG pO2 Sodium Potassium 3.4 L Carbon Dioxide 21 L Glucose 182 H POC Glucose Lactic Acid Calcium 7.5 L AST ALT Total Creatine Kinase Troponin T C-Reactive Protein Total Protein Albumin Ur Specific Effie 1.044 H Urine WBC (Auto) 18.0 H 04/08/17 04/08/17 04/08/17 13:32 15:02 17:56 WBC RBC Hgb Hct Plt Count Lymph % (Auto) Lymph # Sac # Seg Neutrophils % Seg Neuts % (Manual) Lymphocytes % (Manual) Seg Neutrophils # Seg Neutrophils # Man Lymphocytes # (Manual) Monocytes # (Manual) PT INR APTT D-Dimer POC ABG pH 7.287 L POC ABG pCO2 POC ABG pO2 196 H Sodium Potassium Carbon Dioxide Glucose POC Glucose Lactic Acid 7.50 H* Calcium AST ALT Total Creatine Kinase Troponin T 2.330 H* C-Reactive Protein Total Protein Albumin Ur Specific Effie Urine WBC (Auto) 04/08/17 04/08/17 04/09/17 19:51 23:53 03:38 WBC 27.2 H RBC Hgb Hct Plt Count Lymph % (Auto) Lymph # Sac # Seg Neutrophils % Seg Neuts % (Manual) 74.0 H Lymphocytes % (Manual) 8.0 L Seg Neutrophils # Seg Neutrophils # Man 20.1 H Lymphocytes # (Manual) Monocytes # (Manual) 1.4 H PT INR APTT D-Dimer POC ABG pH POC ABG pCO2 POC ABG pO2 Sodium Potassium Carbon Dioxide Glucose POC Glucose 140 H 175 H Lactic Acid Calcium AST ALT Total Creatine Kinase Troponin T C-Reactive Protein Total Protein Albumin Ur Specific Effie Urine WBC (Auto) 04/09/17 04/09/17 04/09/17 03:38 04:17 05:50 WBC RBC Hgb Hct Plt Count Lymph % (Auto) Lymph # Sac # Seg Neutrophils % Seg Neuts % (Manual) Lymphocytes % (Manual) Seg Neutrophils # Seg Neutrophils # Man Lymphocytes # (Manual) Monocytes # (Manual) PT INR APTT D-Dimer POC ABG pH POC ABG pCO2 30.1 L POC ABG pO2 115 H Sodium 136 L Potassium Carbon Dioxide 18 L Glucose 177 H POC Glucose 167 H Lactic Acid Calcium 7.4 L AST ALT Total Creatine Kinase Troponin T C-Reactive Protein Total Protein Albumin Ur Specific Effie Urine WBC (Auto) 04/09/17 04/09/17 04/09/17 07:41 09:52 12:22 WBC RBC Hgb Hct Plt Count Lymph % (Auto) Lymph # Sac # Seg Neutrophils % Seg Neuts % (Manual) Lymphocytes % (Manual) Seg Neutrophils # Seg Neutrophils # Man Lymphocytes # (Manual) Monocytes # (Manual) PT INR APTT D-Dimer POC ABG pH POC ABG pCO2 POC ABG pO2 Sodium Potassium Carbon Dioxide Glucose POC Glucose 113 H Lactic Acid 5.00 H* Calcium AST ALT Total Creatine Kinase Troponin T C-Reactive Protein 12.50 H Total Protein Albumin Ur Specific Effie Urine WBC (Auto) 04/09/17 04/09/17 04/10/17 14:49 15:24 03:50 WBC RBC Hgb Hct Plt Count Lymph % (Auto) Lymph # Sac # Seg Neutrophils % Seg Neuts % (Manual) Lymphocytes % (Manual) Seg Neutrophils # Seg Neutrophils # Man Lymphocytes # (Manual) Monocytes # (Manual) PT INR APTT D-Dimer 4492.30 H POC ABG pH POC ABG pCO2 POC ABG pO2 Sodium Potassium Carbon Dioxide Glucose 128 H POC Glucose Lactic Acid Calcium AST 342 H ALT 152 H Total Creatine Kinase Troponin T C-Reactive Protein 12.60 H Total Protein 6.0 L Albumin 3.1 L Ur Specific Effie Urine WBC (Auto) 04/10/17 04/10/17 04/11/17 03:50 05:32 05:52 WBC 20.1 H RBC Hgb Hct Plt Count 128 L Lymph % (Auto) 5.5 L Lymph # 1.1 L Sac # 1.0 H Seg Neutrophils % 89.5 H Seg Neuts % (Manual) Lymphocytes % (Manual) Seg Neutrophils # 18.0 H Seg Neutrophils # Man Lymphocytes # (Manual) Monocytes # (Manual) PT INR APTT D-Dimer POC ABG pH POC ABG pCO2 POC ABG pO2 149 H 143 H Sodium Potassium Carbon Dioxide Glucose POC Glucose Lactic Acid Calcium AST ALT Total Creatine Kinase Troponin T C-Reactive Protein Total Protein Albumin Ur Specific Effie Urine WBC (Auto) Chest x-ray: pending Allied health notes reviewed: nursing
[2017-04-11] MEDS: LOPRESSOR IV SCH ×3 (12:02→23:47)
[2017-04-11 13:00] LABS: Anion Gap 16 mmol/L; BUN/Creatinine Ratio 30; Blood Urea Nitrogen 15 mg/dL (9-20); Calcium 8.4 mg/dL (8.4-10.2); Carbon Dioxide 26 mmol/L (22-30); Chloride 101.7 mmol/L (98-107); Glucose 132 mg/dL (75-100); Potassium 4.4 mmol/L (3.6-5.0); Sodium 139 mmol/L (137-145)
[2017-04-11] MEDS: VANCOMYCIN 1,500 MG in NACL 0.9% 500 ML 500 ML IV SCH ×2 (13:54→22:45)
--- NOTE | 2017-04-11 14:42 | Progress Note ---
Assessment and Plan Assessment: 1) Shock post arrest ? multifactorial (cardiac/septic) and MODS: shock resolved. Septic Etiology - unclear. DDx: ?viral myocarditis, aspiration pneumonia, brain edema/central fever. CRP=12.5 2) S/P cardiac arrest at alf - ? multiple shocks w prolonged downtime (?30-45 minutes) ? viral myocarditis -S/P urgent LHC revealed normal coronaries and low normal lv fxn (50-55%) -TTE EF 25-30% 3) Elevated liver enzyme 4) Acute resp failure 6) Seizures 7) Anoxic encephalopathy - not better 8) Presumed pneumonia versus atelectasi: tracheal asp + Group C Strep likely a commensal Plan: -follow-up procalcitonin -continue vancomycin and zosyn - day 4 -unfortunately, poor prognosis I will be rounding this weakened Thank you Dr Rudolph for your consultation, will follow up with you. Crys Zhang MD Infectious Diseases Specialist [facility] ([facility]) M [phone] O [phone] Subjective Date of service: 04/11/17 Principal diagnosis: Acute Hypoxemic respiratory Failure; Sepsis Syndrome Interval history: Remains comatose non responsive, not on sedative, intubated on the vent. Tmax 102.6 but trending down Microbiology: Blood cultures: 04/08 ngtd Urine cultures: 04/08 neg Respiratory cultures: 04/08 Beta hem group C Current Antimicrobials: Zosyn 04/08 Vancomycin 04/08 Previous Antimicrobials: Objective - Exam Narrative Exam: General appearance: comatous intubated Eyes: marked conjunctival edema bilateral, erratic pupils dilated and fixed changing to reactive after moving his head HENT: Atraumatic; oropharynx +ETT Neck: Trachea midline; supple, no thyromegaly or lymphadenopathy Lungs: CTA CV: tachy Abdomen: Soft, non-tender egaly Extremities: No peripheral edema or extremity lymphadenopathy Skin: Normal temperature, turgor and texture; no rash, ulcers or subcutaneous nodules Psych: comatose Neuro: comatose Lines: [place] - Constitutional Vitals: Vital Signs Temp Pulse Resp BP Pulse Ox 99.8 F H 106 H 20 142/105 100 04/11/17 03:18 04/11/17 12:02 04/11/17 09:31 04/11/17 12:02 04/11/17 12:00 Temperature -Last 24 Hours Temperature 99.8 F Temperature 99.3 F Temperature 98.9 F - Labs CBC & Chem 7: 04/10/17 03:50 04/11/17 12:30 Labs: Abnormal lab results 04/11/17 04/11/17 Range/Units 05:52 12:30 POC ABG pO2 143 H (80-105) Creatinine 0.5 L (0.8-1.5) mg/dL Glucose 132 H (75-100) mg/dL
[2017-04-11] MEDS: REGLAN IV SCH (15:44)
--- NOTE | 2017-04-11 20:15 | Progress Note ---
Assessment and Plan Assessment and plan: Patient is a 21 years old male with no known significant past medical history who [facility] His cellmates called for help after apparently finding him to be pulseless and unconscious. He cellmates today doing CPR, EMS then came and perform more CPR. Patient was pulseless, found to be in V. tach and was shocked up to 19 times. He regained his pulse shortly before arriving to the hospital. He was intubated and required pressors for blood pressure support. Anoxic brain injury Patient is in very deep coma, unlikely to recover given extensive period of anoxia Case discussed with neurologist Acute hypoxic and hypercapnic respiratory failure Continue ventilator, Cerebral and ocular edema -Started on mannitol Acute Metabolic Encephalopathy Secondary to Acute hypoxic and hypercapnic respiratory failure intubated, not sedated Unlikely to recover, UDS negative Status Epilepticus Continue antiepileptic drugs, no further seizure activity Seizure most likely due to anoxic brain injury Severe Sepsis/septic shock /Aspiration PNA Continue antibiotics, continue pressors as needed ID consultation Lactic acid acidosis -Received bicarbonate drip, now resolved Mild Malnutrition Nutrition consult for tube feeding elevation Troponin due to Type 2 ND- Demand Ischemia STEMI (ST elevation myocardial infarction) ruled out S/p LHC which revealed normal coronaries, normal LVEF per cardiology Cardiology consult appreciated Hypokalemia replaced closely monitor DVT prophylaxis Lovenox Family meeting was held with the patient's father, 2 sisters fisawyer and uncle. It was intimated to them that he is unlikely to recover, with extensive global anoxic brain injury. On that he will likely be in a persistent vegetative state for the rest of his life if he does survive. He recommended DO NOT RESUSCITATE and hospice. But the family believe in higher power and would like trach and PEG and for him to be transferred to rehabilitation facility. Case was discussed with case management, patient does not have insurance, he will not be able to go to an LTAC or rehabilitation facility, he will have to go home with a family member after his trach and PEG. Case was also discussed with third mate. And case was discussed with neurologist. We agreed on poor prognosis, but will fulfill the families wishes and continue aggressive therapy green party request. The high probability of a clinically significant, sudden or life threatening deterioration of the [Cardiovascular, pulmonary, neurological, ] system(s) required my full and direct attention, intervention and personal management. The aggregate critical care time was [39] minutes. This time is in addition to time spent performing reported procedures but includes the following: [] Data Review and interpretation [] Patient assessment and monitoring of vital signs [] Documentation [] Medication orders and management History Interval history: Patient continues to be comatose, does not wake up, does not obey commands. now weaned off pressors Review of systems Constitutional: fever curve is coming down CVS: No arrhythmias or tachycardia noted GI: No vomiting Respiratory: No respiratory distress Hospitalist Physical - Physical exam Narrative exam: General.: Appears well, no distress, nontoxic, comatose HEENT: eye edema now resolved Neck: supple Cardiac: S1-S2 heard Lungs: clear to auscultation bilaterally Abdomen: soft , nontender, nondistended, bowel sounds positive Extremities: no edema clubbing or cyanosis Skin: no rash or lesions Neurologic: Patient is in a very deep coma, has a gag reflex, has very sluggish pupils. The lites and partially constricts only to redilate. No corneal reflex , no other reflexes Intubated but not sedated - Constitutional Vitals: Temp Pulse Resp BP Pulse Ox 98.4 F 108 H 20 156/100 97 04/11/17 16:00 04/11/17 20:00 04/11/17 20:00 04/11/17 20:00 04/11/17 20:00 General appearance: Present: other ( Unable to protect his airway,intubated and sedated;) Results - Labs CBC & Chem 7: 04/13/17 15:00 04/13/17 15:04 Labs: Laboratory Last Values WBC 20.1 K/mm3 (4.5-11.0) H 04/10/17 03:50 RBC 4.44 M/mm3 (3.65-5.03) 04/10/17 03:50 Hgb 13.1 gm/dl (11.8-15.2) 04/10/17 03:50 Hct 38.7 % (35.5-45.6) 04/10/17 03:50 MCV 87 fl (84-94) 04/10/17 03:50 MCH 30 pg (28-32) 04/10/17 03:50 MCHC 34 % (32-34) 04/10/17 03:50 RDW 13.6 % (13.2-15.2) 04/10/17 03:50 Plt Count 128 K/mm3 (140-440) L 04/10/17 03:50 Lymph % (Auto) 5.5 % (13.4-35.0) L 04/10/17 03:50 [place] % (Auto) 5.0 % (0.0-7.3) 04/10/17 03:50 Eos % (Auto) 0.0 % (0.0-4.3) 04/10/17 03:50 Baso % (Auto) 0.0 % (0.0-1.8) 04/10/17 03:50 Lymph # 1.1 K/mm3 (1.2-5.4) L 04/10/17 03:50 [place] # 1.0 K/mm3 (0.0-0.8) H 04/10/17 03:50 Eos # 0.0 K/mm3 (0.0-0.4) 04/10/17 03:50 Baso # 0.0 K/mm3 (0.0-0.1) 04/10/17 03:50 Add Manual Diff Complete 04/09/17 03:38 Total Counted 100 04/09/17 03:38 Seg Neutrophils % 89.5 % (40.0-70.0) H 04/10/17 03:50 Seg Neuts % (Manual) 74.0 % (40.0-70.0) H 04/09/17 03:38 Band Neutrophils % 13.0 % 04/09/17 03:38 Lymphocytes % (Manual) 8.0 % (13.4-35.0) L 04/09/17 03:38 Reactive Lymphs % (Man) 0 % 04/09/17 03:38 Monocytes % (Manual) 5.0 % (0.0-7.3) 04/09/17 03:38 Eosinophils % (Manual) 0 % (0.0-4.3) 04/09/17 03:38 Basophils % (Manual) 0 % (0.0-1.8) 04/09/17 03:38 Metamyelocytes % 0 % 04/09/17 03:38 Myelocytes % 0 % 04/09/17 03:38 Promyelocytes % 0 % 04/09/17 03:38 Blast Cells % 0 % 04/09/17 03:38 Nucleated RBC % Not Reportable 04/09/17 03:38 Seg Neutrophils # 18.0 K/mm3 (1.8-7.7) H 04/10/17 03:50 Seg Neutrophils # Man 20.1 K/mm3 (1.8-7.7) H 04/09/17 03:38 Band Neutrophils # 3.5 K/mm3 04/09/17 03:38 Lymphocytes # (Manual) 2.2 K/mm3 (1.2-5.4) 04/09/17 03:38 Abs React Lymphs (Man) 0.0 K/mm3 04/09/17 03:38 Monocytes # (Manual) 1.4 K/mm3 (0.0-0.8) H 04/09/17 03:38 Eosinophils # (Manual) 0.0 K/mm3 (0.0-0.4) 04/09/17 03:38 Basophils # (Manual) 0.0 K/mm3 (0.0-0.1) 04/09/17 03:38 Metamyelocytes # 0.0 K/mm3 04/09/17 03:38 Myelocytes # 0.0 K/mm3 04/09/17 03:38 Promyelocytes # 0.0 K/mm3 04/09/17 03:38 Blast Cells # 0.0 K/mm3 04/09/17 03:38 WBC Morphology Not Reportable 04/09/17 03:38 Hypersegmented Neuts Not Reportable 04/09/17 03:38 Hyposegmented Neuts Not Reportable 04/09/17 03:38 Hypogranular Neuts Not Reportable 04/09/17 03:38 Smudge Cells Not Reportable 04/09/17 03:38 Toxic Granulation Rare 04/09/17 03:38 Toxic Vacuolation Not Reportable 04/09/17 03:38 Dohle Bodies Not Reportable 04/09/17 03:38 Pelger-Huet Anomaly Not Reportable 04/09/17 03:38 Brook Rods Not Reportable 04/09/17 03:38 Platelet Estimate Consistent w auto 04/09/17 03:38 Clumped Platelets Not Reportable 04/09/17 03:38 Plt Clumps, EDTA Not Reportable 04/09/17 03:38 Large Platelets Not Reportable 04/09/17 03:38 Giant Platelets Not Reportable 04/09/17 03:38 Platelet Satelliting Not Reportable 04/09/17 03:38 Plt Morphology Comment Not Reportable 04/09/17 03:38 RBC Morphology Not Reportable 04/09/17 03:38 Dimorphic RBCs Not Reportable 04/09/17 03:38 Polychromasia Not Reportable 04/09/17 03:38 Hypochromasia Not Reportable 04/09/17 03:38 Poikilocytosis Not Reportable 04/09/17 03:38 Anisocytosis Not Reportable 04/09/17 03:38 Microcytosis Not Reportable 04/09/17 03:38 Macrocytosis Not Reportable 04/09/17 03:38 Spherocytes Not Reportable 04/09/17 03:38 Pappenheimer Bodies Not Reportable 04/09/17 03:38 Sickle Cells Not Reportable 04/09/17 03:38 Target Cells Not Reportable 04/09/17 03:38 Tear Drop Cells Not Reportable 04/09/17 03:38 Ovalocytes Not Reportable 04/09/17 03:38 Helmet Cells Not Reportable 04/09/17 03:38 Rosenberg-Novelty Bodies Not Reportable 04/09/17 03:38 [place] Rings Not Reportable 04/09/17 03:38 [place] Cells Not Reportable 04/09/17 03:38 Bite Cells Not Reportable 04/09/17 03:38 Crenated Cell Not Reportable 04/09/17 03:38 Elliptocytes Not Reportable 04/09/17 03:38 Acanthocytes (Spur) Not Reportable 04/09/17 03:38 Rouleaux Not Reportable 04/09/17 03:38 Hemoglobin C Crystals Not Reportable 04/09/17 03:38 Schistocytes Not Reportable 04/09/17 03:38 Malaria parasites Not Reportable 04/09/17 03:38 Ever Bodies Not Reportable 04/09/17 03:38 Hem Pathologist Commnt No 04/09/17 03:38 PT 16.5 Sec. (12.2-14.9) H 04/08/17 07:06 INR 1.27 (0.87-1.13) H 04/08/17 07:06 APTT 51.7 Sec. (24.2-36.6) H 04/08/17 07:06 D-Dimer 4492.30 ng/mlDDU (0-234) H 04/09/17 14:49 POC ABG pH 7.433 (7.35-7.45) 04/11/17 05:52 POC ABG pCO2 43.1 (35-45) 04/11/17 05:52 POC ABG pO2 143 (80-105) H 04/11/17 05:52 POC ABG HCO3 28.8 04/11/17 05:52 POC ABG Total CO2 30 04/11/17 05:52 POC ABG O2 Sat 99 04/11/17 05:52 POC ABG Base Excess 5 04/11/17 05:52 FiO2 30 % 04/11/17 05:52 Sodium 139 mmol/L (137-145) 04/11/17 12:30 Potassium 4.4 mmol/L (3.6-5.0) 04/11/17 12:30 Chloride 101.7 mmol/L (98-107) 04/11/17 12:30 Carbon Dioxide 26 mmol/L (22-30) 04/11/17 12:30 Anion Gap 16 mmol/L 04/11/17 12:30 BUN 15 mg/dL (9-20) 04/11/17 12:30 Creatinine 0.5 mg/dL (0.8-1.5) L 04/11/17 12:30 Estimated GFR > 60 ml/min 04/11/17 12:30 BUN/Creatinine Ratio 30 % 04/11/17 12:30 Glucose 132 mg/dL (75-100) H 04/11/17 12:30 POC Glucose 113 (70-105) H 04/09/17 12:22 Osmolality 301 Mosm/kg 04/11/17 15:30 Lactic Acid 5.00 mmol/L (0.7-2.0) H* 04/09/17 07:41 Calcium 8.4 mg/dL (8.4-10.2) 04/11/17 12:30 Total Bilirubin 0.70 mg/dL (0.1-1.2) 04/10/17 03:50 AST 342 units/L (5-40) H 04/10/17 03:50 ALT 152 units/L (7-56) H 04/10/17 03:50 Alkaline Phosphatase 54 units/L (35-129) 04/10/17 03:50 Total Creatine Kinase 623 units/L (55-170) H 04/08/17 07:06 Troponin T 2.330 ng/mL (0.00-0.029) H* 04/08/17 13:32 C-Reactive Protein 12.60 mg/dL (0.00-1.30) H 04/09/17 15:24 Total Protein 6.0 g/dL (6.3-8.2) L 04/10/17 03:50 Albumin 3.1 g/dL (3.9-5) L 04/10/17 03:50 Albumin/Globulin Ratio 1.1 % 04/10/17 03:50 Triglycerides 110 mg/dL (2-149) 04/08/17 07:06 Cholesterol 139 mg/dL (50-199) 04/08/17 07:06 LDL Cholesterol Direct 71 mg/dL (50-130) 04/08/17 07:06 HDL Cholesterol 46 mg/dL (40-59) 04/08/17 07:06 Cholesterol/HDL Ratio 3.02 % 04/08/17 07:06 Urine Color Margie (Yellow) 04/08/17 12:10 Urine Turbidity Hazy (Clear) 04/08/17 12:10 Urine pH 6.0 (5.0-7.0) 04/08/17 12:10 Ur Specific [place] 1.044 (1.003-1.030) H 04/08/17 12:10 Urine Protein 100 mg/dl mg/dL (Negative) 04/08/17 12:10 Urine Glucose (UA) 50 mg/dL (Negative) 04/08/17 12:10 Urine Ketones Tr mg/dL (Negative) 04/08/17 12:10 Urine Blood Mod (Negative) 04/08/17 12:10 Urine Nitrite Neg (Negative) 04/08/17 12:10 Urine Bilirubin Neg (Negative) 04/08/17 12:10 Urine Urobilinogen < 2.0 mg/dL (<2.0) 04/08/17 12:10 Ur Leukocyte Esterase Neg (Negative) 04/08/17 12:10 Urine WBC (Auto) 18.0 /HPF (0.0-6.0) H 04/08/17 12:10 Urine RBC (Auto) 8.0 /HPF (0.0-6.0) 04/08/17 12:10 Urine Bacteria (Auto) 1+ /HPF (Negative) 04/08/17 12:10 Hyaline Casts 1 /LPF 04/08/17 07:59 Granular Casts 79 /LPF 04/08/17 12:10 Urine Mucus Few /HPF 04/08/17 12:10 Vancomycin Trough 8.3 ug/mL (5.0-20.0) 04/10/17 10:44 Urine Opiates Screen Presumptive negative 04/08/17 07:59 Urine Methadone Screen Presumptive negative 04/08/17 07:59 Ur Barbiturates Screen Presumptive negative 04/08/17 07:59 Ur Phencyclidine Scrn Presumptive negative 04/08/17 07:59 Ur Amphetamines Screen Presumptive negative 04/08/17 07:59 U Benzodiazepines Scrn Presumptive negative 04/08/17 07:59 Urine Cocaine Screen Presumptive negative 04/08/17 07:59 U Marijuana (THC) Screen Presumptive negative 04/08/17 07:59 Drugs of Abuse Note Disclamer 04/08/17 07:59 HIV 1&2 Antibody Rapid Non react (Non React) 04/08/17 12:10 HIV P24 Antigen Non react (Non React) 04/08/17 12:10 Blood Type O POSITIVE 04/08/17 07:05 Antibody Screen Negative 04/08/17 07:05
[2017-04-12] MEDS: DECADRON IV SCH ×5 (00:49→21:42)
[2017-04-12] MEDS: REGLAN IV SCH ×3 (00:50→17:18)
[2017-04-12] MEDS: DUONEB *Not for PRN Use IH SCH ×4 (01:04→19:14)
[2017-04-12] MEDS: APRESOLINE IV PRN ×2 (02:12→19:05)
[2017-04-12 03:55] LABS: ISTAT Base Excess 6; ISTAT HCO3 29.6; ISTAT PCO2 41.3 (35-45); ISTAT PH 7.463 (7.35-7.45); ISTAT PO2 105 (80-105); ISTAT SO2 98; ISTAT TCO2 31
[2017-04-12] MEDS: VANCOMYCIN 1,500 MG in NACL 0.9% 500 ML 500 ML IV SCH ×3 (05:00→21:39)
[2017-04-12] MEDS: LOPRESSOR IV SCH ×3 (05:01→17:18)
[2017-04-12] MEDS: ZOSYN/NS 4.5GM/100ML 4.5 GM/100 ML VIAL IV SCH ×3 (05:01→19:02)
[2017-04-12] MEDS: OSMITROL 20% IV SCH ×3 (07:00→19:02)
[2017-04-12] MEDS: KEPPRA PO SCH ×2 (10:40→21:42)
[2017-04-12] MEDS: HEPARIN SUB-Q SCH ×2 (10:40→21:55)
[2017-04-12] MEDS: PEPCID IV SCH ×2 (10:40→21:42)
--- NOTE | 2017-04-12 11:48 | Progress Note ---
Assessment and Plan Assessment and plan: Patient is a 21 years old male with no known significant past medical history who was in [facility]. His cellmates called for help after apparently finding him to be pulseless and unconscious. He cellmates today doing CPR, EMS then came and perform more CPR. Patient was pulseless, found to be in V. tach and was shocked up to 19 times. He regained his pulse shortly before arriving to the hospital. He was intubated and required pressors for blood pressure support. Anoxic brain injury Patient is in very deep coma, unlikely to recover given extensive period of anoxia Case discussed with neurologist Acute hypoxic and hypercapnic respiratory failure Continue ventilator, Cerebral and ocular edema -dc mannitol and rx with steroid taper improving Acute Metabolic Encephalopathy Secondary to Acute hypoxic and hypercapnic respiratory failure intubated, not sedated Unlikely to recover, UDS negative Status Epilepticus Continue antiepileptic drugs, no further seizure activity Seizure most likely due to anoxic brain injury Severe Sepsis/septic shock /Aspiration PNA Continue antibiotics, continue pressors as needed ID consultation appreciated Lactic acid acidosis -Received bicarbonate drip, now resolved Mild Malnutrition Nutrition consult for tube feeding elevation Troponin due to Type 2 [place]- Demand Ischemia STEMI (ST elevation myocardial infarction) ruled out S/p LHC which revealed normal coronaries, normal LVEF per cardiology Cardiology consult appreciated Hypokalemia replaced closely monitor DVT prophylaxis Lovenox Family meeting was held with the patient's father, 2 sisters shon and uncle. It was intimated to them that he is unlikely to recover, with extensive global anoxic brain injury. On that he will likely be in a persistent vegetative state for the rest of his life if he does survive. He recommended DO NOT RESUSCITATE and hospice. But the family believe in higher power and would like trach and PEG and for him to be transferred to rehabilitation facility. Case was discussed with case management, patient does not have insurance, he will not be able to go to an LTAC or rehabilitation facility, he will have to go home with a family member after his trach and PEG. Case was also discussed with auto body shop manager. And case was discussed with neurologist. We agreed on poor prognosis, but will fulfill the families wishes and continue aggressive therapy constitution party request. The high probability of a clinically significant, sudden or life threatening deterioration of the [Cardiovascular, pulmonary, neurological, ] system(s) required my full and direct attention, intervention and personal management. The aggregate critical care time was [39] minutes. This time is in addition to time spent performing reported procedures but includes the following: [] Data Review and interpretation [] Patient assessment and monitoring of vital signs [] Documentation [] Medication orders and management History Interval history: Patient continues to be comatose, does not wake up, does not obey commands. now weaned off pressors Review of systems Constitutional: fever curve is coming down CVS: No arrhythmias or tachycardia noted GI: No vomiting Respiratory: No respiratory distress Hospitalist Physical - Physical exam Narrative exam: General.: Appears well, no distress, nontoxic, comatose HEENT: eye edema now resolved Neck: supple Cardiac: S1-S2 heard Lungs: clear to auscultation bilaterally Abdomen: soft , nontender, nondistended, bowel sounds positive Extremities: no edema clubbing or cyanosis Skin: no rash or lesions Neurologic: Patient is in a very deep coma, has a gag reflex, has very sluggish pupils. The lites and partially constricts only to redilate. No corneal reflex , no other reflexes Intubated but not sedated - Constitutional Vitals: Temp Pulse Resp BP Pulse Ox 98.9 F 109 H 20 139/94 97 04/12/17 08:00 04/12/17 09:30 04/12/17 09:30 04/12/17 09:30 04/12/17 09:30 General appearance: Present: other (comatose) Results - Labs CBC & Chem 7: 04/13/17 15:00 04/13/17 15:04 Labs: Laboratory Last Values WBC 20.1 K/mm3 (4.5-11.0) H 04/10/17 03:50 RBC 4.44 M/mm3 (3.65-5.03) 04/10/17 03:50 Hgb 13.1 gm/dl (11.8-15.2) 04/10/17 03:50 Hct 38.7 % (35.5-45.6) 04/10/17 03:50 MCV 87 fl (84-94) 04/10/17 03:50 MCH 30 pg (28-32) 04/10/17 03:50 MCHC 34 % (32-34) 04/10/17 03:50 RDW 13.6 % (13.2-15.2) 04/10/17 03:50 Plt Count 128 K/mm3 (140-440) L 04/10/17 03:50 Lymph % (Auto) 5.5 % (13.4-35.0) L 04/10/17 03:50 [place] % (Auto) 5.0 % (0.0-7.3) 04/10/17 03:50 Eos % (Auto) 0.0 % (0.0-4.3) 04/10/17 03:50 Baso % (Auto) 0.0 % (0.0-1.8) 04/10/17 03:50 Lymph # 1.1 K/mm3 (1.2-5.4) L 04/10/17 03:50 [place] # 1.0 K/mm3 (0.0-0.8) H 04/10/17 03:50 Eos # 0.0 K/mm3 (0.0-0.4) 04/10/17 03:50 Baso # 0.0 K/mm3 (0.0-0.1) 04/10/17 03:50 Add Manual Diff Complete 04/09/17 03:38 Total Counted 100 04/09/17 03:38 Seg Neutrophils % 89.5 % (40.0-70.0) H 04/10/17 03:50 Seg Neuts % (Manual) 74.0 % (40.0-70.0) H 04/09/17 03:38 Band Neutrophils % 13.0 % 04/09/17 03:38 Lymphocytes % (Manual) 8.0 % (13.4-35.0) L 04/09/17 03:38 Reactive Lymphs % (Man) 0 % 04/09/17 03:38 Monocytes % (Manual) 5.0 % (0.0-7.3) 04/09/17 03:38 Eosinophils % (Manual) 0 % (0.0-4.3) 04/09/17 03:38 Basophils % (Manual) 0 % (0.0-1.8) 04/09/17 03:38 Metamyelocytes % 0 % 04/09/17 03:38 Myelocytes % 0 % 04/09/17 03:38 Promyelocytes % 0 % 04/09/17 03:38 Blast Cells % 0 % 04/09/17 03:38 Nucleated RBC % Not Reportable 04/09/17 03:38 Seg Neutrophils # 18.0 K/mm3 (1.8-7.7) H 04/10/17 03:50 Seg Neutrophils # Man 20.1 K/mm3 (1.8-7.7) H 04/09/17 03:38 Band Neutrophils # 3.5 K/mm3 04/09/17 03:38 Lymphocytes # (Manual) 2.2 K/mm3 (1.2-5.4) 04/09/17 03:38 Abs React Lymphs (Man) 0.0 K/mm3 04/09/17 03:38 Monocytes # (Manual) 1.4 K/mm3 (0.0-0.8) H 04/09/17 03:38 Eosinophils # (Manual) 0.0 K/mm3 (0.0-0.4) 04/09/17 03:38 Basophils # (Manual) 0.0 K/mm3 (0.0-0.1) 04/09/17 03:38 Metamyelocytes # 0.0 K/mm3 04/09/17 03:38 Myelocytes # 0.0 K/mm3 04/09/17 03:38 Promyelocytes # 0.0 K/mm3 04/09/17 03:38 Blast Cells # 0.0 K/mm3 04/09/17 03:38 WBC Morphology Not Reportable 04/09/17 03:38 Hypersegmented Neuts Not Reportable 04/09/17 03:38 Hyposegmented Neuts Not Reportable 04/09/17 03:38 Hypogranular Neuts Not Reportable 04/09/17 03:38 Smudge Cells Not Reportable 04/09/17 03:38 Toxic Granulation Rare 04/09/17 03:38 Toxic Vacuolation Not Reportable 04/09/17 03:38 Dohle Bodies Not Reportable 04/09/17 03:38 Pelger-Huet Anomaly Not Reportable 04/09/17 03:38 Brook Rods Not Reportable 04/09/17 03:38 Platelet Estimate Consistent w auto 04/09/17 03:38 Clumped Platelets Not Reportable 04/09/17 03:38 Plt Clumps, EDTA Not Reportable 04/09/17 03:38 Large Platelets Not Reportable 04/09/17 03:38 Giant Platelets Not Reportable 04/09/17 03:38 Platelet Satelliting Not Reportable 04/09/17 03:38 Plt Morphology Comment Not Reportable 04/09/17 03:38 RBC Morphology Not Reportable 04/09/17 03:38 Dimorphic RBCs Not Reportable 04/09/17 03:38 Polychromasia Not Reportable 04/09/17 03:38 Hypochromasia Not Reportable 04/09/17 03:38 Poikilocytosis Not Reportable 04/09/17 03:38 Anisocytosis Not Reportable 04/09/17 03:38 Microcytosis Not Reportable 04/09/17 03:38 Macrocytosis Not Reportable 04/09/17 03:38 Spherocytes Not Reportable 04/09/17 03:38 Pappenheimer Bodies Not Reportable 04/09/17 03:38 Sickle Cells Not Reportable 04/09/17 03:38 Target Cells Not Reportable 04/09/17 03:38 Tear Drop Cells Not Reportable 04/09/17 03:38 Ovalocytes Not Reportable 04/09/17 03:38 Helmet Cells Not Reportable 04/09/17 03:38 Rosenberg-Gueydan Bodies Not Reportable 04/09/17 03:38 [place] Rings Not Reportable 04/09/17 03:38 [place] Cells Not Reportable 04/09/17 03:38 Bite Cells Not Reportable 04/09/17 03:38 Crenated Cell Not Reportable 04/09/17 03:38 Elliptocytes Not Reportable 04/09/17 03:38 Acanthocytes (Spur) Not Reportable 04/09/17 03:38 Rouleaux Not Reportable 04/09/17 03:38 Hemoglobin C Crystals Not Reportable 04/09/17 03:38 Schistocytes Not Reportable 04/09/17 03:38 Malaria parasites Not Reportable 04/09/17 03:38 Ever Bodies Not Reportable 04/09/17 03:38 Hem Pathologist Commnt No 04/09/17 03:38 PT 16.5 Sec. (12.2-14.9) H 04/08/17 07:06 INR 1.27 (0.87-1.13) H 04/08/17 07:06 APTT 51.7 Sec. (24.2-36.6) H 04/08/17 07:06 D-Dimer 4492.30 ng/mlDDU (0-234) H 04/09/17 14:49 POC ABG pH 7.463 (7.35-7.45) H 04/12/17 03:54 POC ABG pCO2 41.3 (35-45) 04/12/17 03:54 POC ABG pO2 105 (80-105) 04/12/17 03:54 POC ABG HCO3 29.6 04/12/17 03:54 POC ABG Total CO2 31 04/12/17 03:54 POC ABG O2 Sat 98 04/12/17 03:54 POC ABG Base Excess 6 04/12/17 03:54 FiO2 25 % 04/12/17 03:54 Sodium 139 mmol/L (137-145) 04/11/17 12:30 Potassium 4.4 mmol/L (3.6-5.0) 04/11/17 12:30 Chloride 101.7 mmol/L (98-107) 04/11/17 12:30 Carbon Dioxide 26 mmol/L (22-30) 04/11/17 12:30 Anion Gap 16 mmol/L 04/11/17 12:30 BUN 15 mg/dL (9-20) 04/11/17 12:30 Creatinine 0.5 mg/dL (0.8-1.5) L 04/11/17 12:30 Estimated GFR > 60 ml/min 04/11/17 12:30 BUN/Creatinine Ratio 30 % 04/11/17 12:30 Glucose 132 mg/dL (75-100) H 04/11/17 12:30 POC Glucose 113 (70-105) H 04/09/17 12:22 Osmolality 300 Mosm/kg 04/12/17 11:25 Lactic Acid 5.00 mmol/L (0.7-2.0) H* 04/09/17 07:41 Calcium 8.4 mg/dL (8.4-10.2) 04/11/17 12:30 Total Bilirubin 0.70 mg/dL (0.1-1.2) 04/10/17 03:50 AST 342 units/L (5-40) H 04/10/17 03:50 ALT 152 units/L (7-56) H 04/10/17 03:50 Alkaline Phosphatase 54 units/L (35-129) 04/10/17 03:50 Total Creatine Kinase 623 units/L (55-170) H 04/08/17 07:06 Troponin T 2.330 ng/mL (0.00-0.029) H* 04/08/17 13:32 C-Reactive Protein 12.60 mg/dL (0.00-1.30) H 04/09/17 15:24 Total Protein 6.0 g/dL (6.3-8.2) L 04/10/17 03:50 Albumin 3.1 g/dL (3.9-5) L 04/10/17 03:50 Albumin/Globulin Ratio 1.1 % 04/10/17 03:50 Triglycerides 110 mg/dL (2-149) 04/08/17 07:06 Cholesterol 139 mg/dL (50-199) 04/08/17 07:06 LDL Cholesterol Direct 71 mg/dL (50-130) 04/08/17 07:06 HDL Cholesterol 46 mg/dL (40-59) 04/08/17 07:06 Cholesterol/HDL Ratio 3.02 % 04/08/17 07:06 Urine Color Margie (Yellow) 04/08/17 12:10 Urine Turbidity Hazy (Clear) 04/08/17 12:10 Urine pH 6.0 (5.0-7.0) 04/08/17 12:10 Ur Specific [place] 1.044 (1.003-1.030) H 04/08/17 12:10 Urine Protein 100 mg/dl mg/dL (Negative) 04/08/17 12:10 Urine Glucose (UA) 50 mg/dL (Negative) 04/08/17 12:10 Urine Ketones Tr mg/dL (Negative) 04/08/17 12:10 Urine Blood Mod (Negative) 04/08/17 12:10 Urine Nitrite Neg (Negative) 04/08/17 12:10 Urine Bilirubin Neg (Negative) 04/08/17 12:10 Urine Urobilinogen < 2.0 mg/dL (<2.0) 04/08/17 12:10 Ur Leukocyte Esterase Neg (Negative) 04/08/17 12:10 Urine WBC (Auto) 18.0 /HPF (0.0-6.0) H 04/08/17 12:10 Urine RBC (Auto) 8.0 /HPF (0.0-6.0) 04/08/17 12:10 Urine Bacteria (Auto) 1+ /HPF (Negative) 04/08/17 12:10 Hyaline Casts 1 /LPF 04/08/17 07:59 Granular Casts 79 /LPF 04/08/17 12:10 Urine Mucus Few /HPF 04/08/17 12:10 Vancomycin Trough 8.3 ug/mL (5.0-20.0) 04/10/17 10:44 Urine Opiates Screen Presumptive negative 04/08/17 07:59 Urine Methadone Screen Presumptive negative 04/08/17 07:59 Ur Barbiturates Screen Presumptive negative 04/08/17 07:59 Ur Phencyclidine Scrn Presumptive negative 04/08/17 07:59 Ur Amphetamines Screen Presumptive negative 04/08/17 07:59 U Benzodiazepines Scrn Presumptive negative 04/08/17 07:59 Urine Cocaine Screen Presumptive negative 04/08/17 07:59 U Marijuana (THC) Screen Presumptive negative 04/08/17 07:59 Drugs of Abuse Note Disclamer 04/08/17 07:59 HIV 1&2 Antibody Rapid Non react (Non React) 04/08/17 12:10 HIV P24 Antigen Non react (Non React) 04/08/17 12:10 Blood Type O POSITIVE 04/08/17 07:05 Antibody Screen Negative 04/08/17 07:05
--- NOTE | 2017-04-12 12:17 | Progress Note ---
Assessment and Plan 21 AA male: 1. s/p cardiac arrest at [facility] - ? multiple shocks w prolonged downtime (?30-45 minutes)- no strips available - unknown primary rhythm * will request strips and documentation from [facility] medical staff * ecg now reveals nsr w nl qt * pt has been in sr/st throughout * urgent [facility] revealed normal coronaries and low normal lv fxn (50-55%) * pea/hypotension later same day * Subsequently, TTE revelaed ef ~35-40% 2. hypotension/shock- resolved * weaned off pressors 3. elevated liver enzymes * likely due to #s 1 and 2 4. Lactic acidemia 5. Acute resp failure * s/p broch * ? alveolar hemorrhage 6. Seizures 7. ? anoxic encephalopathy Plan: Discussed w family at bedside Attempt to obtain records/ECG from [facility]. Poor prognosis given dearth of neurological recovery Supportive care. Neurology consultation noted - very little evidence to suggest recoverability per neuro dvt prophylaxis Subjective Date of service: 04/12/17 Principal diagnosis: Acute Hypoxemic respiratory Failure; Sepsis Syndrome Interval history: intubated, non-responsive Objective Vital Signs Temp Pulse Pulse Pulse Resp Resp BP 04/12/17 12:00 99.7 F H 119 H 20 145/94 04/12/17 11:30 117 H 20 144/92 04/12/17 11:00 114 H 20 141/97 04/12/17 10:30 113 H 20 141/93 04/12/17 10:00 110 H 20 139/95 04/12/17 09:30 109 H 20 139/94 04/12/17 09:00 108 H 20 139/94 04/12/17 08:32 105 H 20 04/12/17 08:30 107 H 20 142/98 04/12/17 08:00 98.9 F 107 H 103 H 20 138/95 04/12/17 07:30 107 H 20 129/94 04/12/17 07:27 107 H 20 04/12/17 07:18 97 H 134/92 04/12/17 07:00 105 H 20 134/92 04/12/17 06:30 104 H 20 138/95 04/12/17 06:00 105 H 20 146/99 04/12/17 05:30 103 H 20 136/96 04/12/17 05:01 115 H 145/97 04/12/17 05:00 115 H 20 143/94 04/12/17 04:30 116 H 20 145/97 04/12/17 04:00 98.6 F 116 H 114 H 20 147/95 04/12/17 03:30 117 H 20 145/94 04/12/17 03:03 97 H 142/92 04/12/17 03:00 116 H 20 142/95 04/12/17 02:30 115 H 20 143/94 04/12/17 02:00 104 H 20 159/111 04/12/17 01:30 105 H 20 162/110 04/12/17 01:20 101 H 20 04/12/17 01:14 100 H 19 04/12/17 01:00 102 H 20 152/109 04/12/17 00:31 100 H 20 155/102 04/12/17 00:00 97.6 F 99 H 98 H 20 155/102 04/11/17 23:47 103 H 04/11/17 23:31 105 H 20 165/107 04/11/17 23:19 108 H 165/107 04/11/17 23:00 111 H 19 165/107 04/11/17 22:31 106 H 21 154/103 04/11/17 22:00 107 H 20 154/103 04/11/17 21:30 107 H 20 153/103 04/11/17 21:00 109 H 20 153/103 04/11/17 20:31 109 H 20 153/101 04/11/17 20:13 109 H 20 153/101 04/11/17 20:00 98.5 F 108 H 107 H 20 156/100 04/11/17 19:56 107 H 20 158/105 04/11/17 19:46 107 H 20 04/11/17 19:36 108 H 20 04/11/17 19:34 108 H 143/97 04/11/17 19:31 108 H 20 143/97 04/11/17 19:00 107 H 20 143/97 04/11/17 18:31 103 H 20 158/105 04/11/17 18:22 99 H 174/115 04/11/17 18:00 104 H 20 161/112 04/11/17 17:58 104 H 158/105 04/11/17 17:31 105 H 20 158/105 04/11/17 17:00 103 H 20 158/105 04/11/17 16:39 104 H 20 04/11/17 16:31 102 H 20 156/108 04/11/17 16:27 101 H 102 H 20 156/108 04/11/17 16:00 98.4 F 102 H 106 H 20 156/108 04/11/17 15:31 102 H 22 149/111 04/11/17 15:00 102 H 20 149/111 04/11/17 14:31 101 H 20 147/107 04/11/17 14:00 102 H 20 147/107 04/11/17 13:31 102 H 20 142/105 04/11/17 13:00 104 H 20 147/106 04/11/17 12:31 102 H 21 142/105 Pulse Ox 04/12/17 12:00 97 04/12/17 11:30 97 04/12/17 11:00 97 04/12/17 10:30 97 04/12/17 10:00 97 04/12/17 09:30 97 04/12/17 09:00 98 04/12/17 08:32 04/12/17 08:30 97 04/12/17 08:00 97 04/12/17 07:30 98 04/12/17 07:27 04/12/17 07:18 97 04/12/17 07:00 98 04/12/17 06:30 98 04/12/17 06:00 97 04/12/17 05:30 98 04/12/17 05:01 04/12/17 05:00 97 04/12/17 04:30 97 04/12/17 04:00 98 04/12/17 03:30 97 04/12/17 03:03 97 04/12/17 03:00 97 04/12/17 02:30 97 04/12/17 02:00 98 04/12/17 01:30 99 04/12/17 01:20 04/12/17 01:14 04/12/17 01:00 99 04/12/17 00:31 99 04/12/17 00:00 98 04/11/17 23:47 04/11/17 23:31 98 04/11/17 23:19 98 04/11/17 23:00 97 04/11/17 22:31 98 04/11/17 22:00 98 04/11/17 21:30 98 04/11/17 21:00 98 04/11/17 20:31 98 04/11/17 20:13 94 04/11/17 20:00 98 04/11/17 19:56 97 04/11/17 19:46 04/11/17 19:36 04/11/17 19:34 98 04/11/17 19:31 98 04/11/17 19:00 98 04/11/17 18:31 98 04/11/17 18:22 04/11/17 18:00 98 04/11/17 17:58 04/11/17 17:31 97 04/11/17 17:00 98 04/11/17 16:39 04/11/17 16:31 97 04/11/17 16:27 97 04/11/17 16:00 98 04/11/17 15:31 99 04/11/17 15:00 100 04/11/17 14:31 100 04/11/17 14:00 99 04/11/17 13:31 99 04/11/17 13:00 99 04/11/17 12:31 98 - Physical Examination General: Other (intubated, unresponsive) HEENT: Positive: Other (pupils dilated, fixed) Neck: Positive: trachea midline Neuro: Positive: Other (unresponsive) Abdomen: Positive: Soft Skin: Positive: Clear. Negative: Rash, Wound Musculoskeletal: No Fluid Collection, No Pain Extremities: Absent: edema - Labs and Meds Comprehensive Metabolic Panel 04/11/17 Range/Units 12:30 Sodium 139 (137-145) mmol/L Potassium 4.4 (3.6-5.0) mmol/L Chloride 101.7 (98-107) mmol/L Carbon Dioxide 26 (22-30) mmol/L BUN 15 (9-20) mg/dL Creatinine 0.5 L (0.8-1.5) mg/dL Glucose 132 H (75-100) mg/dL Calcium 8.4 (8.4-10.2) mg/dL - Imaging and Cardiology EKG: report reviewed, image reviewed Echo: report reviewed Cardiac cath: report reviewed - Allied health notes Allied health notes reviewed: nursing
--- NOTE | 2017-04-12 12:19 | Consultation ---
History of Present Illness Consult date: 04/12/17 History of present illness: I have spoken to family members and advised them of the updated neuro exam still no spontaneous movement about gag absent Doll's Eye movements pupils fixed and dilated... patient has random eyelid twiching this is segmental facial musscle twitch and NOT sign of recovery CT of [place] shows profound severe hypoxia diffusely jenny corticol primary event is cardiac arrest prognosis is very poor Past History Past Medical History: No medical history (Unable to obtaine, patient intubated. [facility] office unable to provide any documentation at this time), other (unable to obtain due to patients mental status ) Past Surgical History: No surgical history Social history: no significant social history Family history: no significant family history Medications and Allergies Allergies Allergy/AdvReac Type Severity Reaction Status Date / Time No Known Allergies Allergy Unverified 06/29/16 06:47 Home Medications Medication Instructions Recorded Confirmed Last Taken Type Gentamicin 0.3% Ophth Soln 2 drops OP Q4H #1 bottle 06/29/16 Unknown Rx Ibuprofen [Motrin] 600 mg PO Q8H PRN #16 tablet 06/29/16 Unknown Rx Sulfamethoxazole/Trimethoprim 1 each PO BID #14 tablet 07/01/16 Unknown Rx [Bactrim DS TAB] Active Meds: Active Medications Acetaminophen (Tylenol) 650 mg PO Q4H PRN PRN Reason: Pain MILD(1-3)/Fever >100.5/MONTOYA Last Admin: 04/10/17 09:24 Dose: 650 mg Albuterol/Ipratropium (Duoneb *Not For Prn Use*) 1 ampul IH Q6HRT [facility] Last Admin: 04/12/17 07:27 Dose: 1 ampul Lipase/Protease/Amylase (Pancreaze Dr 10,500 Unit) 1 each FEEDTUBE PRN PRN PRN Reason: For Clogged Feeding Tube Bisacodyl (Dulcolax) 10 mg RI QDAY PRN PRN Reason: Constipation unrelieved by MOM Dexamethasone (Decadron) 4 mg IV Q6H [facility] Last Admin: 04/12/17 10:40 Dose: 4 mg Famotidine (Pepcid) 20 mg IV BID [facility] Last Admin: 04/12/17 10:40 Dose: 20 mg Heparin Sodium (Porcine) (Heparin) 5,000 unit SUB-Q Q12HR [facility] Last Admin: 04/12/17 10:40 Dose: 5,000 unit Hydralazine HCl (Apresoline) 10 mg IV Q4H PRN PRN Reason: hypertension Last Admin: 04/12/17 02:12 Dose: 10 mg Piperacillin Sod/Tazobactam Sod (Zosyn/Ns 4.5gm/100ml) 4.5 gm in 100 mls @ 200 mls/hr IV Q6HR [facility] PRN Reason: Protocol Last Admin: 04/12/17 05:01 Dose: 200 mls/hr Lorazepam 100 mg/ Sodium Chloride/ Miscellaneous Information 100 mls @ 1 mls/ hr IV TITR [facility]; 1 MG/HR PRN Reason: Protocol Last Titration: 04/10/17 00:30 Dose: 0 mg/hr, 0 mls/hr Norepinephrine (Levophed Drip 4 Mg/Ns 250 Ml) 4 mg in 250 mls @ 7.5 mls/hr IV TITR [facility]; 2 MCG/MIN PRN Reason: Protocol Last Titration: 04/09/17 08:10 Dose: Infused Propofol (Diprivan 10 Mg/Ml) 1,000 mg in 100 mls @ 2.041 mls/hr IV TITR [facility]; 5 MCG/KG/MIN PRN Reason: Protocol Last Titration: 04/10/17 06:35 Dose: 5 mcg/kg/min, 2.041 mls/hr Vancomycin HCl 1,500 mg/ (Sodium Chloride) 515 mls @ 333.333 mls/hr IV Q8HR [facility] Last Admin: 04/12/17 05:00 Dose: 333.333 mls/hr Mannitol (Osmitrol 20%) 85 mls @ 170 mls/hr IV Q6H [facility] Last Admin: 04/12/17 07:00 Dose: 170 mls/hr Levetiracetam (Keppra) 750 mg PO BID [facility] Last Admin: 04/12/17 10:40 Dose: 750 mg Lorazepam (Ativan) 1 mg IV Q1H PRN PRN Reason: Seizures Metoclopramide HCl (Reglan) 10 mg IV Q8H [facility] Last Admin: 04/12/17 09:30 Dose: 10 mg Metoprolol Tartrate (Lopressor) 5 mg IV Q6HR [facility] Last Admin: 04/12/17 05:01 Dose: 5 mg Morphine Sulfate (Morphine) 2 mg IV Q4H PRN PRN Reason: Pain, Moderate (4-6) Last Admin: 04/10/17 23:42 Dose: 2 mg Ondansetron HCl (Zofran) 4 mg IV Q8H PRN PRN Reason: N/V unrelieved by Reglan Simple Syrup (Simple Syrup) 15 ml FEEDTUBE PRN PRN PRN Reason: Hypoglycemia Simple Syrup (Simple Syrup) 30 ml FEEDTUBE PRN PRN PRN Reason: Hypoglycemia Sodium Bicarbonate (Sodium Bicarbonate) 325 mg FEEDTUBE PRN PRN PRN Reason: For Clogged Feeding Tube Vancomycin HCl (Vancomycin Pharmacy To Dose) 1 each IV PKCONSULT [facility] PRN Reason: Protocol Physical Examination - Vital Signs Vital Signs: Vital Signs Pulse Resp Pulse Ox 93 H 14 100 04/08/17 06:50 04/08/17 06:50 04/08/17 06:50 Results - Laboratory Findings CBC and BMP: 04/10/17 03:50 04/11/17 12:30 Abnormal Lab Findings: Abnormal Labs 04/08/17 04/08/17 04/08/17 07:06 07:06 07:06 WBC 33.2 H RBC Hgb Hct Plt Count Lymph % (Auto) Lymph # [place] # Seg Neutrophils % Seg Neuts % (Manual) Lymphocytes % (Manual) Seg Neutrophils # Seg Neutrophils # Man 13.3 H Lymphocytes # (Manual) 7.6 H Monocytes # (Manual) 1.3 H PT 16.5 H INR 1.27 H APTT 51.7 H D-Dimer POC ABG pH POC ABG pCO2 POC ABG pO2 Sodium Potassium 3.5 L Carbon Dioxide 15 L Creatinine Glucose 336 H POC Glucose Lactic Acid Calcium 7.2 L AST 265 H ALT 223 H Total Creatine Kinase Troponin T 0.321 H* C-Reactive Protein Total Protein 5.7 L Albumin 3.2 L Ur Specific [place] Urine WBC (Auto) 04/08/17 04/08/17 04/08/17 07:06 07:36 09:22 WBC RBC Hgb Hct Plt Count Lymph % (Auto) Lymph # [place] # Seg Neutrophils % Seg Neuts % (Manual) Lymphocytes % (Manual) Seg Neutrophils # Seg Neutrophils # Man Lymphocytes # (Manual) Monocytes # (Manual) PT INR APTT D-Dimer POC ABG pH 7.105 L POC ABG pCO2 68.1 H POC ABG pO2 256 H Sodium Potassium Carbon Dioxide Creatinine Glucose POC Glucose 193 H Lactic Acid Calcium AST ALT Total Creatine Kinase 623 H Troponin T C-Reactive Protein Total Protein Albumin Ur Specific [place] Urine WBC (Auto) 04/08/17 04/08/17 04/08/17 10:59 11:13 11:33 WBC RBC Hgb Hct Plt Count Lymph % (Auto) Lymph # [place] # Seg Neutrophils % Seg Neuts % (Manual) Lymphocytes % (Manual) Seg Neutrophils # Seg Neutrophils # Man Lymphocytes # (Manual) Monocytes # (Manual) PT INR APTT D-Dimer POC ABG pH 7.197 L POC ABG pCO2 46.3 H POC ABG pO2 68 L Sodium Potassium Carbon Dioxide Creatinine Glucose POC Glucose Lactic Acid 9.00 H* Calcium AST ALT Total Creatine Kinase Troponin T 2.380 H* D C-Reactive Protein Total Protein Albumin Ur Specific [place] Urine WBC (Auto) 04/08/17 04/08/17 04/08/17 12:10 12:10 12:10 WBC 21.6 H RBC 5.69 H Hgb 16.1 H Hct 50.4 H D Plt Count Lymph % (Auto) Lymph # [place] # Seg Neutrophils % Seg Neuts % (Manual) 86.0 H Lymphocytes % (Manual) 5.0 L Seg Neutrophils # Seg Neutrophils # Man 18.6 H Lymphocytes # (Manual) 1.1 L Monocytes # (Manual) PT INR APTT D-Dimer POC ABG pH POC ABG pCO2 POC ABG pO2 Sodium Potassium 3.4 L Carbon Dioxide 21 L Creatinine Glucose 182 H POC Glucose Lactic Acid Calcium 7.5 L AST ALT Total Creatine Kinase Troponin T C-Reactive Protein Total Protein Albumin Ur Specific [place] 1.044 H Urine WBC (Auto) 18.0 H 04/08/17 04/08/17 04/08/17 13:32 15:02 17:56 WBC RBC Hgb Hct Plt Count Lymph % (Auto) Lymph # [place] # Seg Neutrophils % Seg Neuts % (Manual) Lymphocytes % (Manual) Seg Neutrophils # Seg Neutrophils # Man Lymphocytes # (Manual) Monocytes # (Manual) PT INR APTT D-Dimer POC ABG pH 7.287 L POC ABG pCO2 POC ABG pO2 196 H Sodium Potassium Carbon Dioxide Creatinine Glucose POC Glucose Lactic Acid 7.50 H* Calcium AST ALT Total Creatine Kinase Troponin T 2.330 H* C-Reactive Protein Total Protein Albumin Ur Specific [place] Urine WBC (Auto) 04/08/17 04/08/17 04/09/17 19:51 23:53 03:38 WBC 27.2 H RBC Hgb Hct Plt Count Lymph % (Auto) Lymph # [place] # Seg Neutrophils % Seg Neuts % (Manual) 74.0 H Lymphocytes % (Manual) 8.0 L Seg Neutrophils # Seg Neutrophils # Man 20.1 H Lymphocytes # (Manual) Monocytes # (Manual) 1.4 H PT INR APTT D-Dimer POC ABG pH POC ABG pCO2 POC ABG pO2 Sodium Potassium Carbon Dioxide Creatinine Glucose POC Glucose 140 H 175 H Lactic Acid Calcium AST ALT Total Creatine Kinase Troponin T C-Reactive Protein Total Protein Albumin Ur Specific [place] Urine WBC (Auto) 04/09/17 04/09/17 04/09/17 03:38 04:17 05:50 WBC RBC Hgb Hct Plt Count Lymph % (Auto) Lymph # [place] # Seg Neutrophils % Seg Neuts % (Manual) Lymphocytes % (Manual) Seg Neutrophils # Seg Neutrophils # Man Lymphocytes # (Manual) Monocytes # (Manual) PT INR APTT D-Dimer POC ABG pH POC ABG pCO2 30.1 L POC ABG pO2 115 H Sodium 136 L Potassium Carbon Dioxide 18 L Creatinine Glucose 177 H POC Glucose 167 H Lactic Acid Calcium 7.4 L AST ALT Total Creatine Kinase Troponin T C-Reactive Protein Total Protein Albumin Ur Specific [place] Urine WBC (Auto) 04/09/17 04/09/17 04/09/17 07:41 09:52 12:22 WBC RBC Hgb Hct Plt Count Lymph % (Auto) Lymph # [place] # Seg Neutrophils % Seg Neuts % (Manual) Lymphocytes % (Manual) Seg Neutrophils # Seg Neutrophils # Man Lymphocytes # (Manual) Monocytes # (Manual) PT INR APTT D-Dimer POC ABG pH POC ABG pCO2 POC ABG pO2 Sodium Potassium Carbon Dioxide Creatinine Glucose POC Glucose 113 H Lactic Acid 5.00 H* Calcium AST ALT Total Creatine Kinase Troponin T C-Reactive Protein 12.50 H Total Protein Albumin Ur Specific [place] Urine WBC (Auto) 04/09/17 04/09/17 04/10/17 14:49 15:24 03:50 WBC RBC Hgb Hct Plt Count Lymph % (Auto) Lymph # [place] # Seg Neutrophils % Seg Neuts % (Manual) Lymphocytes % (Manual) Seg Neutrophils # Seg Neutrophils # Man Lymphocytes # (Manual) Monocytes # (Manual) PT INR APTT D-Dimer 4492.30 H POC ABG pH POC ABG pCO2 POC ABG pO2 Sodium Potassium Carbon Dioxide Creatinine Glucose 128 H POC Glucose Lactic Acid Calcium AST 342 H ALT 152 H Total Creatine Kinase Troponin T C-Reactive Protein 12.60 H Total Protein 6.0 L Albumin 3.1 L Ur Specific [place] Urine WBC (Auto) 04/10/17 04/10/17 04/11/17 03:50 05:32 05:52 WBC 20.1 H RBC Hgb Hct Plt Count 128 L Lymph % (Auto) 5.5 L Lymph # 1.1 L [place] # 1.0 H Seg Neutrophils % 89.5 H Seg Neuts % (Manual) Lymphocytes % (Manual) Seg Neutrophils # 18.0 H Seg Neutrophils # Man Lymphocytes # (Manual) Monocytes # (Manual) PT INR APTT D-Dimer POC ABG pH POC ABG pCO2 POC ABG pO2 149 H 143 H Sodium Potassium Carbon Dioxide Creatinine Glucose POC Glucose Lactic Acid Calcium AST ALT Total Creatine Kinase Troponin T C-Reactive Protein Total Protein Albumin Ur Specific [place] Urine WBC (Auto) 04/11/17 04/12/17 12:30 03:54 WBC RBC Hgb Hct Plt Count Lymph % (Auto) Lymph # [place] # Seg Neutrophils % Seg Neuts % (Manual) Lymphocytes % (Manual) Seg Neutrophils # Seg Neutrophils # Man Lymphocytes # (Manual) Monocytes # (Manual) PT INR APTT D-Dimer POC ABG pH 7.463 H POC ABG pCO2 POC ABG pO2 Sodium Potassium Carbon Dioxide Creatinine 0.5 L Glucose 132 H POC Glucose Lactic Acid Calcium AST ALT Total Creatine Kinase Troponin T C-Reactive Protein Total Protein Albumin Ur Specific [place] Urine WBC (Auto)
--- NOTE | 2017-04-12 13:19 | Progress Note ---
Assessment and Plan Acute Hypoxemic Respiratory Failure S/P Cardiopulmonary Arrest Acute Encephalopathy (Likely anoxic component) Severe Sepsis Seizures Pneumonia (Likely Aspiration) Cardiomyopathy NSTEMI (I fear he has suffered severe anoxic injury however clinically is more stable at this time; if family really requires aggressive care he is well served by a tracheostomy in short order while neurology evaluation is ongoing) - continue reglan re: large residuals - resume trickle feeding at 10mls/hr - continue keppra to control seizure activity - continue with lung protective strategies - VAP bundle addressed - HOB > 40 - will begin weaning trials in am as tolerated without plans for acute extubation - bronch growing beta strep - continue antibiotics and adjust per ID recs - discontinue mannitol at this stage and will taper decadron soon after - continue neurology evaluation - continue GI & VTE prophylaxis - likely shock liver element - discontinued femoral lines - continue other care per attending / other consultants ....he remains critically ill on life sustaining interventions including MVS and at high risk for further deterioration including ...guarded prognosis ...case discussed at length during team rounds and care plan formulated .....30' CCT Subjective Date of service: 04/12/17 Principal diagnosis: Acute Hypoxemic respiratory Failure; Sepsis Syndrome Interval history: Patient is seen today for: Acute Hypoxemic respiratory Failure; Sepsis Syndrome Seen and examined at bedside; 24 hour events reviewed; nursing and respiratory care staff consulted; remains on MVS but off vasopressors; AMS is persistent; encephalopathy is persistent but still with weak gag; pupils more dilated today and very very sluggish; tolerating tube feeds a little better on BIPAP; family reportedly desires aggressive therapy; neurology evaluation is ongoing Objective Vital Signs - 12hr 04/12/17 04/12/17 04/12/17 01:20 01:30 02:00 Temperature Pulse Rate 105 H 104 H Pulse Rate [ 101 H Anterior Bilateral Throughout] Pulse Rate [ From Monitor] Respiratory 20 20 Rate Respiratory 20 Rate [Anterior Bilateral Throughout] Blood Pressure 162/110 159/111 O2 Sat by Pulse 99 98 Oximetry 04/12/17 04/12/17 04/12/17 02:30 03:00 03:03 Temperature Pulse Rate 115 H 116 H 97 H Pulse Rate [ Anterior Bilateral Throughout] Pulse Rate [ From Monitor] Respiratory 20 20 Rate Respiratory Rate [Anterior Bilateral Throughout] Blood Pressure 143/94 142/95 142/92 O2 Sat by Pulse 97 97 97 Oximetry 04/12/17 04/12/17 04/12/17 03:30 04:00 04:30 Temperature 98.6 F Pulse Rate 117 H 116 H 116 H Pulse Rate [ Anterior Bilateral Throughout] Pulse Rate [ 114 H From Monitor] Respiratory 20 20 20 Rate Respiratory Rate [Anterior Bilateral Throughout] Blood Pressure 145/94 147/95 145/97 O2 Sat by Pulse 97 98 97 Oximetry 04/12/17 04/12/17 04/12/17 05:00 05:01 05:30 Temperature Pulse Rate 115 H 115 H 103 H Pulse Rate [ Anterior Bilateral Throughout] Pulse Rate [ From Monitor] Respiratory 20 20 Rate Respiratory Rate [Anterior Bilateral Throughout] Blood Pressure 143/94 145/97 136/96 O2 Sat by Pulse 97 98 Oximetry 04/12/17 04/12/17 04/12/17 06:00 06:30 07:00 Temperature Pulse Rate 105 H 104 H 105 H Pulse Rate [ Anterior Bilateral Throughout] Pulse Rate [ From Monitor] Respiratory 20 20 20 Rate Respiratory Rate [Anterior Bilateral Throughout] Blood Pressure 146/99 138/95 134/92 O2 Sat by Pulse 97 98 98 Oximetry 04/12/17 04/12/17 04/12/17 07:18 07:27 07:30 Temperature Pulse Rate 97 H 107 H Pulse Rate [ 107 H Anterior Bilateral Throughout] Pulse Rate [ From Monitor] Respiratory 20 Rate Respiratory 20 Rate [Anterior Bilateral Throughout] Blood Pressure 134/92 129/94 O2 Sat by Pulse 97 98 Oximetry 04/12/17 04/12/17 04/12/17 08:00 08:30 08:32 Temperature 98.9 F Pulse Rate 107 H 107 H Pulse Rate [ 105 H Anterior Bilateral Throughout] Pulse Rate [ 103 H From Monitor] Respiratory 20 20 Rate Respiratory 20 Rate [Anterior Bilateral Throughout] Blood Pressure 138/95 142/98 O2 Sat by Pulse 97 97 Oximetry 04/12/17 04/12/17 04/12/17 09:00 09:30 10:00 Temperature Pulse Rate 108 H 109 H 110 H Pulse Rate [ Anterior Bilateral Throughout] Pulse Rate [ From Monitor] Respiratory 20 20 20 Rate Respiratory Rate [Anterior Bilateral Throughout] Blood Pressure 139/94 139/94 139/95 O2 Sat by Pulse 98 97 97 Oximetry 04/12/17 04/12/17 04/12/17 10:30 11:00 11:30 Temperature Pulse Rate 113 H 114 H 117 H Pulse Rate [ Anterior Bilateral Throughout] Pulse Rate [ From Monitor] Respiratory 20 20 20 Rate Respiratory Rate [Anterior Bilateral Throughout] Blood Pressure 141/93 141/97 144/92 O2 Sat by Pulse 97 97 97 Oximetry 04/12/17 04/12/17 04/12/17 12:00 12:36 13:07 Temperature 99.7 F H Pulse Rate 119 H 119 H 121 H Pulse Rate [ Anterior Bilateral Throughout] Pulse Rate [ 118 H From Monitor] Respiratory 20 Rate Respiratory Rate [Anterior Bilateral Throughout] Blood Pressure 145/94 149/94 144/96 O2 Sat by Pulse 97 97 Oximetry Constitutional: comatose, other (Intubated;no increased work of breathing) Eyes: non-icteric ENT: oropharynx moist, other (ETT in place) Neck: supple, no JVD, other (no thyromegaly) Effort: normal Ascultation: Bilateral: rhonchi (scant in bases) Percussion: Bilateral: not dull Cardiovascular: regular rate and rhythm, other (tachycardia) Gastrointestinal: normoactive bowel sounds, soft, non-tender, non-distended, other (No HSM) Integumentary: normal, other (Right femoral CVC and arterial line) Extremities: no cyanosis, no edema, pulses normal, no ischemia or petechiae Neurologic: pupils equal and round (5-6mm very very slugishly reactive), unable to assess, other (weak gag reflex) Psychiatric: other (unable to assess) CBC and BMP: 04/10/17 03:50 04/11/17 12:30 ABG, PT/INR, D-dimer: ABG POC ABG pH 7.463 (7.35-7.45) H 04/12/17 03:54 POC ABG pCO2 41.3 (35-45) 04/12/17 03:54 POC ABG pO2 105 (80-105) 04/12/17 03:54 POC ABG HCO3 29.6 04/12/17 03:54 POC ABG Total CO2 31 04/12/17 03:54 POC ABG O2 Sat 98 04/12/17 03:54 PT/INR, D-dimer PT 16.5 Sec. (12.2-14.9) H 04/08/17 07:06 INR 1.27 (0.87-1.13) H 04/08/17 07:06 D-Dimer 4492.30 ng/mlDDU (0-234) H 04/09/17 14:49 Abnormal lab findings: Abnormal Labs 04/08/17 04/08/17 04/08/17 07:06 07:06 07:06 WBC 33.2 H RBC Hgb Hct Plt Count Lymph % (Auto) Lymph # [place] # Seg Neutrophils % Seg Neuts % (Manual) Lymphocytes % (Manual) Seg Neutrophils # Seg Neutrophils # Man 13.3 H Lymphocytes # (Manual) 7.6 H Monocytes # (Manual) 1.3 H PT 16.5 H INR 1.27 H APTT 51.7 H D-Dimer POC ABG pH POC ABG pCO2 POC ABG pO2 Sodium Potassium 3.5 L Carbon Dioxide 15 L Creatinine Glucose 336 H POC Glucose Lactic Acid Calcium 7.2 L AST 265 H ALT 223 H Total Creatine Kinase Troponin T 0.321 H* C-Reactive Protein Total Protein 5.7 L Albumin 3.2 L Ur Specific [place] Urine WBC (Auto) 04/08/17 04/08/17 04/08/17 07:06 07:36 09:22 WBC RBC Hgb Hct Plt Count Lymph % (Auto) Lymph # [place] # Seg Neutrophils % Seg Neuts % (Manual) Lymphocytes % (Manual) Seg Neutrophils # Seg Neutrophils # Man Lymphocytes # (Manual) Monocytes # (Manual) PT INR APTT D-Dimer POC ABG pH 7.105 L POC ABG pCO2 68.1 H POC ABG pO2 256 H Sodium Potassium Carbon Dioxide Creatinine Glucose POC Glucose 193 H Lactic Acid Calcium AST ALT Total Creatine Kinase 623 H Troponin T C-Reactive Protein Total Protein Albumin Ur Specific [place] Urine WBC (Auto) 04/08/17 04/08/17 04/08/17 10:59 11:13 11:33 WBC RBC Hgb Hct Plt Count Lymph % (Auto) Lymph # [place] # Seg Neutrophils % Seg Neuts % (Manual) Lymphocytes % (Manual) Seg Neutrophils # Seg Neutrophils # Man Lymphocytes # (Manual) Monocytes # (Manual) PT INR APTT D-Dimer POC ABG pH 7.197 L POC ABG pCO2 46.3 H POC ABG pO2 68 L Sodium Potassium Carbon Dioxide Creatinine Glucose POC Glucose Lactic Acid 9.00 H* Calcium AST ALT Total Creatine Kinase Troponin T 2.380 H* D C-Reactive Protein Total Protein Albumin Ur Specific [place] Urine WBC (Auto) 04/08/17 04/08/17 04/08/17 12:10 12:10 12:10 WBC 21.6 H RBC 5.69 H Hgb 16.1 H Hct 50.4 H D Plt Count Lymph % (Auto) Lymph # [place] # Seg Neutrophils % Seg Neuts % (Manual) 86.0 H Lymphocytes % (Manual) 5.0 L Seg Neutrophils # Seg Neutrophils # Man 18.6 H Lymphocytes # (Manual) 1.1 L Monocytes # (Manual) PT INR APTT D-Dimer POC ABG pH POC ABG pCO2 POC ABG pO2 Sodium Potassium 3.4 L Carbon Dioxide 21 L Creatinine Glucose 182 H POC Glucose Lactic Acid Calcium 7.5 L AST ALT Total Creatine Kinase Troponin T C-Reactive Protein Total Protein Albumin Ur Specific [place] 1.044 H Urine WBC (Auto) 18.0 H 04/08/17 04/08/17 04/08/17 13:32 15:02 17:56 WBC RBC Hgb Hct Plt Count Lymph % (Auto) Lymph # [place] # Seg Neutrophils % Seg Neuts % (Manual) Lymphocytes % (Manual) Seg Neutrophils # Seg Neutrophils # Man Lymphocytes # (Manual) Monocytes # (Manual) PT INR APTT D-Dimer POC ABG pH 7.287 L POC ABG pCO2 POC ABG pO2 196 H Sodium Potassium Carbon Dioxide Creatinine Glucose POC Glucose Lactic Acid 7.50 H* Calcium AST ALT Total Creatine Kinase Troponin T 2.330 H* C-Reactive Protein Total Protein Albumin Ur Specific [place] Urine WBC (Auto) 04/08/17 04/08/17 04/09/17 19:51 23:53 03:38 WBC 27.2 H RBC Hgb Hct Plt Count Lymph % (Auto) Lymph # [place] # Seg Neutrophils % Seg Neuts % (Manual) 74.0 H Lymphocytes % (Manual) 8.0 L Seg Neutrophils # Seg Neutrophils # Man 20.1 H Lymphocytes # (Manual) Monocytes # (Manual) 1.4 H PT INR APTT D-Dimer POC ABG pH POC ABG pCO2 POC ABG pO2 Sodium Potassium Carbon Dioxide Creatinine Glucose POC Glucose 140 H 175 H Lactic Acid Calcium AST ALT Total Creatine Kinase Troponin T C-Reactive Protein Total Protein Albumin Ur Specific [place] Urine WBC (Auto) 04/09/17 04/09/17 04/09/17 03:38 04:17 05:50 WBC RBC Hgb Hct Plt Count Lymph % (Auto) Lymph # [place] # Seg Neutrophils % Seg Neuts % (Manual) Lymphocytes % (Manual) Seg Neutrophils # Seg Neutrophils # Man Lymphocytes # (Manual) Monocytes # (Manual) PT INR APTT D-Dimer POC ABG pH POC ABG pCO2 30.1 L POC ABG pO2 115 H Sodium 136 L Potassium Carbon Dioxide 18 L Creatinine Glucose 177 H POC Glucose 167 H Lactic Acid Calcium 7.4 L AST ALT Total Creatine Kinase Troponin T C-Reactive Protein Total Protein Albumin Ur Specific [place] Urine WBC (Auto) 04/09/17 04/09/17 04/09/17 07:41 09:52 12:22 WBC RBC Hgb Hct Plt Count Lymph % (Auto) Lymph # [place] # Seg Neutrophils % Seg Neuts % (Manual) Lymphocytes % (Manual) Seg Neutrophils # Seg Neutrophils # Man Lymphocytes # (Manual) Monocytes # (Manual) PT INR APTT D-Dimer POC ABG pH POC ABG pCO2 POC ABG pO2 Sodium Potassium Carbon Dioxide Creatinine Glucose POC Glucose 113 H Lactic Acid 5.00 H* Calcium AST ALT Total Creatine Kinase Troponin T C-Reactive Protein 12.50 H Total Protein Albumin Ur Specific [place] Urine WBC (Auto) 04/09/17 04/09/17 04/10/17 14:49 15:24 03:50 WBC RBC Hgb Hct Plt Count Lymph % (Auto) Lymph # [place] # Seg Neutrophils % Seg Neuts % (Manual) Lymphocytes % (Manual) Seg Neutrophils # Seg Neutrophils # Man Lymphocytes # (Manual) Monocytes # (Manual) PT INR APTT D-Dimer 4492.30 H POC ABG pH POC ABG pCO2 POC ABG pO2 Sodium Potassium Carbon Dioxide Creatinine Glucose 128 H POC Glucose Lactic Acid Calcium AST 342 H ALT 152 H Total Creatine Kinase Troponin T C-Reactive Protein 12.60 H Total Protein 6.0 L Albumin 3.1 L Ur Specific [place] Urine WBC (Auto) 04/10/17 04/10/17 04/11/17 03:50 05:32 05:52 WBC 20.1 H RBC Hgb Hct Plt Count 128 L Lymph % (Auto) 5.5 L Lymph # 1.1 L [place] # 1.0 H Seg Neutrophils % 89.5 H Seg Neuts % (Manual) Lymphocytes % (Manual) Seg Neutrophils # 18.0 H Seg Neutrophils # Man Lymphocytes # (Manual) Monocytes # (Manual) PT INR APTT D-Dimer POC ABG pH POC ABG pCO2 POC ABG pO2 149 H 143 H Sodium Potassium Carbon Dioxide Creatinine Glucose POC Glucose Lactic Acid Calcium AST ALT Total Creatine Kinase Troponin T C-Reactive Protein Total Protein Albumin Ur Specific [place] Urine WBC (Auto) 04/11/17 04/12/17 12:30 03:54 WBC RBC Hgb Hct Plt Count Lymph % (Auto) Lymph # [place] # Seg Neutrophils % Seg Neuts % (Manual) Lymphocytes % (Manual) Seg Neutrophils # Seg Neutrophils # Man Lymphocytes # (Manual) Monocytes # (Manual) PT INR APTT D-Dimer POC ABG pH 7.463 H POC ABG pCO2 POC ABG pO2 Sodium Potassium Carbon Dioxide Creatinine 0.5 L Glucose 132 H POC Glucose Lactic Acid Calcium AST ALT Total Creatine Kinase Troponin T C-Reactive Protein Total Protein Albumin Ur Specific [place] Urine WBC (Auto) Chest x-ray: pending Allied health notes reviewed: nursing
--- NOTE | 2017-04-12 13:33 | Progress Note ---
Assessment and Plan Assessment: 1) Shock post arrest ? multifactorial (cardiac/septic) and MODS: shock resolved. Septic Etiology - unclear. DDx: ?viral myocarditis, aspiration pneumonia, brain edema/central fever. CRP=12.5 2) S/P cardiac arrest at half-way - ? multiple shocks w prolonged downtime (?30-45 minutes) ? viral myocarditis -S/P urgent LHC revealed normal coronaries and low normal lv fxn (50-55%) -TTE EF 25-30% 3) Elevated liver enzyme 4) Acute resp failure 6) Seizures 7) Anoxic encephalopathy - not better 8) Presumed pneumonia versus atelectasi: tracheal asp + Group C Strep likely a commensal Plan: -follow-up procalcitonin -stop vancomycin -continue zosyn - day 5 -unfortunately, poor prognosis I will be rounding this weakened Thank you Dr Rudolph for your consultation, will follow up with you. Crys Zhang MD Infectious Diseases Specialist [facility] ([facility]) M [phone] O [phone] Subjective Date of service: 04/12/17 Principal diagnosis: Acute Hypoxemic respiratory Failure; Sepsis Syndrome Interval history: Remains comatose non responsive, not on sedative, intubated on the vent. fever resolved Microbiology: Blood cultures: 04/08 ngtd Urine cultures: 04/08 neg Respiratory cultures: 04/08 Beta hem group C Current Antimicrobials: Zosyn 04/08 Vancomycin 04/08 Previous Antimicrobials: Objective - Exam Narrative Exam: General appearance: comatous intubated Eyes: marked conjunctival edema bilateral, erratic pupils dilated and fixed changing to reactive after moving his head HENT: Atraumatic; oropharynx +ETT Neck: Trachea midline; supple, no thyromegaly or lymphadenopathy Lungs: CTA CV: tachy Abdomen: Soft, non-tender egaly Extremities: No peripheral edema or extremity lymphadenopathy Skin: Normal temperature, turgor and texture; no rash, ulcers or subcutaneous nodules Psych: comatose Neuro: comatose Lines: [place] - Constitutional Vitals: Vital Signs Temp Pulse Resp BP Pulse Ox 99.7 F H 121 H 20 144/96 97 04/12/17 12:00 04/12/17 13:07 04/12/17 12:00 04/12/17 13:07 04/12/17 12:36 Temperature -Last 24 Hours Temperature 99.7 F Temperature 98.9 F Temperature 98.6 F Temperature 97.6 F Temperature 98.5 F Temperature 98.4 F - Labs CBC & Chem 7: 04/10/17 03:50 04/11/17 12:30 Labs: Abnormal lab results 04/12/17 Range/Units 03:54 POC ABG pH 7.463 H (7.35-7.45)
[2017-04-12] MEDS: NORVASC PO SCH (21:40)
[2017-04-13] MEDS: LOPRESSOR IV SCH ×3 (00:52→12:50)
[2017-04-13] MEDS: ZOSYN/NS 4.5GM/100ML 4.5 GM/100 ML VIAL IV SCH ×5 (00:53→23:01)
[2017-04-13] MEDS: REGLAN IV SCH ×3 (00:53→17:06)
[2017-04-13] MEDS: DUONEB *Not for PRN Use IH SCH ×4 (01:20→19:11)
[2017-04-13 03:46] LABS: ISTAT Base Excess 7; ISTAT HCO3 28.8; ISTAT PCO2 29.5 (35-45); ISTAT PH 7.597 (7.35-7.45); ISTAT PO2 117 (80-105); ISTAT SO2 99; ISTAT TCO2 30
[2017-04-13] MEDS: VANCOMYCIN 1,500 MG in NACL 0.9% 500 ML 500 ML IV SCH ×2 (05:15→13:37)
[2017-04-13] MEDS: DECADRON IV SCH ×4 (05:16→22:58)
[2017-04-13] MEDS ORDERED: NACL 0.9% 500 ML 500 ML IV ONE (09:26)
[2017-04-13] MEDS: KEPPRA PO SCH ×2 (09:51→22:58)
[2017-04-13] MEDS: PEPCID IV SCH ×2 (09:51→22:59)
[2017-04-13] MEDS: HEPARIN SUB-Q SCH ×2 (09:51→22:57)
[2017-04-13] MEDS: NORVASC PO SCH (10:17)
[2017-04-13] MEDS ORDERED: NACL 0.9% 1000 ML 1,000 ML IV ONE (10:34)
[2017-04-13] MEDS: LEVOPHED DRIP 4 MG/NS 250 ML 4 MG/250 ML BAG IV SCH (10:45)
--- NOTE | 2017-04-13 12:07 | Progress Note ---
Assessment and Plan 21 AA male: 1. s/p cardiac arrest at [facility] - ? multiple shocks w prolonged downtime (?30-45 minutes)- no strips available - unknown primary rhythm * will request strips and documentation from [facility] medical staff * ecg now reveals nsr w nl qt * pt has been in sr/st throughout * urgent [facility] revealed normal coronaries and low normal lv fxn (50-55%) * pea/hypotension later same day * Subsequently, TTE revelaed ef ~35-40% 2. hypotension/shock- resolved * weaned off pressors 3. elevated liver enzymes * likely due to #s 1 and 2 4. Lactic acidemia 5. Acute resp failure * s/p broch * ? alveolar hemorrhage 6. Seizures 7. ? anoxic encephalopathy * Neurology consultation noted - very little evidence to suggest recoverability per neuro Plan: check labs Attempt to obtain records/ECG from [facility]. Poor prognosis given dearth of neurological recovery I recommend a family conference tomorrow - unclear if family understands the gravity of Mr. Diallo's neurological insult. Supportive care. Subjective Date of service: 04/13/17 Principal diagnosis: Acute Hypoxemic respiratory Failure; Sepsis Syndrome Interval history: no changes overnight d/w rn Objective Vital Signs Temp Pulse Pulse Pulse Resp Resp BP 04/13/17 11:03 81 86/39 04/13/17 08:00 98.4 F 98 H 96 H 16 96/42 04/13/17 07:48 100 H 16 04/13/17 07:36 97 H 98 H 16 114/63 04/13/17 07:30 97 H 16 114/63 04/13/17 07:00 96 H 16 112/58 04/13/17 06:30 96 H 16 116/68 04/13/17 06:00 96 H 16 110/62 04/13/17 05:30 96 H 16 111/62 04/13/17 05:15 113 H 163/103 04/13/17 05:00 119 H 16 163/103 04/13/17 04:30 112 H 16 143/97 04/13/17 04:00 99.0 F 107 H 20 126/72 04/13/17 03:30 108 H 20 119/63 04/13/17 03:00 109 H 20 117/70 04/13/17 02:30 109 H 20 126/76 04/13/17 02:00 108 H 20 127/82 04/13/17 01:35 103 H 20 04/13/17 01:30 109 H 20 111/55 04/13/17 01:20 107 H 20 04/13/17 01:00 106 H 20 136/93 04/13/17 00:52 122 H 152/102 04/13/17 00:30 120 H 20 152/102 04/13/17 00:00 100.1 F H 121 H 107 H 20 131/77 04/12/17 23:33 127 H 20 145/86 04/12/17 23:30 128 H 20 145/86 04/12/17 23:03 132 H 167/104 04/12/17 23:00 133 H 20 167/104 04/12/17 22:30 136 H 20 176/115 04/12/17 22:00 136 H 22 185/109 04/12/17 21:40 135 H 171/105 04/12/17 21:30 135 H 21 171/105 04/12/17 21:00 133 H 21 163/101 04/12/17 20:30 134 H 21 163/101 04/12/17 20:00 100.6 F H 132 H 115 H 20 169/101 04/12/17 19:30 125 H 20 154/94 04/12/17 19:24 125 H 20 04/12/17 19:14 126 H 21 04/12/17 19:11 126 H 169/108 04/12/17 19:05 122 H 169/108 04/12/17 19:00 122 H 20 169/108 04/12/17 18:30 120 H 20 174/111 04/12/17 18:00 117 H 20 177/109 04/12/17 17:30 116 H 19 172/110 04/12/17 17:18 130 H 184/113 04/12/17 17:00 130 H 22 186/112 04/12/17 16:31 130 H 184/113 04/12/17 16:30 128 H 22 185/112 04/12/17 16:01 122 H 20 172/107 04/12/17 16:00 99.6 F 116 H 04/12/17 15:31 131/83 04/12/17 15:00 117 H 20 131/83 04/12/17 14:35 118 H 20 04/12/17 14:30 117 H 20 134/85 04/12/17 14:25 114 H 20 04/12/17 14:00 114 H 20 142/91 04/12/17 13:30 111 H 20 146/94 04/12/17 13:07 121 H 144/96 04/12/17 13:00 121 H 20 144/96 04/12/17 12:36 119 H 149/94 04/12/17 12:30 120 H 20 149/94 Pulse Ox 04/13/17 11:03 96 04/13/17 08:00 100 04/13/17 07:48 04/13/17 07:36 98 04/13/17 07:30 98 04/13/17 07:00 98 04/13/17 06:30 04/13/17 06:00 04/13/17 05:30 98 04/13/17 05:15 04/13/17 05:00 96 04/13/17 04:30 97 04/13/17 04:00 99 04/13/17 03:30 98 04/13/17 03:00 98 04/13/17 02:30 98 04/13/17 02:00 98 04/13/17 01:35 04/13/17 01:30 98 04/13/17 01:20 04/13/17 01:00 98 04/13/17 00:52 04/13/17 00:30 98 04/13/17 00:00 100 04/12/17 23:33 98 04/12/17 23:30 98 04/12/17 23:03 97 04/12/17 23:00 98 04/12/17 22:30 98 04/12/17 22:00 97 04/12/17 21:40 04/12/17 21:30 97 04/12/17 21:00 97 04/12/17 20:30 97 04/12/17 20:00 100 04/12/17 19:30 96 04/12/17 19:24 04/12/17 19:14 04/12/17 19:11 97 04/12/17 19:05 04/12/17 19:00 97 04/12/17 18:30 97 04/12/17 18:00 97 04/12/17 17:30 97 04/12/17 17:18 04/12/17 17:00 97 04/12/17 16:31 97 04/12/17 16:30 97 04/12/17 16:01 97 04/12/17 16:00 100 04/12/17 15:31 98 04/12/17 15:00 04/12/17 14:35 04/12/17 14:30 04/12/17 14:25 04/12/17 14:00 98 04/12/17 13:30 97 04/12/17 13:07 04/12/17 13:00 97 04/12/17 12:36 97 04/12/17 12:30 97 - Physical Examination General: Other (intubated, unresponsive) HEENT: Positive: Other (pupils dilated, fixed) Neck: Positive: trachea midline Neuro: Positive: Other (unresponsive) Abdomen: Positive: Soft Skin: Positive: Clear. Negative: Rash, Wound Musculoskeletal: No Fluid Collection, No Pain Extremities: Absent: edema - Imaging and Cardiology EKG: report reviewed, image reviewed Echo: report reviewed Cardiac cath: report reviewed - Allied health notes Allied health notes reviewed: nursing
--- NOTE | 2017-04-13 13:28 | Progress Note ---
Assessment and Plan Assessment and plan: Patient is a 21 years old male with no known significant past medical history who was in skilled nursing. His cellmates called for help after apparently finding him to be pulseless and unconscious. He cellmates today doing CPR, EMS then came and perform more CPR. Patient was pulseless, found to be in V. tach and was shocked up to 19 times. He regained his pulse shortly before arriving to the hospital. He was intubated and required pressors for blood pressure support. Anoxic brain injury Patient is in very deep coma, unlikely to recover given extensive period of anoxia Case discussed with neurologist Acute hypoxic and hypercapnic respiratory failure Continue ventilator, Cerebral and ocular edema -dc mannitol and rx with steroid taper improving Acute Metabolic Encephalopathy Secondary to Acute hypoxic and hypercapnic respiratory failure intubated, not sedated Unlikely to recover, UDS negative Status Epilepticus Continue antiepileptic drugs, no further seizure activity Seizure most likely due to anoxic brain injury Severe Sepsis/septic shock /Aspiration PNA Continue antibiotics, continue pressors as needed ID consultation appreciated Lactic acid acidosis -Received bicarbonate drip, now resolved Mild Malnutrition Nutrition consult for tube feeding elevation Troponin due to Type 2 IN- [place] Ischemia STEMI (ST elevation myocardial infarction) ruled out S/p LHC which revealed normal coronaries, normal LVEF per cardiology Cardiology consult appreciated Hypokalemia replaced closely monitor DVT prophylaxis Lovenox Family meeting was held with the patient's father, 2 sisters shon and uncle. It was intimated to them that he is unlikely to recover, with extensive global anoxic brain injury. On that he will likely be in a persistent vegetative state for the rest of his life if he does survive. He recommended DO NOT RESUSCITATE and hospice. But the family believe in higher power and would like trach and PEG and for him to be transferred to rehabilitation facility. Case was discussed with case management, patient does not have insurance, he will not be able to go to an LTAC or rehabilitation facility, he will have to go home with a family member after his trach and PEG. Case was also discussed with [employer]arian [employer]. And case was discussed with neurologist. We agreed on poor prognosis, but will fulfill the families wishes and continue aggressive therapy constitution party request. The high probability of a clinically significant, sudden or life threatening deterioration of the [Cardiovascular, pulmonary, neurological, ] system(s) required my full and direct attention, intervention and personal management. The aggregate critical care time was [39] minutes. This time is in addition to time spent performing reported procedures but includes the following: [] Data Review and interpretation [] Patient assessment and monitoring of vital signs [] Documentation [] Medication orders and management History Interval history: Patient continues to be comatose, does not wake up, does not obey commands. now weaned off pressors Review of systems Constitutional: fever curve is coming down CVS: No arrhythmias or tachycardia noted GI: No vomiting Respiratory: No respiratory distress Hospitalist Physical - Physical exam Narrative exam: General.: Appears well, no distress, nontoxic, comatose HEENT: eye edema now resolved Neck: supple Cardiac: S1-S2 heard Lungs: clear to auscultation bilaterally Abdomen: soft , nontender, nondistended, bowel sounds positive Extremities: no edema clubbing or cyanosis Skin: no rash or lesions Neurologic: Patient is in a very deep coma, has a gag reflex, has very sluggish pupils. The lites and partially constricts only to redilate. No corneal reflex , no other reflexes Intubated but not sedated - Constitutional Vitals: Temp Pulse Resp BP Pulse Ox 97.6 F 84 16 93/46 95 04/13/17 12:00 04/13/17 13:00 04/13/17 13:00 04/13/17 13:00 04/13/17 13:00 General appearance: Present: other (comatose) Results - Labs CBC & Chem 7: 04/13/17 15:00 04/13/17 15:04 Labs: Laboratory Last Values WBC 20.1 K/mm3 (4.5-11.0) H 04/10/17 03:50 RBC 4.44 M/mm3 (3.65-5.03) 04/10/17 03:50 Hgb 13.1 gm/dl (11.8-15.2) 04/10/17 03:50 Hct 38.7 % (35.5-45.6) 04/10/17 03:50 MCV 87 fl (84-94) 04/10/17 03:50 MCH 30 pg (28-32) 04/10/17 03:50 MCHC 34 % (32-34) 04/10/17 03:50 RDW 13.6 % (13.2-15.2) 04/10/17 03:50 Plt Count 128 K/mm3 (140-440) L 04/10/17 03:50 Lymph % (Auto) 5.5 % (13.4-35.0) L 04/10/17 03:50 [place] % (Auto) 5.0 % (0.0-7.3) 04/10/17 03:50 Eos % (Auto) 0.0 % (0.0-4.3) 04/10/17 03:50 Baso % (Auto) 0.0 % (0.0-1.8) 04/10/17 03:50 Lymph # 1.1 K/mm3 (1.2-5.4) L 04/10/17 03:50 [place] # 1.0 K/mm3 (0.0-0.8) H 04/10/17 03:50 Eos # 0.0 K/mm3 (0.0-0.4) 04/10/17 03:50 Baso # 0.0 K/mm3 (0.0-0.1) 04/10/17 03:50 Add Manual Diff Complete 04/09/17 03:38 Total Counted 100 04/09/17 03:38 Seg Neutrophils % 89.5 % (40.0-70.0) H 04/10/17 03:50 Seg Neuts % (Manual) 74.0 % (40.0-70.0) H 04/09/17 03:38 Band Neutrophils % 13.0 % 04/09/17 03:38 Lymphocytes % (Manual) 8.0 % (13.4-35.0) L 04/09/17 03:38 Reactive Lymphs % (Man) 0 % 04/09/17 03:38 Monocytes % (Manual) 5.0 % (0.0-7.3) 04/09/17 03:38 Eosinophils % (Manual) 0 % (0.0-4.3) 04/09/17 03:38 Basophils % (Manual) 0 % (0.0-1.8) 04/09/17 03:38 Metamyelocytes % 0 % 04/09/17 03:38 Myelocytes % 0 % 04/09/17 03:38 Promyelocytes % 0 % 04/09/17 03:38 Blast Cells % 0 % 04/09/17 03:38 Nucleated RBC % Not Reportable 04/09/17 03:38 Seg Neutrophils # 18.0 K/mm3 (1.8-7.7) H 04/10/17 03:50 Seg Neutrophils # Man 20.1 K/mm3 (1.8-7.7) H 04/09/17 03:38 Band Neutrophils # 3.5 K/mm3 04/09/17 03:38 Lymphocytes # (Manual) 2.2 K/mm3 (1.2-5.4) 04/09/17 03:38 Abs React Lymphs (Man) 0.0 K/mm3 04/09/17 03:38 Monocytes # (Manual) 1.4 K/mm3 (0.0-0.8) H 04/09/17 03:38 Eosinophils # (Manual) 0.0 K/mm3 (0.0-0.4) 04/09/17 03:38 Basophils # (Manual) 0.0 K/mm3 (0.0-0.1) 04/09/17 03:38 Metamyelocytes # 0.0 K/mm3 04/09/17 03:38 Myelocytes # 0.0 K/mm3 04/09/17 03:38 Promyelocytes # 0.0 K/mm3 04/09/17 03:38 Blast Cells # 0.0 K/mm3 04/09/17 03:38 WBC Morphology Not Reportable 04/09/17 03:38 Hypersegmented Neuts Not Reportable 04/09/17 03:38 Hyposegmented Neuts Not Reportable 04/09/17 03:38 Hypogranular Neuts Not Reportable 04/09/17 03:38 Smudge Cells Not Reportable 04/09/17 03:38 Toxic Granulation Rare 04/09/17 03:38 Toxic Vacuolation Not Reportable 04/09/17 03:38 Dohle Bodies Not Reportable 04/09/17 03:38 Pelger-Huet Anomaly Not Reportable 04/09/17 03:38 Brook Rods Not Reportable 04/09/17 03:38 Platelet Estimate Consistent w auto 04/09/17 03:38 Clumped Platelets Not Reportable 04/09/17 03:38 Plt Clumps, EDTA Not Reportable 04/09/17 03:38 Large Platelets Not Reportable 04/09/17 03:38 Giant Platelets Not Reportable 04/09/17 03:38 Platelet Satelliting Not Reportable 04/09/17 03:38 Plt Morphology Comment Not Reportable 04/09/17 03:38 RBC Morphology Not Reportable 04/09/17 03:38 Dimorphic RBCs Not Reportable 04/09/17 03:38 Polychromasia Not Reportable 04/09/17 03:38 Hypochromasia Not Reportable 04/09/17 03:38 Poikilocytosis Not Reportable 04/09/17 03:38 Anisocytosis Not Reportable 04/09/17 03:38 Microcytosis Not Reportable 04/09/17 03:38 Macrocytosis Not Reportable 04/09/17 03:38 Spherocytes Not Reportable 04/09/17 03:38 Pappenheimer Bodies Not Reportable 04/09/17 03:38 Sickle Cells Not Reportable 04/09/17 03:38 Target Cells Not Reportable 04/09/17 03:38 Tear Drop Cells Not Reportable 04/09/17 03:38 Ovalocytes Not Reportable 04/09/17 03:38 Helmet Cells Not Reportable 04/09/17 03:38 [place] Bodies Not Reportable 04/09/17 03:38 [place] Rings Not Reportable 04/09/17 03:38 [place] Cells Not Reportable 04/09/17 03:38 Bite Cells Not Reportable 04/09/17 03:38 Crenated Cell Not Reportable 04/09/17 03:38 Elliptocytes Not Reportable 04/09/17 03:38 Acanthocytes (Spur) Not Reportable 04/09/17 03:38 Rouleaux Not Reportable 04/09/17 03:38 Hemoglobin C Crystals Not Reportable 04/09/17 03:38 Schistocytes Not Reportable 04/09/17 03:38 Malaria parasites Not Reportable 04/09/17 03:38 Ever Bodies Not Reportable 04/09/17 03:38 Hem Pathologist Commnt No 04/09/17 03:38 PT 16.5 Sec. (12.2-14.9) H 04/08/17 07:06 INR 1.27 (0.87-1.13) H 04/08/17 07:06 APTT 51.7 Sec. (24.2-36.6) H 04/08/17 07:06 D-Dimer 4492.30 ng/mlDDU (0-234) H 04/09/17 14:49 POC ABG pH 7.597 (7.35-7.45) H 04/13/17 03:27 POC ABG pCO2 29.5 (35-45) L 04/13/17 03:27 POC ABG pO2 117 (80-105) H 04/13/17 03:27 POC ABG HCO3 28.8 04/13/17 03:27 POC ABG Total CO2 30 04/13/17 03:27 POC ABG O2 Sat 99 04/13/17 03:27 POC ABG Base Excess 7 04/13/17 03:27 FiO2 25 % 04/13/17 03:27 Sodium 139 mmol/L (137-145) 04/11/17 12:30 Potassium 4.4 mmol/L (3.6-5.0) 04/11/17 12:30 Chloride 101.7 mmol/L (98-107) 04/11/17 12:30 Carbon Dioxide 26 mmol/L (22-30) 04/11/17 12:30 Anion Gap 16 mmol/L 04/11/17 12:30 BUN 15 mg/dL (9-20) 04/11/17 12:30 Creatinine 0.5 mg/dL (0.8-1.5) L 04/11/17 12:30 Estimated GFR > 60 ml/min 04/11/17 12:30 BUN/Creatinine Ratio 30 % 04/11/17 12:30 Glucose 132 mg/dL (75-100) H 04/11/17 12:30 POC Glucose 97 (70-105) 04/13/17 11:38 Osmolality 324 Mosm/kg 04/12/17 17:10 Lactic Acid 5.00 mmol/L (0.7-2.0) H* 04/09/17 07:41 Calcium 8.4 mg/dL (8.4-10.2) 04/11/17 12:30 Total Bilirubin 0.70 mg/dL (0.1-1.2) 04/10/17 03:50 AST 342 units/L (5-40) H 04/10/17 03:50 ALT 152 units/L (7-56) H 04/10/17 03:50 Alkaline Phosphatase 54 units/L (35-129) 04/10/17 03:50 Total Creatine Kinase 623 units/L (55-170) H 04/08/17 07:06 Troponin T 2.330 ng/mL (0.00-0.029) H* 04/08/17 13:32 C-Reactive Protein 12.60 mg/dL (0.00-1.30) H 04/09/17 15:24 Total Protein 6.0 g/dL (6.3-8.2) L 04/10/17 03:50 Albumin 3.1 g/dL (3.9-5) L 04/10/17 03:50 Albumin/Globulin Ratio 1.1 % 04/10/17 03:50 Triglycerides 110 mg/dL (2-149) 04/08/17 07:06 Cholesterol 139 mg/dL (50-199) 04/08/17 07:06 LDL Cholesterol Direct 71 mg/dL (50-130) 04/08/17 07:06 HDL Cholesterol 46 mg/dL (40-59) 04/08/17 07:06 Cholesterol/HDL Ratio 3.02 % 04/08/17 07:06 Urine Color Margie (Yellow) 04/08/17 12:10 Urine Turbidity Hazy (Clear) 04/08/17 12:10 Urine pH 6.0 (5.0-7.0) 04/08/17 12:10 Ur Specific [place] 1.044 (1.003-1.030) H 04/08/17 12:10 Urine Protein 100 mg/dl mg/dL (Negative) 04/08/17 12:10 Urine Glucose (UA) 50 mg/dL (Negative) 04/08/17 12:10 Urine Ketones Tr mg/dL (Negative) 04/08/17 12:10 Urine Blood Mod (Negative) 04/08/17 12:10 Urine Nitrite Neg (Negative) 04/08/17 12:10 Urine Bilirubin Neg (Negative) 04/08/17 12:10 Urine Urobilinogen < 2.0 mg/dL (<2.0) 04/08/17 12:10 Ur Leukocyte Esterase Neg (Negative) 04/08/17 12:10 Urine WBC (Auto) 18.0 /HPF (0.0-6.0) H 04/08/17 12:10 Urine RBC (Auto) 8.0 /HPF (0.0-6.0) 04/08/17 12:10 Urine Bacteria (Auto) 1+ /HPF (Negative) 04/08/17 12:10 Hyaline Casts 1 /LPF 04/08/17 07:59 Granular Casts 79 /LPF 04/08/17 12:10 Urine Mucus Few /HPF 04/08/17 12:10 Vancomycin Trough 8.3 ug/mL (5.0-20.0) 04/10/17 10:44 Urine Opiates Screen Presumptive negative 04/08/17 07:59 Urine Methadone Screen Presumptive negative 04/08/17 07:59 Ur Barbiturates Screen Presumptive negative 04/08/17 07:59 Ur Phencyclidine Scrn Presumptive negative 04/08/17 07:59 Ur Amphetamines Screen Presumptive negative 04/08/17 07:59 U Benzodiazepines Scrn Presumptive negative 04/08/17 07:59 Urine Cocaine Screen Presumptive negative 04/08/17 07:59 U Marijuana (THC) Screen Presumptive negative 04/08/17 07:59 Drugs of Abuse Note Disclamer 04/08/17 07:59 HIV 1&2 Antibody Rapid Non react (Non React) 04/08/17 12:10 HIV P24 Antigen Non react (Non React) 04/08/17 12:10 Blood Type O POSITIVE 04/08/17 07:05 Antibody Screen Negative 04/08/17 07:05
--- NOTE | 2017-04-13 14:29 | Progress Note ---
Assessment and Plan Acute Hypoxemic Respiratory Failure S/P Cardiopulmonary Arrest Acute Encephalopathy (Likely anoxic component) Severe Sepsis Seizures Pneumonia (Likely Aspiration) Cardiomyopathy NSTEMI (pupilary reflex almost non existent but still weak gag; i suspect he will pass a brain flow scan but neurologic prognosis is very poor - will discuss with family shortly) - continue reglan re: large residuals - continue trickle feeding at 10mls/hr - continue keppra to control seizure activity - continue with lung protective strategies - VAP bundle addressed - HOB > 40 - will begin weaning trials in am as tolerated without plans for acute extubation - bronch growing beta strep - continue antibiotics and adjust per ID recs - discontinue mannitol at this stage and will taper decadron soon after - continue neurology evaluation - continue GI & VTE prophylaxis - likely shock liver element - discontinued femoral lines - continue other care per attending / other consultants ....he remains critically ill on life sustaining interventions including MVS and at high risk for further deterioration including ...guarded prognosis ...case discussed at length during team rounds and care plan formulated .....33' CCT Subjective Date of service: 04/13/17 Principal diagnosis: Acute Hypoxemic respiratory Failure; Sepsis Syndrome Interval history: Patient is seen today for: Acute Hypoxemic respiratory Failure; Sepsis Syndrome Seen and examined at bedside; 24 hour events reviewed; nursing and respiratory care staff consulted; remains on MVS but off vasopressors; AMS is persistent; encephalopathy is persistent; still tenuously tolerating enteral feeds; no emesis or overt aspiration though. Objective Vital Signs - 12hr 04/13/17 04/13/17 04/13/17 02:30 03:00 03:30 Temperature Pulse Rate 109 H 109 H 108 H Pulse Rate [ Anterior Bilateral Throughout] Pulse Rate [ From Monitor] Respiratory 20 20 20 Rate Respiratory Rate [Anterior Bilateral Throughout] Blood Pressure 126/76 117/70 119/63 O2 Sat by Pulse 98 98 98 Oximetry 04/13/17 04/13/17 04/13/17 04:00 04:30 05:00 Temperature 99.0 F Pulse Rate 107 H 112 H 119 H Pulse Rate [ Anterior Bilateral Throughout] Pulse Rate [ From Monitor] Respiratory 20 16 16 Rate Respiratory Rate [Anterior Bilateral Throughout] Blood Pressure 126/72 143/97 163/103 O2 Sat by Pulse 99 97 96 Oximetry 04/13/17 04/13/17 04/13/17 05:15 05:30 06:00 Temperature Pulse Rate 113 H 96 H 96 H Pulse Rate [ Anterior Bilateral Throughout] Pulse Rate [ From Monitor] Respiratory 16 16 Rate Respiratory Rate [Anterior Bilateral Throughout] Blood Pressure 163/103 111/62 110/62 O2 Sat by Pulse 98 Oximetry 04/13/17 04/13/17 04/13/17 06:30 07:00 07:30 Temperature Pulse Rate 96 H 96 H 97 H Pulse Rate [ Anterior Bilateral Throughout] Pulse Rate [ From Monitor] Respiratory 16 16 16 Rate Respiratory Rate [Anterior Bilateral Throughout] Blood Pressure 116/68 112/58 114/63 O2 Sat by Pulse 98 98 Oximetry 04/13/17 04/13/17 04/13/17 07:36 07:48 08:00 Temperature 98.4 F Pulse Rate 97 H 98 H Pulse Rate [ 98 H 100 H Anterior Bilateral Throughout] Pulse Rate [ 96 H From Monitor] Respiratory 16 Rate Respiratory 16 16 Rate [Anterior Bilateral Throughout] Blood Pressure 114/63 96/42 O2 Sat by Pulse 98 100 Oximetry 04/13/17 04/13/17 04/13/17 08:30 09:01 09:30 Temperature Pulse Rate 95 H 93 H 90 Pulse Rate [ Anterior Bilateral Throughout] Pulse Rate [ From Monitor] Respiratory 16 16 16 Rate Respiratory Rate [Anterior Bilateral Throughout] Blood Pressure 104/32 83/29 78/27 O2 Sat by Pulse 96 Oximetry 04/13/17 04/13/17 04/13/17 10:00 10:30 11:00 Temperature Pulse Rate 84 83 81 Pulse Rate [ Anterior Bilateral Throughout] Pulse Rate [ From Monitor] Respiratory 16 16 16 Rate Respiratory Rate [Anterior Bilateral Throughout] Blood Pressure 74/25 71/26 86/39 O2 Sat by Pulse 96 96 96 Oximetry 04/13/17 04/13/17 04/13/17 11:03 11:30 12:00 Temperature 97.6 F Pulse Rate 81 82 82 Pulse Rate [ Anterior Bilateral Throughout] Pulse Rate [ 83 From Monitor] Respiratory 16 16 Rate Respiratory Rate [Anterior Bilateral Throughout] Blood Pressure 86/39 88/38 92/42 O2 Sat by Pulse 96 94 95 Oximetry 04/13/17 04/13/17 04/13/17 12:30 12:50 13:00 Temperature Pulse Rate 83 83 84 Pulse Rate [ Anterior Bilateral Throughout] Pulse Rate [ From Monitor] Respiratory 16 16 Rate Respiratory Rate [Anterior Bilateral Throughout] Blood Pressure 91/42 93/43 93/46 O2 Sat by Pulse 97 95 Oximetry 04/13/17 14:03 Temperature Pulse Rate Pulse Rate [ 83 Anterior Bilateral Throughout] Pulse Rate [ From Monitor] Respiratory Rate Respiratory 16 Rate [Anterior Bilateral Throughout] Blood Pressure O2 Sat by Pulse Oximetry Constitutional: comatose, other (Intubated;no increased work of breathing) Eyes: non-icteric ENT: oropharynx moist, other (ETT in place) Neck: supple, no JVD, other (no thyromegaly) Effort: normal Ascultation: Bilateral: diminished breath sounds, rhonchi Percussion: Bilateral: not dull Cardiovascular: regular rate and rhythm, other (tachycardia) Gastrointestinal: normoactive bowel sounds, soft, non-tender, non-distended, other (No HSM) Integumentary: normal, other (Right femoral CVC and arterial line) Extremities: no cyanosis, no edema, pulses normal, no ischemia or petechiae Neurologic: pupils equal and round (6-7mm really no good response noted), unable to assess, other (weak gag reflex) Psychiatric: other (unable to assess) CBC and BMP: 04/13/17 15:00 04/13/17 15:04 ABG, PT/INR, D-dimer: ABG POC ABG pH 7.597 (7.35-7.45) H 04/13/17 03:27 POC ABG pCO2 29.5 (35-45) L 04/13/17 03:27 POC ABG pO2 117 (80-105) H 04/13/17 03:27 POC ABG HCO3 28.8 04/13/17 03:27 POC ABG Total CO2 30 04/13/17 03:27 POC ABG O2 Sat 99 04/13/17 03:27 PT/INR, D-dimer PT 16.5 Sec. (12.2-14.9) H 04/08/17 07:06 INR 1.27 (0.87-1.13) H 04/08/17 07:06 D-Dimer 4492.30 ng/mlDDU (0-234) H 04/09/17 14:49 Abnormal lab findings: Abnormal Labs 04/08/17 04/08/17 04/08/17 07:06 07:06 07:06 WBC 33.2 H RBC Hgb Hct Plt Count Lymph % (Auto) Lymph # [place] # Seg Neutrophils % Seg Neuts % (Manual) Lymphocytes % (Manual) Seg Neutrophils # Seg Neutrophils # Man 13.3 H Lymphocytes # (Manual) 7.6 H Monocytes # (Manual) 1.3 H PT 16.5 H INR 1.27 H APTT 51.7 H D-Dimer POC ABG pH POC ABG pCO2 POC ABG pO2 Sodium Potassium 3.5 L Carbon Dioxide 15 L Creatinine Glucose 336 H POC Glucose Lactic Acid Calcium 7.2 L AST 265 H ALT 223 H Total Creatine Kinase Troponin T 0.321 H* C-Reactive Protein Total Protein 5.7 L Albumin 3.2 L Ur Specific [place] Urine WBC (Auto) 04/08/17 04/08/17 04/08/17 07:06 07:36 09:22 WBC RBC Hgb Hct Plt Count Lymph % (Auto) Lymph # [place] # Seg Neutrophils % Seg Neuts % (Manual) Lymphocytes % (Manual) Seg Neutrophils # Seg Neutrophils # Man Lymphocytes # (Manual) Monocytes # (Manual) PT INR APTT D-Dimer POC ABG pH 7.105 L POC ABG pCO2 68.1 H POC ABG pO2 256 H Sodium Potassium Carbon Dioxide Creatinine Glucose POC Glucose 193 H Lactic Acid Calcium AST ALT Total Creatine Kinase 623 H Troponin T C-Reactive Protein Total Protein Albumin Ur Specific [place] Urine WBC (Auto) 04/08/17 04/08/17 04/08/17 10:59 11:13 11:33 WBC RBC Hgb Hct Plt Count Lymph % (Auto) Lymph # [place] # Seg Neutrophils % Seg Neuts % (Manual) Lymphocytes % (Manual) Seg Neutrophils # Seg Neutrophils # Man Lymphocytes # (Manual) Monocytes # (Manual) PT INR APTT D-Dimer POC ABG pH 7.197 L POC ABG pCO2 46.3 H POC ABG pO2 68 L Sodium Potassium Carbon Dioxide Creatinine Glucose POC Glucose Lactic Acid 9.00 H* Calcium AST ALT Total Creatine Kinase Troponin T 2.380 H* D C-Reactive Protein Total Protein Albumin Ur Specific [place] Urine WBC (Auto) 04/08/17 04/08/17 04/08/17 12:10 12:10 12:10 WBC 21.6 H RBC 5.69 H Hgb 16.1 H Hct 50.4 H D Plt Count Lymph % (Auto) Lymph # [place] # Seg Neutrophils % Seg Neuts % (Manual) 86.0 H Lymphocytes % (Manual) 5.0 L Seg Neutrophils # Seg Neutrophils # Man 18.6 H Lymphocytes # (Manual) 1.1 L Monocytes # (Manual) PT INR APTT D-Dimer POC ABG pH POC ABG pCO2 POC ABG pO2 Sodium Potassium 3.4 L Carbon Dioxide 21 L Creatinine Glucose 182 H POC Glucose Lactic Acid Calcium 7.5 L AST ALT Total Creatine Kinase Troponin T C-Reactive Protein Total Protein Albumin Ur Specific [place] 1.044 H Urine WBC (Auto) 18.0 H 04/08/17 04/08/17 04/08/17 13:32 15:02 17:56 WBC RBC Hgb Hct Plt Count Lymph % (Auto) Lymph # [place] # Seg Neutrophils % Seg Neuts % (Manual) Lymphocytes % (Manual) Seg Neutrophils # Seg Neutrophils # Man Lymphocytes # (Manual) Monocytes # (Manual) PT INR APTT D-Dimer POC ABG pH 7.287 L POC ABG pCO2 POC ABG pO2 196 H Sodium Potassium Carbon Dioxide Creatinine Glucose POC Glucose Lactic Acid 7.50 H* Calcium AST ALT Total Creatine Kinase Troponin T 2.330 H* C-Reactive Protein Total Protein Albumin Ur Specific [place] Urine WBC (Auto) 04/08/17 04/08/17 04/09/17 19:51 23:53 03:38 WBC 27.2 H RBC Hgb Hct Plt Count Lymph % (Auto) Lymph # [place] # Seg Neutrophils % Seg Neuts % (Manual) 74.0 H Lymphocytes % (Manual) 8.0 L Seg Neutrophils # Seg Neutrophils # Man 20.1 H Lymphocytes # (Manual) Monocytes # (Manual) 1.4 H PT INR APTT D-Dimer POC ABG pH POC ABG pCO2 POC ABG pO2 Sodium Potassium Carbon Dioxide Creatinine Glucose POC Glucose 140 H 175 H Lactic Acid Calcium AST ALT Total Creatine Kinase Troponin T C-Reactive Protein Total Protein Albumin Ur Specific [place] Urine WBC (Auto) 04/09/17 04/09/17 04/09/17 03:38 04:17 05:50 WBC RBC Hgb Hct Plt Count Lymph % (Auto) Lymph # [place] # Seg Neutrophils % Seg Neuts % (Manual) Lymphocytes % (Manual) Seg Neutrophils # Seg Neutrophils # Man Lymphocytes # (Manual) Monocytes # (Manual) PT INR APTT D-Dimer POC ABG pH POC ABG pCO2 30.1 L POC ABG pO2 115 H Sodium 136 L Potassium Carbon Dioxide 18 L Creatinine Glucose 177 H POC Glucose 167 H Lactic Acid Calcium 7.4 L AST ALT Total Creatine Kinase Troponin T C-Reactive Protein Total Protein Albumin Ur Specific [place] Urine WBC (Auto) 04/09/17 04/09/17 04/09/17 07:41 09:52 12:22 WBC RBC Hgb Hct Plt Count Lymph % (Auto) Lymph # [place] # Seg Neutrophils % Seg Neuts % (Manual) Lymphocytes % (Manual) Seg Neutrophils # Seg Neutrophils # Man Lymphocytes # (Manual) Monocytes # (Manual) PT INR APTT D-Dimer POC ABG pH POC ABG pCO2 POC ABG pO2 Sodium Potassium Carbon Dioxide Creatinine Glucose POC Glucose 113 H Lactic Acid 5.00 H* Calcium AST ALT Total Creatine Kinase Troponin T C-Reactive Protein 12.50 H Total Protein Albumin Ur Specific [place] Urine WBC (Auto) 04/09/17 04/09/17 04/10/17 14:49 15:24 03:50 WBC RBC Hgb Hct Plt Count Lymph % (Auto) Lymph # [place] # Seg Neutrophils % Seg Neuts % (Manual) Lymphocytes % (Manual) Seg Neutrophils # Seg Neutrophils # Man Lymphocytes # (Manual) Monocytes # (Manual) PT INR APTT D-Dimer 4492.30 H POC ABG pH POC ABG pCO2 POC ABG pO2 Sodium Potassium Carbon Dioxide Creatinine Glucose 128 H POC Glucose Lactic Acid Calcium AST 342 H ALT 152 H Total Creatine Kinase Troponin T C-Reactive Protein 12.60 H Total Protein 6.0 L Albumin 3.1 L Ur Specific [place] Urine WBC (Auto) 04/10/17 04/10/17 04/11/17 03:50 05:32 05:52 WBC 20.1 H RBC Hgb Hct Plt Count 128 L Lymph % (Auto) 5.5 L Lymph # 1.1 L [place] # 1.0 H Seg Neutrophils % 89.5 H Seg Neuts % (Manual) Lymphocytes % (Manual) Seg Neutrophils # 18.0 H Seg Neutrophils # Man Lymphocytes # (Manual) Monocytes # (Manual) PT INR APTT D-Dimer POC ABG pH POC ABG pCO2 POC ABG pO2 149 H 143 H Sodium Potassium Carbon Dioxide Creatinine Glucose POC Glucose Lactic Acid Calcium AST ALT Total Creatine Kinase Troponin T C-Reactive Protein Total Protein Albumin Ur Specific [place] Urine WBC (Auto) 04/11/17 04/12/17 04/13/17 12:30 03:54 03:27 WBC RBC Hgb Hct Plt Count Lymph % (Auto) Lymph # [place] # Seg Neutrophils % Seg Neuts % (Manual) Lymphocytes % (Manual) Seg Neutrophils # Seg Neutrophils # Man Lymphocytes # (Manual) Monocytes # (Manual) PT INR APTT D-Dimer POC ABG pH 7.463 H 7.597 H POC ABG pCO2 29.5 L POC ABG pO2 117 H Sodium Potassium Carbon Dioxide Creatinine 0.5 L Glucose 132 H POC Glucose Lactic Acid Calcium AST ALT Total Creatine Kinase Troponin T C-Reactive Protein Total Protein Albumin Ur Specific [place] Urine WBC (Auto) Chest x-ray: image reviewed Allied health notes reviewed: nursing
--- NOTE | 2017-04-13 14:45 | Progress Note ---
Assessment and Plan Assessment: 1) Shock post arrest ? multifactorial (cardiac/septic) and MODS: shock resolved. Septic Etiology - unclear. DDx: ?viral myocarditis, aspiration pneumonia, brain edema/central fever. CRP=12.5 2) [facility] - ? multiple shocks w prolonged downtime (?30-45 minutes) ? viral myocarditis -S/P urgent LHC revealed normal coronaries and low normal lv fxn (50-55%) -TTE EF 25-30% 3) Elevated liver enzyme 4) Acute resp failure 6) Seizures 7) Anoxic encephalopathy - not better 8) Presumed pneumonia versus atelectasis: tracheal asp + Group C Strep likely a commensal Plan: -follow-up procalcitonin -stop vancomycin -continue zosyn - day 6 of 7 -unfortunately, poor prognosis Thank you Dr Rudolph for your consultation, will follow up with you. Crys Zhang MD Infectious Diseases Specialist [facility] ([facility]) M [phone] O [phone] Subjective Date of service: 04/13/17 Principal diagnosis: Acute Hypoxemic respiratory Failure; Sepsis Syndrome Interval history: Remains comatose non responsive, not on sedative, intubated on the vent. Had a fever at 100.6 overnight. Microbiology: Blood cultures: 04/08 ngtd Urine cultures: 04/08 neg Respiratory cultures: 04/08 Beta hem group C Current Antimicrobials: Zosyn 04/08 Previous Antimicrobials: Vancomycin 04/08 Objective - Exam Narrative Exam: General appearance: comatous intubated Eyes: marked conjunctival edema bilateral, erratic pupils dilated and fixed changing to reactive after moving his head HENT: Atraumatic; oropharynx +ETT Neck: Trachea midline; supple, no thyromegaly or lymphadenopathy Lungs: CTA CV: tachy Abdomen: Soft, non-tender egaly Extremities: No peripheral edema or extremity lymphadenopathy Skin: Normal temperature, turgor and texture; no rash, ulcers or subcutaneous nodules Psych: comatose Neuro: comatose Lines: [place]عر[place] - Constitutional Vitals: Vital Signs Temp Pulse Resp BP Pulse Ox 97.6 F 87 16 106/56 97 04/13/17 12:00 04/13/17 14:39 04/13/17 14:39 04/13/17 14:39 04/13/17 14:39 Temperature -Last 24 Hours Temperature 97.6 F Temperature 98.4 F Temperature 99.0 F Temperature 100.1 F Temperature 100.6 F Temperature 99.6 F - Labs CBC & Chem 7: 04/10/17 03:50 04/11/17 12:30 Labs: Abnormal lab results 04/13/17 Range/Units 03:27 POC ABG pH 7.597 H (7.35-7.45) POC ABG pCO2 29.5 L (35-45) POC ABG pO2 117 H (80-105)
[2017-04-13 15:12] LABS: Basophils % (Auto) 0.1 % (0.0-1.8); Hematocrit 31.6 % (35.5-45.6); Hemoglobin 10.5 gm/dl (11.8-15.2); Mean Corpuscular HGB Conc 33 % (32-34); Mean Corpuscular Hemoglobin 29 pg (28-32); Mean Corpuscular Volume 89 fl (84-94); Platelet Count 117 K/mm3 (140-440); Red Blood Count 3.57 M/mm3 (3.65-5.03); Red Cell Distribution Width 14.2 % (13.2-15.2); White Blood Count 12.3 K/mm3 (4.5-11.0)
[2017-04-13 15:26] LABS: Alanine Aminotransferase 103 units/L (7-56); Albumin 2.4 g/dL (3.9-5); Alkaline Phosphatase 42 units/L (35-129); Anion Gap 12 mmol/L; BUN/Creatinine Ratio 40; Blood Urea Nitrogen 20 mg/dL (9-20); Calcium 7.7 mg/dL (8.4-10.2); Carbon Dioxide 26 mmol/L (22-30); Chloride 115.2 mmol/L (98-107); Glucose 112 mg/dL (75-100); Potassium 3.7 mmol/L (3.6-5.0); Sodium 149 mmol/L (137-145); Total Protein 4.8 g/dL (6.3-8.2)
[2017-04-13] MEDS: ARTIFICIAL TEARS OPHTH OINT OU PRN (18:45)
[2017-04-14] MEDS: LEVOPHED DRIP 4 MG/NS 250 ML 4 MG/250 ML BAG IV SCH ×4 (00:01→21:08)
[2017-04-14] MEDS: DUONEB *Not for PRN Use IH SCH ×4 (01:10→19:48)
[2017-04-14 03:18] LABS: ISTAT Base Excess 7; ISTAT HCO3 31.2; ISTAT PCO2 47.8 (35-45); ISTAT PH 7.423 (7.35-7.45); ISTAT PO2 107 (80-105); ISTAT SO2 98; ISTAT TCO2 33
[2017-04-14] MEDS: LOPRESSOR IV SCH ×5 (04:00→19:10)
[2017-04-14] MEDS: REGLAN IV SCH ×3 (04:36→17:10)
[2017-04-14] MEDS: ZOSYN/NS 4.5GM/100ML 4.5 GM/100 ML VIAL IV SCH (05:09)
[2017-04-14] MEDS: ARTIFICIAL TEARS OPHTH OINT OU PRN (05:09)
[2017-04-14] MEDS: DECADRON IV SCH (05:09)
[2017-04-14 09:07] LABS: ISTAT Base Excess 9; ISTAT HCO3 33.5; ISTAT PCO2 48.3 (35-45); ISTAT PH 7.449 (7.35-7.45); ISTAT PO2 115 (80-105); ISTAT SO2 99; ISTAT TCO2 35
[2017-04-14] MEDS: KEPPRA PO SCH ×2 (10:15→21:41)
[2017-04-14] MEDS: PEPCID PO SCH ×2 (10:16→21:40)
[2017-04-14] MEDS: HEPARIN SUB-Q SCH ×2 (10:16→21:40)
--- NOTE | 2017-04-14 10:38 | Progress Note ---
Assessment and Plan Assessment: 1) Shock post arrest ? multifactorial (cardiac/septic) and MODS: shock resolved. Septic Etiology - unclear. DDx: ?viral myocarditis, aspiration pneumonia, brain edema/central fever. CRP=12.5 2) S/P cardiac arrest at [facility] - ? multiple shocks w prolonged downtime (?30-45 minutes) ? viral myocarditis -S/P urgent LHC revealed normal coronaries and low normal lv fxn (50-55%) -TTE EF 25-30% 3) Elevated liver enzyme 4) Acute resp failure 6) Seizures 7) Anoxic encephalopathy - not better 8) Presumed pneumonia versus atelectasis: tracheal asp + Group C Strep likely a commensal Plan: -stop zosyn s/p 7 days -monitor off antibiotics -unfortunately, poor prognosis Thank you Dr Rudolph for your consultation, will follow up with you. Crys Zhang MD Infectious Diseases Specialist [facility] ([facility]) M [phone] O [phone] Subjective Date of service: 04/14/17 Principal diagnosis: Acute Hypoxemic respiratory Failure; Sepsis Syndrome Interval history: Remains comatose non responsive, not on sedative, intubated on the vent. No fever. Microbiology: Blood cultures: 04/08 ngtd Urine cultures: 04/08 neg Respiratory cultures: 04/08 Beta hem group C Current Antimicrobials: Zosyn 04/08 Previous Antimicrobials: Vancomycin 04/08 Objective - Exam Narrative Exam: General appearance: comatous intubated Eyes: marked conjunctival edema bilateral, erratic pupils dilated and fixed changing to reactive after moving his head HENT: Atraumatic; oropharynx +ETT Neck: Trachea midline; supple, no thyromegaly or lymphadenopathy Lungs: CTA CV: tachy Abdomen: Soft, non-tender egaly Extremities: No peripheral edema or extremity lymphadenopathy Skin: Normal temperature, turgor and texture; no rash, ulcers or subcutaneous nodules Psych: comatose Neuro: comatose Lines: [place]عر[place] - Constitutional Vitals: Vital Signs Temp Pulse Resp BP Pulse Ox 97.0 F L 88 14 120/79 98 04/14/17 04:00 04/14/17 09:19 04/14/17 09:19 04/14/17 08:46 04/14/17 08:46 Temperature -Last 24 Hours Temperature 97.0 F Temperature 97.5 F Temperature 96.2 F Temperature 97.3 F Temperature 97.6 F - Labs CBC & Chem 7: 04/13/17 15:00 04/13/17 15:04 Labs: Abnormal lab results 04/13/17 04/13/17 04/13/17 Range/Units 15:00 15:04 17:16 WBC 12.3 H (4.5-11.0) K/mm3 RBC 3.57 L (3.65-5.03) M/mm3 Hgb 10.5 L (11.8-15.2) gm/dl Hct 31.6 L (35.5-45.6) % Plt Count 117 L (140-440) K/mm3 Lymph % (Auto) 7.4 L (13.4-35.0) % Lymph # 0.9 L (1.2-5.4) K/mm3 Seg Neutrophils % 86.6 H (40.0-70.0) % Seg Neutrophils # 10.6 H (1.8-7.7) K/mm3 POC ABG pCO2 (35-45) POC ABG pO2 (80-105) Sodium 149 H D (137-145) mmol/L Chloride 115.2 H (98-107) mmol/L Creatinine 0.5 L (0.8-1.5) mg/dL Glucose 112 H (75-100) mg/dL POC Glucose 107 H (70-105) Calcium 7.7 L (8.4-10.2) mg/dL AST 83 H (5-40) units/L ALT 103 H (7-56) units/L Total Protein 4.8 L (6.3-8.2) g/dL Albumin 2.4 L (3.9-5) g/dL 04/14/17 04/14/17 04/14/17 Range/Units 03:16 05:38 09:04 WBC (4.5-11.0) K/mm3 RBC (3.65-5.03) M/mm3 Hgb (11.8-15.2) gm/dl Hct (35.5-45.6) % Plt Count (140-440) K/mm3 Lymph % (Auto) (13.4-35.0) % Lymph # (1.2-5.4) K/mm3 Seg Neutrophils % (40.0-70.0) % Seg Neutrophils # (1.8-7.7) K/mm3 POC ABG pCO2 47.8 H 48.3 H (35-45) POC ABG pO2 107 H 115 H (80-105) Sodium (137-145) mmol/L Chloride (98-107) mmol/L Creatinine (0.8-1.5) mg/dL Glucose (75-100) mg/dL POC Glucose 110 H (70-105) Calcium (8.4-10.2) mg/dL AST (5-40) units/L ALT (7-56) units/L Total Protein (6.3-8.2) g/dL Albumin (3.9-5) g/dL
--- NOTE | 2017-04-14 11:25 | Progress Note ---
Assessment and Plan Still no strips available - unknown primary rhythm - ? VF. Attempt to obtain records/ECG from custodial. Critically ill. Cont supportive care. Neurology consultation noted - very little evidence to suggest recoverability per neuro. Consider family conference. The patient has been seen in conjunction with Dr. Silva who agrees with the assessment and plan of care. - Patient Problems (1) Cardiac arrest Current Visit: Yes Status: Acute (2) Acute respiratory failure Current Visit: Yes Status: Acute (3) Shock Current Visit: Yes Status: Acute (4) Abnormal EKG Current Visit: Yes Status: Acute (5) Elevated liver enzymes Current Visit: Yes Status: Acute (6) Seizures Current Visit: Yes Status: Acute (7) Anoxic encephalopathy Current Visit: Yes Status: Acute (8) Normal coronary arteries Current Visit: Yes Status: Chronic (9) Cardiomyopathy Current Visit: Yes Status: Acute (10) Non-ST elevation [place] (NSTEMI) Current Visit: Yes Status: Acute Subjective Date of service: 04/14/17 Principal diagnosis: Acute Hypoxemic respiratory Failure; Sepsis Syndrome Interval history: pt remains intubated, off sedation, unresponsive. SR on tele, requiring levophed. Objective Last Vital Signs Temp 97.0 F L 04/14/17 04:00 Pulse 88 04/14/17 09:19 Resp 14 04/14/17 09:19 BP 120/79 04/14/17 08:46 Pulse Ox 98 04/14/17 08:46 - Physical Examination General: Other (intubated, unresponsive) HEENT: Positive: Other (pupils dilated, fixed) Neck: Positive: trachea midline Cardiac: Positive: Reg Rate and Rhythm, S1/S2 Lungs: Positive: clear to auscultation, Ventilated Respirations Neuro: Positive: Other (unresponsive) Abdomen: Positive: Soft Skin: Positive: Clear. Negative: Rash, Wound Musculoskeletal: No Fluid Collection, No Pain Extremities: Absent: edema - Labs and Meds Cardiac Enzymes 04/13/17 Range/Units 15:04 AST 83 H (5-40) units/L CBC 04/13/17 Range/Units 15:00 WBC 12.3 H (4.5-11.0) K/mm3 RBC 3.57 L (3.65-5.03) M/mm3 Hgb 10.5 L (11.8-15.2) gm/dl Hct 31.6 L (35.5-45.6) % Plt Count 117 L (140-440) K/mm3 Lymph # 0.9 L (1.2-5.4) K/mm3 [place] # 0.7 (0.0-0.8) K/mm3 Eos # 0.0 (0.0-0.4) K/mm3 Baso # 0.0 (0.0-0.1) K/mm3 Comprehensive Metabolic Panel 04/13/17 Range/Units 15:04 Sodium 149 H D (137-145) mmol/L Potassium 3.7 (3.6-5.0) mmol/L Chloride 115.2 H (98-107) mmol/L Carbon Dioxide 26 (22-30) mmol/L BUN 20 (9-20) mg/dL Creatinine 0.5 L (0.8-1.5) mg/dL Glucose 112 H (75-100) mg/dL Calcium 7.7 L (8.4-10.2) mg/dL AST 83 H (5-40) units/L ALT 103 H (7-56) units/L Alkaline Phosphatase 42 (35-129) units/L Total Protein 4.8 L (6.3-8.2) g/dL Albumin 2.4 L (3.9-5) g/dL - Imaging and Cardiology EKG: report reviewed, image reviewed Echo: report reviewed Cardiac cath: report reviewed - Allied health notes Allied health notes reviewed: nursing
--- NOTE | 2017-04-14 12:57 | Progress Note ---
Assessment and Plan Assessment and plan: Patient is a 21 years old male with no known significant past medical history who was in [facility]. His cellmates called for help after apparently finding him to be pulseless and unconscious. He cellmates today doing CPR, EMS then came and perform more CPR. Patient was pulseless, found to be in V. tach and was shocked up to 19 times. He regained his pulse shortly before arriving to the hospital. He was intubated and required pressors for blood pressure support. Anoxic brain injury Patient is in very deep coma, unlikely to recover given extensive period of anoxia Case discussed with neurologist -has now lost brain stem reflexes which he previously had and is hypothermic -likely brain , will get NM brain flow scan to r/o brain Acute hypoxic and hypercapnic respiratory failure Continue ventilator, Cerebral and ocular edema continue rx with steroid taper improving Acute Metabolic Encephalopathy/Persistent vegetative state Secondary to Acute hypoxic and hypercapnic respiratory failure intubated, not sedated Unlikely to recover, UDS negative Status Epilepticus Continue antiepileptic drugs, no further seizure activity Seizure most likely due to anoxic brain injury Severe Sepsis/septic shock /Aspiration PNA Continue antibiotics, continue pressors as needed ID consultation appreciated Lactic acid acidosis -Received bicarbonate drip, now resolved Mild Malnutrition Nutrition consult for tube feeding elevation Troponin due to Type 2 [place]- [place]and Ischemia STEMI (ST elevation myocardial infarction) ruled out S/p LHC which revealed normal coronaries, normal LVEF per cardiology Cardiology consult appreciated Hypokalemia replaced closely monitor DVT prophylaxis Lovex Family meeting was held with the patient's father, 2 sisters fisawyer and uncle on 04/11/2017. It was intimated to them that he is unlikely to recover, with extensive global anoxic brain injury. On that he will likely be in a persistent vegetative state for the rest of his life if he does survive. He recommended DO NOT RESUSCITATE and hospice. But the family believe in higher power and would like trach and PEG and for him to be transferred to rehabilitation facility. Case was discussed with case management, patient does not have insurance, he will not be able to go to an LTAC or rehabilitation facility, he will have to go home with a family member after his trach and PEG. Case was also discussed with head men's golf coach. And case was discussed with neurologist. We agreed on poor prognosis, but will fulfill the families wishes and continue aggressive therapy democrat request. The high probability of a clinically significant, sudden or life threatening deterioration of the [Cardiovascular, pulmonary, neurological, ] system(s) required my full and direct attention, intervention and personal management. The aggregate critical care time was [39] minutes. This time is in addition to time spent performing reported procedures but includes the following: [] Data Review and interpretation [] Patient assessment and monitoring of vital signs [] Documentation [] Medication orders and management History Interval history: Patient continues to be comatose, does not wake up, does not obey commands. still pressor dependent His is now hypothermic and on saqib hugger Review of systems Constitutional: hypothermic CVS: No arrhythmias or tachycardia noted GI: No vomiting Respiratory: No respiratory distress Hospitalist Physical - Physical exam Narrative exam: General.: Appears well, no distress, nontoxic, comatose HEENT: eye edema now resolved Neck: supple Cardiac: S1-S2 heard Lungs: clear to auscultation bilaterally Abdomen: soft , nontender, nondistended, bowel sounds positive Extremities: no edema clubbing or cyanosis Skin: no rash or lesions Neurologic: complete lack of brain stem reflexes Intubated but not sedated - Constitutional Vitals: Temp Pulse Resp BP Pulse Ox 93.2 F L 92 H 14 101/50 98 04/14/17 08:00 04/14/17 11:39 04/14/17 11:39 04/14/17 11:39 04/14/17 11:43 General appearance: Present: other (comatose) Results - Labs CBC & Chem 7: 04/13/17 15:00 04/13/17 15:04 Labs: Laboratory Last Values WBC 12.3 K/mm3 (4.5-11.0) H 04/13/17 15:00 RBC 3.57 M/mm3 (3.65-5.03) L 04/13/17 15:00 Hgb 10.5 gm/dl (11.8-15.2) L 04/13/17 15:00 Hct 31.6 % (35.5-45.6) L 04/13/17 15:00 MCV 89 fl (84-94) 04/13/17 15:00 MCH 29 pg (28-32) 04/13/17 15:00 MCHC 33 % (32-34) 04/13/17 15:00 RDW 14.2 % (13.2-15.2) 04/13/17 15:00 Plt Count 117 K/mm3 (140-440) L 04/13/17 15:00 Lymph % (Auto) 7.4 % (13.4-35.0) L 04/13/17 15:00 [place] % (Auto) 5.9 % (0.0-7.3) 04/13/17 15:00 Eos % (Auto) 0.0 % (0.0-4.3) 04/13/17 15:00 Baso % (Auto) 0.1 % (0.0-1.8) 04/13/17 15:00 Lymph # 0.9 K/mm3 (1.2-5.4) L 04/13/17 15:00 [place] # 0.7 K/mm3 (0.0-0.8) 04/13/17 15:00 Eos # 0.0 K/mm3 (0.0-0.4) 04/13/17 15:00 Baso # 0.0 K/mm3 (0.0-0.1) 04/13/17 15:00 Add Manual Diff Complete 04/09/17 03:38 Total Counted 100 04/09/17 03:38 Seg Neutrophils % 86.6 % (40.0-70.0) H 04/13/17 15:00 Seg Neuts % (Manual) 74.0 % (40.0-70.0) H 04/09/17 03:38 Band Neutrophils % 13.0 % 04/09/17 03:38 Lymphocytes % (Manual) 8.0 % (13.4-35.0) L 04/09/17 03:38 Reactive Lymphs % (Man) 0 % 04/09/17 03:38 Monocytes % (Manual) 5.0 % (0.0-7.3) 04/09/17 03:38 Eosinophils % (Manual) 0 % (0.0-4.3) 04/09/17 03:38 Basophils % (Manual) 0 % (0.0-1.8) 04/09/17 03:38 Metamyelocytes % 0 % 04/09/17 03:38 Myelocytes % 0 % 04/09/17 03:38 Promyelocytes % 0 % 04/09/17 03:38 Blast Cells % 0 % 04/09/17 03:38 Nucleated RBC % Not Reportable 04/09/17 03:38 Seg Neutrophils # 10.6 K/mm3 (1.8-7.7) H 04/13/17 15:00 Seg Neutrophils # Man 20.1 K/mm3 (1.8-7.7) H 04/09/17 03:38 Band Neutrophils # 3.5 K/mm3 04/09/17 03:38 Lymphocytes # (Manual) 2.2 K/mm3 (1.2-5.4) 04/09/17 03:38 Abs React Lymphs (Man) 0.0 K/mm3 04/09/17 03:38 Monocytes # (Manual) 1.4 K/mm3 (0.0-0.8) H 04/09/17 03:38 Eosinophils # (Manual) 0.0 K/mm3 (0.0-0.4) 04/09/17 03:38 Basophils # (Manual) 0.0 K/mm3 (0.0-0.1) 04/09/17 03:38 Metamyelocytes # 0.0 K/mm3 04/09/17 03:38 Myelocytes # 0.0 K/mm3 04/09/17 03:38 Promyelocytes # 0.0 K/mm3 04/09/17 03:38 Blast Cells # 0.0 K/mm3 04/09/17 03:38 WBC Morphology Not Reportable 04/09/17 03:38 Hypersegmented Neuts Not Reportable 04/09/17 03:38 Hyposegmented Neuts Not Reportable 04/09/17 03:38 Hypogranular Neuts Not Reportable 04/09/17 03:38 Smudge Cells Not Reportable 04/09/17 03:38 Toxic Granulation Rare 04/09/17 03:38 Toxic Vacuolation Not Reportable 04/09/17 03:38 Dohle Bodies Not Reportable 04/09/17 03:38 Pelger-Huet Anomaly Not Reportable 04/09/17 03:38 Brook Rods Not Reportable 04/09/17 03:38 Platelet Estimate Consistent w auto 04/09/17 03:38 Clumped Platelets Not Reportable 04/09/17 03:38 Plt Clumps, EDTA Not Reportable 04/09/17 03:38 Large Platelets Not Reportable 04/09/17 03:38 Giant Platelets Not Reportable 04/09/17 03:38 Platelet Satelliting Not Reportable 04/09/17 03:38 Plt Morphology Comment Not Reportable 04/09/17 03:38 RBC Morphology Not Reportable 04/09/17 03:38 Dimorphic RBCs Not Reportable 04/09/17 03:38 Polychromasia Not Reportable 04/09/17 03:38 Hypochromasia Not Reportable 04/09/17 03:38 Poikilocytosis Not Reportable 04/09/17 03:38 Anisocytosis Not Reportable 04/09/17 03:38 Microcytosis Not Reportable 04/09/17 03:38 Macrocytosis Not Reportable 04/09/17 03:38 Spherocytes Not Reportable 04/09/17 03:38 Pappenheimer Bodies Not Reportable 04/09/17 03:38 Sickle Cells Not Reportable 04/09/17 03:38 Target Cells Not Reportable 04/09/17 03:38 Tear Drop Cells Not Reportable 04/09/17 03:38 Ovalocytes Not Reportable 04/09/17 03:38 Helmet Cells Not Reportable 04/09/17 03:38 Rosenberg-Crump Bodies Not Reportable 04/09/17 03:38 [place] Rings Not Reportable 04/09/17 03:38 Joseline Cells Not Reportable 04/09/17 03:38 Bite Cells Not Reportable 04/09/17 03:38 Crenated Cell Not Reportable 04/09/17 03:38 Elliptocytes Not Reportable 04/09/17 03:38 Acanthocytes (Spur) Not Reportable 04/09/17 03:38 Rouleaux Not Reportable 04/09/17 03:38 Hemoglobin C Crystals Not Reportable 04/09/17 03:38 Schistocytes Not Reportable 04/09/17 03:38 Malaria parasites Not Reportable 04/09/17 03:38 Ever Bodies Not Reportable 04/09/17 03:38 Hem Pathologist Commnt No 04/09/17 03:38 PT 16.5 Sec. (12.2-14.9) H 04/08/17 07:06 INR 1.27 (0.87-1.13) H 04/08/17 07:06 APTT 51.7 Sec. (24.2-36.6) H 04/08/17 07:06 D-Dimer 4492.30 ng/mlDDU (0-234) H 04/09/17 14:49 POC ABG pH 7.449 (7.35-7.45) 04/14/17 09:04 POC ABG pCO2 48.3 (35-45) H 04/14/17 09:04 POC ABG pO2 115 (80-105) H 04/14/17 09:04 POC ABG HCO3 33.5 04/14/17 09:04 POC ABG Total CO2 35 04/14/17 09:04 POC ABG O2 Sat 99 04/14/17 09:04 POC ABG Base Excess 9 04/14/17 09:04 FiO2 25 % 04/14/17 09:04 Sodium 149 mmol/L (137-145) H D 04/13/17 15:04 Potassium 3.7 mmol/L (3.6-5.0) 04/13/17 15:04 Chloride 115.2 mmol/L (98-107) H 04/13/17 15:04 Carbon Dioxide 26 mmol/L (22-30) 04/13/17 15:04 Anion Gap 12 mmol/L 04/13/17 15:04 BUN 20 mg/dL (9-20) 04/13/17 15:04 Creatinine 0.5 mg/dL (0.8-1.5) L 04/13/17 15:04 Estimated GFR > 60 ml/min 04/13/17 15:04 BUN/Creatinine Ratio 40 % 04/13/17 15:04 Glucose 112 mg/dL (75-100) H 04/13/17 15:04 POC Glucose 110 (70-105) H 04/14/17 05:38 Osmolality 324 Mosm/kg 04/12/17 17:10 Lactic Acid 0.70 mmol/L (0.7-2.0) 04/13/17 15:05 Calcium 7.7 mg/dL (8.4-10.2) L 04/13/17 15:04 Total Bilirubin 0.70 mg/dL (0.1-1.2) 04/13/17 15:04 AST 83 units/L (5-40) H 04/13/17 15:04 ALT 103 units/L (7-56) H 04/13/17 15:04 Alkaline Phosphatase 42 units/L (35-129) 04/13/17 15:04 Total Creatine Kinase 623 units/L (55-170) H 04/08/17 07:06 Troponin T 2.330 ng/mL (0.00-0.029) H* 04/08/17 13:32 C-Reactive Protein 12.60 mg/dL (0.00-1.30) H 04/09/17 15:24 Total Protein 4.8 g/dL (6.3-8.2) L 04/13/17 15:04 Albumin 2.4 g/dL (3.9-5) L 04/13/17 15:04 Albumin/Globulin Ratio 1.0 % 04/13/17 15:04 Triglycerides 110 mg/dL (2-149) 04/08/17 07:06 Cholesterol 139 mg/dL (50-199) 04/08/17 07:06 LDL Cholesterol Direct 71 mg/dL (50-130) 04/08/17 07:06 HDL Cholesterol 46 mg/dL (40-59) 04/08/17 07:06 Cholesterol/HDL Ratio 3.02 % 04/08/17 07:06 Urine Color Margie (Yellow) 04/08/17 12:10 Urine Turbidity Hazy (Clear) 04/08/17 12:10 Urine pH 6.0 (5.0-7.0) 04/08/17 12:10 Ur Specific [place] 1.044 (1.003-1.030) H 04/08/17 12:10 Urine Protein 100 mg/dl mg/dL (Negative) 04/08/17 12:10 Urine Glucose (UA) 50 mg/dL (Negative) 04/08/17 12:10 Urine Ketones Tr mg/dL (Negative) 04/08/17 12:10 Urine Blood Mod (Negative) 04/08/17 12:10 Urine Nitrite Neg (Negative) 04/08/17 12:10 Urine Bilirubin Neg (Negative) 04/08/17 12:10 Urine Urobilinogen < 2.0 mg/dL (<2.0) 04/08/17 12:10 Ur Leukocyte Esterase Neg (Negative) 04/08/17 12:10 Urine WBC (Auto) 18.0 /HPF (0.0-6.0) H 04/08/17 12:10 Urine RBC (Auto) 8.0 /HPF (0.0-6.0) 04/08/17 12:10 Urine Bacteria (Auto) 1+ /HPF (Negative) 04/08/17 12:10 Hyaline Casts 1 /LPF 04/08/17 07:59 Granular Casts 79 /LPF 04/08/17 12:10 Urine Mucus Few /HPF 04/08/17 12:10 Vancomycin Trough 8.3 ug/mL (5.0-20.0) 04/10/17 10:44 Urine Opiates Screen Presumptive negative 04/08/17 07:59 Urine Methadone Screen Presumptive negative 04/08/17 07:59 Ur Barbiturates Screen Presumptive negative 04/08/17 07:59 Ur Phencyclidine Scrn Presumptive negative 04/08/17 07:59 Ur Amphetamines Screen Presumptive negative 04/08/17 07:59 U Benzodiazepines Scrn Presumptive negative 04/08/17 07:59 Urine Cocaine Screen Presumptive negative 04/08/17 07:59 U Marijuana (THC) Screen Presumptive negative 04/08/17 07:59 Drugs of Abuse Note Disclamer 04/08/17 07:59 HIV 1&2 Antibody Rapid Non react (Non React) 04/08/17 12:10 HIV P24 Antigen Non react (Non React) 04/08/17 12:10 Blood Type O POSITIVE 04/08/17 07:05 Antibody Screen Negative 04/08/17 07:05
--- NOTE | 2017-04-14 14:17 | Progress Note ---
Assessment and Plan Spoke with gas examiner and she believes he has progressed to brain and has started the workup. The trach/peg consult to Surgery [facility] has been cancelled and she will recall Surgery [facility] if he is found not to be brain and the family wishes to proceed with aggressive care. Subjective Date of service: 04/14/17 Objective Vital Signs - 12hr 04/14/17 04/14/17 04/14/17 02:30 02:58 03:00 Temperature Pulse Rate 86 85 84 Pulse Rate [ Anterior Bilateral Throughout] Pulse Rate [ From Monitor] Respiratory 16 16 Rate Respiratory Rate [Anterior Bilateral Throughout] Blood Pressure 112/70 121/72 118/71 O2 Sat by Pulse 97 97 97 Oximetry 04/14/17 04/14/17 04/14/17 03:30 04:00 04:30 Temperature 97.0 F L Pulse Rate 84 83 82 Pulse Rate [ Anterior Bilateral Throughout] Pulse Rate [ From Monitor] Respiratory 16 16 16 Rate Respiratory Rate [Anterior Bilateral Throughout] Blood Pressure 113/68 117/71 113/68 O2 Sat by Pulse 97 97 97 Oximetry 04/14/17 04/14/17 04/14/17 05:00 05:30 06:00 Temperature Pulse Rate 81 81 81 Pulse Rate [ Anterior Bilateral Throughout] Pulse Rate [ From Monitor] Respiratory 16 16 16 Rate Respiratory Rate [Anterior Bilateral Throughout] Blood Pressure 113/63 102/58 107/60 O2 Sat by Pulse 97 96 97 Oximetry 04/14/17 04/14/17 04/14/17 06:30 06:55 07:00 Temperature Pulse Rate 80 79 79 Pulse Rate [ Anterior Bilateral Throughout] Pulse Rate [ From Monitor] Respiratory 16 13 13 Rate Respiratory Rate [Anterior Bilateral Throughout] Blood Pressure 116/68 98/53 107/61 O2 Sat by Pulse 98 98 98 Oximetry 04/14/17 04/14/17 04/14/17 07:30 08:00 08:30 Temperature 93.2 F L Pulse Rate 79 79 81 Pulse Rate [ Anterior Bilateral Throughout] Pulse Rate [ 79 From Monitor] Respiratory 13 13 14 Rate Respiratory Rate [Anterior Bilateral Throughout] Blood Pressure 103/55 110/65 120/74 O2 Sat by Pulse 98 98 Oximetry 04/14/17 04/14/17 04/14/17 08:46 08:57 09:00 Temperature Pulse Rate 83 83 Pulse Rate [ 82 Anterior Bilateral Throughout] Pulse Rate [ From Monitor] Respiratory 14 20 Rate Respiratory 14 Rate [Anterior Bilateral Throughout] Blood Pressure 120/79 122/78 O2 Sat by Pulse 98 Oximetry 04/14/17 04/14/17 04/14/17 09:19 09:30 10:00 Temperature Pulse Rate 90 90 Pulse Rate [ 88 Anterior Bilateral Throughout] Pulse Rate [ From Monitor] Respiratory 21 13 Rate Respiratory 14 Rate [Anterior Bilateral Throughout] Blood Pressure 113/66 112/65 O2 Sat by Pulse 97 Oximetry 04/14/17 04/14/17 04/14/17 10:30 11:00 11:30 Temperature Pulse Rate 91 H 92 H 92 H Pulse Rate [ Anterior Bilateral Throughout] Pulse Rate [ From Monitor] Respiratory 13 13 14 Rate Respiratory Rate [Anterior Bilateral Throughout] Blood Pressure 101/52 103/51 101/50 O2 Sat by Pulse Oximetry 04/14/17 04/14/17 11:39 11:43 Temperature Pulse Rate 92 H Pulse Rate [ Anterior Bilateral Throughout] Pulse Rate [ From Monitor] Respiratory 14 Rate Respiratory Rate [Anterior Bilateral Throughout] Blood Pressure 101/50 O2 Sat by Pulse 96 98 Oximetry - Labs 04/13/17 15:00 04/13/17 15:04 Diabetes panel 04/13/17 Range/Units 15:04 Sodium 149 H D (137-145) mmol/L Potassium 3.7 (3.6-5.0) mmol/L Chloride 115.2 H (98-107) mmol/L Carbon Dioxide 26 (22-30) mmol/L BUN 20 (9-20) mg/dL Creatinine 0.5 L (0.8-1.5) mg/dL Glucose 112 H (75-100) mg/dL Calcium 7.7 L (8.4-10.2) mg/dL AST 83 H (5-40) units/L ALT 103 H (7-56) units/L Alkaline Phosphatase 42 (35-129) units/L Total Protein 4.8 L (6.3-8.2) g/dL Albumin 2.4 L (3.9-5) g/dL Calcium panel 04/13/17 Range/Units 15:04 Calcium 7.7 L (8.4-10.2) mg/dL Albumin 2.4 L (3.9-5) g/dL Pituitary panel 04/13/17 Range/Units 15:04 Sodium 149 H D (137-145) mmol/L Potassium 3.7 (3.6-5.0) mmol/L Chloride 115.2 H (98-107) mmol/L Carbon Dioxide 26 (22-30) mmol/L BUN 20 (9-20) mg/dL Creatinine 0.5 L (0.8-1.5) mg/dL Glucose 112 H (75-100) mg/dL Calcium 7.7 L (8.4-10.2) mg/dL Adrenal panel 04/13/17 Range/Units 15:04 Sodium 149 H D (137-145) mmol/L Potassium 3.7 (3.6-5.0) mmol/L Chloride 115.2 H (98-107) mmol/L Carbon Dioxide 26 (22-30) mmol/L BUN 20 (9-20) mg/dL Creatinine 0.5 L (0.8-1.5) mg/dL Glucose 112 H (75-100) mg/dL Calcium 7.7 L (8.4-10.2) mg/dL Total Bilirubin 0.70 (0.1-1.2) mg/dL AST 83 H (5-40) units/L ALT 103 H (7-56) units/L Alkaline Phosphatase 42 (35-129) units/L Total Protein 4.8 L (6.3-8.2) g/dL Albumin 2.4 L (3.9-5) g/dL
--- NOTE | 2017-04-14 15:07 | Progress Note ---
Assessment and Plan Patient is a 21 years old male with no known significant past medical history who was in long-term. His cellmates called for help after apparently finding him to be pulseless and unconscious. He cellmates today doing CPR, EMS then came and perform more CPR. Patient was pulseless, found to be in V. tach and was shocked up to 19 times. He regained his pulse shortly before arriving to the hospital. He was intubated and required pressors for blood pressure support. 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 Will hold off on PEG and Trach- discussed with surgical service Will discuss with hospitalist service re clinical brain evaluation by Neurology/transcranial flow evallutaion - Patient Problems (1) Acute respiratory failure with hypoxia Current Visit: Yes Status: Acute Plan to address problem: Continue with lung protective strategies VAP bundle addressed HOB >40 Place a NGT for stomach decompression VTE prophylaxis---SCDs for now Stress ulcer prophylaxis Antibiotics Bronchoscopy for dedicated cultures Agitation management [place] catheter in this critically ill patient to monitor accurate intake and oputput Initiate enteric nutritional support in the next 24 to 48 hours. (2) Septic shock Current Visit: Yes Status: Acute Plan to address problem: Vasopressor support keep MAP>65 Blood cultures Lactic acid level 3 hour and 6 hour sepsis bundle Antibiotics Follow cultures Get ID consult (3) Cardiac arrest Current Visit: Yes Status: Acute Plan to address problem: Continue with current therapy and hemodynamic monitoring (4) Sepsis Current Visit: Yes Status: Acute Plan to address problem: Continue antibiotics Follow cultures (5) Seizures Current Visit: Yes Status: Acute Plan to address problem: Continue lorazepam infusion Get EEG Neurology consult (6) Elevated liver enzymes Current Visit: Yes Status: Acute (7) Pulmonary hemorrhage Current Visit: Yes Status: Acute (8) Aspiration pneumonia Current Visit: Yes Status: Acute (9) Metabolic acidosis Current Visit: Yes Status: Acute Subjective Date of service: 04/14/17 Principal diagnosis: Acute Hypoxemic respiratory Failure; Sepsis Syndrome Interval history: Seen and examined. Vitals, labs, medications, chart reviewed. Discussed in interdisciplinary rounds. Remains unresponsive Objective - Exam Narrative Exam: General appearance: comatous intubated Eyes: marked conjunctival edema bilateral, fixed dilated pupils HENT: Atraumatic; oropharynx +ETT Neck: Trachea midline; supple, no thyromegaly or lymphadenopathy Lungs: Good AE bilaterally, CTA CV: tachycardia, S1,S2, no murmurs, gallops or rubs Abdomen: Soft, non-tender, no organomegally, BS + Extremities: No peripheral edema or extremity lymphadenopathy Skin: Normal temperature, turgor and texture; no rash, ulcers or subcutaneous nodules Psych: comatose Neuro: comatose Lines: [place] Vital Signs - 12hr 04/14/17 04/14/17 04/14/17 03:30 04:00 04:30 Temperature 97.0 F L Pulse Rate 84 83 82 Pulse Rate [ Anterior Bilateral Throughout] Pulse Rate [ From Monitor] Respiratory 16 16 16 Rate Respiratory Rate [Anterior Bilateral Throughout] Blood Pressure 113/68 117/71 113/68 O2 Sat by Pulse 97 97 97 Oximetry 04/14/17 04/14/17 04/14/17 05:00 05:30 06:00 Temperature Pulse Rate 81 81 81 Pulse Rate [ Anterior Bilateral Throughout] Pulse Rate [ From Monitor] Respiratory 16 16 16 Rate Respiratory Rate [Anterior Bilateral Throughout] Blood Pressure 113/63 102/58 107/60 O2 Sat by Pulse 97 96 97 Oximetry 04/14/17 04/14/17 04/14/17 06:30 06:55 07:00 Temperature Pulse Rate 80 79 79 Pulse Rate [ Anterior Bilateral Throughout] Pulse Rate [ From Monitor] Respiratory 16 13 13 Rate Respiratory Rate [Anterior Bilateral Throughout] Blood Pressure 116/68 98/53 107/61 O2 Sat by Pulse 98 98 98 Oximetry 04/14/17 04/14/17 04/14/17 07:30 08:00 08:30 Temperature 93.2 F L Pulse Rate 79 79 81 Pulse Rate [ Anterior Bilateral Throughout] Pulse Rate [ 79 From Monitor] Respiratory 13 13 14 Rate Respiratory Rate [Anterior Bilateral Throughout] Blood Pressure 103/55 110/65 120/74 O2 Sat by Pulse 98 98 Oximetry 04/14/17 04/14/17 04/14/17 08:46 08:57 09:00 Temperature Pulse Rate 83 83 Pulse Rate [ 82 Anterior Bilateral Throughout] Pulse Rate [ From Monitor] Respiratory 14 20 Rate Respiratory 14 Rate [Anterior Bilateral Throughout] Blood Pressure 120/79 122/78 O2 Sat by Pulse 98 Oximetry 04/14/17 04/14/17 04/14/17 09:19 09:30 10:00 Temperature Pulse Rate 90 90 Pulse Rate [ 88 Anterior Bilateral Throughout] Pulse Rate [ From Monitor] Respiratory 21 13 Rate Respiratory 14 Rate [Anterior Bilateral Throughout] Blood Pressure 113/66 112/65 O2 Sat by Pulse 97 Oximetry 04/14/17 04/14/17 04/14/17 10:30 11:00 11:30 Temperature Pulse Rate 91 H 92 H 92 H Pulse Rate [ Anterior Bilateral Throughout] Pulse Rate [ From Monitor] Respiratory 13 13 14 Rate Respiratory Rate [Anterior Bilateral Throughout] Blood Pressure 101/52 103/51 101/50 O2 Sat by Pulse Oximetry 04/14/17 04/14/17 11:39 11:43 Temperature Pulse Rate 92 H Pulse Rate [ Anterior Bilateral Throughout] Pulse Rate [ From Monitor] Respiratory 14 Rate Respiratory Rate [Anterior Bilateral Throughout] Blood Pressure 101/50 O2 Sat by Pulse 96 98 Oximetry Constitutional: comatose, other (Intubated;no increased work of breathing) Eyes: non-icteric ENT: oropharynx moist, other (ETT in place) Neck: supple, no JVD, other (no thyromegaly) Effort: normal Ascultation: Bilateral: diminished breath sounds, rhonchi (scant in bases), other (coars BS bilaterally anteriorly) Percussion: Bilateral: not dull Cardiovascular: regular rate and rhythm, other (tachycardia) Gastrointestinal: normoactive bowel sounds, soft, non-tender, non-distended, other (No HSM) Integumentary: normal, other (Right femoral CVC and arterial line) Extremities: no cyanosis, no edema, pulses normal, no ischemia or petechiae Neurologic: pupils equal and round (5-6mm very very slugishly reactive), unable to assess, other (weak gag reflex) Psychiatric: other (unable to assess) CBC and BMP: 04/13/17 15:00 04/13/17 15:04 ABG, PT/INR, D-dimer: ABG POC ABG pH 7.449 (7.35-7.45) 04/14/17 09:04 POC ABG pCO2 48.3 (35-45) H 04/14/17 09:04 POC ABG pO2 115 (80-105) H 04/14/17 09:04 POC ABG HCO3 33.5 04/14/17 09:04 POC ABG Total CO2 35 04/14/17 09:04 POC ABG O2 Sat 99 04/14/17 09:04 PT/INR, D-dimer PT 16.5 Sec. (12.2-14.9) H 04/08/17 07:06 INR 1.27 (0.87-1.13) H 04/08/17 07:06 D-Dimer 4492.30 ng/mlDDU (0-234) H 04/09/17 14:49 Abnormal lab findings: Abnormal Labs 04/08/17 04/08/17 04/08/17 07:06 07:06 07:06 WBC 33.2 H RBC Hgb Hct Plt Count Lymph % (Auto) Lymph # [place] # Seg Neutrophils % Seg Neuts % (Manual) Lymphocytes % (Manual) Seg Neutrophils # Seg Neutrophils # Man 13.3 H Lymphocytes # (Manual) 7.6 H Monocytes # (Manual) 1.3 H PT 16.5 H INR 1.27 H APTT 51.7 H D-Dimer POC ABG pH POC ABG pCO2 POC ABG pO2 Sodium Potassium 3.5 L Chloride Carbon Dioxide 15 L Creatinine Glucose 336 H POC Glucose Lactic Acid Calcium 7.2 L AST 265 H ALT 223 H Total Creatine Kinase Troponin T 0.321 H* C-Reactive Protein Total Protein 5.7 L Albumin 3.2 L Ur Specific [place] Urine WBC (Auto) 04/08/17 04/08/17 04/08/17 07:06 07:36 09:22 WBC RBC Hgb Hct Plt Count Lymph % (Auto) Lymph # [place] # Seg Neutrophils % Seg Neuts % (Manual) Lymphocytes % (Manual) Seg Neutrophils # Seg Neutrophils # Man Lymphocytes # (Manual) Monocytes # (Manual) PT INR APTT D-Dimer POC ABG pH 7.105 L POC ABG pCO2 68.1 H POC ABG pO2 256 H Sodium Potassium Chloride Carbon Dioxide Creatinine Glucose POC Glucose 193 H Lactic Acid Calcium AST ALT Total Creatine Kinase 623 H Troponin T C-Reactive Protein Total Protein Albumin Ur Specific [place] Urine WBC (Auto) 04/08/17 04/08/17 04/08/17 10:59 11:13 11:33 WBC RBC Hgb Hct Plt Count Lymph % (Auto) Lymph # [place] # Seg Neutrophils % Seg Neuts % (Manual) Lymphocytes % (Manual) Seg Neutrophils # Seg Neutrophils # Man Lymphocytes # (Manual) Monocytes # (Manual) PT INR APTT D-Dimer POC ABG pH 7.197 L POC ABG pCO2 46.3 H POC ABG pO2 68 L Sodium Potassium Chloride Carbon Dioxide Creatinine Glucose POC Glucose Lactic Acid 9.00 H* Calcium AST ALT Total Creatine Kinase Troponin T 2.380 H* D C-Reactive Protein Total Protein Albumin Ur Specific [place] Urine WBC (Auto) 04/08/17 04/08/17 04/08/17 12:10 12:10 12:10 WBC 21.6 H RBC 5.69 H Hgb 16.1 H Hct 50.4 H D Plt Count Lymph % (Auto) Lymph # [place] # Seg Neutrophils % Seg Neuts % (Manual) 86.0 H Lymphocytes % (Manual) 5.0 L Seg Neutrophils # Seg Neutrophils # Man 18.6 H Lymphocytes # (Manual) 1.1 L Monocytes # (Manual) PT INR APTT D-Dimer POC ABG pH POC ABG pCO2 POC ABG pO2 Sodium Potassium 3.4 L Chloride Carbon Dioxide 21 L Creatinine Glucose 182 H POC Glucose Lactic Acid Calcium 7.5 L AST ALT Total Creatine Kinase Troponin T C-Reactive Protein Total Protein Albumin Ur Specific [place] 1.044 H Urine WBC (Auto) 18.0 H 04/08/17 04/08/17 04/08/17 13:32 15:02 17:56 WBC RBC Hgb Hct Plt Count Lymph % (Auto) Lymph # [place] # Seg Neutrophils % Seg Neuts % (Manual) Lymphocytes % (Manual) Seg Neutrophils # Seg Neutrophils # Man Lymphocytes # (Manual) Monocytes # (Manual) PT INR APTT D-Dimer POC ABG pH 7.287 L POC ABG pCO2 POC ABG pO2 196 H Sodium Potassium Chloride Carbon Dioxide Creatinine Glucose POC Glucose Lactic Acid 7.50 H* Calcium AST ALT Total Creatine Kinase Troponin T 2.330 H* C-Reactive Protein Total Protein Albumin Ur Specific [place] Urine WBC (Auto) 04/08/17 04/08/17 04/09/17 19:51 23:53 03:38 WBC 27.2 H RBC Hgb Hct Plt Count Lymph % (Auto) Lymph # [place] # Seg Neutrophils % Seg Neuts % (Manual) 74.0 H Lymphocytes % (Manual) 8.0 L Seg Neutrophils # Seg Neutrophils # Man 20.1 H Lymphocytes # (Manual) Monocytes # (Manual) 1.4 H PT INR APTT D-Dimer POC ABG pH POC ABG pCO2 POC ABG pO2 Sodium Potassium Chloride Carbon Dioxide Creatinine Glucose POC Glucose 140 H 175 H Lactic Acid Calcium AST ALT Total Creatine Kinase Troponin T C-Reactive Protein Total Protein Albumin Ur Specific [place] Urine WBC (Auto) 04/09/17 04/09/17 04/09/17 03:38 04:17 05:50 WBC RBC Hgb Hct Plt Count Lymph % (Auto) Lymph # [place] # Seg Neutrophils % Seg Neuts % (Manual) Lymphocytes % (Manual) Seg Neutrophils # Seg Neutrophils # Man Lymphocytes # (Manual) Monocytes # (Manual) PT INR APTT D-Dimer POC ABG pH POC ABG pCO2 30.1 L POC ABG pO2 115 H Sodium 136 L Potassium Chloride Carbon Dioxide 18 L Creatinine Glucose 177 H POC Glucose 167 H Lactic Acid Calcium 7.4 L AST ALT Total Creatine Kinase Troponin T C-Reactive Protein Total Protein Albumin Ur Specific [place] Urine WBC (Auto) 04/09/17 04/09/17 04/09/17 07:41 09:52 12:22 WBC RBC Hgb Hct Plt Count Lymph % (Auto) Lymph # [place] # Seg Neutrophils % Seg Neuts % (Manual) Lymphocytes % (Manual) Seg Neutrophils # Seg Neutrophils # Man Lymphocytes # (Manual) Monocytes # (Manual) PT INR APTT D-Dimer POC ABG pH POC ABG pCO2 POC ABG pO2 Sodium Potassium Chloride Carbon Dioxide Creatinine Glucose POC Glucose 113 H Lactic Acid 5.00 H* Calcium AST ALT Total Creatine Kinase Troponin T C-Reactive Protein 12.50 H Total Protein Albumin Ur Specific [place] Urine WBC (Auto) 04/09/17 04/09/17 04/10/17 14:49 15:24 03:50 WBC RBC Hgb Hct Plt Count Lymph % (Auto) Lymph # [place] # Seg Neutrophils % Seg Neuts % (Manual) Lymphocytes % (Manual) Seg Neutrophils # Seg Neutrophils # Man Lymphocytes # (Manual) Monocytes # (Manual) PT INR APTT D-Dimer 4492.30 H POC ABG pH POC ABG pCO2 POC ABG pO2 Sodium Potassium Chloride Carbon Dioxide Creatinine Glucose 128 H POC Glucose Lactic Acid Calcium AST 342 H ALT 152 H Total Creatine Kinase Troponin T C-Reactive Protein 12.60 H Total Protein 6.0 L Albumin 3.1 L Ur Specific [place] Urine WBC (Auto) 04/10/17 04/10/17 04/11/17 03:50 05:32 05:52 WBC 20.1 H RBC Hgb Hct Plt Count 128 L Lymph % (Auto) 5.5 L Lymph # 1.1 L [place] # 1.0 H Seg Neutrophils % 89.5 H Seg Neuts % (Manual) Lymphocytes % (Manual) Seg Neutrophils # 18.0 H Seg Neutrophils # Man Lymphocytes # (Manual) Monocytes # (Manual) PT INR APTT D-Dimer POC ABG pH POC ABG pCO2 POC ABG pO2 149 H 143 H Sodium Potassium Chloride Carbon Dioxide Creatinine Glucose POC Glucose Lactic Acid Calcium AST ALT Total Creatine Kinase Troponin T C-Reactive Protein Total Protein Albumin Ur Specific [place] Urine WBC (Auto) 04/11/17 04/12/17 04/13/17 12:30 03:54 03:27 WBC RBC Hgb Hct Plt Count Lymph % (Auto) Lymph # [place] # Seg Neutrophils % Seg Neuts % (Manual) Lymphocytes % (Manual) Seg Neutrophils # Seg Neutrophils # Man Lymphocytes # (Manual) Monocytes # (Manual) PT INR APTT D-Dimer POC ABG pH 7.463 H 7.597 H POC ABG pCO2 29.5 L POC ABG pO2 117 H Sodium Potassium Chloride Carbon Dioxide Creatinine 0.5 L Glucose 132 H POC Glucose Lactic Acid Calcium AST ALT Total Creatine Kinase Troponin T C-Reactive Protein Total Protein Albumin Ur Specific [place] Urine WBC (Auto) 04/13/17 04/13/17 04/13/17 15:00 15:04 17:16 WBC 12.3 H RBC 3.57 L Hgb 10.5 L Hct 31.6 L Plt Count 117 L Lymph % (Auto) 7.4 L Lymph # 0.9 L [place] # Seg Neutrophils % 86.6 H Seg Neuts % (Manual) Lymphocytes % (Manual) Seg Neutrophils # 10.6 H Seg Neutrophils # Man Lymphocytes # (Manual) Monocytes # (Manual) PT INR APTT D-Dimer POC ABG pH POC ABG pCO2 POC ABG pO2 Sodium 149 H D Potassium Chloride 115.2 H Carbon Dioxide Creatinine 0.5 L Glucose 112 H POC Glucose 107 H Lactic Acid Calcium 7.7 L AST 83 H ALT 103 H Total Creatine Kinase Troponin T C-Reactive Protein Total Protein 4.8 L Albumin 2.4 L Ur Specific [place] Urine WBC (Auto) 04/14/17 04/14/17 04/14/17 03:16 05:38 09:04 WBC RBC Hgb Hct Plt Count Lymph % (Auto) Lymph # [place] # Seg Neutrophils % Seg Neuts % (Manual) Lymphocytes % (Manual) Seg Neutrophils # Seg Neutrophils # Man Lymphocytes # (Manual) Monocytes # (Manual) PT INR APTT D-Dimer POC ABG pH POC ABG pCO2 47.8 H 48.3 H POC ABG pO2 107 H 115 H Sodium Potassium Chloride Carbon Dioxide Creatinine Glucose POC Glucose 110 H Lactic Acid Calcium AST ALT Total Creatine Kinase Troponin T C-Reactive Protein Total Protein Albumin Ur Specific [place] Urine WBC (Auto) Allied health notes reviewed: nursing
--- NOTE | 2017-04-14 15:51 | Consultation ---
History of Present Illness Consult date: 04/14/17 History of present illness: portable EEG orfered to determine recoverability... clinically I do not see much potential Past History Past Medical History: No medical history (Unable to obtaine, patient intubated. [facility] office unable to provide any documentation at this time), other (unable to obtain due to patients mental status ) Past Surgical History: No surgical history Social history: no significant social history Family history: no significant family history Medications and Allergies Allergies Allergy/AdvReac Type Severity Reaction Status Date / Time No Known Allergies Allergy Unverified 06/29/16 06:47 Home Medications Medication Instructions Recorded Confirmed Last Taken Type Gentamicin 0.3% Ophth Soln 2 drops OP Q4H #1 bottle 06/29/16 04/13/17 Unknown Rx Ibuprofen [Motrin] 600 mg PO Q8H PRN #16 tablet 06/29/16 04/13/17 Unknown Rx Sulfamethoxazole/Trimethoprim 1 each PO BID #14 tablet 07/01/16 04/13/17 Unknown Rx [Bactrim DS TAB] Active Meds: Active Medications Acetaminophen (Tylenol) 650 mg PO Q4H PRN PRN Reason: Pain MILD(1-3)/Fever >100.5/MONTOYA Last Admin: 04/10/17 09:24 Dose: 650 mg Albuterol/Ipratropium (Duoneb *Not For Prn Use*) 1 ampul IH Q6HRT [facility] Last Admin: 04/14/17 08:57 Dose: 1 ampul Lipase/Protease/Amylase (Pancreaze Dr 10,500 Unit) 1 each FEEDTUBE PRN PRN PRN Reason: For Clogged Feeding Tube Bisacodyl (Dulcolax) 10 mg WI QDAY PRN PRN Reason: Constipation unrelieved by MOM Dexamethasone (Decadron) 4 mg IV Q12HR [facility] Stop: 04/14/17 23:59 Famotidine (Pepcid) 20 mg PO BID [facility] Last Admin: 04/14/17 10:16 Dose: 20 mg Heparin Sodium (Porcine) (Heparin) 5,000 unit SUB-Q Q12HR [facility] Last Admin: 04/14/17 10:16 Dose: 5,000 unit Hydralazine HCl (Apresoline) 10 mg IV Q4H PRN PRN Reason: hypertension Last Admin: 04/12/17 19:05 Dose: 10 mg Norepinephrine (Levophed Drip 4 Mg/Ns 250 Ml) 4 mg in 250 mls @ 7.5 mls/hr IV TITR [facility]; 2 MCG/MIN PRN Reason: Protocol Last Titration: 04/14/17 10:30 Dose: 3 mcg/min, 11.25 mls/hr Levetiracetam (Keppra) 750 mg PO BID [facility] Last Admin: 04/14/17 10:15 Dose: 750 mg Lorazepam (Ativan) 1 mg IV Q1H PRN PRN Reason: Seizures Metoclopramide HCl (Reglan) 10 mg IV Q8H [facility] Last Admin: 04/14/17 09:15 Dose: 10 mg Metoprolol Tartrate (Lopressor) 5 mg IV Q6HR [facility] Last Admin: 04/14/17 12:58 Dose: Not Given Multi-Ingred Cream/Lotion/Oil/Oint (Artificial Tears Ophth Oint) 1 applic OU PRN PRN PRN Reason: Dry Eye(s) Last Admin: 04/14/17 05:09 Dose: 1 applic Ondansetron HCl (Zofran) 4 mg IV Q8H PRN PRN Reason: N/V unrelieved by Reglan Simple Syrup (Simple Syrup) 15 ml FEEDTUBE PRN PRN PRN Reason: Hypoglycemia Simple Syrup (Simple Syrup) 30 ml FEEDTUBE PRN PRN PRN Reason: Hypoglycemia Sodium Bicarbonate (Sodium Bicarbonate) 325 mg FEEDTUBE PRN PRN PRN Reason: For Clogged Feeding Tube Physical Examination - Vital Signs Vital Signs: Vital Signs Pulse Resp Pulse Ox 93 H 14 100 04/08/17 06:50 04/08/17 06:50 04/08/17 06:50 Results - Laboratory Findings CBC and BMP: 04/13/17 15:00 04/13/17 15:04 Abnormal Lab Findings: Abnormal Labs 04/08/17 04/08/17 04/08/17 07:06 07:06 07:06 WBC 33.2 H RBC Hgb Hct Plt Count Lymph % (Auto) Lymph # [place] # Seg Neutrophils % Seg Neuts % (Manual) Lymphocytes % (Manual) Seg Neutrophils # Seg Neutrophils # Man 13.3 H Lymphocytes # (Manual) 7.6 H Monocytes # (Manual) 1.3 H PT 16.5 H INR 1.27 H APTT 51.7 H D-Dimer POC ABG pH POC ABG pCO2 POC ABG pO2 Sodium Potassium 3.5 L Chloride Carbon Dioxide 15 L Creatinine Glucose 336 H POC Glucose Lactic Acid Calcium 7.2 L AST 265 H ALT 223 H Total Creatine Kinase Troponin T 0.321 H* C-Reactive Protein Total Protein 5.7 L Albumin 3.2 L Ur Specific [place] Urine WBC (Auto) 04/08/17 04/08/17 04/08/17 07:06 07:36 09:22 WBC RBC Hgb Hct Plt Count Lymph % (Auto) Lymph # [place] # Seg Neutrophils % Seg Neuts % (Manual) Lymphocytes % (Manual) Seg Neutrophils # Seg Neutrophils # Man Lymphocytes # (Manual) Monocytes # (Manual) PT INR APTT D-Dimer POC ABG pH 7.105 L POC ABG pCO2 68.1 H POC ABG pO2 256 H Sodium Potassium Chloride Carbon Dioxide Creatinine Glucose POC Glucose 193 H Lactic Acid Calcium AST ALT Total Creatine Kinase 623 H Troponin T C-Reactive Protein Total Protein Albumin Ur Specific [place] Urine WBC (Auto) 04/08/17 04/08/17 04/08/17 10:59 11:13 11:33 WBC RBC Hgb Hct Plt Count Lymph % (Auto) Lymph # [place] # Seg Neutrophils % Seg Neuts % (Manual) Lymphocytes % (Manual) Seg Neutrophils # Seg Neutrophils # Man Lymphocytes # (Manual) Monocytes # (Manual) PT INR APTT D-Dimer POC ABG pH 7.197 L POC ABG pCO2 46.3 H POC ABG pO2 68 L Sodium Potassium Chloride Carbon Dioxide Creatinine Glucose POC Glucose Lactic Acid 9.00 H* Calcium AST ALT Total Creatine Kinase Troponin T 2.380 H* D C-Reactive Protein Total Protein Albumin Ur Specific [place] Urine WBC (Auto) 04/08/17 04/08/17 04/08/17 12:10 12:10 12:10 WBC 21.6 H RBC 5.69 H Hgb 16.1 H Hct 50.4 H D Plt Count Lymph % (Auto) Lymph # [place] # Seg Neutrophils % Seg Neuts % (Manual) 86.0 H Lymphocytes % (Manual) 5.0 L Seg Neutrophils # Seg Neutrophils # Man 18.6 H Lymphocytes # (Manual) 1.1 L Monocytes # (Manual) PT INR APTT D-Dimer POC ABG pH POC ABG pCO2 POC ABG pO2 Sodium Potassium 3.4 L Chloride Carbon Dioxide 21 L Creatinine Glucose 182 H POC Glucose Lactic Acid Calcium 7.5 L AST ALT Total Creatine Kinase Troponin T C-Reactive Protein Total Protein Albumin Ur Specific [place] 1.044 H Urine WBC (Auto) 18.0 H 04/08/17 04/08/17 04/08/17 13:32 15:02 17:56 WBC RBC Hgb Hct Plt Count Lymph % (Auto) Lymph # [place] # Seg Neutrophils % Seg Neuts % (Manual) Lymphocytes % (Manual) Seg Neutrophils # Seg Neutrophils # Man Lymphocytes # (Manual) Monocytes # (Manual) PT INR APTT D-Dimer POC ABG pH 7.287 L POC ABG pCO2 POC ABG pO2 196 H Sodium Potassium Chloride Carbon Dioxide Creatinine Glucose POC Glucose Lactic Acid 7.50 H* Calcium AST ALT Total Creatine Kinase Troponin T 2.330 H* C-Reactive Protein Total Protein Albumin Ur Specific [place] Urine WBC (Auto) 04/08/17 04/08/17 04/09/17 19:51 23:53 03:38 WBC 27.2 H RBC Hgb Hct Plt Count Lymph % (Auto) Lymph # [place] # Seg Neutrophils % Seg Neuts % (Manual) 74.0 H Lymphocytes % (Manual) 8.0 L Seg Neutrophils # Seg Neutrophils # Man 20.1 H Lymphocytes # (Manual) Monocytes # (Manual) 1.4 H PT INR APTT D-Dimer POC ABG pH POC ABG pCO2 POC ABG pO2 Sodium Potassium Chloride Carbon Dioxide Creatinine Glucose POC Glucose 140 H 175 H Lactic Acid Calcium AST ALT Total Creatine Kinase Troponin T C-Reactive Protein Total Protein Albumin Ur Specific [place] Urine WBC (Auto) 04/09/17 04/09/17 04/09/17 03:38 04:17 05:50 WBC RBC Hgb Hct Plt Count Lymph % (Auto) Lymph # [place] # Seg Neutrophils % Seg Neuts % (Manual) Lymphocytes % (Manual) Seg Neutrophils # Seg Neutrophils # Man Lymphocytes # (Manual) Monocytes # (Manual) PT INR APTT D-Dimer POC ABG pH POC ABG pCO2 30.1 L POC ABG pO2 115 H Sodium 136 L Potassium Chloride Carbon Dioxide 18 L Creatinine Glucose 177 H POC Glucose 167 H Lactic Acid Calcium 7.4 L AST ALT Total Creatine Kinase Troponin T C-Reactive Protein Total Protein Albumin Ur Specific [place] Urine WBC (Auto) 04/09/17 04/09/17 04/09/17 07:41 09:52 12:22 WBC RBC Hgb Hct Plt Count Lymph % (Auto) Lymph # [place] # Seg Neutrophils % Seg Neuts % (Manual) Lymphocytes % (Manual) Seg Neutrophils # Seg Neutrophils # Man Lymphocytes # (Manual) Monocytes # (Manual) PT INR APTT D-Dimer POC ABG pH POC ABG pCO2 POC ABG pO2 Sodium Potassium Chloride Carbon Dioxide Creatinine Glucose POC Glucose 113 H Lactic Acid 5.00 H* Calcium AST ALT Total Creatine Kinase Troponin T C-Reactive Protein 12.50 H Total Protein Albumin Ur Specific [place] Urine WBC (Auto) 04/09/17 04/09/17 04/10/17 14:49 15:24 03:50 WBC RBC Hgb Hct Plt Count Lymph % (Auto) Lymph # [place] # Seg Neutrophils % Seg Neuts % (Manual) Lymphocytes % (Manual) Seg Neutrophils # Seg Neutrophils # Man Lymphocytes # (Manual) Monocytes # (Manual) PT INR APTT D-Dimer 4492.30 H POC ABG pH POC ABG pCO2 POC ABG pO2 Sodium Potassium Chloride Carbon Dioxide Creatinine Glucose 128 H POC Glucose Lactic Acid Calcium AST 342 H ALT 152 H Total Creatine Kinase Troponin T C-Reactive Protein 12.60 H Total Protein 6.0 L Albumin 3.1 L Ur Specific [place] Urine WBC (Auto) 04/10/17 04/10/17 04/11/17 03:50 05:32 05:52 WBC 20.1 H RBC Hgb Hct Plt Count 128 L Lymph % (Auto) 5.5 L Lymph # 1.1 L [place] # 1.0 H Seg Neutrophils % 89.5 H Seg Neuts % (Manual) Lymphocytes % (Manual) Seg Neutrophils # 18.0 H Seg Neutrophils # Man Lymphocytes # (Manual) Monocytes # (Manual) PT INR APTT D-Dimer POC ABG pH POC ABG pCO2 POC ABG pO2 149 H 143 H Sodium Potassium Chloride Carbon Dioxide Creatinine Glucose POC Glucose Lactic Acid Calcium AST ALT Total Creatine Kinase Troponin T C-Reactive Protein Total Protein Albumin Ur Specific [place] Urine WBC (Auto) 04/11/17 04/12/17 04/13/17 12:30 03:54 03:27 WBC RBC Hgb Hct Plt Count Lymph % (Auto) Lymph # [place] # Seg Neutrophils % Seg Neuts % (Manual) Lymphocytes % (Manual) Seg Neutrophils # Seg Neutrophils # Man Lymphocytes # (Manual) Monocytes # (Manual) PT INR APTT D-Dimer POC ABG pH 7.463 H 7.597 H POC ABG pCO2 29.5 L POC ABG pO2 117 H Sodium Potassium Chloride Carbon Dioxide Creatinine 0.5 L Glucose 132 H POC Glucose Lactic Acid Calcium AST ALT Total Creatine Kinase Troponin T C-Reactive Protein Total Protein Albumin Ur Specific [place] Urine WBC (Auto) 04/13/17 04/13/17 04/13/17 15:00 15:04 17:16 WBC 12.3 H RBC 3.57 L Hgb 10.5 L Hct 31.6 L Plt Count 117 L Lymph % (Auto) 7.4 L Lymph # 0.9 L [place] # Seg Neutrophils % 86.6 H Seg Neuts % (Manual) Lymphocytes % (Manual) Seg Neutrophils # 10.6 H Seg Neutrophils # Man Lymphocytes # (Manual) Monocytes # (Manual) PT INR APTT D-Dimer POC ABG pH POC ABG pCO2 POC ABG pO2 Sodium 149 H D Potassium Chloride 115.2 H Carbon Dioxide Creatinine 0.5 L Glucose 112 H POC Glucose 107 H Lactic Acid Calcium 7.7 L AST 83 H ALT 103 H Total Creatine Kinase Troponin T C-Reactive Protein Total Protein 4.8 L Albumin 2.4 L Ur Specific [place] Urine WBC (Auto) 04/14/17 04/14/17 04/14/17 03:16 05:38 09:04 WBC RBC Hgb Hct Plt Count Lymph % (Auto) Lymph # [place] # Seg Neutrophils % Seg Neuts % (Manual) Lymphocytes % (Manual) Seg Neutrophils # Seg Neutrophils # Man Lymphocytes # (Manual) Monocytes # (Manual) PT INR APTT D-Dimer POC ABG pH POC ABG pCO2 47.8 H 48.3 H POC ABG pO2 107 H 115 H Sodium Potassium Chloride Carbon Dioxide Creatinine Glucose POC Glucose 110 H Lactic Acid Calcium AST ALT Total Creatine Kinase Troponin T C-Reactive Protein Total Protein Albumin Ur Specific [place] Urine WBC (Auto)
--- NOTE | 2017-04-14 16:32 | Nuclear Medicine Report ---
NUCLEAR MEDICINE BRAIN FLOW STUDY: 04/14/17 CLINICAL: Found unresponsive. Obtunded with loss of reflexes. TECHNIQUE: 20.0 mCi of technetium 99 was injected intravenously. Bilateral hemispheric and carotid artery blood flow were imaged at 4 seconds intervals for a duration of 111 seconds. FINDINGS: Normal blood flow in bilateral carotid arteries of the neck but no detectable brain on serial flow and delayed static images. IMPRESSION: No detectable brain blood flow.
[2017-04-14] MEDS ORDERED: DECADRON IV SCH (22:00)
[2017-04-15] MEDS: DUONEB *Not for PRN Use IH SCH ×3 (01:50→15:13)
[2017-04-15] MEDS: REGLAN IV SCH ×2 (04:00→08:08)
[2017-04-15] MEDS: LOPRESSOR IV SCH ×3 (06:14→13:25)
[2017-04-15] MEDS: KEPPRA PO SCH (10:08)
[2017-04-15] MEDS: PEPCID PO SCH (10:08)
[2017-04-15] MEDS: HEPARIN SUB-Q SCH (10:09)
[2017-04-15] MEDS: LEVOPHED DRIP 4 MG/NS 250 ML 4 MG/250 ML BAG IV SCH (10:14)
--- NOTE | 2017-04-15 10:21 | Progress Note ---
Assessment and Plan Acute Hypoxemic Respiratory Failure S/P Cardiopulmonary Arrest Acute Encephalopathy (Likely anoxic component) Severe Sepsis Seizures Pneumonia (Likely Aspiration) Cardiomyopathy NSTEMI (pupilary reflex almost non existent but still weak gag; i suspect he will pass a brain flow scan but neurologic prognosis is very poor - will discuss with family shortly) - continue reglan re: large residuals - continue trickle feeding at 10mls/hr - continue keppra to control seizure activity - continue with lung protective strategies - VAP bundle addressed - HOB > 40 - will begin weaning trials in am as tolerated without plans for acute extubation - bronch growing beta strep - continue antibiotics and adjust per ID recs - discontinue mannitol at this stage and will taper decadron soon after - continue neurology evaluation - continue GI & VTE prophylaxis - likely shock liver element - discontinued femoral lines - continue other care per attending / other consultants ....he remains critically ill on life sustaining interventions including MVS and at high risk for further deterioration including ...guarded prognosis ...case discussed at length during team rounds and care plan formulated ..... Subjective Date of service: 04/15/17 Principal diagnosis: Acute Hypoxemic respiratory Failure; Sepsis Syndrome Interval history: Patient is seen today for: Acute Hypoxemic respiratory Failure; Sepsis Syndrome Seen and examined at bedside; 24 hour events reviewed; nursing and respiratory care staff consulted; remains on MVS but off vasopressors; AMS is persistent; encephalopathy is persistent; Objective Vital Signs - 12hr 04/14/17 04/14/17 04/14/17 22:30 23:00 23:09 Temperature Pulse Rate 101 H 100 H 100 H Pulse Rate [ Anterior Bilateral Throughout] Pulse Rate [ From Monitor] Respiratory 16 17 17 Rate Respiratory Rate [Anterior Bilateral Throughout] Blood Pressure 104/46 104/52 104/52 O2 Sat by Pulse 95 95 96 Oximetry 04/14/17 04/14/17 04/14/17 23:26 23:30 23:37 Temperature 99.5 F Pulse Rate 100 H 99 H Pulse Rate [ Anterior Bilateral Throughout] Pulse Rate [ From Monitor] Respiratory 17 17 Rate Respiratory Rate [Anterior Bilateral Throughout] Blood Pressure 106/60 106/60 O2 Sat by Pulse 96 97 Oximetry 04/15/17 04/15/17 04/15/17 00:00 00:30 01:00 Temperature Pulse Rate 99 H 99 H 98 H Pulse Rate [ Anterior Bilateral Throughout] Pulse Rate [ From Monitor] Respiratory 17 17 16 Rate Respiratory Rate [Anterior Bilateral Throughout] Blood Pressure 107/62 109/59 106/58 O2 Sat by Pulse 97 97 97 Oximetry 04/15/17 04/15/17 04/15/17 01:30 01:50 02:00 Temperature Pulse Rate 97 H 98 H Pulse Rate [ 97 H 90 Anterior Bilateral Throughout] Pulse Rate [ From Monitor] Respiratory 16 16 Rate Respiratory 16 16 Rate [Anterior Bilateral Throughout] Blood Pressure 102/52 104/54 O2 Sat by Pulse 96 97 Oximetry 04/15/17 04/15/17 04/15/17 02:30 03:00 03:30 Temperature Pulse Rate 97 H 96 H 95 H Pulse Rate [ Anterior Bilateral Throughout] Pulse Rate [ From Monitor] Respiratory 16 16 16 Rate Respiratory Rate [Anterior Bilateral Throughout] Blood Pressure 106/59 102/53 104/50 O2 Sat by Pulse 97 97 97 Oximetry 04/15/17 04/15/17 04/15/17 03:54 04:00 04:30 Temperature 98.5 F Pulse Rate 94 H 94 H Pulse Rate [ Anterior Bilateral Throughout] Pulse Rate [ From Monitor] Respiratory 16 16 Rate Respiratory Rate [Anterior Bilateral Throughout] Blood Pressure 100/53 102/52 O2 Sat by Pulse 97 97 Oximetry 04/15/17 04/15/17 04/15/17 04:32 05:00 05:30 Temperature Pulse Rate 94 H 92 H Pulse Rate [ Anterior Bilateral Throughout] Pulse Rate [ From Monitor] Respiratory 16 16 17 Rate Respiratory Rate [Anterior Bilateral Throughout] Blood Pressure 107/58 105/57 O2 Sat by Pulse 98 97 Oximetry 04/15/17 04/15/17 04/15/17 06:00 06:14 06:16 Temperature Pulse Rate 91 H 91 H 98 H Pulse Rate [ Anterior Bilateral Throughout] Pulse Rate [ From Monitor] Respiratory 16 Rate Respiratory Rate [Anterior Bilateral Throughout] Blood Pressure 103/59 103/59 107/62 O2 Sat by Pulse 98 Oximetry 04/15/17 04/15/17 04/15/17 06:31 07:00 07:31 Temperature Pulse Rate 90 89 88 Pulse Rate [ Anterior Bilateral Throughout] Pulse Rate [ From Monitor] Respiratory 16 16 16 Rate Respiratory Rate [Anterior Bilateral Throughout] Blood Pressure 103/59 100/57 100/57 O2 Sat by Pulse 96 97 95 Oximetry 04/15/17 04/15/17 04/15/17 07:37 07:43 07:55 Temperature Pulse Rate 89 Pulse Rate [ 89 89 Anterior Bilateral Throughout] Pulse Rate [ From Monitor] Respiratory Rate Respiratory 16 16 Rate [Anterior Bilateral Throughout] Blood Pressure 100/57 O2 Sat by Pulse 95 Oximetry 04/15/17 08:00 Temperature Pulse Rate 89 Pulse Rate [ Anterior Bilateral Throughout] Pulse Rate [ 90 From Monitor] Respiratory 16 Rate Respiratory Rate [Anterior Bilateral Throughout] Blood Pressure 107/63 O2 Sat by Pulse 97 Oximetry Constitutional: comatose, other (Intubated;no increased work of breathing) Eyes: non-icteric ENT: oropharynx moist, other (ETT in place) Neck: supple, no JVD, other (no thyromegaly) Effort: normal Ascultation: Bilateral: diminished breath sounds, rhonchi, other (coars BS bilaterally anteriorly) Percussion: Bilateral: not dull Cardiovascular: regular rate and rhythm, other (tachycardia) Gastrointestinal: normoactive bowel sounds, soft, non-tender, non-distended, other (No HSM) Integumentary: normal, other (Right femoral CVC and arterial line) Extremities: no cyanosis, no edema, pulses normal, no ischemia or petechiae Neurologic: pupils equal and round (6-7mm really no good response noted), unable to assess, other (weak gag reflex) Psychiatric: other (unable to assess) CBC and BMP: 04/13/17 15:00 04/13/17 15:04 ABG, PT/INR, D-dimer: ABG POC ABG pH 7.449 (7.35-7.45) 04/14/17 09:04 POC ABG pCO2 48.3 (35-45) H 04/14/17 09:04 POC ABG pO2 115 (80-105) H 04/14/17 09:04 POC ABG HCO3 33.5 04/14/17 09:04 POC ABG Total CO2 35 04/14/17 09:04 POC ABG O2 Sat 99 04/14/17 09:04 PT/INR, D-dimer PT 16.5 Sec. (12.2-14.9) H 04/08/17 07:06 INR 1.27 (0.87-1.13) H 04/08/17 07:06 D-Dimer 4492.30 ng/mlDDU (0-234) H 04/09/17 14:49 Abnormal lab findings: Abnormal Labs 04/08/17 04/08/17 04/08/17 07:06 07:06 07:06 WBC 33.2 H RBC Hgb Hct Plt Count Lymph % (Auto) Lymph # [place] # Seg Neutrophils % Seg Neuts % (Manual) Lymphocytes % (Manual) Seg Neutrophils # Seg Neutrophils # Man 13.3 H Lymphocytes # (Manual) 7.6 H Monocytes # (Manual) 1.3 H PT 16.5 H INR 1.27 H APTT 51.7 H D-Dimer POC ABG pH POC ABG pCO2 POC ABG pO2 Sodium Potassium 3.5 L Chloride Carbon Dioxide 15 L Creatinine Glucose 336 H POC Glucose Lactic Acid Calcium 7.2 L AST 265 H ALT 223 H Total Creatine Kinase Troponin T 0.321 H* C-Reactive Protein Total Protein 5.7 L Albumin 3.2 L Ur Specific [place] Urine WBC (Auto) 04/08/17 04/08/17 04/08/17 07:06 07:36 09:22 WBC RBC Hgb Hct Plt Count Lymph % (Auto) Lymph # [place] # Seg Neutrophils % Seg Neuts % (Manual) Lymphocytes % (Manual) Seg Neutrophils # Seg Neutrophils # Man Lymphocytes # (Manual) Monocytes # (Manual) PT INR APTT D-Dimer POC ABG pH 7.105 L POC ABG pCO2 68.1 H POC ABG pO2 256 H Sodium Potassium Chloride Carbon Dioxide Creatinine Glucose POC Glucose 193 H Lactic Acid Calcium AST ALT Total Creatine Kinase 623 H Troponin T C-Reactive Protein Total Protein Albumin Ur Specific [place] Urine WBC (Auto) 04/08/17 04/08/17 04/08/17 10:59 11:13 11:33 WBC RBC Hgb Hct Plt Count Lymph % (Auto) Lymph # [place] # Seg Neutrophils % Seg Neuts % (Manual) Lymphocytes % (Manual) Seg Neutrophils # Seg Neutrophils # Man Lymphocytes # (Manual) Monocytes # (Manual) PT INR APTT D-Dimer POC ABG pH 7.197 L POC ABG pCO2 46.3 H POC ABG pO2 68 L Sodium Potassium Chloride Carbon Dioxide Creatinine Glucose POC Glucose Lactic Acid 9.00 H* Calcium AST ALT Total Creatine Kinase Troponin T 2.380 H* D C-Reactive Protein Total Protein Albumin Ur Specific [place] Urine WBC (Auto) 04/08/17 04/08/17 04/08/17 12:10 12:10 12:10 WBC 21.6 H RBC 5.69 H Hgb 16.1 H Hct 50.4 H D Plt Count Lymph % (Auto) Lymph # [place] # Seg Neutrophils % Seg Neuts % (Manual) 86.0 H Lymphocytes % (Manual) 5.0 L Seg Neutrophils # Seg Neutrophils # Man 18.6 H Lymphocytes # (Manual) 1.1 L Monocytes # (Manual) PT INR APTT D-Dimer POC ABG pH POC ABG pCO2 POC ABG pO2 Sodium Potassium 3.4 L Chloride Carbon Dioxide 21 L Creatinine Glucose 182 H POC Glucose Lactic Acid Calcium 7.5 L AST ALT Total Creatine Kinase Troponin T C-Reactive Protein Total Protein Albumin Ur Specific [place] 1.044 H Urine WBC (Auto) 18.0 H 04/08/17 04/08/17 04/08/17 13:32 15:02 17:56 WBC RBC Hgb Hct Plt Count Lymph % (Auto) Lymph # [place] # Seg Neutrophils % Seg Neuts % (Manual) Lymphocytes % (Manual) Seg Neutrophils # Seg Neutrophils # Man Lymphocytes # (Manual) Monocytes # (Manual) PT INR APTT D-Dimer POC ABG pH 7.287 L POC ABG pCO2 POC ABG pO2 196 H Sodium Potassium Chloride Carbon Dioxide Creatinine Glucose POC Glucose Lactic Acid 7.50 H* Calcium AST ALT Total Creatine Kinase Troponin T 2.330 H* C-Reactive Protein Total Protein Albumin Ur Specific [place] Urine WBC (Auto) 04/08/17 04/08/17 04/09/17 19:51 23:53 03:38 WBC 27.2 H RBC Hgb Hct Plt Count Lymph % (Auto) Lymph # [place] # Seg Neutrophils % Seg Neuts % (Manual) 74.0 H Lymphocytes % (Manual) 8.0 L Seg Neutrophils # Seg Neutrophils # Man 20.1 H Lymphocytes # (Manual) Monocytes # (Manual) 1.4 H PT INR APTT D-Dimer POC ABG pH POC ABG pCO2 POC ABG pO2 Sodium Potassium Chloride Carbon Dioxide Creatinine Glucose POC Glucose 140 H 175 H Lactic Acid Calcium AST ALT Total Creatine Kinase Troponin T C-Reactive Protein Total Protein Albumin Ur Specific [place] Urine WBC (Auto) 04/09/17 04/09/17 04/09/17 03:38 04:17 05:50 WBC RBC Hgb Hct Plt Count Lymph % (Auto) Lymph # [place] # Seg Neutrophils % Seg Neuts % (Manual) Lymphocytes % (Manual) Seg Neutrophils # Seg Neutrophils # Man Lymphocytes # (Manual) Monocytes # (Manual) PT INR APTT D-Dimer POC ABG pH POC ABG pCO2 30.1 L POC ABG pO2 115 H Sodium 136 L Potassium Chloride Carbon Dioxide 18 L Creatinine Glucose 177 H POC Glucose 167 H Lactic Acid Calcium 7.4 L AST ALT Total Creatine Kinase Troponin T C-Reactive Protein Total Protein Albumin Ur Specific [place] Urine WBC (Auto) 04/09/17 04/09/17 04/09/17 07:41 09:52 12:22 WBC RBC Hgb Hct Plt Count Lymph % (Auto) Lymph # [place] # Seg Neutrophils % Seg Neuts % (Manual) Lymphocytes % (Manual) Seg Neutrophils # Seg Neutrophils # Man Lymphocytes # (Manual) Monocytes # (Manual) PT INR APTT D-Dimer POC ABG pH POC ABG pCO2 POC ABG pO2 Sodium Potassium Chloride Carbon Dioxide Creatinine Glucose POC Glucose 113 H Lactic Acid 5.00 H* Calcium AST ALT Total Creatine Kinase Troponin T C-Reactive Protein 12.50 H Total Protein Albumin Ur Specific [place] Urine WBC (Auto) 04/09/17 04/09/17 04/10/17 14:49 15:24 03:50 WBC RBC Hgb Hct Plt Count Lymph % (Auto) Lymph # [place] # Seg Neutrophils % Seg Neuts % (Manual) Lymphocytes % (Manual) Seg Neutrophils # Seg Neutrophils # Man Lymphocytes # (Manual) Monocytes # (Manual) PT INR APTT D-Dimer 4492.30 H POC ABG pH POC ABG pCO2 POC ABG pO2 Sodium Potassium Chloride Carbon Dioxide Creatinine Glucose 128 H POC Glucose Lactic Acid Calcium AST 342 H ALT 152 H Total Creatine Kinase Troponin T C-Reactive Protein 12.60 H Total Protein 6.0 L Albumin 3.1 L Ur Specific [place] Urine WBC (Auto) 04/10/17 04/10/17 04/11/17 03:50 05:32 05:52 WBC 20.1 H RBC Hgb Hct Plt Count 128 L Lymph % (Auto) 5.5 L Lymph # 1.1 L [place] # 1.0 H Seg Neutrophils % 89.5 H Seg Neuts % (Manual) Lymphocytes % (Manual) Seg Neutrophils # 18.0 H Seg Neutrophils # Man Lymphocytes # (Manual) Monocytes # (Manual) PT INR APTT D-Dimer POC ABG pH POC ABG pCO2 POC ABG pO2 149 H 143 H Sodium Potassium Chloride Carbon Dioxide Creatinine Glucose POC Glucose Lactic Acid Calcium AST ALT Total Creatine Kinase Troponin T C-Reactive Protein Total Protein Albumin Ur Specific [place] Urine WBC (Auto) 04/11/17 04/12/17 04/13/17 12:30 03:54 03:27 WBC RBC Hgb Hct Plt Count Lymph % (Auto) Lymph # [place] # Seg Neutrophils % Seg Neuts % (Manual) Lymphocytes % (Manual) Seg Neutrophils # Seg Neutrophils # Man Lymphocytes # (Manual) Monocytes # (Manual) PT INR APTT D-Dimer POC ABG pH 7.463 H 7.597 H POC ABG pCO2 29.5 L POC ABG pO2 117 H Sodium Potassium Chloride Carbon Dioxide Creatinine 0.5 L Glucose 132 H POC Glucose Lactic Acid Calcium AST ALT Total Creatine Kinase Troponin T C-Reactive Protein Total Protein Albumin Ur Specific [place] Urine WBC (Auto) 04/13/17 04/13/17 04/13/17 15:00 15:04 17:16 WBC 12.3 H RBC 3.57 L Hgb 10.5 L Hct 31.6 L Plt Count 117 L Lymph % (Auto) 7.4 L Lymph # 0.9 L [place] # Seg Neutrophils % 86.6 H Seg Neuts % (Manual) Lymphocytes % (Manual) Seg Neutrophils # 10.6 H Seg Neutrophils # Man Lymphocytes # (Manual) Monocytes # (Manual) PT INR APTT D-Dimer POC ABG pH POC ABG pCO2 POC ABG pO2 Sodium 149 H D Potassium Chloride 115.2 H Carbon Dioxide Creatinine 0.5 L Glucose 112 H POC Glucose 107 H Lactic Acid Calcium 7.7 L AST 83 H ALT 103 H Total Creatine Kinase Troponin T C-Reactive Protein Total Protein 4.8 L Albumin 2.4 L Ur Specific [place] Urine WBC (Auto) 04/14/17 04/14/17 04/14/17 03:16 05:38 09:04 WBC RBC Hgb Hct Plt Count Lymph % (Auto) Lymph # [place] # Seg Neutrophils % Seg Neuts % (Manual) Lymphocytes % (Manual) Seg Neutrophils # Seg Neutrophils # Man Lymphocytes # (Manual) Monocytes # (Manual) PT INR APTT D-Dimer POC ABG pH POC ABG pCO2 47.8 H 48.3 H POC ABG pO2 107 H 115 H Sodium Potassium Chloride Carbon Dioxide Creatinine Glucose POC Glucose 110 H Lactic Acid Calcium AST ALT Total Creatine Kinase Troponin T C-Reactive Protein Total Protein Albumin Ur Specific [place] Urine WBC (Auto) Allied health notes reviewed: nursing
--- NOTE | 2017-04-15 11:01 | Death Note ---
Note Date of : 04/15/17 Time of : 11:01 Time Pronounced: 11:01 (No signs of life, no brain stem reflexes, NM Brain flow study confirms brain )
--- NOTE | 2017-04-15 12:03 | Progress Note ---
Assessment and Plan Brain flow scan with no detectable brain blood flow. Pt declared brain per primary. Nothing further to add from cardiac perspective at this time. Will follow on as needed basis. The patient has been seen in conjunction with Dr. Silva who agrees with the assessment and plan of care. - Patient Problems (1) Cardiac arrest Current Visit: Yes Status: Acute (2) Acute respiratory failure Current Visit: Yes Status: Acute (3) Shock Current Visit: Yes Status: Acute (4) Abnormal EKG Current Visit: Yes Status: Acute (5) Elevated liver enzymes Current Visit: Yes Status: Acute (6) Seizures Current Visit: Yes Status: Acute (7) Anoxic encephalopathy Current Visit: Yes Status: Acute (8) Normal coronary arteries Current Visit: Yes Status: Chronic (9) Cardiomyopathy Current Visit: Yes Status: Acute (10) Non-ST elevation NC (NSTEMI) Current Visit: Yes Status: Acute Subjective Date of service: 04/15/17 Principal diagnosis: Acute Hypoxemic respiratory Failure; Sepsis Syndrome Interval history: pt remains intubated, off sedation, unresponsive. SR on tele, requiring levophed. Objective Last Vital Signs Temp 97.6 F 04/15/17 08:00 Pulse 86 04/15/17 11:00 Resp 16 04/15/17 11:00 BP 90/41 04/15/17 11:00 Pulse Ox 93 04/15/17 11:00 - Physical Examination General: Other (intubated, unresponsive) HEENT: Positive: Other (pupils dilated, fixed) Neck: Positive: trachea midline Cardiac: Positive: Reg Rate and Rhythm, S1/S2 Lungs: Positive: Decreased Breath Sounds, Ventilated Respirations Neuro: Positive: Other (unresponsive) Abdomen: Positive: Soft Skin: Positive: Clear. Negative: Rash, Wound Musculoskeletal: No Fluid Collection, No Pain Extremities: Absent: edema - Imaging and Cardiology EKG: report reviewed, image reviewed Echo: report reviewed Cardiac cath: report reviewed - Telemetry EKG Rhythm: Sinus Rhythm - Allied health notes Allied health notes reviewed: nursing
[2017-04-15 13:26] VITALS: BP 90/47
--- NOTE | 2017-04-15 14:46 | Death Summary ---
Summary - Providers Consults: 04/08/17 08:18 Consult to Physician [CONS] Stat Consulting Provider: EBONIE LAKE Reason For Exam: critical admission Place consult to:: mehul directly Notified:: yes 04/08/17 09:04 Consult to Cardiac Rehabilitation [CONS] Routine Reason For Exam: Cardiac Rehab Evaluation 04/08/17 10:36 Consult to Physician [CONS] Routine Consulting Provider: ANGELA RODRIGUEZ Reason For Exam: status epilepticus Place consult to:: Neurology Notified:: yes 04/08/17 13:10 Consult to Dietitian/Nutrition [CONS] Routine Physician Instructions: Reason For Exam: Reason for Consult: Write/Manage Tube Feeding 04/09/17 10:00 PICC Line Insertion [Consult to PICC Line RN] [CONS] Urgent Reason For Exam: picc placement Type Line:: PICC 04/09/17 10:11 Consult to Physician [CONS] Routine Consulting Provider: LIZZ KEY Reason For Exam: sepsis Place consult to:: Dr. Fink Notified:: Yes Comment:: Dr. Fink saw the patient on 04/09/17 04/11/17 15:51 Consult to Physician [CONS] Routine Consulting Provider: SILVESTRE GONZALEZ I Reason For Exam: trache and peg needed Place consult to:: Steven Notified:: yes Phone number called:: [phone] Was contact made?: Yes If yes, spoke with:: Steven Time called:: 07:55 Attending: ALLIE ZHANG MD - summary Date of admission: 04/08/17 09:34 Date of : 04/15/17 Significant findings: Patient is a 21 years old male with no known significant past medical history who was in [facility] His cellmates called for help after apparently finding him to be pulseless and unconscious. He cellmates today doing CPR, EMS then came and perform more CPR. Patient was pulseless, found to be in V. tach and was shocked up to 19 times. He regained his pulse shortly before arriving to the hospital. He was intubated and required pressors for blood pressure support. The patient went on to have cardiac cath which was negative for ischemia. He remained dependent on the ventilator for acute respiratory failure. He received antibiotics for aspiration pneumonia and sepsis and pressor support for septic shock. Even though his troponin was elevated, given negative cath, it was thought to be due to demand ischemia, type II [place]. His electric to replace. He received mannitol and steroids for intracerebral and ocular edema. He was found to have anoxic brain seizures, therefore he was started on antiseizure medications. Despite aggressive treatments his mentation did not improve, he remained in a deep coma. Over time he lost all brain stem reflexes, was found to be hypothermic. Clinically he was pronounced brain . He went on to have a nuclear medicine brain flow scan which confirmed brain . Diagnosis Anoxic brain injury Acute hypoxic and hypercapnic respiratory failure on mechanical ventilator greater than 96 hours Cerebral and ocular edema Acute Metabolic Encephalopathy/Persistent vegetative state Status Epilepticus Severe Sepsis/septic shock /Aspiration PNA Lactic acid acidosis Mild Malnutrition elevation Troponin due to Type 2 [place]- Demand Ischemia Ventricular tachycardia Hypokalemia
== END 2017-04-15 18:42 | DRG 853 ==
LOC: ED 06:48 → EEVIPCON 06:48 → CATH 08:36 → CC1 09:34
PROVIDERS: ADMIT Internal Medicine; ATTEND Internal Medicine
PROC: 4A023N7 Measurement of Cardiac Sampling and Pressure, Left Heart, Percutaneous Approach (ICD-10-PCS; principal; 2017-04-08)
PROC: 0B9K8ZX Drainage of Right Lung, Via Natural or Artificial Opening Endoscopic, Diagnostic (ICD-10-PCS; 2017-04-08)
PROC: B215YZZ Fluoroscopy of Left Heart using Other Contrast (ICD-10-PCS; 2017-04-08)
PROC: 5A1955Z Respiratory Ventilation, Greater than 96 Consecutive Hours (ICD-10-PCS; 2017-04-08)
PROC: 0BH18EZ Insertion of Endotracheal Airway into Trachea, Via Natural or Artificial Opening Endoscopic (ICD-10-PCS; 2017-04-08)
PROC: 4A033R1 Measurement of Arterial Saturation, Peripheral, Percutaneous Approach (ICD-10-PCS; 2017-04-08)
PROC: 5A12012 Performance of Cardiac Output, Single, Manual (ICD-10-PCS; 2017-04-08)
DX: A41.9 Sepsis, unspecified organism (principal); J69.0 Pneumonitis due to inhalation of food and vomit; J96.01 Acute respiratory failure with hypoxia; G93.41 Metabolic encephalopathy; R65.21 Severe sepsis with septic shock; J96.02 Acute respiratory failure with hypercapnia; G93.6 Cerebral edema; I21.A1 Myocardial infarction type 2; R04.89 Hemorrhage from other sites in respiratory passages; G40.801 Other epilepsy, not intractable, with status epilepticus; E44.1 Mild protein-calorie malnutrition; I42.9 Cardiomyopathy, unspecified; G93.1 Anoxic brain damage, not elsewhere classified; I46.9 Cardiac arrest, cause unspecified; F17.200 Nicotine dependence, unspecified, uncomplicated; G40.901 Epilepsy, unspecified, not intractable, with status epilepticus; Z68.22 Body mass index [BMI] 22.0-22.9, adult; E87.6 Hypokalemia
CPT/HCPCS: 36415; 36556; 36600; 70450; 71010; 72040; 74000; 78601; 80048; 80053; 80061; 80202; 80307; 81001; 82140; 82550; 82803; 82962; 83930; 84484; 85007; 85025; 85379; 85610; 85730; 86140; 86850; 86900; 86901; 87040; 87070; 87086; 87102; 87116; 87205; 87220; 87806; 93005; 93010; 93306; 93458; 94002; 94003; 94640; 95819; 96374; A9512; C1751; C1894; J0171; J0360; J1100; J1265; J1644; J1953; J2060; J2150; J2270; J2543; J2704; J2765; J3370; J3480; J7030; J7040; J7070; Q2009; Q9967